=== PATIENT | female | born 1950 | race Caucasian/White ===

== ENCOUNTER 2021-12-29 14:07 | Emergency (ER) | payer MEDICARE, OTHER, SELFPAY ==
[2021-12-29 14:08] VITALS: BP 134/86; PULSE 83; RESP 18; TEMP 2.6; TEMP 36.7; O2SAT 92; BMI 27.8
[2021-12-29 15:19] VITALS: O2SAT 96
--- NOTE | 2021-12-29 15:31 | EDS_ITS ---
HPI History of Present Illness Chief Complaint: Shortness of Breath Informant: patient Onset/Context/Timing Onset: Days (5) Context: Gradual Onset Timing: Continuous Quality: malaise, cough, myalgias Current Severity: Moderate Maximum Severity: Moderate Worsened by: exertion Relieved by: rest Associated Symptoms Associated Symptoms ED: cough Narrative Narrative: Patient started having COVID symptoms, she is currently on day #5. She tested positive at home with a rapid test last night. She was vaccinated. She has history of heart disease, the last time she had was years ago, she is still on aspirin and clopidogrel. She denies any recent injury or any other illness. No travel out of the area. [facility] Medical History (Updated 12/29/21 @ 15:[address] Hilario Butler MD) Anxiety CAD (coronary artery disease) Depression GERD (gastroesophageal reflux disease) Hyperlipidemia Home Medications aspirin 325 mg PO DAILY@0800 06/20/13 [History Last Taken Unknown] atorvastatin 40 mg PO QHS 06/20/13 [History Last Taken Unknown] clopidogrel 75 mg PO DAILY 06/20/13 [History Last Taken Unknown] duloxetine 60 mg PO DAILY 06/20/13 [History Last Taken Unknown] esomeprazole magnesium [Nexium] 20 mg PO DAILY 06/20/13 [History Last Taken Unknown] metoprolol tartrate 25 mg PO DAILY 06/20/13 [History Last Taken Unknown] buspirone 15 mg PO BID PRN #0 tab 12/29/21 [Rx Last Taken Unknown] nirmatrelvir-ritonavir [Paxlovid (EUA)] See Rx Instructions .ROUTE .COMPLEX #30 tab 12/29/21 [Rx Last Taken Unknown] Allergy/AdvReac Type Severity Reaction Status Date / Time amoxicillin trihydrate Allergy Unknown Verified 12/29/21 14:14 [From Augmentin] potassium clavulanate Allergy Unknown Verified 12/29/21 14:14 [From Augmentin] bupropion HCl AdvReac Other Verified 12/29/21 14:14 [From Wellbutrin] Surgical History (Updated 12/29/21 @ 15:[address] Hilario Butler MD) H/O heart artery stent Social History Smoking Status: Current every day smoker tobacco type: cigarettes ROS ROS ED Constitutional Constitutional ED: Reports body ache(s), fatigue, fever(s) and malaise; Denies chills or headache(s) Eyes Eyes: Denies change in vision or diplopia ENT ENT ED: Reports nasal congestion and rhinorrhea; Denies sore throat Cardiovascular Cardiovascular: Denies chest pain or palpitations Respiratory/Chest Respiratory/Chest: Reports cough and dyspnea on exertion Gastrointestinal Gastrointestinal: Reports diarrhea; Denies abdominal pain, nausea or vomiting Genitourinary Genitourinary ED: Denies dysuria or hematuria Musculoskeletal Musculoskeletal: Denies back pain or neck pain Integumentary Denies abscess or rash Neurologic Neurologic: Denies headache(s), paresthesias or weakness Psychiatric Psychiatric: Denies anxiety or suicidal thoughts EXAM Physical Exam Const Vital Signs: 12/29/21 14:08 12/29/21 15:19 12/29/21 15:20 Temperature 36.7 F L Temperature Source Oral Pulse Rate 83 Respiratory Rate 18 Respiratory Effort Normal Non-Labored Respiratory Pattern Normal Blood Pressure 134/86 H Blood Pressure Mean 102 Pulse Ox 92 96 Oxygen Delivery Method Room Air Room Air Positive well nourished and well developed Constitutional Narrative: Well-appearing, no distress General Appearance ED: well developed and NAD HEENT Reports moist mucous membranes normocephalic and atraumatic Eyes PERRL and EOMs intact bilaterally Neck full ROM and supple Resp normal respiratory effort and clear to auscultation bilaterally Cardio regular rate, regular rhythm and no murmurs Rate: Negative for tachycardic GI non-tender and non-distended Auscultation: normoactive bowel sounds Palpation: soft Back/Spine no CVA tenderness General Back: other FROM Extremity normal to inspection and no calf tenderness General Extremety ED: Negative for edema, pulses abnormal or tenderness General Extremity: Negative for edema or pulses abnormal Neuro oriented x3, CN's II-XII intact bilaterally and no sensory deficits noted Sensorium / Orientation: awake and alert Motor Exam: strength 5/5 throughout Skin no rashes or lesions noted and no wounds MDM MDM MDM Narrative Medical decision making narrative: Confirmed positive COVID with a rapid test here so that we could get her medication under EUA. She qualifies for Paxil of it, and I made the appropriate medication adjustments. Her last stent was years ago so it would be safe for her to stop clopidogrel for 5 days. Her pulse ox here has mostly been 96-99% on room air. She has very mild dyspnea with exertion, she is not tachycardic, has no signs of a DVT. Do not think she needs to be tested for PE right now, chest x-ray whether it showed some mild patchy infiltrate or not would not change the course of treatment at this time which is supportive care at home with Paxlovid, with pt watching her pulse ox. She is comfortable w/ this plan. Discharge Plan Triage Chief Complaint: Shortness of Breath Other Complaint: Weakness ED Provider: Hilario Butler Dx/Rx/DC Orders Clinical Impression: COVID-19 Instructions: Coronavirus Disease 2019 (COVID-19): Caring for Yourself or Others Prescriptions: New Paxlovid (EUA) 150 mg x 2- 100 mg tablet See Rx Instructions .ROUTE .COMPLEX Qty: 30 RF: 0 Continued aspirin 325 MG tablet 325 mg PO DAILY@0800 RF: 0 esomeprazole magnesium [Nexium] 20 MG capsule 20 mg PO DAILY RF: 0 metoprolol tartrate 25 MG tablet 25 mg PO DAILY RF: 0 duloxetine 60 MG capsule 60 mg PO DAILY RF: 0 Changed buspirone 30 MG tablet 15 mg PO BID PRN (Reason: Anxiety) Qty: 0 RF: 0 Held atorvastatin 40 MG tablet 40 mg PO QHS RF: 0 Hold Instructions: Resume on 01/03/22. stop while on Paxlovid clopidogrel 75 MG tablet 75 mg PO DAILY RF: 0 Hold Instructions: Resume on 01/03/22. stop while on Paxlovid Discontinued hydrocodone-acetaminophen 1 TABLET tablet 1 tab PO Q6H PRN PRN (Reason: Pain) Qty: 20 RF: 0 nystatin 500,000 UNIT/5 ML suspension 500,000 unit PO 4X/DAY Qty: 300 RF: 0 fluconazole [Diflucan] 150 MG tablet 150 mg PO DAILY Qty: 2 RF: 0 Primary Care Provider: Marcella Fournier Referrals: Marcella Fournier MD [Primary Care Provider] - As Needed Activity Restrictions/Additional Instructions: Try to get a home portable pulse oximeter and closely watch your oxygen levels periodically. If you stay below 90% for more than a minute or so, and/or you are feeling like your breathing is getting worse, return to the emergency department for further evaluation. Disposition Disposition: Home, Self Care
[2021-12-29 17:04] VITALS: PULSE 86; O2SAT 97
== END 2021-12-29 17:38 | disposition home or self-care (01) ==
PROVIDERS: Emergency Provider Emergency Medicine; PCP Internal Medicine; Visit Provider Emergency Medicine
DX: U07.1 COVID-19 (principal); F17.210 Nicotine dependence, cigarettes, uncomplicated; I25.10 Atherosclerotic heart disease of native coronary artery without angina pectoris; Z95.5 Presence of coronary angioplasty implant and graft
CPT/HCPCS: 87811; 99282

== ENCOUNTER 2022-01-04 01:18 | Emergency (ER) | payer MEDICARE, OTHER, SELFPAY ==
[2022-01-04 01:19] VITALS: BP 164/74; PULSE 60; RESP 12; TEMP 36.5; O2SAT 97; BMI 27.4
--- NOTE | 2022-01-04 03:08 | RAD_ITS ---
EXAM: XR CHEST, 1 VIEW CLINICAL INDICATION: Confusion TECHNIQUE: Frontal view of the chest. This report was created using [employer] report generation technology. COMPARISON: 04/27/2017. FINDINGS: LUNGS AND PLEURAL SPACES: Subsegmental atelectasis left base. No pneumothorax. No effusion. HEART: Unremarkable. Cardiac silhouette not enlarged. MEDIASTINUM: Central airways and mediastinal contour are unremarkable. BONES/JOINTS: Moderate dextroscoliosis of the thoracic spine unchanged since previous exam. SOFT TISSUES: Unremarkable. RAD/Chest 1 View (Portable) IMPRESSION: 1. Subsegmental atelectasis left base. 2. No acute cardiopulmonary abnormality. Electronically Signed: Kolton Orozco MD at 3:46 EDT ,
--- NOTE | 2022-01-04 03:08 | CT_ITS ---
EXAM: CT HEAD WITHOUT INTRAVENOUS CONTRAST CLINICAL INDICATION: Confusion TECHNIQUE: Multiple axial images were obtained of the head without intravenous contrast. This CT exam was performed using one or more of the following dose reduction techniques: automated exposure control, adjustment of the mA and/or kV according to patient size, and/or use of iterative reconstruction technique. This report was created using [employer] report generation technology. RADIATION DOSE: CTDIvol = 44.99 mGy, DLP = 812.98 mGy-cm. COMPARISON: None. FINDINGS: BRAIN AND EXTRA-AXIAL SPACES: Mild generalized atrophy. Mild low density bilaterally in the deep white matter. No intra- or extra-axial hemorrhage. No evidence of acute infarct. No intracranial mass or mass effect. There is preservation of the magana/white matter interface. Posterior fossa structures are unremarkable. No hydrocephalus. Basal cisterns are patent. BONES/JOINTS: Unremarkable. No discrete lytic or blastic abnormalities. SINUSES: Unremarkable as visualized. Clear. MASTOID AIR CELLS: Unremarkable. Clear. ORBITS: Visualized globes, extraocular muscles, optic nerves and retrobulbar fat appear unremarkable. CT/Brain/Head without Contrast IMPRESSION: Mild generalized atrophy. Mild low density bilaterally in the deep white matter. This likely represents small vessel ischemic changes in the deep white matter. Electronically Signed: Kolton Orozco MD at 4:38 EDT ,
[2022-01-04 03:27] LABS: Absolute Lymphocyte Count 1.36 X10^3/uL (0.83-4.51); Absolute Neutrophil Count 2.9 X10^3/uL (2.0-7.7); Basophil# 0.03 X10^3/uL; Basophil% 0.6 % (0-1); Eosinophil# 0.24 X10^3/uL; Eosinophils% 4.8 % (0-5); Hematocrit 38.9 % (37-47); Hemoglobin 13.3 g/dL (12.0-15.0); Lymphocyte # 1.36 X10^3/ul (0.83-4.51); Lymphocyte % 26.9 % (19-41); Mean Corp Hgb Conc 34.2 g/dL (32-36); Mean Corpuscular Hgb 28.4 pg (27.0-32.0); Mean Corpuscular Volume 83.1 fL (81-99); Mean Platelet Vol. 10.3 fl (6.2-12.0); Monocyte# 0.48 X10^3/uL; Monocyte% 9.5 % (0-10); NRBC Flagged by Analyzer 0 % (0-5); Neutrophil # 2.91 X10^3/uL (2.7-7.7); Neutrophil % 57.6 % (47-70); Platelet Count 221 K/mm3 (150-450); RBC Distribution Width CV 14.5 % (11.6-14.6); RBC Distribution Width SD 43.8 fl (35.1-43.9); Red Blood Count 4.68 M/mm3 (4.2-5.4); White Blood Count 5.1 K/mm3 (4.4-11.0)
[2022-01-04 03:36] LABS: Prothrombin Time (Protime)PT. 12.4 SECONDS (11.7-14.9)
[2022-01-04 03:37] LABS: Partial Thromboplast Time 27.6 Seconds (24.1-36.2)
--- NOTE | 2022-01-04 03:41 | EDS_ITS ---
HPI History of Present Illness Chief Complaint: Alt LOC Informant: patient Onset/Context/Timing Onset: Today Context: Gradual Onset Timing: Continuous Quality: Confused Location: Generalized Worsened by: Nothing Relieved by: Nothing Narrative Narrative: Patient presents with episode of confusion that began tonight. Patient was driving and stopped her vehicle when she became confused. EMS states that the patient was having a blank stare upon their arrival. Patient t ested positive for COVID-19 approximately 6 days ago. Patient admits to some chills and sweats. Patient states she has been having some nausea, vomiting, and diarrhea. Patient denies any cough or shortness of breath. Patient denies any chest pain. Patient denies any dysuria or hematuria. [facility] Medical History Anxiety CAD (coronary artery disease) Depression GERD (gastroesophageal reflux disease) Hyperlipidemia Home Medications aspirin 325 mg PO DAILY@0800 06/20/13 [History Last Taken Unknown] atorvastatin 40 mg PO QHS 06/20/13 [History Last Taken Unknown] clopidogrel 75 mg PO DAILY 06/20/13 [History Last Taken Unknown] duloxetine 60 mg PO DAILY 06/20/13 [History Last Taken Unknown] esomeprazole magnesium [Nexium] 20 mg PO DAILY 06/20/13 [History Last Taken Unknown] metoprolol tartrate 25 mg PO DAILY 06/20/13 [History Last Taken Unknown] buspirone 15 mg PO BID PRN #0 tab 12/29/21 [Rx Last Taken Unknown] nirmatrelvir-ritonavir [Paxlovid (EUA)] See Rx Instructions .ROUTE .COMPLEX #30 tab 12/29/21 [Rx Last Taken Unknown] cephalexin 500 mg PO Q6 #20 capsule 01/04/22 [Rx Last Taken Unknown] Allergy/AdvReac Type Severity Reaction Status Date / Time amoxicillin trihydrate Allergy Unknown Verified 12/29/21 14:14 [From Augmentin] potassium clavulanate Allergy Unknown Verified 12/29/21 14:14 [From Augmentin] bupropion HCl AdvReac Other Verified 12/29/21 14:14 [From Wellbutrin] Surgical History H/O heart artery stent Social History Smoking Status: Current every day smoker tobacco type: cigarettes ROS ROS ED Constitutional Constitutional ED: Reports chills and sweats; Denies fever(s) Eyes Eyes: Denies blurry vision or change in vision ENT ENT ED: Denies rhinorrhea or sore throat Cardiovascular Cardiovascular: Denies chest pain or palpitations Respiratory/Chest Respiratory/Chest: Denies cough or dyspnea Gastrointestinal Gastrointestinal: Reports diarrhea, nausea and vomiting Genitourinary Genitourinary ED: Denies dysuria or hematuria Musculoskeletal Musculoskeletal: Reports back pain; Denies neck pain Integumentary Denies abscess or rash Neurologic Neurologic: Reports headache(s); Denies weakness Allergic/Immunologic Allergic/Immunologic ED: Denies mouth swelling or urticaria EXAM Physical Exam Const Vital Signs: 01/04/22 01:19 01/04/22 03:44 Temperature 97.7 F L Temperature Source Temporal Pulse Rate 60 62 Respiratory Rate 12 26 H Blood Pressure 164/74 H 165/74 H Blood Pressure Mean 104 104 Pulse Ox 97 93 Oxygen Delivery Method Room Air Room Air Positive well nourished and well developed General Appearance ED: well developed and NAD Neck supple and no JVD Resp normal respiratory effort Auscultation: diminished lung sounds diffuse Cardio regular rate and regular rhythm GI non-tender Palpation: soft Neuro CN's II-XII intact bilaterally and no sensory deficits noted Neuro Narrative: Patient is somewhat slow to answer questions. Sensorium / Orientation: alert, oriented to person, oriented to place and con fused Motor Exam: strength 5/5 throughout MDM MDM MDM Narrative Medical decision making narrative: Patient was given IV fluids. CT scan of the brain was obtained. There is no acute intracranial abnormality. This was interpreted by the radiologist and reviewed by myself. Portable 1 view chest x- ray was obtained. On my interpretation, lung nugent are clear. There is normal cardiac silhouette. Bony thorax is normal. There is no acute process noted. Radiologist also interpreted the x-ray and agrees. CBC was within normal limits. PT was INR and PTT were within normal limits. Comprehensive metabolic profile showed a BUN of 27 and creatinine of 1.21. Otherwise it was essentially within normal limits. Lactate was normal. Urinalysis shows positive urine nitrites with 5-10 white blood cells and 3+ bacteria. Urine culture was ordered. Patient was started on Keflex. Patient was instructed to follow-up with her primary care physician in 5 to 7 days. Patient understood and was agreeable with the plan. All questions were answered. Lab Data Attestation: I reviewed the patient's lab results. Labs: Laboratory Results - last 24 hr 01/04/22 01/04/22 01/04/22 03:00 03:00 03:00 WBC 5.1 RBC 4.68 Hgb 13.3 Hct 38.9 MCV 83.1 MCH 28.4 MCHC 34.2 RDW Std Deviation 43.8 RDW Coeff of [place] 14.5 Plt Count 221 MPV 10.3 Immature Gran % (Auto) 0.600 Neut % (Auto) 57.6 Lymph % (Auto) 26.9 Emanuel % (Auto) 9.5 Eos % (Auto) 4.8 Baso % (Auto) 0.6 Absolute Neuts (auto) 2.9 Absolute Lymphs (auto) 1.36 Nucleated RBC % 0 PT 12.4 INR 1.0 APTT 27.6 Sodium 135 L Potassium 3.3 L Chloride 101 Carbon Dioxide 27.0 Anion Gap 7 BUN 27 H Creatinine 1.21 H Estim Creat Clear Calc 33.24 Est GFR (MDRD) Af Amer 56 L Est GFR (MDRD) Non-Af 46 L BUN/Creatinine Ratio 22.3 H Glucose 104 Lactic Acid Calcium 8.7 Total Bilirubin 0.40 AST 19 ALT 18 Alkaline Phosphatase 74 Total Protein 6.5 Albumin 3.3 Globulin 3.2 Albumin/Globulin Ratio 1.0 Urine Color Urine Clarity Urine pH Ur Specific [place] Urine Protein Urine Glucose (UA) Urine Ketones Urine Occult Blood Urine Nitrite Urine Bilirubin Urine Urobilinogen Ur Leukocyte Esterase Urine RBC Urine WBC Ur Squamous Epith Cells Urine Bacteria Urine Mucus 01/04/22 01/04/22 03:27 04:20 WBC RBC Hgb Hct MCV MCH MCHC RDW Std Deviation RDW Coeff of [place] Plt Count MPV Immature Gran % (Auto) Neut % (Auto) Lymph % (Auto) Emanuel % (Auto) Eos % (Auto) Baso % (Auto) Absolute Neuts (auto) Absolute Lymphs (auto) Nucleated RBC % PT INR APTT Sodium Potassium Chloride Carbon Dioxide Anion Gap BUN Creatinine Estim Creat Clear Calc Est GFR (MDRD) Af Amer Est GFR (MDRD) Non-Af BUN/Creatinine Ratio Glucose Lactic Acid 0.3 L Calcium Total Bilirubin AST ALT Alkaline Phosphatase Total Protein Albumin Globulin Albumin/Globulin Ratio Urine Color Yellow Urine Clarity Sl. Cloudy Urine pH 6.0 Ur Specific [place] 1.015 Urine Protein Negative Urine Glucose (UA) Normal Urine Ketones Negative Urine Occult Blood Negative Urine Nitrite Positive H Urine Bilirubin Negative Urine Urobilinogen Normal Ur Leukocyte Esterase 25 H Urine RBC 0 SEEN Urine WBC 5-10 SEEN Ur Squamous Epith Cells 0-5 SEEN Urine Bacteria 3+ Urine Mucus 0 SEEN Radiography Diagnostic Testing: Clinical Impression(s) from Imaging Studies Brain CT 01/04/22 03:08 IMPRESSION: Mild generalized atrophy. Mild low density bilaterally in the deep white matter. This likely represents small vessel ischemic changes in the deep white matter. Electronically Signed: Kolton Orozco MD at 4:38 EDT , Chest X-Ray 01/04/22 03:08 IMPRESSION: 1. Subsegmental atelectasis left base. 2. No acute cardiopulmonary abnormality. Electronically Signed: Kolton Orozco MD at 3:46 EDT , Discharge Plan Triage Chief Complaint: Alt LOC ED Provider: Antoni Ramos Dx/Rx/DC Orders Clinical Impression: Urinary tract infection, COVID-19, Episode of confusion Instructions: Coronavirus Disease 2019 (COVID-19): Caring for Yourself or Others, ED Confusion, ED CYSTITIS Female Adult Prescriptions: New cephalexin [cephalexin] 500 MG capsule 500 mg PO Q6 Qty: 20 RF: 0 No Action atorvastatin 40 MG tablet 40 mg PO QHS RF: 0 Hold Instructions: Resume on 01/03/22. stop while on Paxlovid clopidogrel 75 MG tablet 75 mg PO DAILY RF: 0 Hold Instructions: Resume on 01/03/22. stop while on Paxlovid aspirin 325 MG tablet 325 mg PO DAILY@0800 RF: 0 esomeprazole magnesium [Nexium] 20 MG capsule 20 mg PO DAILY RF: 0 metoprolol tartrate 25 MG tablet 25 mg PO DAILY RF: 0 duloxetine 60 MG capsule 60 mg PO DAILY RF: 0 Paxlovid (EUA) 150 mg x 2- 100 mg tablet See Rx Instructions .ROUTE .COMPLEX Qty: 30 RF: 0 buspirone 30 MG tablet 15 mg PO BID PRN (Reason: Anxiety) Qty: 0 RF: 0 Primary Care Provider: Marcella Fournier Referrals: Marcella Fournier MD [Primary Care Provider] - Disposition Disposition: Home, Self Care
[2022-01-04 03:44] VITALS: BP 165/74; PULSE 62; RESP 26; O2SAT 93
[2022-01-04 04:24] LABS: Lactic Acid 0.3 mmol/L (0.4-1.9)
[2022-01-04 04:33] LABS: Mucous, Urine 0 SEEN /hpf (<or=2+); Red Blood Cells-Urine 0 SEEN /hpf (0-5)
[2022-01-04 04:40] LABS: Color, Urine Yellow (Yellow); Glucose, Dipstick Normal (Normal); Ketone-Dipstick Negative (Negative); Leukocyte Esterase-Dipstick 25 /ul (Negative); Nitrite-Dipstick Positive (Negative); Occult Blood-Urine Negative /ul (Negative); Protein-Dipstick Negative (Negative); Specific Gravity, Urine 1.015 (1.002-1.030); Urine Bilirubin Dipstick Negative (Negative); Urine Clarity Sl. Cloudy (Clear); Urine Urobilinogen Normal (Normal)
[2022-01-04 04:50] LABS: Bacteria 3+ /hpf (None Seen); Squamous Epithelial Cells - UA 0-5 SEEN /hpf (5-10); White Blood Cells 5-10 SEEN /hpf (0-5)
[2022-01-04 04:54] LABS: AST(SGOT) 19 U/L (15-37); Alanine Aminotransfer ALT/SGPT 18 U/L (13-56); Albumin, Serum 3.3 g/dL (3.2-5.0); Alkaline Phosphatase 74 U/L (45-117); Anion Gap 7 (5-15); BUN 27 mg/dL (7-18); BUN/Creat Ratio 22.3 RATIO (10-20); Calcium,Total 8.7 mg/dL (8.5-10.1); Chloride 101 mmol/L (98-107); Creatinine, Serum 1.21 mg/dL (0.55-1.02); EST Glomerular Filtration Rate 46 mL/min (>60); Est Glom Filt Rate - Afr Amer 56 mL/min (>60); Estimated Creatinine Clearance 33.24 ml/min; Globulin 3.2 g/dL (2.2-4.2); Glucose 104 mg/dL (74-106); Potassium 3.3 mmol/L (3.5-5.1); Protein, Total 6.5 g/dL (6.4-8.2); Sodium Level 135 mmol/L (136-145)
[2022-01-04] MEDS: Cephalexin 500 MG Capsule PO (05:45)
[2022-01-04 05:46] VITALS: RESP 18
== END 2022-01-04 06:17 | disposition home or self-care (01) ==
PROVIDERS: Emergency Provider Emergency Medicine; PCP Internal Medicine; Visit Provider Emergency Medicine
DX: N39.0 Urinary tract infection, site not specified (principal); U07.1 COVID-19; R41.0 Disorientation, unspecified; R11.2 Nausea with vomiting, unspecified; R19.7 Diarrhea, unspecified; E78.5 Hyperlipidemia, unspecified; I25.10 Atherosclerotic heart disease of native coronary artery without angina pectoris; K21.9 Gastro-esophageal reflux disease without esophagitis; F32.A Depression, unspecified; F41.9 Anxiety disorder, unspecified; Z79.82 Long term (current) use of aspirin; Z79.02 Long term (current) use of antithrombotics/antiplatelets; Z79.899 Other long term (current) drug therapy; F17.210 Nicotine dependence, cigarettes, uncomplicated
CPT/HCPCS: 70450; 71045; 80053; 81001; 83605; 85025; 85610; 85730; 87428; 96360; 96361; 99285; A4216

== ENCOUNTER 2024-01-07 15:38 | Emergency (ER) | payer MEDICARE, OTHER, SELFPAY ==
[2024-01-07 15:38] VITALS: BP 157/88; PULSE 98; RESP 14; TEMP 36.8; O2SAT 97; BMI 29.0
--- NOTE | 2024-01-07 16:29 | CT_ITS ---
INDICATION: left abd pain EXAMINATION: CT ABDOMEN AND PELVIS with CONTRAST - CT Abdomen And Pelvis W/ Contrast Injection TECHNIQUE: Multiple axial images were obtained of the abdomen and pelvis following administration of IV contrast. Planar reconstructions obtained. A radiation dose optimization technique was used for this scan. RADIATION DOSAGE (If Supplied By Facility): CTDIvol = ( 16.77 ) mGy, DLP = ( 891.30 ) mGycm IV Contrast dosage and agent: None. Oral contrast: None. COMPARISON: No pertinent previous studies for comparison.. FINDINGS: LOWER THORAX: Lungs are clear. Cardiac contour is normal, no pericardial effusion. No coronary vascular calcifications noted. HEPATOBILIARY: Liver: The liver is homogeneous and shows no evidence of focal lesion. Gallbladder: The gallbladder is unremarkable. Pancreas: Pancreas is normal size configuration and density. No mass is noted. Spleen: The spleen is homogeneous and normal in size. . BOWEL: Stomach: The stomach is normal in size configuration, no evidence of focal masses, abnormal calcifications. No hiatal hernia noted. Bowel: Small and large have normal configuration, no masses or bowel obstruction noted. Appendix: The visualized appendix has normal appearance.: GENITOURINARY: Adrenals: Both adrenal glands are normal in size. Kidneys: Kidneys appear symmetric in size. No calcifications are seen in the collecting system. There is no hydronephrosis or surrounding fluid. There is a prominent exophytic benign cyst arising from the anterior aspect of the LEFT kidney, measuring approximately 6.5 x 0.7 cm. No calcifications or evidence of obstructive uropathy. Bladder: Normal Pelvic organs: The visualized pelvic organs are normal in size and configuration. No masses or adenopathy noted. RETROPERITONEUM: Diffuse soft and calcified plaque with mild asymmetry throughout the abdominal aorta which is tortuous and mildly ectatic, maximal axial dimensions estimated at approximately 3.4 x 3.2 cm. LYMPH NODES: No evidence of retroperitoneal or para-aortic masses fluid collections or adenopathy. PERITONEAL CAVITY: No ascites noted ANTERIOR ABDOMINAL WALL: Normal, no hernia identified. BONES AND SOFT TISSUES: Diffuse lumbar levoscoliotic curvature. No acute bony changes. Postoperative changes involving the RIGHT hip status post RIGHT hip arthroplasty. No acute bony changes noted. OTHER: None CT/Abdomen/Pelvis W IV Cont ONLY IMPRESSION: 1. No masses bowel obstruction abscess free fluid or free air. No evidence of diverticulitis. 2. Benign-appearing Bosniak type I LEFT renal cyst, no follow-up necessary. 3. No renal calcification or obstructive uropathy. 4. No evidence cholelithiasis. 5. Diffusely ectatic abdominal aorta which is also has diffuse soft and calcified plaque. No focal aneurysm or dissection noted. Maximal dimension estimated 3.4 x 3.2 cm. 6. Extensive levoscoliotic curvature of the lumbar spine without acute bony changes. 7. RIGHT hip arthroplasty with normal alignment. Bosniak class I and II cysts are considered benign, and require no additional imaging follow-up based on consensus guidelines (JACR 2010; [id number]). Electronically Signed: Sergei Marin MD at 17:50 EDT ,
[2024-01-07] MEDS: 0.9% Normal Saline (500mL Bag) 500 ML 999 ML IV (16:41)
[2024-01-07 16:45] LABS: Absolute Lymphocyte Count 1.14 X10^3/uL (0.83-4.51); Absolute Neutrophil Count 7.7 X10^3/uL (2.0-7.7); Basophil# 0.05 X10^3/uL; Basophil% 0.5 % (0-1); Eosinophil# 0.27 X10^3/uL; Eosinophils% 2.7 % (0-5); Hematocrit 40.8 % (37-47); Hemoglobin 13.5 g/dL (12.0-15.0); Lymphocyte # 1.14 X10^3/ul (0.83-4.51); Lymphocyte % 11.5 % (19-41); Mean Corp Hgb Conc 33.1 g/dL (32-36); Mean Corpuscular Hgb 27.7 pg (27.0-32.0); Mean Corpuscular Volume 83.8 fL (81-99); Mean Platelet Vol. 10.2 fl (6.2-12.0); Monocyte# 0.74 X10^3/uL; Monocyte% 7.5 % (0-10); NRBC Flagged by Analyzer 0 % (0-5); Neutrophil # 7.69 X10^3/uL (2.7-7.7); Neutrophil % 77.4 % (47-70); Platelet Count 256 K/mm3 (150-450); RBC Distribution Width CV 14.7 % (11.6-14.6); RBC Distribution Width SD 45.1 fl (35.1-43.9); Red Blood Count 4.87 M/mm3 (4.2-5.4); White Blood Count 9.9 K/mm3 (4.4-11.0)
[2024-01-07 16:55] LABS: Mucous, Urine 0 SEEN /hpf (<or=2+); Red Blood Cells-Urine 0 SEEN /hpf (0-5)
[2024-01-07 16:58] LABS: Color, Urine Yellow (Yellow); Glucose, Dipstick Normal (Normal); Ketone-Dipstick Negative (Negative); Leukocyte Esterase-Dipstick 100 /ul (Negative); Nitrite-Dipstick Positive (Negative); Occult Blood-Urine 10 /ul (Negative); Protein-Dipstick 15 mg/dl (Negative); Urine Bilirubin Dipstick Negative (Negative); Urine Clarity Clear (Clear); Urine Urobilinogen Normal (Normal)
[2024-01-07 16:59] LABS: Anion Gap 7 (5-15); BUN 16 mg/dL (7-18); BUN/Creat Ratio 15.1 RATIO (10-20); Calcium,Total 9.4 mg/dL (8.5-10.1); Chloride 102 mmol/L (98-107); Creatinine, Serum 1.06 mg/dL (0.55-1.02); EST Glomerular Filtration Rate 54 mL/min (>60); Est Glom Filt Rate - Afr Amer 65 mL/min (>60); Estimated Creatinine Clearance 41.55 ml/min; Glucose 112 mg/dL (74-106); Potassium 3.9 mmol/L (3.5-5.1); Sodium Level 135 mmol/L (136-145)
[2024-01-07 17:12] LABS: Bacteria 2+ /hpf (None Seen); Squamous Epithelial Cells - UA 5-10 SEEN /hpf (5-10); White Blood Cells 5-10 SEEN /hpf (0-5)
--- NOTE | 2024-01-07 17:31 | ED.VIS.GI ---
HPI HPI - GI History of Present Illness Chief Complaint: Abd Pain Informant: patient Narrative Narrative: Sent in from PCP for progressive pain left side abdomen since yesterday. She has had multiple nonbloody bowel movements today. No fevers. No nausea or vomiting. Reports urine frequency. 3 years ago had a AAA open repair at [facility]. There is a surgical scar on that side. Saw her PCP had concerns for possible hernia. She was sent here for evaluation. She has had EGD and colonoscopies in the past. States her last colonoscopy was unable to be fully performed due to reported tortuous colon. She ended up with a barium swallow for which she did not like. Prior similar symptoms: No PFSH PFS Medical History Hyperlipidemia GERD (gastroesophageal reflux disease) Depression Anxiety CAD (coronary artery disease) Home Medications ?Medication ?Instructions ?Recorded ?Last Taken ?Type aspirin 325 mg tablet,delayed 325 mg PO DAILY@0800 06/20/13 Unknown History release atorvastatin 40 mg tablet 40 mg PO QHS 06/20/13 Unknown History clopidogrel 75 mg tablet 75 mg PO DAILY 06/20/13 Unknown History duloxetine 60 mg capsule,delayed 60 mg PO DAILY 06/20/13 Unknown History release esomeprazole magnesium 20 mg 20 mg PO DAILY 06/20/13 Unknown History capsule,delayed release (Nexium) metoprolol tartrate 25 mg tablet 25 mg PO DAILY 06/20/13 Unknown History buspirone 30 mg tablet 15 mg (1/2 x 30 mg) PO BID PRN 12/29/21 Unknown Rx Anxiety #0 tabs nirmatrelvir 300 mg (150 mg See Rx Instructions PO .COMPLEX 12/29/21 Unknown Rx x2)-ritonavir 100 mg tablet,dose #30 tabs pack (Paxlovid) cephalexin 500 mg capsule 500 mg PO Q6 #20 CAPSULES 01/04/22 Unknown Rx cefdinir 300 mg capsule 300 mg PO Q12H #14 caps 01/07/24 Unknown Rx ondansetron 4 mg disintegrating 4 mg PO Q8H PRN PRN Nausea #10 tabs 01/07/24 Unknown Rx tablet Allergy/AdvReac Type Severity Reaction Status Date / Time amoxicillin trihydrate (From Allergy Unknown Verified 01/07/24 15:39 Augmentin) potassium clavulanate (From Allergy Unknown Verified 01/07/24 15:39 Augmentin) bupropion HCl (From AdvReac Other Verified 01/07/24 15:39 Wellbutrin) Surgical History H/O heart artery stent Social History Smoking Status: Current every day smoker tobacco type: cigarettes ROS ROS ED Constitutional Constitutional ED: Denies chills, fever(s) or sweats Eyes Eyes: Denies change in vision ENT ENT ED: Denies dysphagia or sore throat Cardiovascular Cardiovascular: Denies chest pain, leg edema, palpitations or racing heartbeat Respiratory/Chest Respiratory/Chest: Denies cough, dyspnea or dyspnea on exertion Gastrointestinal Gastrointestinal: Reports abdominal pain; Denies diarrhea, nausea or vomiting Genitourinary Genitourinary ED: Denies dysuria, hematuria or urinary frequency Musculoskeletal Musculoskeletal: Denies back pain, extremity pain or neck pain Integumentary Denies rash or wounds Neurologic Neurologic: Denies headache(s), paresthesias or weakness EXAM Physical Exam Const Vital Signs: 01/07/24 15:38 01/07/24 17:38 01/07/24 19:00 Temperature 98.2 F Temperature Source Temporal Pulse Rate 98 74 Respiratory Rate 14 16 18 Blood Pressure 157/88 H 148/91 H Blood Pressure Mean 111 110 Pulse Ox 97 98 Oxygen Delivery Method Room Air Room Air 01/07/24 19:11 Temperature 98.2 F Temperature Source Pulse Rate 74 Respiratory Rate 19 H Blood Pressure 157/89 H Blood Pressure Mean 111 Pulse Ox 97 Oxygen Delivery Method Positive well nourished and well developed General Appearance ED: well developed and NAD HEENT Reports moist mucous membranes normocephalic and atraumatic Eyes EOMs intact bilaterally and conjunctivae normal General Eye ED: Yes normal appearance of both eyes Neck no lymphadenopathy and supple General: Negative for tenderness Chest Wall Chest: Negative for tenderness Resp normal respiratory effort and normal air movement Effort and Inspection: symmetric chest movement; Negative for respiratory distress Cardio regular rate, regular rhythm and no murmurs Peripheral Pulses: pulses 2+ throughout GI normal to inspection, nondistended, normoactive bowel sounds GI Narrative: Tenderness left side mid abdomen near the area of her incision I cannot palpate any masses. Negative Gifford's or McBurney's. No guarding or rebound. Palpation: Negative for guarding or rebound tenderness present Back/Spine no CVA tenderness and no thoracic nor lumbar tenderness Extremity normal to inspection General Extremety ED: Negative for edema or tenderness General Extremity: Negative for edema Neuro oriented x3 and no sensory deficits noted Sensorium / Orientation: awake and alert Skin no rashes or lesions noted and no wounds MDM MDM MDM Narrative Medical decision making narrative: Interventions / MDM: Differential diagnosis: Abdominal pain, UTI Diagnosis considered but do not suspect: Hernia however CT negative. Colitis however CT negative. Kidney stone however CT negative My EKG interpretation: N/A Imaging independently reviewed and interpreted by myself: CT abdomen pelvis: No obstructive uropathy a large left renal cyst.. No hernia noted. Abdominal ecstasia no rupture. External documents reviewed: N/A Test considered but not ordered:N/A ED course: Patient under left lateral mid abdomen. Basic labs were ordered, she given fluids. CT scan ordered for further evaluation. Basic labs are normal. Urine notes infection with nitrites leukocytes and bacteria. Urine culture sent she is covered Rocephin. CT scan negative for any acute process however did note a large left renal cyst this is in the region of her pain. They report this is benign per radiology. Not requiring any pain medicines. Prescription for antiemetics antibiotics for complicated UTI coverage. Outpatient follow-up given with urology. Return precautions. All questions were answered. Re-evaluation: stable Disposition discussed with patient/family/significant other: Patient Case discussed with consulting clinician: N/A This note was generated with [employer] SL dictation software. It may contain incorrect words, spelling, and punctuation that were not noted in checking the note before signing. Lab Data Attestation: I reviewed the patient's lab results. Labs: Laboratory Results - last 24 hr 01/07/24 01/07/24 15:51 16:45 WBC 9.9 RBC 4.87 Hgb 13.5 Hct 40.8 MCV 83.8 MCH 27.7 MCHC 33.1 RDW Std Deviation 45.1 H RDW Coeff of [place] 14.7 H Plt Count 256 MPV 10.2 Immature Gran % (Auto) 0.400 Neut % (Auto) 77.4 H Lymph % (Auto) 11.5 L Luce % (Auto) 7.5 Eos % (Auto) 2.7 Baso % (Auto) 0.5 Absolute Neuts (auto) 7.7 Absolute Lymphs (auto) 1.14 Nucleated RBC % 0 Sodium 135 L Potassium 3.9 Chloride 102 Carbon Dioxide 26.0 Anion Gap 7 BUN 16 Creatinine 1.06 H Estim Creat Clear Calc 41.55 Est GFR (MDRD) Af Amer 65 Est GFR (MDRD) Non-Af 54 L BUN/Creatinine Ratio 15.1 Glucose 112 H Calcium 9.4 Urine Color Yellow Urine Clarity Clear Urine pH 6.0 Ur Specific [place] 1.010 Urine Protein 15 H Urine Glucose (UA) Normal Urine Ketones Negative Urine Occult Blood 10 H Urine Nitrite Positive H Urine Bilirubin Negative Urine Urobilinogen Normal Ur Leukocyte Esterase 100 H Urine RBC 0 SEEN Urine WBC 5-10 SEEN Ur Squamous Epith Cells 5-10 SEEN Urine Bacteria 2+ Urine Mucus 0 SEEN Radiography Diagnostic Testing: Clinical Impression(s) from Imaging Studies Abdomen/Pelvis CT 01/07/24 16:29 IMPRESSION: 1. No masses bowel obstruction abscess free fluid or free air. No evidence of diverticulitis. 2. Benign-appearing Bosniak type I LEFT renal cyst, no follow-up necessary. 3. No renal calcification or obstructive uropathy. 4. No evidence cholelithiasis. 5. Diffusely ectatic abdominal aorta which is also has diffuse soft and calcified plaque. No focal aneurysm or dissection noted. Maximal dimension estimated 3.4 x 3.2 cm. 6. Extensive levoscoliotic curvature of the lumbar spine without acute bony changes. 7. RIGHT hip arthroplasty with normal alignment. Bosniak class I and II cysts are considered benign, and require no additional imaging follow-up based on consensus guidelines (JACR 2010; 7:753-773). Electronically Signed: Sergei Marin MD at 17:50 EDT , Discharge Plan Triage Chief Complaint: Abd Pain ED Provider: Mauri Carlson Dx/Rx/DC Orders Clinical Impression: Complicated UTI (urinary tract infection), Abdominal pain, Cyst of left kidney Instructions: Abdominal Pain, Urinary Tract Infections in Women Prescriptions: New cefdinir 300 mg capsule 300 mg PO Q12H Qty: 14 0RF ondansetron 4 mg tablet,disintegrating 4 mg PO Q8H PRN PRN (Reason: Nausea) Qty: 10 0RF No Action atorvastatin 40 MG tablet 40 mg PO QHS clopidogrel 75 MG tablet 75 mg PO DAILY aspirin 325 MG tablet 325 mg PO DAILY@0800 esomeprazole magnesium [Nexium] 20 MG capsule 20 mg PO DAILY metoprolol tartrate 25 MG tablet 25 mg PO DAILY duloxetine 60 MG capsule 60 mg PO DAILY Paxlovid 150 mg x 2- 100 mg tablet See Rx Instructions .ROUTE .COMPLEX Qty: 30 0RF Rx Instructions: take TWO 150 mg tablets of nirmatrelvir with ONE 100 mg tablet of ritonavir twice daily for 5 days buspirone 30 MG tablet 15 mg PO BID PRN (Reason: Anxiety) Qty: 0 0RF Rx Instructions: Take half dose while on Paxlovid cephalexin [cephalexin] 500 MG capsule 500 mg PO Q6 Qty: 20 0RF Primary Care Provider: Marcella Fournier Referrals: Akbar Guillermo MD [Med Staff - Active Staff] - 1-2 Weeks Marcella Fournier MD [Primary Care Provider] - 1-2 Weeks Activity Restrictions/Additional Instructions: 6.5 cm left renal cyst benign per radiology. No hernia. Urine with infection. Normal white count normal kidney function. Take and finish antibiotic as prescribed. Follow-up with urology. Print Language: Italian Disposition Disposition: Home, Self Care Discharge Date/Time: 01/07/24 19:12
[2024-01-07 17:38] VITALS: BP 148/91; PULSE 74; RESP 16; O2SAT 98
[2024-01-07] MEDS: Ceftriaxone 1 GM/50 ML BAG IV (18:45)
[2024-01-07 19:00] VITALS: RESP 18
[2024-01-07 19:11] VITALS: BP 157/89; PULSE 74; RESP 19; TEMP 36.8; O2SAT 97
== END 2024-01-07 19:12 | disposition home or self-care (01) ==
PROVIDERS: Emergency Provider Emergency Medicine; PCP Internal Medicine; Visit Provider Emergency Medicine
DX: N39.0 Urinary tract infection, site not specified (principal); N28.1 Cyst of kidney, acquired; F17.210 Nicotine dependence, cigarettes, uncomplicated; R10.9 Unspecified abdominal pain; E78.5 Hyperlipidemia, unspecified; K21.9 Gastro-esophageal reflux disease without esophagitis; I25.10 Atherosclerotic heart disease of native coronary artery without angina pectoris; Z79.82 Long term (current) use of aspirin; Z79.899 Other long term (current) drug therapy; F32.A Depression, unspecified; F41.9 Anxiety disorder, unspecified
CPT/HCPCS: 74177; 80048; 81001; 85025; 87077; 87086; 87088; 87186; 96361; 96365; 99283; J7030; Q9967

== ENCOUNTER 2025-02-17 16:12 | Emergency (ER) | payer MEDICARE, SELFPAY ==
[2025-02-17 16:12] VITALS: BP 134/88; PULSE 80; RESP 16; TEMP 36.3; O2SAT 98; BMI 28.3
--- NOTE | 2025-02-17 17:18 | CT_ITS ---
PROCEDURE: BRAIN/HEAD WITHOUT CONTRAST 02/17/2025 REASON FOR EXAM: FALL, HEADACHE TECHNIQUE: BRAIN/HEAD WITHOUT CONTRAST Coronal and Sagittal reconstruction series were provided. One or more dose reduction techniques were used (e.g., Automated exposure control, adjustment of the mA and/or kV according to patient size, use of iterative reconstruction technique. RADIATION DOSE SUMMARY: CTDlvol: 45 mGy DLP: 779 mGycm COMPARISON: CT head 01/04/2022 FINDINGS: Brain: No acute intracranial hemorrhage, mass effect, or midline shift. Tiny hypodensities in the right basal ganglia are unchanged. Extensive low density in the deep cerebral white matter most likely represents advanced chronic small vessel ischemic disease. CSF Spaces: Atrophy is most pronounced over the frontal lobes. Sinuses/Mastoids: Aerosolized secretions with air-fluid level in the left maxillary sinus. No mastoid effusion. Bones: No displaced calvarial fracture. No significant scalp hematoma. Atherosclerotic calcification of the intracranial arteries. Status post bilateral cataract extraction. CT/Brain/Head without Contrast IMPRESSION: No evidence of an acute intracranial abnormality. Senescent changes. Reading Location: [id number]
--- NOTE | 2025-02-17 17:20 | EX.ED.DYSGE1 ---
HPI History of Present Illness Chief Complaint: Lower Extremity Injury Narrative Narrative: Patient is a 74-year-old female with past medical history [place], CAD, depression, GERD, hyperlipidemia who presents to the emergency department chief complaint of left hip pain. Patient states that she fell about a week and a half ago while pulling weeds. States that she landed on her left hip and states that she thought the pain was getting better. She notes that today when she woke up she tried to get out of bed and noted that she had severe pain therefore she came here for further evaluation management. Patient states that she does have a headache and states that she has had headaches off and on since the fall about a week ago she states that she did hit her head at that time but states that she has been eating and drinking no vomiting since this event. States that she will take Tylenol for pain that will periodically make her headache better. [facility] Medical History Hyperlipidemia GERD (gastroesophageal reflux disease) Depression Anxiety CAD (coronary artery disease) Home Medications ?Medication ?Instructions ?Recorded ?Last Taken ?Type aspirin 325 mg tablet,delayed 325 mg PO DAILY@0800 06/20/13 Unknown History release clopidogrel 75 mg tablet 75 mg PO DAILY 06/20/13 Unknown History duloxetine 60 mg capsule,delayed 60 mg PO DAILY 06/20/13 Unknown History release esomeprazole magnesium 20 mg 20 mg PO DAILY 06/20/13 Unknown History capsule,delayed release (Nexium) buspirone 30 mg tablet 15 mg (1/2 x 30 mg) PO BID PRN 12/29/21 Unknown Rx Anxiety #0 tabs albuterol sulfate 90 mcg/actuation 2 puff inhalation Q4H PRN PRN 02/17/25 Unknown History aerosol inhaler wheezing atorvastatin 80 mg tablet 80 mg PO DAILY 02/17/25 Unknown History cyclobenzaprine 5 mg tablet 5 mg PO TID PRN muscle spasm #14 02/17/25 Unknown Rx tabs ezetimibe 10 mg tablet 10 mg PO DAILY 02/17/25 Unknown History fluticasone propionate 50 1 spray intranasal DAILY 02/17/25 Unknown History mcg/actuation nasal spray,suspension lidocaine 5 % topical patch 1 patch topical DAILY #15 ea 02/17/25 Unknown Rx (Lidoderm) lorazepam 0.5 mg tablet 0.5 mg PO BID PRN PRN anxiety 02/17/25 Unknown History methylprednisolone 4 mg tablets in See Rx Instructions PO .COMPLEX 02/17/25 Unknown Rx a dose pack #21 tabs metoprolol succinate 50 mg 50 mg PO DAILY 02/17/25 Unknown History tablet,extended release 24 hr ondansetron 4 mg disintegrating 4 mg PO Q6H PRN nausea and 02/17/25 Unknown Rx tablet vomiting #14 tabs oxycodone-acetaminophen 5 mg-325 1 tab PO Q6H PRN pain 3 days #12 02/17/25 Unknown Rx mg tablet (Endocet) tabs Allergy/AdvReac Type Severity Reaction Status Date / Time amoxicillin trihydrate (From Allergy Unknown Verified 02/17/25 16:14 Augmentin) potassium clavulanate (From Allergy Unknown Verified 02/17/25 16:14 Augmentin) bupropion HCl (From AdvReac Other Verified 02/17/25 16:14 Wellbutrin) Surgical History H/O heart artery stent Social History housing: house Smoking Status: Current every day smoker tobacco type: cigarettes ROS ROS ED ROS Narrative Constitutional: Complains of headache as noted above denies lightheadedness, dizziness, fevers, chills Eyes: Denies any changes with double vision blurry vision Cardiovascular: Denies chest pain Respiratory: Denies shortness of breath Abdomen: Denies nausea vomiting diarrhea : Denies urinary symptoms Neurological: Denies any numbness, aches, tingling Musculoskeletal: Complains of left hip pain as noted above Skin: Denies any rashes but states that she has several scattered bruises from the Plavix that she is on EXAM Physical Exam Narrative Exam Narrative: General: Patient is lying in bed resting comfortably did not appear to be in acute distress Head: Atraumatic, normocephalic Eyes: PERRL bilaterally, EOMI blood, no conjunctival injection noted Neck: Soft, supple, trachea midline Cardiovascular: Regular in rhythm no murmurs gallops rubs are noted Respiratory: Clear to auscultation bilaterally Abdomen: Soft, nondistended, nontender to palpation Musculoskeletal: Patient has some pain with attempted logroll in the left hip, patient has tenderness palpation over the left quadratus lumborum region no tenderness palpation midline of thoracolumbar spine although bony prominence palpated joints taken through full range of motion no pain elicited Extremities: +4/5 strength noted in the bilateral upper and lower extremities, radial pulses +2/4 in the bilateral extremities Neurological: Patient follow commands knew that she was at [facility] the year is 2024 Skin: Warm, dry, intact no rashes or lesions noted, patient has several scattered ecchymosis noted these all appear old Const Vital Signs: 02/17/25 16:12 02/17/25 20:12 Temperature 97.4 F L Temperature Source Oral Pulse Rate 80 77 Respiratory Rate 16 16 Blood Pressure 134/88 H 155/78 H Blood Pressure Mean 103 103 Pulse Ox 98 97 Oxygen Delivery Method Room Air Room Air MDM MDM MDM Narrative Medical decision making narrative: Patient is a 74-year-old female who presented to the emergency department the chief complaint of left hip pain and fall. On the differential diagnose includes but not limited to left hip fracture, lumbar compression fracture, intracranial hemorrhage. Once workup is obtained reviewed she will be reevaluated. Once again this all happened approximately a week and a half ago. 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 Patient lumbar spine reviewed which showed S-shaped curve of the thoracic and lumbar spine no definitive evidence of lumbar vertebral body height loss or displaced fracture multilevel degenerative changes with facet arthrosis most pronounced at L4-L5 and L5-S1 subjective osteopenia. Surgical clips projected throughout the abdomen and pelvis right hip arthroplasty noted. Patient ambulated in the emergency department she states that she is still having severe pain therefore a CT of the left hip was added on. This was reviewed that showed no evidence of pelvic fracture she has abdominal aortic aneurysm measuring up to 3.7 cm which is unchanged from 01/07/2024. On reevaluation the patient and she would like to go home. Patient given her pain is radiating down into her foot we will treat her for a herniated disc with multimodal pain therapy. She will be advised to rotate Tylenol and ibuprofen [id number] for mild to moderate pain. She will given a prescription for Endocet and Zofran for severe pain as well as muscle relaxers. Patient will be given steroid Dosepak.. She is advised to return with worsening symptoms or concerns. She is agreeable this plan all question concerns answered she was discharged home in stable condition. Radiography Diagnostic Testing: Clinical Impression(s) from Imaging Studies Brain CT 02/17/25 17:18 IMPRESSION: No evidence of an acute intracranial abnormality. Senescent changes. Reading Location: [id number] Hip/Pelvis X-Ray 02/17/25 17:40 IMPRESSION: 1. No displaced pelvic fracture. Consider CT if there is persistent clinical concern for nondisplaced fracture. 2. [id number] osteoarthritis of the left hip. Reading Location: [id number] Lumbar Spine X-Ray 02/17/25 17:40 IMPRESSION: There is S shaped curvature of the thoracic and lumbar spine which limits this evaluation. No definite evidence of lumbar vertebral body height loss or displaced fracture. Consider CT if there is heightened clinical concern. Multilevel degenerative changes, with facet arthrosis most pronounced at L4-5 and L5-S1. Subjective osteopenia. Surgical clips project throughout the abdomen and pelvis. Right hip arthroplasty incompletely imaged. Reading Location: [id number] Lower Extremity CT 02/17/25 20:[address]: 1[address] evidence of pelvic fracture. 2. Abdominal aortic aneurysm measuring up to 3.7 cm is partially imaged, unchanged from 01/07/2024. Reading Location: [id number] Discharge Plan Triage Chief Complaint: Lower Extremity Injury ED Provider: Hermilo Madrid Dx/Rx/DC Orders Prescriptions: New lidocaine [Lidoderm] 5 % adhesive patch,medicated 1 patch topical DAILY Qty: 15 0RF Rx Instructions: leave on most painful area for up to 12 hrs oxycodone-acetaminophen [Endocet] 5-325 mg tablet 1 tab PO Q6H PRN (Reason: pain) 3 Days Qty: 12 0RF ondansetron 4 mg tablet,disintegrating 4 mg PO Q6H PRN (Reason: nausea and vomiting) Qty: 14 0RF methylprednisolone 4 mg tablets,dose pack See Rx Instructions .ROUTE .COMPLEX Qty: 21 0RF Rx Instructions: for 6 days cyclobenzaprine 5 mg tablet 5 mg PO TID PRN (Reason: muscle spasm) Qty: 14 0RF No Action clopidogrel 75 MG tablet 75 mg PO DAILY aspirin 325 MG tablet 325 mg PO DAILY@0800 esomeprazole magnesium [Nexium] 20 MG capsule 20 mg PO DAILY duloxetine 60 MG capsule 60 mg PO DAILY buspirone 30 MG tablet 15 mg PO BID PRN (Reason: Anxiety) Qty: 0 0RF Rx Instructions: Take half dose while on Paxlovid atorvastatin 80 mg tablet 80 mg PO DAILY metoprolol succinate 50 mg tablet extended release 24 hr 50 mg PO DAILY lorazepam 0.5 mg tablet 0.5 mg PO BID PRN PRN (Reason: anxiety) albuterol sulfate 90 mcg/actuation HFA aerosol inhaler 2 puff inhalation Q4H PRN PRN (Reason: wheezing) fluticasone propionate 50 mcg/actuation spray,suspension 1 spray INTRANASAL DAILY ezetimibe 10 mg tablet 10 mg PO DAILY Primary Care Provider: Marcella Fournier Referrals: Marcella Fournier MD [Primary Care Provider] - Activity Restrictions/Additional Instructions: Your CT did not show evidence of a broken hip. We will use multimodal pain therapy and attempts to control your pain starting with rotating Tylenol and ibuprofen [id number] for mild to moderate pain. When you do this he can take something every 3 hours max dose of Tylenol in 24 hours 4000 mg max dose of ibuprofen in 24 hours 3200 mg. Use of muscle relaxer and Lidoderm patch as prescribed. Use the Endocet and Zofran for severe pain. Take steroids as prescribed. Return with worsening symptoms or any concerns. Do not operate anything of the influence of the narcotic or the muscle relaxer as these can make you sleepy and drowsy. Follow-up your doctor as well as in the outpatient setting. Print Language: Bolivian Disposition Disposition: Home, Self Care
--- OUTSIDE RECORDS SUMMARY | 2025-02-17 17:28 | XMS RPT_ITS | CCD ---
Author Organization [facility] CliniSyfl Care Team Providers Care Care Tech Name Role Phone MAYRA ELAINE Unavailable Unavailable MAYRA ELAINE Unavailable Unavailable Tanner Hook MD Primary Care Provider Esteban Mireles MDester Unavailable Chi BUCHANAN, Levester Unavailable Most RN, Shanna Unavailable Tanner Hook MD Primary Care Provider Chi BUCHANAN, Levester Unavailable Chi BUCHANAN, Levester Unavailable Most RN, Shanna Unavailable Chi BUCHANAN, Levester Unavailable Most RN, Shanna Unavailable Tanner Hook MD Primary Care Provider Chi BUCHANAN, Estebanester Unavailable [phone] Chi BUCHANAN, Levester Unavailable [phone] Most RN, Shanna Unavailable Most RN, Shanna Unavailable JONATHAN CHAN Attending Unavailable JONATHAN CHAN Admitting Unavailable TANNER HOOK Primary Care Unavailable Tanner Hook MD Primary Care Provider Mauri Carlson Attending Unavailable Tanner Hook Primary Care Unavailable Rubio RAIL CAR OPERATOR.SENIOR MANAGER QUALITY ASSURANCE, Baltazar Unavailable Bridget RAIL CAR OPERATOR.HEAVY EQUIPMENT SUPERVISOR, Ted Unavailable Bridget RAIL CAR OPERATOR.HEAVY EQUIPMENT SUPERVISOR, Ted Unavailable Rubio RAIL CAR OPERATOR.SENIOR MANAGER QUALITY ASSURANCE, Baltazar Unavailable RUBIO, BALTAZAR Referring Unavailable TALAMPAS, TANNER D Primary Care Unavailable RUBIO, BALTAZAR Referring Unavailable TALAMPAS, TANNER D Primary Care Unavailable RUBIO, BALTAZAR Referring Unavailable TALAMPAS, TANNER D Primary Care Unavailable TALAMPAS, TANNER D Referring Unavailable TALAMPAS, TANNER D Primary Care Unavailable TALAMPAS, TANNER D Attending Unavailable TALAMPAS, TANNER D Primary Care Unavailable BRIDGET, TED Attending Unavailable TALAMPAS, TANNER D Primary Care Unavailable TALAMPAS, TANNER D Primary Care Unavailable ROSMERY RODAS Referring Unavailable TALAMPAS, TANNER D Primary Care Unavailable DAMARIS OWENS Attending Unavailable TALAMPAS, TANNER D Primary Care Unavailable TALAMPAS, TANNER D Primary Care Unavailable DIANE GONZALEZ Referring Unavailable TALAMPAS, TANNER D Primary Care Unavailable RUBIO, BALTAZAR Attending Unavailable TALAMPAS, TANNER D Primary Care Unavailable Allergies Allergy Classification Reported Allergen(s) Allergy Type Date of Onset Reaction(s) Facility (20 sources) buPROPion; Translations: [BUPROPION HCL] Drug Allergy 10-31-19 08 Other [facility] Repository (20 sources) Doxycycline; Translations: [DOXYCYCLINE] Drug Allergy 07-28-20 13 Vomiting [facility] Repository (20 sources) levoFLOXacin; Translations: [LEVOFLOXACIN] Drug Allergy 07-11-20 13 Other: See Comments [facility] Repository (20 sources) Simvastatin; Translations: [SIMVASTATIN] Drug Allergy 10-17-19 10 Intolerance [facility] Repository (20 sources) AMOXICILLIN-POT CLAVULANATE; Translations: [AMOXICILLIN-POT CLAVULANATE] Propensity to adverse reactions to drug (disorder) 10-03-19 06 Hives [facility] Repository (3 sources) Amoxicillin; Translations: [amoxicillin trihydrate] Drug Allergy 12-30-19 Unknown [facility] Repository (3 sources) potassium clavulanate; Translations: [potassium clavulanate] Allergy to substance 12-30-19 Unknown [facility] Repository (20 sources) Sulfamethoxazole / Trimethoprim; Translations: [SULFAMETHOXAZOLE-T RIMETHOPRIM] Drug Allergy 01-13-20 22 GI Upset [facility] Work Phone: Medications Current Medications Medication Drug Class(es) Dates Sig (Normalized) Sig (Original) acetaminophen 500 mg / diphenhydrAMINE hydrochloride 25 mg oral tablet (20 sources) Histamine-1 Receptor Antagonist Start: 03-22-2020 take 2 tablets by mouth every twenty-four hours as needed diphenhydrAMINE- Acetaminophen 25-500 mg tab Take 2 tablets by mouth at bedtime as needed (sleep). 03/22/2020 Active Comment on above: Take 2 tablets by mo ut at bedtime as needed (sleep). [id number] actuat albuterol 0.09 mg/actuat metered dose inhaler (16 sources) beta2-Adrenergic Agonist Start: 07-03-2024 take 2 puff(s) by inhalation every four hours as needed for wheezing albuterol HFA (VENTOLIN HFA) 90 mcg/actuation inhaler Inhale 2 Puffs as instructed every 4 hours as needed for wheezing/shortne ss of breath. 1 Each 07/03/2024 Active aspirin 325 mg delayed release oral tablet (20 sources) Platelet Aggregation Inhibitor, Nonsteroidal Anti-inflammatory Drug Start: 06-20-2013 take 325 mg by mouth once daily Aspirin Active 325 MG PO DAILY@0800 June 20, 2013 1:03pm Start: 06-03-2010 take 1 tablet by nerissa once daily aspirin 325 mg ORAL tablet 1 Tab ORAL DAILY 30 Tab 0 06/03/2010 Active Comment on above: 1 Tab ORAL DAILY atorvastatin 80 mg oral tablet (20 sources) HMG-CoA Reductase Inhibitor Start: 07-20-2022 End: 11-06-2024 atorvastatin (LIPITOR) 80 mg tablet Indications: Mixed hyperlipidemia TAKE 1/2 TABLET ONE TIME DAILY 45 tablet 3 11/06/2024 Active Start: 07-29-2020 End: 07-07-2021 take 0.5 tablet by mouth once daily atorvastatin (LIPITOR) 80 mg tablet Indications: Mixed hyperlipidemia Take 0.5 tablets by mouth once daily. (Whole pill caused pain in legs) ID#[id number] 45 tablet 3 07/07/2021 Active Start: 07-29-2019 End: 07-17-2020 take 0.5 tablet by mouth once daily atorvastatin (LIPITOR) 80 mg tablet Indications: Mixed hyperlipidemia Take 0.5 tablets by mouth once daily. (Whole pill caused pain in legs) ID#[id number] 45 tablet 3 07/29/2019 07/17/2020 Discontinued Start: 06-20-2013 take 40 mg by mouth at bedtime Atorvastatin Active 40 MG PO AT BEDTIME June 20, 2013 1:03pm Comment on above: Take 0.5 tablets by mouth once daily. (Whole pill caused pain in legs) ID#[id number] TAKE 1/2 TABLET ONE TIME DAILY azithromycin 250 mg oral tablet (8 sources) Macrolide Antimicrobial Start: 08-14-2024 End: 08-22-2024 azithromycin (ZITHROMAX Z-YANNICK) 250 mg tablet Indications: COPD with exacerbation (HCC) Take 2 tablets day one, then, 1 tablet daily until gone. 6 tablet 08/17/2024 08/22/2024 Active Start: 06-21-2023 End: 06-26-2023 take 2 tablets by mouth once daily, then take 1 tablet by mouth once daily azithromycin (ZITHROMAX) 250 mg tablet Take 2 tablets by mouth once daily for 1 day, THEN 1 tablet once daily for 4 days. 6 tablet 0 06/21/2023 06/26/2023 Active Start: 09-04-2022 End: 09-09-2022 take 2 tablets by mouth once daily, then take 1 tablet by mouth once daily azithromycin (ZITHROMAX) 250 mg tablet Take 2 tablets by mouth once daily for 1 day, THEN 1 tablet once daily for 4 days. 6 tablet 0 09/04/2022 09/09/2022 Comment on above: Take 2 tablets by [facility] once daily for 1 day, THEN 1 tablet once daily for 4 days. busPIRone hydrochloride 30 mg oral tablet (20 sources) Start: 12-29-2021 take 0.5 dose by mouth twice daily Buspirone Active 15 MG PO TWICE A DAY 0 December 29, 2021 3:39pm Take half dose while on Paxlovid Start: 09-29-2019 End: 11-11-2020 busPIRone HCl 30 mg tablet [ The details of the medication are not available because there are pending changes by a home health clinician.] 180 tablet 3 09/29/2019 11/11/2020 Discontinued Start: 09-24-2015 End: 06-23-2024 take 1 tablet by mouth twice daily busPIRone HCl 30 mg tablet Take 1 tablet by mouth two times a day. As directed. ID#[id number] 180 tablet 3 06/23/2024 Active Comment on above: Take 1 tablet by nerissa th twice daily. As directed. ID#[id number] Take 1 tablet by nerissa th two times a day. As directed. ID#[id number] cefadroxil 500 mg oral capsule (5 sources) Cephalosporin Antibacterial Start: End: take 1 capsule by mouth twice daily cefADROxil (DURICEF) 500 mg capsule Indications: COPD with exacerbation (HCC) Take 1 capsule by mouth two times a day for 7 days. 14 capsule 08/17/2024 08/24/2024 Active Start: 07-11-2024 End: 07-21-2024 take 1 capsule by mouth twice daily cefADROxil (DURICEF) 500 mg capsule Take 1 capsule by mouth two times a day for 10 days. 20 capsule 07/11/2024 07/21/2024 Active cephalexin 500 mg oral capsule (1 source) Cephalosporin Antibacterial Start: 01-04-2022 take 500 mg by mouth every six hours Cephalexin Active 500 MG PO EVERY 6 HOURS January 04, 2022 5:22am clopidogrel 75 mg oral tablet (20 sources) [id number] Platelet Inhibitor Start: 07-20-2022 End: 11-06-2024 take 1 tablet by mouth once clopidogrel (PLAVIX) 75 mg tablet Take 1 tablet by mouth every afternoon. 90 tablet 3 11/06/2024 Active Start: 06-20-2013 End: 07-07-2021 take 1 tablet by mouth once daily clopidogrel (PLAVIX) 75 mg tablet Take 1 tablet by mouth once daily. 90 tablet 3 07/29/2019 07/17/2020 Discontinued Comment on above: Take 1 tablet by nerissa th once daily. take 1 tablet every day Take 1 tablet by nerissa th every afternoon. docusate sodium 100 mg oral capsule (18 sources) Start: 06-23-20 take 1-2 capsules by mouth once daily as needed for constipation docusate sodium (COLACE) 100 mg capsule Take 1-2 capsules by mouth once daily as needed for constipation. 60 capsule 5 06/23/2024 Active DULoxetine 60 mg delayed release oral capsule (20 sources) Serotonin and Norepinephrine Reuptake Inhibitor Start: 07-20-20 End: 11-07-19 take 1 capsule by mouth once daily DULoxetine (CYMBALTA) 60 mg capsule Indications: Recurrent major depression in partial remission Take 1 capsule by mouth once daily. 90 capsule 3 11/06/2024 Active Start: 06-20-2013 End: 07-07-2021 take 1 capsule by mouth once daily DULoxetine (CYMBALTA) 60 mg capsule Indications: Recurrent major depression in partial remission (HCC) Take 1 capsule by mouth once daily. 90 capsule 3 07/29/2019 07/17/2020 Discontinued Comment on above: Take 1 capsule by mo uth once daily. TAKE 1 CAPSULE EVERY DAY ELDERBERRY FRUIT (20 sources) ELDERBERRY FRUIT ORAL Take by mouth once daily. Active ELDERBERRY FRUIT ORAL Take by mouth once daily. 0 Active Comment on above: Take by mouth once d aily. esomeprazole 20 mg delayed release oral capsule (20 sources) Proton Pump Inhibitor Start: 06-20-20 take 1 capsule by mouth once daily esomeprazole (NEXIUM) 20 mg capsule Indications: Gastroesophageal reflux disease, esophagitis presence not specified Take 1 capsule by mouth once daily. 04/20/2017 Active Comment on above: Take 1 capsule by mo [facility] once daily. ezetimibe 10 mg oral tablet (20 sources) Dietary Cholesterol Absorption Inhibitor Start: 07-20-20 End: 11-07-19 take 1 tablet by mouth once ezetimibe (ZETIA) 10 mg tablet Indications: Mixed hyperlipidemia Take 1 tablet by mouth every afternoon. 90 tablet 3 11/06/2024 Active Start: 07-29-2020 End: 07-07-2021 take 1 tablet by mouth once daily ezetimibe (ZETIA) 10 mg tablet Indications: Mixed hyperlipidemia Take 1 tablet by mouth once daily. 90 tablet 3 07/07/2021 Active Start: 07-29-2019 End: 07-17-2020 take 1 tablet by mouth once daily ezetimibe (ZETIA) 10 mg tablet Indications: Mixed hyperlipidemia Take 1 tablet by mouth once daily. 90 tablet 3 07/29/2019 07/17/2020 Discontinued Comment on above: Take 1 tablet by nerissa th once daily. take 1 tablet every day Take 1 tablet by nerissa th every afternoon. fluticasone propionate 0.05 mg/actuat metered dose nasal spray (20 sources) Corticosteroid Start: 3 End: take 1 spray(s) nasal route once daily fluticasone (FLONASE ALLERGY RELIEF) 50 mcg/actuation nasal spray Indications: Non-seasonal allergic rhinitis, unspecified trigger Use 1 spray in each nostril once daily. 1 each 5 01/15/2025 Active Start: 10-18-2021 End: 01-12-2022 take 2 spray(s) by mouth once daily fluticasone (FLONASE) 50 mcg/actuation nasal spray Use 2 Sprays in each nostril once daily. Rinse mouth after use. 9.9 mL 0 10/18/2021 01/12/2022 Discontinued (Other) Comment on above: Use 2 Sprays in each nostril once daily. Rinse mouth after use. Use 1 [place] in each nostril once daily. gabapentin 100 mg oral capsule (18 sources) Anti-epileptic Agent Start: 06-23-2024 End: 09-21-2024 take 1 capsule by mouth once daily at bedtime gabapentin (NEURONTIN) 100 mg capsule Take 1 capsule by mouth daily at bedtime for 90 days. 30 capsule 2 06/23/2024 Active 12 hr guaiFENesin 600 mg extended release oral tablet (5 sources) Start: 07-11-2024 End: 07-18-2024 take 1 tablet by mouth twice daily as needed guaiFENesin (MUCINEX) 600 mg 12 hr tablet Take 1 tablet by mouth two times a day as needed for cold/allergy symptoms (cough) for up to 7 days. 14 tablet 07/11/2024 07/18/2024 Active Start: 10-18-2021 End: 01-12-2022 take 2 tablets by mouth twice daily guaiFENesin (MUCINEX) 600 mg 12 hr tablet Take 2 tablets by mouth twice daily. 24 tablet 0 10/18/2021 01/12/2022 Discontinued (Other) Comment on above: Take 2 tablets by mo [facility] twice daily. LORazepam 0.5 mg oral tablet (20 sources) Benzodiazepine Start: 3 End: take 1 tablet by mouth twice daily as needed for anxiety LORazepam (ATIVAN) 0.5 mg Indications: Encounter for long-term current use of medication , Other specified anxiety disorders Take 1 tablet by mouth two times a day as needed (anxiety) for up to 90 days. 60 tablet 2 01/15/2025 04/15/2025 Active Start: 08-01-2021 End: 01-04-2023 take 1 tablet by mouth twice daily as needed for anxiety LORazepam (ATIVAN) 0.5 mg Indications: Other specified anxiety disorders Take 1 tablet by mouth twice daily as needed (anxiety) for up to 90 days. 60 tablet 2 09/04/2022 01/04/2023 Discontinued Start: 04-01-2021 End: 04-21-2021 take 1 tablet by mouth twice daily as needed for anxiety LORazepam (ATIVAN) 0.5 mg Indications: Other specified anxiety disorders Take 1 tablet by mouth twice daily as needed (anxiety) for up to 30 days. 60 tablet 04/01/2021 04/21/2021 Discontinued Start: 06-16-2020 End: 07-17-2020 take 1 tablet by mouth twice daily as needed for anxiety LORazepam (ATIVAN) 0.5 mg Indications: Other specified anxiety disorders Take 1 tablet by mouth twice daily as needed (anxiety) for up to 60 days. 60 tablet 1 06/16/2020 07/17/2020 Discontinued Comment on above: Take 1 tablet by nerissa th twice daily as needed (anxiety) for up to 90 days. Do not start before August 01, 2021. Take 1 tablet by nerissa th twice daily as needed (anxiety) for up to 90 days. Take 1 tablet by nerissa th twice daily as needed (anxiety) for up to 90 days. Do not start before February 07, 2023. 24 hr metoprolol succinate 50 mg extended release oral tablet (20 sources) beta-Adrenergic [place] Start: End: take 1 tablet by mouth once daily metoprolol succinate ER (TOPROL XL) 50 mg 24 hr tablet Indications: Mixed hyperlipidemia , ASCVD (arteriosclerotic cardiovascular disease) Take 1 tablet by mouth once daily. 90 tablet 3 11/06/2024 Active Start: 07-20-2022 End: 06-23-2024 take 1 tablet by mouth once daily metoprolol succinate ER (TOPROL XL) 25 mg 24 hr tablet Indications: Mixed hyperlipidemia , ASCVD (arteriosclerotic cardiovascular disease) Take 1 tablet by mouth once daily. 90 tablet 3 06/29/2023 06/23/2024 Discontinued Start: 07-29-2020 End: 07-07-2021 take 1 tablet by mouth once daily metoprolol succinate ER (TOPROL XL) 25 mg 24 hr tablet Indications: Mixed hyperlipidemia , ASCVD (arteriosclerotic cardiovascular disease) Take 1 tablet by mouth once daily. ID#[id number] 90 tablet 3 07/07/2021 Active Start: 07-29-2019 End: 07-17-2020 take 1 tablet by mouth once daily metoprolol succinate ER (TOPROL XL) 25 mg 24 hr tablet Indications: Mixed hyperlipidemia , ASCVD (arteriosclerotic cardiovascular disease) Take 1 tablet by mouth once daily. ID#[id number] 90 tablet 3 07/29/2019 07/17/2020 Discontinued Start: 06-20-2013 take 25 mg by mouth once daily Metoprolol Tartrate Active 25 MG PO DAILY June 20, 2013 1:03pm Comment on above: Take 1 tablet by nerissa th once daily. ID#[id number] TAKE 1 TABLET ONE TI ME DAILY Take 1 tablet by nerissa th once daily. molnupiravir 200 mg capsule (5 sources) Start: 06-19-20 End: 06-24-20 take 4 capsules by mouth twice daily molnupiravir 200 mg capsule Indications: URI, acute Take 4 capsules by mouth two times a day for 5 days. 40 capsule 0 06/19/2023 06/24/2023 Active Start: 06-19-2023 End: 06-19-2023 take 4 capsules by mouth twice daily molnupiravir 200 mg capsule Indications: URI, acute Take 4 capsules by mouth two times a day for 5 days. 40 capsule 0 06/19/2023 06/19/2023 Discontinued Comment on above: Take 4 capsules by m outh two times a day for 5 days. Nirmatrelvir-Ritonavir (2 sources) Start: 12-29-2021 Nirmatrelvir-Ritonavir (Paxlovid (Eua)) 150 mg x 2- 100 mg tablet Active 0 PO .COMPLEX December 29, 2021 3:36pm take TWO 150 mg tablets of nirmatrelvir with ONE 100 mg tablet of ritonavir twice daily for 5 days nitroglycerin 0.4 mg sublingual tablet (20 sources) Nitrate Vasodilator Start: 07-06-2018 End: 06-23-2024 nitroglycerin sublingual (NITROQUICK) 0.4 mg SL tablet Indications: ASCVD (arteriosclerotic cardiovascular disease) DISSOLVE ON TONGUE FOR CHEST PAIN. May repeat every 5 minutes up to total 3 doses. IF NO PAIN RELIEF, CALL 911 25 tablet 1 06/23/2024 Active Comment on above: DISSOLVE ON TONGUE F OR CHEST PAIN. May repeat every 5 minutes up to total 3 doses. IF NO PAIN RELIEF, CALL 911 triamcinolone acetonide 1 mg/ml topical cream (8 sources) Corticosteroid Start: 11-23-2022 End: 11-30-2022 triamcinolone acetonide (KENALOG) 0.1 % cream Apply 1 application to affected area three times daily for 7 days. Apply sparingly to area for rash/itching. 80 g 0 11/23/2022 11/30/2022 Active Start: 03-26-2022 End: 01-04-2023 triamcinolone (KENALOG) 0.02 5 % cream Indications: Rash Apply 1 application to affected area twice daily. 30 g 0 03/26/2022 01/04/2023 Discontinued Comment on above: Apply 1 application to affected area twice daily. Apply 1 application to affected area three times daily for 7 days. Apply sparingly to area for rash/itching. Completed/Discontinued Medications Medication Drug Class(es) Dates Sig (Normalized) Sig (Original) acetaminophen 325 mg / HYDROcodone bitartrate 5 mg oral tablet (2 sources) Opioid Agonist Start: 09-24-2015 End: 12-29-2021 take 1 tablet by mouth every six hours as needed Hydrocodone-Acetam inophen Discontinued 1 TABLET PO EVERY 6 HOURS NEEDED September 24, 2015 12:37pm December 29, 2021 3:37pm causes drowsiness benzonatate 100 mg oral capsule (16 sources) Non-narcotic Antitussive Start: 07-03-2024 End: 01-15-2025 take 2 capsules by mouth three times daily as needed for cough benzonatate (TESSALON PERLE) 100 mg capsule Indications: COPD with exacerbation (HCC) Take 2 capsules by mouth three times a day as needed for cough. 60 capsule 08/17/2024 01/15/2025 Discontinued (Course of therapy completed) betamethasone 3 mg/ml / betamethasone acetate 3 mg/ml injectable suspension (2 sources) Corticosteroid Start: 11-17-2021 End: 11-17-2021 betamethasone acetate-betamethas one sodium phosphate 6 mg injection (CELESTONE) Start: 11-17-2021 End: 11-17-2021 betamethasone acetate-betame thasone sodium phosphate 6 mg injection (CELESTONE) ciprofloxacin 500 mg oral tablet (1 source) Quinolone Antimicrobial Start: 01-12-2022 End: 01-19-2022 take 1 tablet by mouth twice daily, then take 1 tablet by mouth twice daily ciprofloxacin HCl (CIPRO) 500 mg tablet Indications: Urinary frequency Take 1 tablet by mouth twice daily for 7 days. 1 BY MOUTH BID FOR 10 DAYS 14 tablet 0 01/12/2022 01/19/2022 Comment on above: Take 1 tablet by nerissa twice daily for 7 days. 1 BY MOUTH BID FOR 10 DAYS clobetasol propionate 0.5 mg/ml topical cream (12 sources) Corticosteroid Start: 12-25-2022 End: 07-12-2023 clobetasol (TEMOVATE) 0.05 % cream Apply 1 application to affected area twice daily. To arms 0 12/25/2022 07/12/2023 Discontinued (Course of therapy completed) Comment on above: Apply 1 application to affected area twice daily. To arms diclofenac sodium 0.01 mg/mg topical gel (4 sources) Nonsteroidal Anti-inflammatory Drug Start: 04-21-2021 End: 01-12-2022 diclofenac (VOLTAREN ARTHRITIS PAIN) 1 % topical gel Apply 4 gm to bilateral knees and 2 gm to right shoulder up to 4 times a day as needed 100 g 1 04/21/2021 01/12/2022 Discontinued Comment on above: Apply 4 gm to bilate ral knees and 2 gm to right shoulder up to 4 times a day as needed enteric contrast (will be provided with radiology test) (2 sources) Start: 08-17-2024 End: 08-18-2024 enteric contrast (will be provided with radiology test) Indications: Status post abdominal aortic aneurysm (AAA) repair , Left upper quadrant abdominal pain For CT ABD/PEL W IVCON Routine order Administer, As Directed One Time Only, via Oral, Rectal, both Oral and Rectal, Enteric Tube, Stoma or Indwelling Catheter, Enteric Contrast as designated per enteric contrast guidelines 1 Each 08/17/2024 08/18/2024 Start: 08-17-2024 End: 08-18-2024 enteric contrast (will be pr ovided with radiology test) Indications: Status post abdominal aortic aneurysm (AAA) repair , Left upper quadrant abdominal pain For CT ABD/PEL W IVCON Routine order Administer, As Directed One Time Only, via Oral, Rectal, both Oral and Rectal, Enteric Tube, Stoma or Indwelling Catheter, Enteric Contrast as designated per enteric contrast guidelines 1 Each 08/17/2024 08/18/2024 Active ergocalciferol 1.25 mg oral capsule (20 sources) Provitamin D2 Compound Start: 10-06-2022 End: 01-07-2024 take 1 capsule by mouth every other week ergocalciferol 50,000 unit capsule (VITAMIN D2, DRISDOL) Indications: Mixed hyperlipidemia Take 1 capsule by mouth every other week. 0 10/06/2022 01/07/2024 Discontinued Start: 02-16-2020 End: 10-06-2022 take 1 capsule by mouth every week ergocalciferol 50,000 unit capsule (VITAMIN D2, DRISDOL) Indications: Mixed hyperlipidemia Take 1 capsule by mouth one time a week. 12 capsule 4 03/07/2021 05/18/2022 Discontinued Comment on above: Take 1 capsule by mo uth one time a week. Take 1 capsule by mo uth every other week. fluconazole 150 mg oral tablet (2 sources) Azole Antifungal Start: 04-27-20 End: 12-30-19 22 Fluconazole (Diflucan) 150 MG tablet Discontinued 150 MG PO DAILY 2 April 27, 2017 7:42pm December 29, 2021 3:37pm take 1 on day 1 then repeat at 72 hours hydrOXYzine hydrochloride 25 mg oral tablet (20 sources) Antihistamine Start: 01-05-20 End: 08-14-19 take 1 tablet by mouth every eight hours as needed hydrOXYzine HCl (ATARAX) 25 mg tablet Take 1 tablet by mouth three times daily as needed. 60 tablet 1 01/04/2023 08/14/2024 Discontinued Start: 11-23-2022 End: 11-28-2022 take 1 tablet by mouth every eight hours as needed hydrOXYzine HCl (ATARAX) 25 mg tablet Take 1 tablet by mouth three times daily as needed for up to 5 days. 15 tablet 0 11/23/2022 11/28/2022 Active Comment on above: Take 1 tablet by nerissa th three times daily as needed for up to 5 days. Take 1 tablet by nerissa th three times daily as needed. 24 hr isosorbide mononitrate 30 mg extended release oral tablet (2 sources) Nitrate Vasodilator Start: 4 End: 4 take 1 tablet by mouth once daily isosorbide mononitrate ER (IMDUR) 30 mg 24 hr tablet Take 1 tablet by mouth once daily. 30 tablet 3 08/27/2023 10/04/2023 Discontinued (Course of therapy completed) Comment on above: Take 1 tablet by nerissa th once daily. iv contrast (will be provided with radiology test) (2 sources) Start: 5 End: iv contrast (will be provided with radiology test) Indications: Status post abdominal aortic aneurysm (AAA) repair , Left upper quadrant abdominal pain CT ABD/PEL -Inject, intravenously, once for 1 dose.No IV access, insert saline lock prior to the beginning of sedation, infusion, injection of imaging exam. Discontinue saline lock post exam. If Pt. has a central line or IVAD, may access for administration according to line specific nursing protocol. Once exam is complete flush line and de-access according to line specific nursing protocol in the CT contrast administration guidelines link. 1 Each 08/17/2024 08/18/2024 Start: 08-17-2024 End: 08-18-2024 iv contrast (will be provide d with radiology test) Indications: Status post abdominal aortic aneurysm (AAA) repair , Left upper quadrant abdominal pain CT ABD/PEL -Inject, intravenously, once for 1 dose.No IV access, insert saline lock prior to the beginning of sedation, infusion, injection of imaging exam. Discontinue saline lock post exam. If Pt. has a central line or IVAD, may access for administration according to line specific nursing protocol. Once exam is complete flush line and de-access according to line specific nursing protocol in the CT contrast administration guidelines link. 1 Each 08/17/2024 08/18/2024 Active 10 ml lidocaine hydrochloride 10 mg/ml injection (2 sources) Antiarrhythmic, Amide Local Anesthetic Start: 11-17-2021 End: 11-17-2021 lidocaine (PF) 10 mg/mL (1 %) 4 mL injection (XYLOCAINE) Start: 11-17-2021 End: 11-17-2021 lidocaine (PF) 10 mg/mL (1 % ) 4 mL injection (XYLOCAINE) nystatin 194883 unt/ml oral suspension (2 sources) Polyene Antifungal Start: 04-27-2017 End: 12-29-2021 take [id number] [IU] by mouth four times daily Nystatin Discontinued [id number] UNIT PO 4 TIMES DAILY 300 April 27, 2017 7:42pm December 29, 2021 3:36pm swish and spit predniSONE 10 mg oral tablet (13 sources) Start: 08-14-2024 End: 01-15-2025 predniSONE (DELTASONE) 10 mg tablet Take 4 tabs daily for 3 days, then 2 tabs daily for 3 days, then 1 tab daily for 3 days with food. 21 tablet 08/14/2024 01/15/2025 Discontinued (Course of therapy completed) Start: 07-03-2024 End: 07-08-2024 take 2 tablets by mouth once daily predniSONE (DELTASONE) 20 mg tablet Take 2 tablets by mouth once daily for 5 days. 10 tablet 07/03/2024 07/08/2024 Active Start: 11-23-2022 End: 12-02-2022 predniSONE (DELTASONE) 10 mg tablet Take 4 tabs daily for 3 days, then 2 tabs daily for 3 days, then 1 tab daily for 3 days with food. 21 tablet 0 11/23/2022 12/02/2022 Active Start: 03-26-2022 End: 04-04-2022 predniSONE (DELTASONE) 10 mg tablet Indications: Rash Take 4 tabs daily for 3 days, then 2 tabs daily for 3 days, then 1 tab daily for 3 days with food. 21 tablet 0 03/26/2022 04/04/2022 Active Comment on above: Take 4 tabs daily fo r 3 days, then 2 tabs daily for 3 days, then 1 tab daily for 3 days with food. zolpidem tartrate 10 mg oral tablet (5 sources) gamma-Aminobutyri c Acid-ergic Agonist Start: 04-01-2021 End: 01-12-2022 take 1 tablet by mouth every 30 days at bedtime as needed zolpidem (AMBIEN) 10 mg Indications: Sleep pattern disturbance , Persistent disorder of initiating or maintaining sleep Take 1 tablet by mouth at bedtime as needed for up to 30 days. FOR INSOMNIA ID#[id number] 30 tablet 04/01/2021 01/12/2022 Discontinued (Other) Start: 06-16-2020 End: 07-17-2020 take 1 tablet by mouth at bedtime as needed zolpidem (AMBIEN) 10 mg Indications: Sleep pattern disturbance , Persistent disorder of initiating or maintaining sleep Take 1 tablet by mouth at bedtime as needed for up to 60 days. FOR INSOMNIA ID#[id number] 60 tablet 1 06/16/2020 07/17/2020 Discontinued Comment on above: Take 1 tablet by nerissa th at bedtime as needed for up to 30 days. FOR INSOMNIA ID#[id number] Problems Active Problems Problem Classification Problem Date Documented Da te Episodic/Chronic Anxiety disorders (20 sources) Anxiety disorder; Translations: [Anxiety disorder, unspecified] Onset: 6 Resolved: 5 05-05-2015 Chronic Aortic; peripheral; and visceral artery aneurysms (20 sources) Abdominal aortic aneurysm without rupture; Translations: [Abdominal aortic aneurysm (AAA) without rupture] Onset: 3 Resolved: 0 02-02-2023 Chronic Chronic kidney disease (19 sources) Chronic kidney disease stage 3A ; Translations: [Stage 3a chronic kidney disease (HCC)] Onset: 4 06-23-2024 Chronic Chronic kidney disease (1 source) Chronic kidney disease; Translations: [Stage 3a chronic kidney disease (HCC)] Onset: 4 Chronic obstructive pulmonary disease and bronchiectasis (20 sources) Chronic bronchitis; Translations: [Unspecified chronic bronchitis] Onset: 0 04-01-2020 Chronic Chronic obstructive pulmonary disease and bronchiectasis (1 source) Bronchitis; Translations: [Bronchitis, not specified as acute or chronic] 07-03-2024 Episodic Coronary atherosclerosis and other heart disease (20 sources) History of non-ST segment elevation myocardial infarction; Translations: [Old myocardial infarction] Onset: 0 Resolved: 4 07-15-2020 Chronic Diabetes mellitus without complication (20 sources) Disorder of glucose metabolism; Translations: [Other abnormal glucose] Onset: 0 10-20-2019 Episodic Disorders of lipid metabolism (20 sources) Mixed hyperlipidemia; Translations: [Mixed hyperlipidemia] Onset: 0 03-10-2020 Chronic Esophageal disorders (20 sources) Gastroesophageal reflux disease; Translations: [Gastro-esophageal reflux disease without esophagitis] Onset: 6 02-29-2020 Chronic Essential hypertension (20 sources) Essential hypertension; Translations: [Essential (primary) hypertension] Onset: 4 10-04-2023 Chronic Genitourinary symptoms and ill-defined conditions (2 sources) Urinary symptoms ; Translations: [Unspecified symptoms and signs involving the genitourinary system] Episodic Malaise and fatigue (2 sources) Fatigue; Translations: [Other fatigue] Episodic Miscellaneous mental health disorders (1 source) Primary insomnia; Translations: [Primary insomnia] Chronic Mood disorders (20 sources) Recurrent major depression in partial remission; Translations: [Major depressive disorder, recurrent, in partial remission] Onset: 6 Resolved: 0 08-24-2019 Chronic Nutritional deficiencies (20 sources) Vitamin D deficiency; Translations: [Vitamin D deficiency, unspecified] Onset: 9 Resolved: 0 05-05-2015 Chronic Osteoarthritis (4 sources) Primary gonarthrosis, bilateral; Translations: [Bilateral primary osteoarthritis of knee] Onset: 5 Chronic Osteoporosis (20 sources) Osteoporosis; Translations: [Age-related osteoporosis without current pathological fracture] 03-24-2018 Chronic Other aftercare (9 sources) Patient encounter status; Translations: [Other charging operator (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] Episodic Other aftercare (2 sources) Long-term current use of drug therapy; Translations: [Other [place] 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] 06-23-2024 Episodic Other aftercare (1 source) Other [place] 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; Translations: [Encounter for long-term current use of medication] Onset: 5 Episodic Other connective tissue disease (2 sources) Synovial cyst of popliteal space [Jimenez], left knee; Translations: [Synovial cyst of popliteal space] Onset: 5 01-15-2025 Episodic Other gastrointestinal disorders (1 source) Constipation; Translations: [Constipation, unspecified] 06-23-2024 Episodic Other infections; including parasitic (1 source) Personal history of other infectious and parasitic diseases; Translations: [Personal history of COVID-19] Episodic Other lower respiratory disease (3 sources) Chronic cough; Translations: [Chronic cough] Episodic Other lower respiratory disease (1 source) Other forms of dyspnea; Translations: [WARE (dyspnea on exertion)] Onset: 3 Episodic Other lower respiratory disease (1 source) Cough; Translations: [Acute cough] 07-30-2023 Episodic Other lower respiratory disease (1 source) Wheezing; Translations: [Wheezing] 07-03-2024 Episodic Other lower respiratory disease (2 sources) Cough; Translations: [Acute cough] 08-14-2024 Episodic Other non-traumatic joint disorders (2 sources) Pain in right knee; Translations: [Pain in joint, lower leg] Episodic Other non-traumatic joint disorders (1 source) Pain in right shoulder; Translations: [Pain in joint, shoulder region] 04-21-2021 Episodic Other screening for suspected conditions (not mental disorders or infectious disease) (20 sources) Mammography abnormal; Translations: [Other abnormal and inconclusive findings on diagnostic imaging of breast] Onset: 4 Resolved: 5 05-05-2015 Episodic Other skin disorders (2 sources) Eruption; Translations: [Rash and other nonspecific skin eruption] Episodic Other upper respiratory disease (20 sources) Allergic rhinitis; Translations: [Allergic rhinitis, unspecified] Onset: 7 10-06-2020 Chronic Other upper respiratory disease (1 source) Other allergic rhinitis; Translations: [Non-seasonal allergic rhinitis, unspecified trigger] Onset: 1 Chronic Other upper respiratory infections (1 source) Bacterial sinusitis; Translations: [Chronic sinusitis, unspecified] 07-11-2024 Chronic Other upper respiratory infections (2 sources) Acute upper respiratory infection; Translations: [Acute upper respiratory infection, unspecified] 06-19-2023 Episodic Pneumonia (except that caused by tuberculosis or sexually transmitted disease) (1 source) Pneumonia; Translations: [Pneumonia, unspecified organism] 07-08-2020 Episodic Residual codes; unclassified (20 sources) Obstructive sleep apnea syndrome; Translations: [Obstructive sleep apnea (adult) (pediatric)] Onset: 0 03-10-2020 Chronic Residual codes; unclassified (1 source) Clouded consciousness; Translations: [Disorientation, unspecified] Episodic Residual codes; unclassified (1 source) Tobacco user; Translations: [Tobacco use] Episodic Residual codes; unclassified (1 source) Menopause present; Translations: [Asymptomatic menopausal state] 01-07-2024 Episodic Residual codes; unclassified (1 source) Disturbance in sleep behavior; Translations: [Sleep disorder, unspecified] 06-23-2024 Episodic Residual codes; unclassified (2 sources) Postmenopausal state; Translations: [Asymptomatic menopausal state] 01-15-2025 Episodic Residual codes; unclassified (1 source) Asymptomatic menopausal state; Translations: [Asymptomatic postmenopausal state] Onset: 5 Episodic Substance-related disorders (20 sources) Cigarette smoker ; Translations: [Nicotine dependence, cigarettes, uncomplicated] Onset: 7 03-10-2020 Chronic Unclassified (1 source) Patient encounter status 01-15-2025 Unclassified (1 source) Long-term current use of drug therapy 01-15-2025 Unclassified (1 source) Acute cough; Translations: [Acute cough] Onset: 5 Urinary tract infections (3 sources) Urinary tract infectious disease; Translations: [Urinary tract infection, site not specified] Onset: 4 Episodic Viral infection (2 sources) Disease caused by 2019-nCoV; Translations: [COVID-19] Episodic Past or Other Problems Problem Classification Problem Date Documented Da te Episodic/Chronic Abdominal hernia (20 sources) Diaphragmatic hernia; Translations: [Diaphragmatic hernia without obstruction or gangrene] Onset: 03-22-2012 03-22-2012 Episodic Abdominal pain (5 sources) Left flank pain; Translations: [Unspecified abdominal pain] Onset: 08-18-2024 Episodic Acute and unspecified renal failure (20 sources) Acute renal failure syndrome; Translations: [Acute kidney failure, unspecified] Onset: 03-01-2020 Resolved: 07-15-2020 07-15-2020 Episodic Complications of surgical procedures or medical care (20 sources) Pulmonary insufficiency following surgery; Translations: [Other postprocedural complications and disorders of respiratory system, not elsewhere classified] Onset: 02-29-2020 Resolved: 07-15-2020 07-15-2020 Episodic Fluid and electrolyte disorders (20 sources) Hypo-osmolality and or hyponatremia; Translations: [Hypo-osmolality and hyponatremia] Onset: 03-04-2020 Resolved: 07-15-2020 07-15-2020 Episodic Nonspecific chest pain (20 sources) Chest pain; Translations: [Chest pain, unspecified] Onset: 10-05-2012 10-05-2012 Episodic Other circulatory disease (2 sources) Personal history of other diseases of the circulatory system; Translations: [Status post abdominal aortic aneurysm (AAA) repair] Onset: 06-23-2024 Episodic Other gastrointestinal disorders (1 source) Constipation, unspecified; Translations: [Constipation, unspecified constipation type] Onset: 06-23-2024 Episodic Other lower respiratory disease (20 sources) Dyspnea on exertion; Translations: [Other forms of dyspnea] Onset: 07-12-2023 Episodic Other lower respiratory disease (20 sources) Disorder of lung; Translations: [Other disorders of lung] Onset: 07-13-2008 Resolved: 07-15-2020 07-15-2020 Episodic Other lower respiratory disease (20 sources) Dyspnea; Translations: [Shortness of breath] Onset: 10-05-2012 Resolved: 07-15-2020 07-15-2020 Episodic Other lower respiratory disease (1 source) Wheezing; Translations: [Wheezing] Onset: 07-03-2024 Episodic Residual codes; unclassified (20 sources) History of repair of aneurysm of abdominal aorta; Translations: [Other specified postprocedural states] Onset: 02-29-2020 07-30-2020 Episodic Residual codes; unclassified (20 sources) Edema; Translations: [Edema, unspecified] Onset: 10-05-2012 Resolved: 07-15-2020 07-15-2020 Episodic Residual codes; unclassified (2 sources) Other specified postprocedural states; Translations: [Status post abdominal aortic aneurysm (AAA) repair] Onset: 06-23-2024 Episodic Residual codes; unclassified (1 source) Sleep disorder, unspecified; Translations: [Sleep disturbance] Onset: 06-23-2024 Episodic Unclassified (20 sources) SUMMARY Onset: 06-01-2010 Resolved: 07-15-2020 07-28-2021 Results Test Name Value Interpretation Reference Range [facility] Office Visit (INTM[facility] ) -------- LOKIFLOR ([id number]) 1950 F Date Time Provider Department 01/15/25 1:40 PM TANNER HOOK INTMWS During your visit today, we recorded the following information about you: Pulse Respiration Blood pressure Weight 71/minute 16/minute 118/67 67.4 kg Tanner Hook MD 01/15/2025 2:50 PM Addendum - Labs ordered under my name: non-fasting blood draw today (or at your convenience) for CBC, metabolic panel, A1c, cholesterol panel, vitamin D, magnesium, TSH with reflex to free T4. - Bone density scan ordered at the specialty center ([facility]); schedule at your convenience. - Mammogram ordered at the specialty center; you can combine this with your bone density appointment. - Orthopedic referral placed for left knee evaluation with Dr. James?s team (VICENTE Alatorre); contact the specialty center to schedule. - Continue current cardiac medications: Lipitor, Clopidogrel (Plavix), Cymbalta, and Metoprolol (25-50 mg as tolerated). - Stop Tessalon Perles and prednisone courses (completed). - Keep albuterol and NitroQuick on hand for as-needed use. - Lorazepam refill sent to your pharmacy; use only as needed. - Plan to restart buspirone from your existing supply as discussed. - Allergy management: start Flonase nasal spray (1 bottle with refills); if needed, add daytime antihistamine (Claritin or Andra) and consider a single dose of Benadryl at bedtime for severe symptoms. - Practice sleep-focused breathing: inhale slowly (e.g., count to 4), exhale twice as long (count to 8) to calm your mind and nervous system; follow your sleep-hygiene handout for additional tips. - Schedule your next routine follow-up in six months (mid-December); our team will assist with booking before you leave today. BONE MINERAL DENSITY PATIENT INSTRUCTIONS Bone mineral density testing measures the amount of calcium in certain parts of your bones. This information determines how strong your bones are. The test is used to detect osteoporosis, a disease in which the bone's mineral content and density are low, increasing a person's risk of fractures. The lumbar spine (lower back) and the hip are the skeletal sites usually examined. For the test, remember that: 1. You cannot take this test if you are . 2. Eat a normal diet on the day of the test. 3. Take your medications as you normally would. 4. DO NOT take calcium supplements (such as Tums) for 24 hours before the test. 5. On the day of the test, leave valuables (jewelry or credit cards) at home. 6. The test should be performed prior to oral, rectal or IV contrast studies, or at least 7 days after any of these studies. For the test, you may be asked to wear a hospital gown. You will lie on your back, on a padded table, in a comfortable position. Generally, you can resume your usual activities immediately. Tanner Hook MD 01/15/2025 2:49 PM Signed This note was created using [employer]. Subjective Flor Mayberry is a 74 year old female. SUBJECTIVE: Flor Mayberry is a 74-year-old female with a history of ASCVD, presenting for a follow-up visit. Flor was last seen in December of last year. She reports that her blood pressure has been well-controlled since her metoprolol dosage was increased from 25 mg to 50 mg in August. She is also taking Lipitor, Clopidogrel, Cymbalta, and Zetia. She completed courses of Tessalon Perles and prednisone for an illness in August and has Albuterol and NitroQuick on hand for emergency use. She requests a refill of lorazepam, which she last filled in June and uses as needed. She also inquires about non-pharmacological sleep aids, as she sometimes has difficulty sleeping due to a racing mind. She has been taking Ambien and occasionally Tylenol PM, but expresses concern about the potential risk of dementia associated with these medications. She has a bottle of buspirone and plans to resume taking it. Flor also reports worsening allergies, which she attributes to spending time outdoors with her dog. She has been using Flonase, but ran out and requests a refill. She inquires about the possibility of getting her vitamin D levels checked, as she stopped taking vitamin D supplements due to previously elevated levels. She also requests a thyroid function test. Flor reports bilateral knee pain, with the left knee being more symptomatic than the right. She has a history of osteoarthritis and Jimenez's cysts, and received a cortisone injection in 2021. She inquires about a referral to an orthopedic surgeon for further evaluation and management. She also requests a mammogram, as she is overdue for this screening. PAST MEDICAL HISTORY Diagnosis Date Allergic rhinitis, cause unspecified 11/22/2006 Anxiety state, unspecified 02/05/2006 Depre (more content not included)... Normal [facility] 01-15-2025 [facility] Telephone (INTMWS) -------- LATAFLOR Hooks ([id number]) 1950 F Date Time Provider Department 01/15/25 TANNER HOOK INTMWS During your visit today, we recorded the following information about you: Xochitl Escalona LPN 01/15/2025 2:38 PM Signed Electronic PA rec'd and completed for lorazepam. Xochitl Escalona LPN 01/15/2025 2:38 PM Signed Prior authorization approved Payer: [employer] [phone] Note from payer: CaseId:[id number];Status:A pproved;Review Type:Prior Auth;Coverage Start Date:12/16/2024;Coverage End Date:01/15/2026; Approval Details Authorized from December 16, 2024 to January 15, 2026 Electronic appeal: Not supported View History Medication Being Authorized LORazepam (ATIVAN) 0.5 mg Take 1 tablet by mouth two times a day as needed (anxiety) for up to 90 days. Dispense: 60 tablet Refills: 2 Start: 01/15/2025 End: 04/15/2025 Class: Normal Diagnoses: Encounter for long-term current use of medication, Other specified anxiety disorders This order has been released to its destination. To be filled at: [facility] [id number] - [place] [address] - [phone] - [phone] Allergies As of Date: 01/15/2025 Noted Allergy Reaction AUGMENTIN (AMOXICILLIN-POT CLAVUL*10/02/2005 4 - Hives BACTRIM (SULFAMETHOXAZOLE-TRIMET H*01/12/2022 8 - GI Upset Comments: Sick to her stomach; prefers to avoid med DOXYCYCLINE 07/28/2013 11 - Vomiting LEVOFLOXACIN 07/11/2013 14 - Other: See Comments Comments: Knee pain WELLBUTRIN (BUPROPION HCL) 10/31/2007 Comments: vivid dreams ZOCOR (SIMVASTATIN) 10/16/2009 5 - Intolerance Comments: Muscle aches Date Reviewed: 01/15/2025 Reviewed by: Keyanna Lorenz LPN - Fully Assessed Reason for Visit: Insurance Authorization [[id number]] Prescriptions as of 01/15/2025 - LORazepam (ATIVAN) 0.5 mg Take 1 tablet by mouth two times a day as needed (anxiety) for up to 90 days. - fluticasone (FLONASE ALLERGY RELIEF) 50 mcg/actuation nasal spray Use 1 spray in each nostril once daily. - atorvastatin (LIPITOR) 80 mg tablet TAKE 1/2 TABLET ONE TIME DAILY - clopidogrel (PLAVIX) 75 mg tablet Take 1 tablet by mouth every afternoon. - DULoxetine (CYMBALTA) 60 mg capsule Take 1 capsule by mouth once daily. - ezetimibe (ZETIA) 10 mg tablet Take 1 tablet by mouth every afternoon. - metoprolol succinate ER (TOPROL XL) 50 mg 24 hr tablet Take 1 tablet by mouth once daily. - albuterol HFA (VENTOLIN HFA) 90 mcg/actuation inhaler Inhale 2 Puffs as instructed every 4 hours as needed for wheezing/shortness of breath. - busPIRone HCl 30 mg tablet Take 1 tablet by mouth two times a day. As directed. ID#[id number] - nitroglycerin sublingual (NITROQUICK) 0.4 mg SL tablet DISSOLVE ON TONGUE FOR CHEST PAIN. May repeat every 5 minutes up to total 3 doses. IF NO PAIN RELIEF, CALL 911 - docusate sodium (COLACE) 100 mg capsule Take 1-2 capsules by mouth once daily as needed for constipation. - gabapentin (NEURONTIN) 100 mg capsule Take 1 capsule by mouth daily at bedtime for 90 days. - diphenhydrAMINE-Acetamin ophen 25-500 mg tab Take 2 tablets by mouth at bedtime as needed (sleep). - ELDERBERRY FRUIT ORAL Take by mouth once daily. - esomeprazole (NEXIUM) 20 mg capsule Take 1 capsule by mouth once daily. - aspirin 325 mg ORAL tablet 1 Tab ORAL DAILY Meds Comments as of 10/05/2012: Problem List As Of Date 01/15/2025 Noted Resolved DEPRESSIVE DISORDER NEC [F32.89] 02/05/2006 05/05/2015 ANXIETY STATE NOS [F41.1] 02/05/2006 05/05/2015 Esophageal reflux [K21.9] 02/05/2006 Mixed hyperlipidemia [E78.2] Allergic rhinitis [J30.9] 11/22/2006 Other diseases of lung, not elsewhere classifie*07/13/2008 07/15/2020 Osteoporosis [M81.0] VITAMIN D DEFICIENCY NOS [E55.9] 11/30/2008 05/05/2015 Aortic aneurysm (HCC) [I71.9] 07/15/2020 SUMMARY [V999.95] 06/01/2010 07/15/2020 History of non-ST elevation myocardial infarcti*06/01/2010 Coronary artery disease involving [facility]*06/17/2010 Diaphragmatic hernia without mention of obstruc*03/22/2012 Chest pain [R07.9] 10/05/2012 Edema [R60.9] 10/05/2012 07/15/2020 Shortness of breath [R06.02] 10/05/2012 07/15/2020 Abnormal mammogram, unspecified [R92.8] 05/24/2014 05/05/2015 Depressive disorder [F32.A] 05/05/2015 07/15/2020 Anxiety disorder [F41.9] 05/05/2015 Vitamin D deficiency [E55.9] 05/05/2015 Cigarette smoker [F17.210] 05/16/2017 Recurrent major depression in partial remission*08/24/2019 Impaired glucose metabolism [R73.09] 10/20/2019 Obstructive sleep apnea [G47.33] 10/20/2019 Status post AAA (abdominal aortic aneurysm) rep*02/29/2020 Acute postoperative respiratory insufficiency [*02/29/2020 07/15/2020 KAREN (acute kidney injury) (HCC) [N17.9] 03/01/2020 07/15/2020 Hypo-osmolality and hyponatremia [E87.1] 03/04/2020 07/15/2020 Mild protein-calorie malnutrition (HCC (more content not included)... Normal [facility] LIPID PANEL, NONFASTINGon Cholesterol [Mass/Vol] 145 mg/dL Normal <200 [facility] Comment on above: Order Comment: Speci men Type: BLOOD SPECIMENOrdering Facility: [facility] Address: [address] [place] [address] Result Comment: <200 mg/dL, Desirable 200-239 mg/dL, Borderline high >239 mg/dL, High Performed By: #### T SHRF, LIPNF ####[facility] LABCLIA [id number] [place] [address] [place] HDL CHOLESTEROL, NF 33 mg/dL Low >39 [facility] Comment on above: Order Comment: Speci men Type: BLOOD SPECIMENOrdering Facility: [facility] Address: [address] [place] [address] Result Comment: 40-5 9 mg/dL, Acceptable >59 mg/dL, High: Negative risk factor for coronary heart disease <40 mg/dL, Low: Positive risk factor for coronary heart disease Performed By: #### T SHRF, LIPNF ####[facility] LABCLIA [id number] [place] [address] [place] LDL CHOLESTEROL CALCULATED, NF 50 mg/dL Normal <100 [facility] Comment on above: Order Comment: Speci men Type: BLOOD SPECIMENOrdering Facility: [facility] Address: [address] [place] [address] Result Comment: <100 mg/dL, Optimal 100-129 mg/dL, Near optimal/above optimal 130-159 mg/dL, Borderline high 160-189 mg/dL, High >189 mg/dL, Very high Secondary prevention optimal LDL Cholesterol levels are recommended to be <70 mg/dL LDL cholesterol is calculated using the Fay-NIH equation. Performed By: #### T MAUROF, LIPNF ####[facility] LABCLIA [id number] [place] [address] [place] [place] LDL/HDL RATIO, NF 1.52 mg/dL Normal <2.54 [facility] Comment on above: Order Comment: Speci men Type: BLOOD SPECIMENOrdering Facility: [facility] Address: [address] [place] [address] Result Comment: Alonzo larios: 1. National Cholesterol Education Program ATP III Guideline At-A-Glance Quick Desk Reference: National Heart, Lung, and Blood Jelm. National Institutes of Health. 2001: NIH Publication No. 01-3305. 2. An International Atherosclerosis Society position paper: global recommendations for the management of dyslipidemia: executive summary, Atherosclerosis. 2014: 232(2):410-413. Performed By: #### T SHRF, LIPNF ####[facility] LABCLIA [id number] [place] [address] [place] NON HDL CHOL, NF 112 mg/dL Normal <130 [facility] Comment on above: Order Comment: Speci men Type: BLOOD SPECIMENOrdering Facility: [facility] Address: [address] [place] [address] Result Comment: <130 mg/dL, Optimal 130-159 mg/dL, Near optimal/above optimal 160-189 mg/dL, Borderline high 190-219 mg/dL, High >219 mg/dL, Very high Secondary prevention optimal non HDL Cholesterol levels are recommended to be <100 mg/dL Performed By: #### T CHANDANA, LIPNF ####[facility] LABCLIA [id number] [address] [place] T CHOL/HDL RATIO NF 4.39 mg/dL Normal <5.10 [facility] Comment on above: Order Comment: Speci men Type: BLOOD SPECIMENOrdering Facility: [facility] Address: [address] [place] [address] Performed By: #### T CHANDANA, LIPNF ####[facility] LABIA [id number] [place] [address] [place] TRIGLYCERIDES, NF 411 mg/dL High <150 [facility] Comment on above: Order Comment: Speci men Type: BLOOD SPECIMENOrdering Facility: [facility] Address: [address] [place] [address] Result Comment: <150 mg/dL, Normal 150-199 mg/dL, Borderline high 200-499 mg/dL, High >499 mg/dL, Very high Performed By: #### T CHANDANA, LIPNF ####[facility] LABIA [id number] [address] OF [place] VLDL CHOLESTEROL, NF 58 mg/dL High <30 [facility] Comment on above: Order Comment: Speci men Type: BLOOD SPECIMENOrdering Facility: [facility] Address: [address] [place] [address] Performed By: #### T CHANDANA, LIPNF ####[facility] LABIA [id number] [place] [address] [place] TSH W/REFLEX FT4on 5 TSH Qn 1.760 m[IU]/L Normal 0.270-4.200 [facility] Comment on above: Order Comment: Speci men Type: BLOOD SPECIMENOrdering Facility: [facility] Address: [address] [place] [address] Performed By: #### T NIEVES ELLINGTON ####[facility] DEENA [id number] [facility]ENTER[facility]LECHI GRANT [address] OF [place] Edwin 11-15-2024 CNPN Telephone (INTMWS) -------- FLOR MAYBERRY ([id number]) 1950 F Date Time Provider Department 11/15/24 TANNER HOOK INTMWS During your visit today, we recorded the following information about you: Bouchra Lange LPN 11/15/2024 12:08 PM Signed Pharmacist from [facility] called to clarify if ok to dispense the atorvastatin 80 mg as they noted she had an allergy to Simvastatin. (Patient is new to this pharmacy.) Explain that patient has been taking the atorvastatin 80 mg since 2019 and has not have any reaction and able to tolerate the 1/2 tablet. Allergies As of Date: 11/15/2024 Noted Allergy Reaction AUGMENTIN (AMOXICILLIN-POT CLAVUL*10/02/2005 4 - Hives BACTRIM (SULFAMETHOXAZOLE-TRIMET H*01/12/2022 8 - GI Upset Comments: Sick to her stomach; prefers to avoid med DOXYCYCLINE 07/28/2013 11 - Vomiting LEVOFLOXACIN 07/11/2013 14 - Other: See Comments Comments: Knee pain WELLBUTRIN (BUPROPION HCL) 10/31/2007 Comments: vivid dreams ZOCOR (SIMVASTATIN) 10/16/2009 5 - Intolerance Comments: Muscle aches Date Reviewed: 08/18/2024 Reviewed by: Edwige Mcdaniel, RT(R) - Fully Assessed Reason for Visit: medication clarification [Other] Prescriptions as of 11/15/2024 - atorvastatin (LIPITOR) 80 mg tablet TAKE 1/2 TABLET ONE TIME DAILY - clopidogrel (PLAVIX) 75 mg tablet Take 1 tablet by mouth every afternoon. - DULoxetine (CYMBALTA) 60 mg capsule Take 1 capsule by mouth once daily. - ezetimibe (ZETIA) 10 mg tablet Take 1 tablet by mouth every afternoon. - metoprolol succinate ER (TOPROL XL) 50 mg 24 hr tablet Take 1 tablet by mouth once daily. - benzonatate (TESSALON PERLE) 100 mg capsule Take 2 capsules by mouth three times a day as needed for cough. - predniSONE (DELTASONE) 10 mg tablet Take 4 tabs daily for 3 days, then 2 tabs daily for 3 days, then 1 tab daily for 3 days with food. - albuterol HFA (VENTOLIN HFA) 90 mcg/actuation inhaler Inhale 2 Puffs as instructed every 4 hours as needed for wheezing/shortness of breath. - busPIRone HCl 30 mg tablet Take 1 tablet by mouth two times a day. As directed. ID#[id number] - LORazepam (ATIVAN) 0.5 mg Take 1 tablet by mouth two times a day as needed (anxiety) for up to 90 days. - nitroglycerin sublingual (NITROQUICK) 0.4 mg SL tablet DISSOLVE ON TONGUE FOR CHEST PAIN. May repeat every 5 minutes up to total 3 doses. IF NO PAIN RELIEF, CALL 911 - docusate sodium (COLACE) 100 mg capsule Take 1-2 capsules by mouth once daily as needed for constipation. - gabapentin (NEURONTIN) 100 mg capsule Take 1 capsule by mouth daily at bedtime for 90 days. - fluticasone (FLONASE ALLERGY RELIEF) 50 mcg/actuation nasal spray Use 1 [place] in each nostril once daily. - diphenhydrAMINE-Acetamin ophen 25-500 mg tab Take 2 tablets by mouth at bedtime as needed (sleep). - ELDERBERRY FRUIT ORAL Take by mouth once daily. - esomeprazole (NEXIUM) 20 mg capsule Take 1 capsule by mouth once daily. - aspirin 325 mg ORAL tablet 1 Tab ORAL DAILY Meds Comments as of 10/05/2012: Problem List As Of Date 11/15/2024 Noted Resolved DEPRESSIVE DISORDER NEC [F32.89] 02/05/2006 05/05/2015 ANXIETY STATE NOS [F41.1] 02/05/2006 05/05/2015 Esophageal reflux [K21.9] 02/05/2006 Mixed hyperlipidemia [E78.2] Allergic rhinitis [J30.9] 11/22/2006 Other diseases of lung, not elsewhere classifie*07/13/2008 07/15/2020 Osteoporosis [M81.0] VITAMIN D DEFICIENCY NOS [E55.9] 11/30/2008 05/05/2015 Aortic aneurysm (HCC) [I71.9] 07/15/2020 SUMMARY [V999.95] 06/01/2010 07/15/2020 History of non-ST elevation myocardial infarcti*06/01/2010 Coronary artery disease involving [place]*06/17/2010 Diaphragmatic hernia without mention of obstruc*03/22/2012 Chest pain [R07.9] 10/05/2012 Edema [R60.9] 10/05/2012 07/15/2020 Shortness of breath [R06.02] 10/05/2012 07/15/2020 Abnormal mammogram, unspecified [R92.8] 05/24/2014 05/05/2015 Depressive disorder [F32.A] 05/05/2015 07/15/2020 Anxiety disorder [F41.9] 05/05/2015 Vitamin D deficiency [E55.9] 05/05/2015 Cigarette smoker [F17.210] 05/16/2017 Recurrent major depression in partial remission*08/24/2019 Impaired glucose metabolism [R73.09] 10/20/2019 Obstructive sleep apnea [G47.33] 10/20/2019 Status post AAA (abdominal aortic aneurysm) rep*02/29/2020 Acute postoperative respiratory insufficiency [*02/29/2020 07/15/2020 KAREN (acute kidney injury) (HCC) [N17.9] 03/01/2020 07/15/2020 Hypo-osmolality and hyponatremia [E87.1] 03/04/2020 07/15/2020 Mild protein-calorie malnutrition (HCC) [E44.1] 03/06/2020 07/15/2020 Chronic bronchitis (HCC) [J42] 04/01/2020 Abdominal aortic aneurysm (AAA) without rupture*02/02/2023 WARE (dyspnea on exertion) [R06.09] 07/12/2023 Anginal equivalent (HCC) [I20.89] 08/27/2023 06/23/2024 Primary hypertension [I10] 10/04/2023 Stage 3a chronic kidney disease (HCC) [N18.31] 06/23/2024 En (more content not included)... Normal [facility] CNPNon 09-07-2024 CNPN Telephone (INTMWS) -------- LOKIFLOR ([id number]) 1950 F Date Time Provider Department 09/07/24 TANNER HOOK INTMWS During your visit today, we recorded the following information about you: Cameron Anne, RN 09/07/2024 2:14 PM Signed Patient reports she just received her metoprolol from [facility] and noticed the pills looked different. [place] it was a 50 mg pill and she does not recall Ted telling her she increased the dose. Reports her AVS lists metoprolol 25 mg. Pt doesn't understand why Ted increased the dose, because her BP was fine and the appt was for a Medicare Wellness and patient wasn't having any problems that day. Pt asking if pcp will look at this medication and confirm with patient if she should be taking 50 mg or 25 mg. States she is going to take the 25 mg until she hears back from you. Tanner Hook MD 09/08/2024 1:57 AM Signed I cannot tell why dose was increased, plus med list has her on 50mg metoprolol If she has been taking 25 mg dose till getting this RX and BP fine, may cut the pills in half then when runs out of this dose, can get 25 mg dose instead (will send new RX when needs it). If prefers not to cut pills in half, can send new RX but not sure whether insurance would give another RX now. If has BP cuff and taking 50mg dose controls BP well without adverse effects, may stay on 50 mg dose. Bouchra Lange LPN 09/08/2024 12:03 PM Signed LEFT MESSAGE FOR PATIENT TO CALL OFFICE. Jennifer Naik, MELVIN 09/08/2024 3:20 PM Signed Patient calls and notified of below. Patient voiced understanding. Jennifer Naik RN Allergies As of Date: 09/07/2024 Noted Allergy Reaction AUGMENTIN (AMOXICILLIN-POT CLAVUL*10/02/2005 4 - Hives BACTRIM (SULFAMETHOXAZOLE-TRIMET H*01/12/2022 8 - GI Upset Comments: Sick to her stomach; prefers to avoid med DOXYCYCLINE 07/28/2013 11 - Vomiting LEVOFLOXACIN 07/11/2013 14 - Other: See Comments Comments: Knee pain WELLBUTRIN (BUPROPION HCL) 10/31/2007 Comments: vivid dreams ZOCOR (SIMVASTATIN) 10/16/2009 5 - Intolerance Comments: Muscle aches Date Reviewed: 08/18/2024 Reviewed by: Edwige Mcdaniel, RT(R) - Fully Assessed Reason for Visit: Patient Question [8520] Prescriptions as of 09/08/2024 - benzonatate (TESSALON PERLE) 100 mg capsule Take 2 capsules by mouth three times a day as needed for cough. - predniSONE (DELTASONE) 10 mg tablet Take 4 tabs daily for 3 days, then 2 tabs daily for 3 days, then 1 tab daily for 3 days with food. - DULoxetine (CYMBALTA) 60 mg capsule Take 1 capsule by mouth once daily. - albuterol HFA (VENTOLIN HFA) 90 mcg/actuation inhaler Inhale 2 Puffs as instructed every 4 hours as needed for wheezing/shortness of breath. - atorvastatin (LIPITOR) 80 mg tablet TAKE 1/2 TABLET ONE TIME DAILY - busPIRone HCl 30 mg tablet Take 1 tablet by mouth two times a day. As directed. ID#[id number] - clopidogrel (PLAVIX) 75 mg tablet Take 1 tablet by mouth every afternoon. - ezetimibe (ZETIA) 10 mg tablet Take 1 tablet by mouth every afternoon. - LORazepam (ATIVAN) 0.5 mg Take 1 tablet by mouth two times a day as needed (anxiety) for up to 90 days. - metoprolol succinate ER (TOPROL XL) 50 mg 24 hr tablet Take 1 tablet by mouth once daily. - nitroglycerin sublingual (NITROQUICK) 0.4 mg SL tablet DISSOLVE ON TONGUE FOR CHEST PAIN. May repeat every 5 minutes up to total 3 doses. IF NO PAIN RELIEF, CALL 911 - docusate sodium (COLACE) 100 mg capsule Take 1-2 capsules by mouth once daily as needed for constipation. - gabapentin (NEURONTIN) 100 mg capsule Take 1 capsule by mouth daily at bedtime for 90 days. - fluticasone (FLONASE ALLERGY RELIEF) 50 mcg/actuation nasal spray Use 1 [place] in each nostril once daily. - diphenhydrAMINE-Acetamin ophen 25-500 mg tab Take 2 tablets by mouth at bedtime as needed (sleep). - ELDERBERRY FRUIT ORAL Take by mouth once daily. - esomeprazole (NEXIUM) 20 mg capsule Take 1 capsule by mouth once daily. - aspirin 325 mg ORAL tablet 1 Tab ORAL DAILY Meds Comments as of 10/05/2012: Problem List As Of Date 09/07/2024 Noted Resolved DEPRESSIVE DISORDER NEC [F32.89] 02/05/2006 05/05/2015 ANXIETY STATE NOS [F41.1] 02/05/2006 05/05/2015 Esophageal reflux [K21.9] 02/05/2006 Mixed hyperlipidemia [E78.2] Allergic rhinitis [J30.9] 11/22/2006 Other diseases of lung, not elsewhere classifie*07/13/2008 07/15/2020 Osteoporosis [M81.0] VITAMIN D DEFICIENCY NOS [E55.9] 11/30/2008 05/05/2015 Aortic aneurysm (HCC) [I71.9] 07/15/2020 SUMMARY [V999.95] 06/01/2010 07/15/2020 History of non-ST elevation myocardial infarcti*06/01/2010 Coronary artery disease involving [place]*06/17/2010 Diaphragmatic hernia without mention of obstruc*03/22/2012 Chest pain [R07.9] 10/05/2012 Edema [R60.9] 10/05/2012 07/15/2020 Shortness of breath [R06.02] 10/05/2012 07/15/2020 Abnor (more content not included)... Normal [facility] CREATININE BLDon 08-18-2024 Creatinine [Mass/Vol] 0.94 mg/dL Normal 0.58-0.96 [facility] Comment on above: Order Comment: Speci men Type: BLOOD SPECIMENOrdering Facility: [facility] Address: [address] [place] [address] Performed By: #### C RET1 ####[facility] [id number] [place] [address] [facility] Creatinine and Glomerular filtration rate.predicted panel (S/P/Bld) 63 mL/min/1.73m??? Normal >=60 [facility] Comment on above: Order Comment: Speci men Type: BLOOD SPECIMENOrdering Facility: [facility] Address: [address] [place] [address] Result Comment: Olivia mated Glomerular Filtration Rate (eGFR) is calculated using the 2020 CKD-EPI creatinine equation. This equation utilizes serum creatinine, sex, and age as parameters. The creatinine assay has traceable calibration to isotope dilution-mass spectrometry. Refer to KDIGO guidelines for clinical interpretation. In patients with unstable renal function, e.g. those with acute kidney injury, the eGFR may not accurately reflect actual GFR. Performed By: #### C RET1 ####[facility] [id number] [place] [address] [place] CT ABD/PEL W IVCONon 025 CT ABD/PEL W IVCON * * *Final Report* * * DATE OF EXAM: Aug 18 2024 2:43PM [facility] 0530 - CT ABD/PEL W IVCON / PROCEDURE REASON: multiple diagnoses * * * * Physician Interpretation * * * * EXAMINATION: CT ABDOMEN AND PELVIS WITH IV CONTRAST CLINICAL HISTORY: Status post abdominal aortic aneurysm (AAA) repair Status post abdominal aortic aneurysm (AAA) repair Left upper quadrant abdominal pain TECHNIQUE: CT of the abdomen and pelvis was performed using standard technique, scanning from just above the dome of the diaphragm to the symphysis pubis. MQ: CTAP_3 Contrast: IV: 100 ml of Omnipaque 350 Oral: 10 ml of Omni 240 10-25ml diluted with water CT Radiation dose: Integrated Dose-length product (DLP) for this visit = 502 mGy*cm. CT Dose Reduction Employed: Automated exposure control(AEC) and iterative recon COMPARISON: CT angiogram abdomen pelvis from 07/16/2021 RESULT: Single phase late arterial images are not optimized to interrogate solid organs. Liver: No mass. Normal hepatic morphology. Biliary: No bile duct dilation. Gallbladder is unremarkable. Spleen: No mass. No splenomegaly. Pancreas: No mass or duct dilation. Adrenals: No mass. Kidneys: Unchanged 6.2 cm LEFT lower pole cyst. No renal mass, obstructing calculus or hydronephrosis. GI tract: No dilation or wall thickening. Colonic diverticulosis without acute diverticulitis. Lymph nodes: No abdominal or pelvic lymphadenopathy. Mesentery/Peritoneum: No ascites or mass. Retroperitoneum: No mass. Vasculature: Similar postsurgical changes from prior infrarenal aortic aneurysm repair with aortobiiliac graft. Pelvis: No mass, ascites or fluid collection. Bones/Soft Tissues: Status post the prior LEFT hip arthroplasty. Moderate degenerative disease in thoracolumbar spine. No aggressive or concerning osseous lesions. Lower thorax: No acute cardiopulmonary abnormalities at the lung bases. Localizer images: No additional findings. IMPRESSION: No CT findings to explain patient's LEFT upper quadrant pain and no LEFT upper quadrant mass. Redye Hand: SILVA Transcribe Date/Time: Aug 21 2024 8:06P Dictated by : TANNER ARMAS MD This examination was interpreted and the report reviewed and electronically signed by: TANNER ARMAS MD on Aug 21 2024 8:22PM EST [id number] Normal [facility] CNOVon 08-17-2024 CNOV Office Visit (INTMWS ) -------- LATAFLOR Hooks ([id number]) 1950 F Date Time Provider Department 08/17/24 1:20 PM BALTAZAR RUBIO INTMWS During your visit today, we recorded the following information about you: Pulse Respiration Blood pressure Weight 78/minute 16/minute 161/91 67 kg Baltazar Rubio APRN.SENIOR MANAGER QUALITY ASSURANCE 08/17/2024 2:06 PM Signed SUBJECTIVE Florheena Mayberry is a 74 year old female who presents with 7 days of symptoms that are improving. Seen in [facility] 07/03/2024 for bronchitis. CXR clear. Treated with albuterol inhaler, benzonatate and prednisone. Seen in family medicine 07/11/2024 for sinusitis. She was treated with cefadroxil. She was seen in [facility] on August 14, 2024 with cough chest congestion and shortness of breath on exertion. Chest x-ray was not available at the time of her visit. She was treated as COPD exacerbation with azithrmycin due to multiple allergies. Today reports feeling somewhat improved. Symptoms include: Fever (>=100.4F): perceived 2 days ago, no currentor Chills: No Cough: Yes but less, occasionally productive Shortness of breath: Yes shortness of breath on exertion or Difficulty breathing: No Fatigue: Yes Muscle aches: No Headache: Yes but better now New loss of smell or taste: No Sore throat: No Nasal congestion: Yes or Rhinorrhea: Yes Nausea: No or Vomiting: No Diarrhea: Yes now resolved OTC meds/remedies that patient has tried: acetaminophen. She separately notes she has been coughing a lot since July and now with palpable mass above her AAA repair site that is painful, worse with coughing and lying in certain positions. DATE OF SURGERY/PROCEDURE: 02/29/2020 PREOPERATIVE DIAGNOSIS: Abdominal aortic aneurysm with a large infrarenal aortic neck, aortic neck thrombus, left renal artery stenosis, maximal transverse diameter of the aortic aneurysm greater than 5.5 cm. SURGEON: Valery Mireles M.D. She reports that she has been smoking cigarettes. She has a 20 pack-year smoking history. She has never used smokeless tobacco. OBJECTIVE PHYSICAL EXAM: BP 161/91 Pulse 78 Resp 16 Wt 67 kg (147 lb 11.3 oz) SpO2 95% BMI 27.91 kg/m? General appearance: tired/ill appearing, alert, cooperative, pleasant, in no acute distress Head: Normocephalic Eyes: conjunctiva/corneas normal Ears: R TM - clear with good landmarks, nl light reflex, L TM - clear with good landmarks, nl light reflex Nose: purulent rhinorrhea, mucosa erythematous and swollen Oropharynx: moist without lesions, mild erythema to GPA Neck: supple and small, benign anterior cervical nodes bilaterally Heart: regular rate and rhythm, without murmur Lungs: good air exchange, scattered end expiratory wheezes, no grunting/flaring/retract ing ASSESSMENT/PLAN (Z98.890, Z86.79) Status post abdominal aortic aneurysm (AAA) repair (primary encounter diagnosis) (R10.12) Left upper quadrant abdominal pain (J44.1) COPD with exacerbation (HCC) ASSESSMENT/PLAN: 1. Status post abdominal aortic aneurysm (AAA) repair - ICD9: V45.89, ICD10: Z98.890, Z86.79 (primary diagnosis) 2. Left upper quadrant abdominal pain - ICD9: 789.02, ICD10: R10.12 She has a history of AAA repair now with abdominal pain and possible mass proximal to the incision. Recommend CT abdomen pelvis to exclude hernia. - CT ABD/PEL W IVCON - IV CONTRAST (RADIOLOGY PROCEDURE) - NOT ON MAR - ENTERIC CONTRAST (RADIOLOGY PROCEDURE) - NOT ON MAR - CREATININE BLD 3. COPD with exacerbation (HCC) - ICD9: 491.21, ICD10: J44.1 She notes some improvement but not significant so we will refill azithromycin and cefadroxil. Recheck in 1 week. - CEFADROXIL 500 MG CAPSULE - AZITHROMYCIN 250 MG TABLET - BENZONATATE 100 MG CAPSULE Baltazar Rubio APRN.SENIOR MANAGER QUALITY ASSURANCE Medical Decision Making: Problems: Low: Acute, uncomplicated illness or injury Moderate: 1+ chronic illnesses with change Risk: Moderate: Drug management Medical Decision Making Level: 4 - Moderate Allergies As of Date: 08/17/2024 Noted Allergy Reaction AUGMENTIN (AMOXICILLIN-POT CLAVUL*10/02/2005 4 - Hives BACTRIM (SULFAMETHOXAZOLE-TRIMET H*01/12/2022 8 - GI Upset Comments: Sick to her stomach; prefers to avoid med DOXYCYCLINE 07/28/2013 11 - Vomiting LEVOFLOXACIN 07/11/2013 14 - Other: See Comments Comments: Knee pain WELLBUTRIN (BUPROPION HCL) 10/31/2007 Comments: vivid dreams ZOCOR (SIMVASTATIN) 10/16/2009 5 - Intolerance Comments: Muscle aches Date Reviewed: 08/17/2024 Reviewed by: Baltazar Rubio APRN.SENIOR MANAGER QUALITY ASSURANCE - Fully Assessed Reason for Visit: Cough [28] Primary Visit Diagnosis:Status post abdominal aortic aneurysm (AAA) repair [Z98.890, Z86.79] Other Visit Diagnoses:Left upper quadrant abdominal pain [R10.12] COPD with exacerbation (HCC) [J44.1] Order(s):cefADROxil (DURICEF) 500 mg capsuleTake 1 capsule by mouth two times a day for 7 days.Disp: (more content not included)... [facility] Tele[facility] (UCWSTR) -------- FLOR MAYBERRY ([id number]) 1950 F Date Time Provider Department 08/15/24 SOLEDAD TREVINO [facility] During your visit today, we recorded the following information about you: Soledad Trevino APRN.CNP 08/15/2024 7:13 AM Signed Please notify chest xray negative, continue with plan of care that was discussed at visit. Melissa Mendes MA 08/15/2024 7:59 AM Signed Patient given results and verbalized understanding of instructions given. Melissa Mendes MA Allergies As of Date: 08/15/2024 Noted Allergy Reaction AUGMENTIN (AMOXICILLIN-POT CLAVUL*10/02/2005 4 - Hives BACTRIM (SULFAMETHOXAZOLE-TRIMET H*01/12/2022 8 - GI Upset Comments: Sick to her stomach; prefers to avoid med DOXYCYCLINE 07/28/2013 11 - Vomiting LEVOFLOXACIN 07/11/2013 14 - Other: See Comments Comments: Knee pain WELLBUTRIN (BUPROPION HCL) 10/31/2007 Comments: vivid dreams ZOCOR (SIMVASTATIN) 10/16/2009 5 - Intolerance Comments: Muscle aches Date Reviewed: 08/14/2024 Reviewed by: Melissa Mendes MA - Fully Assessed Reason for Visit: Results [95] Prescriptions as of 08/15/2024 - azithromycin (ZITHROMAX Z-YANNICK) 250 mg tablet Take 2 tablets day one, then, 1 tablet daily until gone. - predniSONE (DELTASONE) 10 mg tablet Take 4 tabs daily for 3 days, then 2 tabs daily for 3 days, then 1 tab daily for 3 days with food. - DULoxetine (CYMBALTA) 60 mg capsule Take 1 capsule by mouth once daily. - benzonatate (TESSALON PERLE) 100 mg capsule Take 2 capsules by mouth three times a day as needed. - albuterol HFA (VENTOLIN HFA) 90 mcg/actuation inhaler Inhale 2 Puffs as instructed every 4 hours as needed for wheezing/shortness of breath. - atorvastatin (LIPITOR) 80 mg tablet TAKE 1/2 TABLET ONE TIME DAILY - busPIRone HCl 30 mg tablet Take 1 tablet by mouth two times a day. As directed. ID#[id number] - clopidogrel (PLAVIX) 75 mg tablet Take 1 tablet by mouth every afternoon. - ezetimibe (ZETIA) 10 mg tablet Take 1 tablet by mouth every afternoon. - LORazepam (ATIVAN) 0.5 mg Take 1 tablet by mouth two times a day as needed (anxiety) for up to 90 days. - metoprolol succinate ER (TOPROL XL) 50 mg 24 hr tablet Take 1 tablet by mouth once daily. - nitroglycerin sublingual (NITROQUICK) 0.4 mg SL tablet DISSOLVE ON TONGUE FOR CHEST PAIN. May repeat every 5 minutes up to total 3 doses. IF NO PAIN RELIEF, CALL 911 - docusate sodium (COLACE) 100 mg capsule Take 1-2 capsules by mouth once daily as needed for constipation. - gabapentin (NEURONTIN) 100 mg capsule Take 1 capsule by mouth daily at bedtime for 90 days. - fluticasone (FLONASE ALLERGY RELIEF) 50 mcg/actuation nasal spray Use 1 [place] in each nostril once daily. - diphenhydrAMINE-Acetamin ophen 25-500 mg tab Take 2 tablets by mouth at bedtime as needed (sleep). - ELDERBERRY FRUIT ORAL Take by mouth once daily. - esomeprazole (NEXIUM) 20 mg capsule Take 1 capsule by mouth once daily. - aspirin 325 mg ORAL tablet 1 Tab ORAL DAILY Meds Comments as of 10/05/2012: Problem List As Of Date 08/15/2024 Noted Resolved DEPRESSIVE DISORDER NEC [F32.89] 02/05/2006 05/05/2015 ANXIETY STATE NOS [F41.1] 02/05/2006 05/05/2015 Esophageal reflux [K21.9] 02/05/2006 Mixed hyperlipidemia [E78.2] Allergic rhinitis [J30.9] 11/22/2006 Other diseases of lung, not elsewhere classifie*07/13/2008 07/15/2020 Osteoporosis [M81.0] VITAMIN D DEFICIENCY NOS [E55.9] 11/30/2008 05/05/2015 Aortic aneurysm (HCC) [I71.9] 07/15/2020 SUMMARY [V999.95] 06/01/2010 07/15/2020 History of non-ST elevation myocardial infarcti*06/01/2010 Coronary artery disease involving [place]*06/17/2010 Diaphragmatic hernia without mention of obstruc*03/22/2012 Chest pain [R07.9] 10/05/2012 Edema [R60.9] 10/05/2012 07/15/2020 Shortness of breath [R06.02] 10/05/2012 07/15/2020 Abnormal mammogram, unspecified [R92.8] 05/24/2014 05/05/2015 Depressive disorder [F32.A] 05/05/2015 07/15/2020 Anxiety disorder [F41.9] 05/05/2015 Vitamin D deficiency [E55.9] 05/05/2015 Cigarette smoker [F17.210] 05/16/2017 Recurrent major depression in partial remission*08/24/2019 Impaired glucose metabolism [R73.09] 10/20/2019 Obstructive sleep apnea [G47.33] 10/20/2019 Status post AAA (abdominal aortic aneurysm) rep*02/29/2020 Acute postoperative respiratory insufficiency [*02/29/2020 07/15/2020 KAREN (acute kidney injury) (HCC) [N17.9] 03/01/2020 07/15/2020 Hypo-osmolality and hyponatremia [E87.1] 03/04/2020 07/15/2020 Mild protein-calorie malnutrition (HCC) [E44.1] 03/06/2020 07/15/2020 Chronic bronchitis (HCC) [J42] 04/01/2020 Abdominal aortic aneurysm (AAA) without rupture*02/02/2023 WARE (dyspnea on exertion) [R06.09] 07/12/2023 Anginal equivalent (HCC) [I20.89] 08/27/2023 06/23/2024 Primary hypertension [I10] 10/04/2023 Stage 3a chronic kidney disease (HCC) [N18.31] 06/23/2024 Encounter Number (more content not included)... Normal [facility] CNOVon 08-14-2024 CNOV Office Visit ([facility] ) -------- FLOR MAYBERRY ([id number]) 1950 F Date Time Provider Department 08/14/24 7:15 PM DIANE GONZALEZ [facility] During your visit today, we recorded the following information about you: Temperature Pulse Respiration Blood pressure 96.9 degrees 86/minute 20/minute 122/70 Weight 66.7 kg Diane Gonzalez APRN.[employer] SUPER[employer]OR 08/14/2024 7:59 PM Signed This note was created using Waluzi. Subjective Flor Mayberry is a 74 year old female. 74 year old female COPD, HPL, [place] 2009, GERD, depression/anxiety, diaphragmatic hernia, allergic rhinitis, TARA on home BiPAP, osteoporosis for illness. Acute onset 4 days ago +cough +chest congestion +productive +yellow sputum +SOB +winded with activity Denies CP Denies SOB Denies dyspnea Denies abdominal pain Has used [employer] Mucinex The history is provided by the patient. No speech and language specialist was used. Cough This is a new problem. The current episode started more than 2 days ago. The problem occurs constantly. Cough characteristics: productive. There has been no fever. Associated symptoms include rhinorrhea, sore throat, shortness of breath and wheezing. Pertinent negatives include no chest pain, no chills, no sweats, no weight loss, no ear congestion, no ear pain, no headaches, no myalgias and no eye redness. She has tried nothing for the symptoms. The treatment provided no relief. She is a smoker. Her past medical history is significant for COPD and emphysema. Her past medical history does not include bronchitis, pneumonia, bronchiectasis or asthma. PAST MEDICAL HISTORY Diagnosis Date Allergic rhinitis, cause unspecified 11/22/2006 Anxiety state, unspecified 02/05/2006 Depressive disorder, not elsewhere classified 02/05/2006 Diaphragmatic hernia without mention of obstruction or gangrene Esophageal reflux 02/05/2006 [place] (myocardial infarction) (HCC) 06/02/2010 Mixed hyperlipidemia Osteoporosis, unspecified Status post AAA (abdominal aortic aneurysm) repair 3.2 cm (last CT 07/09)--Plan Ultrasound AAA Jul 2010;02/29/2020: Open retroperitoneal infrarenal AAA repair with left renal artery bypass PAST SURGICAL HISTORY Procedure Laterality Date ABD AORTA ANEURYSM REPAIR 02/29/2020 open aneurysm repair for an aneurysm with a maximal transverse diameter of 6 cm; 02/29/2020: Open retroperitoneal infrarenal AAA repair with left renal artery bypass ARTHRP ACETBLR/PROX FEM PROSTC AGRFT/ALGRFT 04/29/2012 [facility] BX BREAST W/DEVICE 1ST LESION STEREOTACTIC GUID 06/18/2014 benign COLONOSCOPY FLX DX W/COLLJ SPEC WHEN PFRMD 11/08/[address]. [address] [facility] COLONOSCOPY FLX DX W/COLLJ SPEC WHEN PFRMD 03/22/2012 Colonoscopy ESOPHAGOGASTRODUODENOSCO PY TRANSORAL DIAGNOSTIC 03/22/2012 EGD MAMMO STEREOTACTIC CORE BIOPSY LT 08/02/1998 left benign - Dr. Gordon PAST SURGICAL HISTORY OF Bilateral 08/02/1998 foot surgery PAST SURGICAL HISTORY OF 06/02/2010 angioplasty with stent ALLERGIES Augmentin [Amoxicillin-Pot Clavulanate], Bactrim [Sulfamethoxazole-Trimet hoprim], Doxycycline, Levofloxacin, Wellbutrin [Bupropion Hcl], and Zocor [Simvastatin] MEDICATIONS DULoxetine (CYMBALTA) 60 mg capsule Take 1 capsule by mouth once daily. benzonatate (TESSALON PERLE) 100 mg capsule Take 2 capsules by mouth three times a day as needed. albuterol HFA (VENTOLIN HFA) 90 mcg/actuation inhaler Inhale 2 Puffs as instructed every 4 hours as needed for wheezing/shortness of breath. atorvastatin (LIPITOR) 80 mg tablet TAKE 1/2 TABLET ONE TIME DAILY clopidogrel (PLAVIX) 75 mg tablet Take 1 tablet by mouth every afternoon. ezetimibe (ZETIA) 10 mg tablet Take 1 tablet by mouth every afternoon. LORazepam (ATIVAN) 0.5 mg Take 1 tablet by mouth two times a day as needed (anxiety) for up to 90 days. metoprolol succinate ER (TOPROL XL) 50 mg 24 hr tablet Take 1 tablet by mouth once daily. nitroglycerin sublingual (NITROQUICK) 0.4 mg SL tablet DISSOLVE ON TONGUE FOR CHEST PAIN. May repeat every 5 minutes up to total 3 doses. IF NO PAIN RELIEF, CALL 911 docusate sodium (COLACE) 100 mg capsule Take 1-2 capsules by mouth once daily as needed for constipation. gabapentin (NEURONTIN) 100 mg capsule Take 1 capsule by mouth daily at bedtime for 90 days. diphenhydrAMINE-Acetamin ophen 25-500 mg tab Take 2 tablets by mouth at bedtime as needed (sleep). ELDERBERRY FRUIT ORAL Take by mouth once daily. esomeprazole (NEXIUM) 20 mg capsule Take 1 capsule by mouth once daily. aspirin 325 mg ORAL tablet 1 Tab ORAL DAILY azithromycin (ZITHROMAX Z-YANNICK) 250 mg tablet Take 2 tablets day one, then, 1 tablet daily until gone. predniSONE (DELTASONE) 10 mg tablet Take 4 tabs daily for 3 days, then 2 tabs daily for 3 days, then 1 tab daily for 3 days with food. busPIRone HCl 30 mg tablet Take 1 tablet by mouth two times a day. As dir (more content not included)... Normal [facility] XR CHEST 2V FRONTAL/LATon XR CHEST 2V FRONTAL/LAT * * *Final Report* * * DATE OF EXAM: Aug 14 2024 7:17PM WOX [id number] - XR CHEST 2V FRONTAL/LAT / PROCEDURE REASON: Acute cough * * * * Physician Interpretation * * * * EXAMINATION: CHEST RADIOGRAPH (2 VIEW FRONTAL and LATERAL) CLINICAL HISTORY: Acute cough MQ: XC2_6 EXAM DATE/TIME: 08/14/2024 7:17 PM COMPARISON: Chest x-ray on 07/03/2024 RESULT: Lines, tubes, and devices: None. Lungs and pleura: No consolidation. No lung mass. No pleural effusion. No pneumothorax. Cardiomediastinal silhouette: Stable cardiac silhouette, with tortuosity and atherosclerotic calcifications of the thoracic aorta. Bones and soft tissues: There is right-sided curvature/dextroscoliosi s of the spine. IMPRESSION: Stable exam without acute findings. Redye Hand: PSCB Transcribe Date/Time: Aug 14 2024 8:29P Dictated by : LUCAS MALHOTRA MD This examination was interpreted and the report reviewed and electronically signed by: LUCAS MALHOTRA MD on Aug 14 2024 8:30PM EST [id number] Normal [facility] XR Chest PA and Lateralon IMPRESSION: Stable exam without acute findings. Redye Hand: PSCB Transcribe Date/Time: Aug 14 2024 8:29P Dictated by : LUCAS MALHOTRA MD This examination was interpreted and the report reviewed and electronically signed by: LUCAS MALHOTRA MD on Aug 14 2024 8:30PM EST DIVISION OF RADIOLOGY * * *Final Report* * * DATE OF EXAM: Aug 14 2024 7:17PM [id number] - XR CHEST 2V FRONTAL/LAT / PROCEDURE REASON: Acute cough * * * * Physician Interpretation * * * * EXAMINATION: CHEST RADIOGRAPH (2 VIEW FRONTAL & LATERAL) CLINICAL HISTORY: Acute cough MQ: XC2_6 EXAM DATE/TIME: 08/14/2024 7:17 PM COMPARISON: Chest x-ray on 07/03/2024 RESULT: Lines, tubes, and devices: None. Lungs and pleura: No consolidation. No lung mass. No pleural effusion. No pneumothorax. Cardiomediastinal silhouette: Stable cardiac silhouette, with tortuosity and atherosclerotic calcifications of the thoracic aorta. Bones and soft tissues: There is right-sided curvature/dextroscoliosi s of the spine. DIVISION OF RADIOLOGY Provider, [facility] - 08/14/2024 * * *Final Report* * * DATE OF EXAM: Aug 14 2024 7:17PM WOX [id number] - XR CHEST 2V FRONTAL/LAT / PROCEDURE REASON: Acute cough * * * * Physician Interpretation * * * * EXAMINATION: CHEST RADIOGRAPH (2 VIEW FRONTAL & LATERAL) CLINICAL HISTORY: Acute cough MQ: XC2_6 EXAM DATE/TIME: 08/14/2024 7:17 PM COMPARISON: Chest x-ray on 07/03/2024 RESULT: Lines, tubes, and devices: None. Lungs and pleura: No consolidation. No lung mass. No pleural effusion. No pneumothorax. Cardiomediastinal silhouette: Stable cardiac silhouette, with tortuosity and atherosclerotic calcifications of the thoracic aorta. Bones and soft tissues: There is right-sided curvature/dextroscoliosi s of the spine. IMPRESSION IMPRESSION: Stable exam without acute findings. Redye Hand: SILVA Transcribe Date/Time: Aug 14 2024 8:29P Dictated by : LUCAS MALHOTRA MD This examination was interpreted and the report reviewed and electronically signed by: LUCAS MALHOTRA MD on Aug 14 2024 8:30PM EST [facility] Radiology Study observation (narrative) [facility] XR Chest PA and LateralOrder ed By: [facility] Provider on 08-14-2024 [facility] CNOV[facility] 07-11-2024 [facility] FLOR MAYBERRY ([id number]) 1950 F Date Time Provider Department 07/11/24 3:20 PM [facility] During your visit today, we recorded the following information about you: Temperature Pulse Respiration Blood pressure 98.1 degrees 92/minute 20/minute 118/86 Weight 68.9 kg Damaris Owens PA-C 07/11/2024 3:40 PM Signed Chief Complaint Patient presents with: Cough HPI Flor Mayberry is a 74 year old female who presents here today for Above Complaints.. Patient was seen in [facility] care Started on Thanksgiving. Has not improved. Worsening sinus symptoms. Past medical history, appointments, medications, allergies reviewed. Previous Medical History PAST MEDICAL HISTORY Diagnosis Date Allergic rhinitis, cause unspecified 11/22/2006 Anxiety state, unspecified 02/05/2006 Depressive disorder, not elsewhere classified 02/05/2006 Diaphragmatic hernia without mention of obstruction or gangrene Esophageal reflux 02/05/2006 [place] (myocardial infarction) (HCC) 06/02/2010 Mixed hyperlipidemia Osteoporosis, unspecified Status post AAA (abdominal aortic aneurysm) repair 3.2 cm (last CT 07/09)--Plan Ultrasound AAA Jul 2010;02/29/2020: Open retroperitoneal infrarenal AAA repair with left renal artery bypass Previous Surgical History PAST SURGICAL HISTORY Procedure Laterality Date ABD AORTA ANEURYSM REPAIR 02/29/2020 open aneurysm repair for an aneurysm with a maximal transverse diameter of 6 cm; 02/29/2020: Open retroperitoneal infrarenal AAA repair with left renal artery bypass ARTHRP ACETBLR/PROX FEM PROSTC AGRFT/ALGRFT 04/29/2012 [facility] BX BREAST W/DEVICE 1ST LESION STEREOTACTIC GUID 06/18/2014 benign COLONOSCOPY FLX DX W/COLLJ SPEC WHEN PFRMD 11/08/[address]. [address] [facility] COLONOSCOPY FLX DX W/COLLJ SPEC WHEN PFRMD 03/22/2012 Colonoscopy ESOPHAGOGASTRODUODENOSCO PY TRANSORAL DIAGNOSTIC 03/22/2012 EGD MAMMO STEREOTACTIC CORE BIOPSY LT 08/02/1998 left benign - Dr. Gordon PAST SURGICAL HISTORY OF Bilateral 08/02/1998 foot surgery PAST SURGICAL HISTORY OF 06/02/2010 angioplasty with stent Family History FAMILY HISTORY Problem Relation Age of Onset Cancer Mother colon Stroke Mother other (past history) Father abdominal aortic aneurysm Patient Allergies ALLERGIES Allergen Reactions Augmentin [Amoxicil* Hives Bactrim [Sulfametho* GI Upset Sick to her stomach; prefers to avoid med Doxycycline Vomiting Levofloxacin Other: See Comments Knee pain Wellbutrin [Bupropi* vivid dreams Zocor [Simvastatin] Intolerance Muscle aches Current Medications Current Outpatient Medications on File Prior to Visit Medication Sig benzonatate (TESSALON PERLE) 100 mg capsule Take 2 capsules by mouth three times a day as needed. albuterol HFA (VENTOLIN HFA) 90 mcg/actuation inhaler Inhale 2 Puffs as instructed every 4 hours as needed for wheezing/shortness of breath. atorvastatin (LIPITOR) 80 mg tablet TAKE 1/2 TABLET ONE TIME DAILY clopidogrel (PLAVIX) 75 mg tablet Take 1 tablet by mouth every afternoon. ezetimibe (ZETIA) 10 mg tablet Take 1 tablet by mouth every afternoon. LORazepam (ATIVAN) 0.5 mg Take 1 tablet by mouth two times a day as needed (anxiety) for up to 90 days. metoprolol succinate ER (TOPROL XL) 50 mg 24 hr tablet Take 1 tablet by mouth once daily. nitroglycerin sublingual (NITROQUICK) 0.4 mg SL tablet DISSOLVE ON TONGUE FOR CHEST PAIN. May repeat every 5 minutes up to total 3 doses. IF NO PAIN RELIEF, CALL 911 docusate sodium (COLACE) 100 mg capsule Take 1-2 capsules by mouth once daily as needed for constipation. gabapentin (NEURONTIN) 100 mg capsule Take 1 capsule by mouth daily at bedtime for 90 days. DULoxetine (CYMBALTA) 60 mg capsule Take 1 capsule by mouth once daily. hydrOXYzine HCl (ATARAX) 25 mg tablet Take 1 tablet by mouth three times daily as needed. diphenhydrAMINE-Acetamin ophen 25-500 mg tab Take 2 tablets by mouth at bedtime as needed (sleep). ELDERBERRY FRUIT ORAL Take by mouth once daily. esomeprazole (NEXIUM) 20 mg capsule Take 1 capsule by mouth once daily. aspirin 325 mg ORAL tablet 1 Tab ORAL DAILY busPIRone HCl 30 mg tablet Take 1 tablet by mouth two times a day. As directed. ID#[id number] (Patient not taking: Reported on 07/03/2024) fluticasone (FLONASE ALLERGY RELIEF) 50 mcg/actuation nasal spray Use 1 [place] in each nostril once daily. (Patient not taking: Reported on 06/23/2024) No current facility-administered medications on file prior to visit. Social History Social History Tobacco Use Smoking status: Every Day Current packs/day: 0.50 Average packs/day: 0.5 packs/day for 40.0 years (20.0 ttl pk-yrs) Types: Cigarettes Smokeless tobacco: Never Tobacco comments: less than a pack per day--almost ready to quit Vaping Use Vaping status: Never (more content not included)... Normal [facility] 07-11-2024 MIMI Telephone ([facility]) -------- SHAMP,FLOR K ([id number]) 1950 F Date Time Provider Department 07/11/24 TANNER HOOK During your visit today, we recorded the following information about you: Ursula Abdi LPN 07/11/2024 1:06 PM Signed Patient calling still coughing, had gotten sick on . Was seen in [facility] care 07/03. She completed here prednisone rx, wheezing at times, using her inhaler. Her voice is hoarse, she thinks she had fever, night sweats. She is not feeling any better, was COVID negative. Had chest xray done was negative for pneumonia. No appts with PCP, scheduled patient with Vicki ZHANG at 320 pm today. Allergies As of Date: 07/11/2024 Noted Allergy Reaction AUGMENTIN (AMOXICILLIN-POT CLAVUL*10/02/2005 4 - Hives BACTRIM (SULFAMETHOXAZOLE-TRIMET H*01/12/2022 8 - GI Upset Comments: Sick to her stomach; prefers to avoid med DOXYCYCLINE 07/28/2013 11 - Vomiting LEVOFLOXACIN 07/11/2013 14 - Other: See Comments Comments: Knee pain WELLBUTRIN (BUPROPION HCL) 10/31/2007 Comments: vivid dreams ZOCOR (SIMVASTATIN) 10/16/2009 5 - Intolerance Comments: Muscle aches Date Reviewed: 07/03/2024 Reviewed by: Melissa Mendes MA - Fully Assessed Reason for Visit: Patient Update [1234] Prescriptions as of 07/11/2024 - benzonatate (TESSALON PERLE) 100 mg capsule Take 2 capsules by mouth three times a day as needed. - albuterol HFA (VENTOLIN HFA) 90 mcg/actuation inhaler Inhale 2 Puffs as instructed every 4 hours as needed for wheezing/shortness of breath. - atorvastatin (LIPITOR) 80 mg tablet TAKE 1/2 TABLET ONE TIME DAILY - busPIRone HCl 30 mg tablet Take 1 tablet by mouth two times a day. As directed. ID#[id number] - clopidogrel (PLAVIX) 75 mg tablet Take 1 tablet by mouth every afternoon. - ezetimibe (ZETIA) 10 mg tablet Take 1 tablet by mouth every afternoon. - LORazepam (ATIVAN) 0.5 mg Take 1 tablet by mouth two times a day as needed (anxiety) for up to 90 days. - metoprolol succinate ER (TOPROL XL) 50 mg 24 hr tablet Take 1 tablet by mouth once daily. - nitroglycerin sublingual (NITROQUICK) 0.4 mg SL tablet DISSOLVE ON TONGUE FOR CHEST PAIN. May repeat every 5 minutes up to total 3 doses. IF NO PAIN RELIEF, CALL 911 - docusate sodium (COLACE) 100 mg capsule Take 1-2 capsules by mouth once daily as needed for constipation. - gabapentin (NEURONTIN) 100 mg capsule Take 1 capsule by mouth daily at bedtime for 90 days. - fluticasone (FLONASE ALLERGY RELIEF) 50 mcg/actuation nasal spray Use 1 [place] in each nostril once daily. - DULoxetine (CYMBALTA) 60 mg capsule Take 1 capsule by mouth once daily. - hydrOXYzine HCl (ATARAX) 25 mg tablet Take 1 tablet by mouth three times daily as needed. - diphenhydrAMINE-Acetamin ophen 25-500 mg tab Take 2 tablets by mouth at bedtime as needed (sleep). - ELDERBERRY FRUIT ORAL Take by mouth once daily. - esomeprazole (NEXIUM) 20 mg capsule Take 1 capsule by mouth once daily. - aspirin 325 mg ORAL tablet 1 Tab ORAL DAILY Meds Comments as of 10/05/2012: Problem List As Of Date 07/11/2024 Noted Resolved DEPRESSIVE DISORDER NEC [F32.89] 02/05/2006 05/05/2015 ANXIETY STATE NOS [F41.1] 02/05/2006 05/05/2015 Esophageal reflux [K21.9] 02/05/2006 Mixed hyperlipidemia [E78.2] Allergic rhinitis [J30.9] 11/22/2006 Other diseases of lung, not elsewhere classifie*07/13/2008 07/15/2020 Osteoporosis [M81.0] VITAMIN D DEFICIENCY NOS [E55.9] 11/30/2008 05/05/2015 Aortic aneurysm (HCC) [I71.9] 07/15/2020 SUMMARY [V999.95] 06/01/2010 07/15/2020 History of non-ST elevation myocardial infarcti*06/01/2010 Coronary artery disease involving [place]*06/17/2010 Diaphragmatic hernia without mention of obstruc*03/22/2012 Chest pain [R07.9] 10/05/2012 Edema [R60.9] 10/05/2012 07/15/2020 Shortness of breath [R06.02] 10/05/2012 07/15/2020 Abnormal mammogram, unspecified [R92.8] 05/24/2014 05/05/2015 Depressive disorder [F32.A] 05/05/2015 07/15/2020 Anxiety disorder [F41.9] 05/05/2015 Vitamin D deficiency [E55.9] 05/05/2015 Cigarette smoker [F17.210] 05/16/2017 Recurrent major depression in partial remission*08/24/2019 Impaired glucose metabolism [R73.09] 10/20/2019 Obstructive sleep apnea [G47.33] 10/20/2019 Status post AAA (abdominal aortic aneurysm) rep*02/29/2020 Acute postoperative respiratory insufficiency [*02/29/2020 07/15/2020 KAREN (acute kidney injury) (HCC) [N17.9] 03/01/2020 07/15/2020 Hypo-osmolality and hyponatremia [E87.1] 03/04/2020 07/15/2020 Mild protein-calorie malnutrition (HCC) [E44.1] 03/06/2020 07/15/2020 Chronic bronchitis (HCC) [J42] 04/01/2020 Abdominal aortic aneurysm (AAA) without rupture*02/02/2023 WARE (dyspnea on exertion) [R06.09] 07/12/2023 Anginal equivalent (HCC) [I20.89] 08/27/2023 06/23/2024 Primary hypertension [I10] 10/04/2023 Stage 3a chronic kidney disease (HCC) [N18.31] (more content not included)... Normal [facility] 07-04-2024 CNPN Telephone ([facility]) -------- FLOR MAYBERRY ([id number]) 1950 F Date Time Provider Department 07/04/24 DIANE GONZALEZ [facility] During your visit today, we recorded the following information about you: Diane Gonzalez APRN.CNP 07/04/2024 8:38 AM Signed You tested negative for COVID, Influenza, and RSV. Please contact us if your symptoms are worsening or not improving. Please advise Melissa Mendes MA 07/04/2024 9:01 AM Signed Patient given results and verbalized understanding of instructions given. Melissa Mendes MA Allergies As of Date: 07/04/2024 Noted Allergy Reaction AUGMENTIN (AMOXICILLIN-POT CLAVUL*10/02/2005 4 - Hives BACTRIM (SULFAMETHOXAZOLE-TRIMET H*01/12/2022 8 - GI Upset Comments: Sick to her stomach; prefers to avoid med DOXYCYCLINE 07/28/2013 11 - Vomiting LEVOFLOXACIN 07/11/2013 14 - Other: See Comments Comments: Knee pain WELLBUTRIN (BUPROPION HCL) 10/31/2007 Comments: vivid dreams ZOCOR (SIMVASTATIN) 10/16/2009 5 - Intolerance Comments: Muscle aches Date Reviewed: 07/03/2024 Reviewed by: Melissa Mendes MA - Fully Assessed Reason for Visit: Results [95] Prescriptions as of 07/04/2024 - predniSONE (DELTASONE) 20 mg tablet Take 2 tablets by mouth once daily for 5 days. - benzonatate (TESSALON PERLE) 100 mg capsule Take 2 capsules by mouth three times a day as needed. - albuterol HFA (VENTOLIN HFA) 90 mcg/actuation inhaler Inhale 2 Puffs as instructed every 4 hours as needed for wheezing/shortness of breath. - atorvastatin (LIPITOR) 80 mg tablet TAKE 1/2 TABLET ONE TIME DAILY - busPIRone HCl 30 mg tablet Take 1 tablet by mouth two times a day. As directed. ID#[id number] - clopidogrel (PLAVIX) 75 mg tablet Take 1 tablet by mouth every afternoon. - ezetimibe (ZETIA) 10 mg tablet Take 1 tablet by mouth every afternoon. - LORazepam (ATIVAN) 0.5 mg Take 1 tablet by mouth two times a day as needed (anxiety) for up to 90 days. - metoprolol succinate ER (TOPROL XL) 50 mg 24 hr tablet Take 1 tablet by mouth once daily. - nitroglycerin sublingual (NITROQUICK) 0.4 mg SL tablet DISSOLVE ON TONGUE FOR CHEST PAIN. May repeat every 5 minutes up to total 3 doses. IF NO PAIN RELIEF, CALL 911 - docusate sodium (COLACE) 100 mg capsule Take 1-2 capsules by mouth once daily as needed for constipation. - gabapentin (NEURONTIN) 100 mg capsule Take 1 capsule by mouth daily at bedtime for 90 days. - fluticasone (FLONASE ALLERGY RELIEF) 50 mcg/actuation nasal spray Use 1 [place] in each nostril once daily. - DULoxetine (CYMBALTA) 60 mg capsule Take 1 capsule by mouth once daily. - hydrOXYzine HCl (ATARAX) 25 mg tablet Take 1 tablet by mouth three times daily as needed. - diphenhydrAMINE-Acetamin ophen 25-500 mg tab Take 2 tablets by mouth at bedtime as needed (sleep). - ELDERBERRY FRUIT ORAL Take by mouth once daily. - esomeprazole (NEXIUM) 20 mg capsule Take 1 capsule by mouth once daily. - aspirin 325 mg ORAL tablet 1 Tab ORAL DAILY Meds Comments as of 10/05/2012: Problem List As Of Date 07/04/2024 Noted Resolved DEPRESSIVE DISORDER NEC [F32.89] 02/05/2006 05/05/2015 ANXIETY STATE NOS [F41.1] 02/05/2006 05/05/2015 Esophageal reflux [K21.9] 02/05/2006 Mixed hyperlipidemia [E78.2] Allergic rhinitis [J30.9] 11/22/2006 Other diseases of lung, not elsewhere classifie*07/13/2008 07/15/2020 Osteoporosis [M81.0] VITAMIN D DEFICIENCY NOS [E55.9] 11/30/2008 05/05/2015 Aortic aneurysm (HCC) [I71.9] 07/15/2020 SUMMARY [V999.95] 06/01/2010 07/15/2020 History of non-ST elevation myocardial infarcti*06/01/2010 Coronary artery disease involving [place]*06/17/2010 Diaphragmatic hernia without mention of obstruc*03/22/2012 Chest pain [R07.9] 10/05/2012 Edema [R60.9] 10/05/2012 07/15/2020 Shortness of breath [R06.02] 10/05/2012 07/15/2020 Abnormal mammogram, unspecified [R92.8] 05/24/2014 05/05/2015 Depressive disorder [F32.A] 05/05/2015 07/15/2020 Anxiety disorder [F41.9] 05/05/2015 Vitamin D deficiency [E55.9] 05/05/2015 Cigarette smoker [F17.210] 05/16/2017 Recurrent major depression in partial remission*08/24/2019 Impaired glucose metabolism [R73.09] 10/20/2019 Obstructive sleep apnea [G47.33] 10/20/2019 Status post AAA (abdominal aortic aneurysm) rep*02/29/2020 Acute postoperative respiratory insufficiency [*02/29/2020 07/15/2020 KAREN (acute kidney injury) (HCC) [N17.9] 03/01/2020 07/15/2020 Hypo-osmolality and hyponatremia [E87.1] 03/04/2020 07/15/2020 Mild protein-calorie malnutrition (HCC) [E44.1] 03/06/2020 07/15/2020 Chronic bronchitis (HCC) [J42] 04/01/2020 Abdominal aortic aneurysm (AAA) without rupture*02/02/2023 WARE (dyspnea on exertion) [R06.09] 07/12/2023 Anginal equivalent (HCC) [I20.89] 08/27/2023 06/23/2024 Primary hypertension [I10] 10/04/2023 Stage 3a chronic kidney disease (HCC) [N18.31] 06/23/2024 Encounter (more content not included)... Normal [facility] CNOVon 07-03-2024 CNOV Office Visit (UCWSTR ) -------- FLOR MAYBERRY ([id number]) 1950 F Date Time Provider Department 07/03/24 4:00 PM ROSMERY RODAS UCWSTR During your visit today, we recorded the following information about you: Temperature Pulse Respiration Blood pressure 97.1 degrees 80/minute 16/minute 122/72 Weight 68 kg Rosmery Rodas PA-C 07/03/2024 4:38 PM Signed This note was created using Before the Callriter. Subjective Flor Mayberry is a 74 year old female. HPI Presents with cough, wheezing, shortness of breath over the past 4 days. No vomiting or diarrhea. She does have a history of chronic bronchitis. She is a smoker. States she does not have a diagnosis of COPD or asthma. She does have some pain in her chest when she coughs. No fever. She was around some sick family members recently. Review of Systems Constitutional: Positive for fatigue. Negative for fever. HENT: Positive for congestion and rhinorrhea. Negative for sore throat. Respiratory: Positive for cough, shortness of breath and wheezing. Negative for chest tightness. Cardiovascular: Positive for chest pain. Gastrointestinal: Negative. Genitourinary: Negative. Musculoskeletal: Negative. Neurological: Positive for headaches. All other systems reviewed and are negative. PAST MEDICAL HISTORY Diagnosis Date Allergic rhinitis, cause unspecified 11/22/2006 Anxiety state, unspecified 02/05/2006 Depressive disorder, not elsewhere classified 02/05/2006 Diaphragmatic hernia without mention of obstruction or gangrene Esophageal reflux 02/05/2006 [facility] (myocardial infarction) (HCC) 06/02/2010 Mixed hyperlipidemia Osteoporosis, unspecified Status post AAA (abdominal aortic aneurysm) repair 3.2 cm (last CT 07/09)--Plan Ultrasound AAA Jul 2010;02/29/2020: Open retroperitoneal infrarenal AAA repair with left renal artery bypass Current Outpatient Medications Medication Sig Dispense Refill atorvastatin (LIPITOR) 80 mg tablet TAKE 1/2 TABLET ONE TIME DAILY 45 tablet 3 clopidogrel (PLAVIX) 75 mg tablet Take 1 tablet by mouth every afternoon. 90 tablet 3 ezetimibe (ZETIA) 10 mg tablet Take 1 tablet by mouth every afternoon. 90 tablet 3 LORazepam (ATIVAN) 0.5 mg Take 1 tablet by mouth two times a day as needed (anxiety) for up to 90 days. 60 tablet 2 metoprolol succinate ER (TOPROL XL) 50 mg 24 hr tablet Take 1 tablet by mouth once daily. 90 tablet 3 nitroglycerin sublingual (NITROQUICK) 0.4 mg SL tablet DISSOLVE ON TONGUE FOR CHEST PAIN. May repeat every 5 minutes up to total 3 doses. IF NO PAIN RELIEF, CALL 911 25 tablet 1 docusate sodium (COLACE) 100 mg capsule Take 1-2 capsules by mouth once daily as needed for constipation. 60 capsule 5 gabapentin (NEURONTIN) 100 mg capsule Take 1 capsule by mouth daily at bedtime for 90 days. 30 capsule 2 DULoxetine (CYMBALTA) 60 mg capsule Take 1 capsule by mouth once daily. 90 capsule 3 hydrOXYzine HCl (ATARAX) 25 mg tablet Take 1 tablet by mouth three times daily as needed. 60 tablet 1 diphenhydrAMINE-Acetamin ophen 25-500 mg tab Take 2 tablets by mouth at bedtime as needed (sleep). ELDERBERRY FRUIT ORAL Take by mouth once daily. esomeprazole (NEXIUM) 20 mg capsule Take 1 capsule by mouth once daily. aspirin 325 mg ORAL tablet 1 Tab ORAL DAILY 30 Tab 0 predniSONE (DELTASONE) 20 mg tablet Take 2 tablets by mouth once daily for 5 days. 10 tablet 0 benzonatate (TESSALON PERLE) 100 mg capsule Take 2 capsules by mouth three times a day as needed. 30 capsule 0 albuterol HFA (VENTOLIN HFA) 90 mcg/actuation inhaler Inhale 2 Puffs as instructed every 4 hours as needed for wheezing/shortness of breath. 1 Each 0 busPIRone HCl 30 mg tablet Take 1 tablet by mouth two times a day. As directed. ID#[id number] (Patient not taking: Reported on 07/03/2024) 180 tablet 3 fluticasone (FLONASE ALLERGY RELIEF) 50 mcg/actuation nasal spray Use 1 [place] in each nostril once daily. (Patient not taking: Reported on 06/23/2024) 11.1 mL 0 No current facility-administered medications for this visit. PAST SURGICAL HISTORY Procedure Laterality Date ABD AORTA ANEURYSM REPAIR 02/29/2020 open aneurysm repair for an aneurysm with a maximal transverse diameter of 6 cm; 02/29/2020: Open retroperitoneal infrarenal AAA repair with left renal artery bypass ARTHRP ACETBLR/PROX FEM PROSTC AGRFT/ALGRFT 04/29/2012 [facility]-right BX BREAST W/DEVICE 1ST LESION STEREOTACTIC GUID 06/18/2014 benign COLONOSCOPY FLX DX W/COLLJ SPEC WHEN PFRMD 11/08/[address] [facility] COLONOSCOPY FLX DX W/COLLJ SPEC WHEN PFRMD 03/22/2012 Colonoscopy ESOPHAGOGASTRODUODENOSCO PY TRANSORAL DIAGNOSTIC 03/22/2012 EGD MAMMO STEREOTACTIC CORE BIOPSY LT 08/02/1998 left benign - Dr. Gordon PAST SURGICAL HISTORY OF Bilateral 08/02/1998 foot surgery PAST SURGICAL HISTORY OF 06/02/2010 angioplasty with stent FAMILY HISTORY Problem Relati (more content not included)... Normal [facility] COVID AND INFLUENZA A/B AND RSV PCR, ROUTINEon 07-03-2024 SARS-CoV-2 (COVID-19) RNA REBEKA+probe Ql (Unsp spec) SARS-COV-2 (AGENT OF COVID-19) RNA: Not detected INFLUENZA A RNA: Not detected INFLUENZA B RNA: Not detected RESPIRATORY SYNCYTIAL VIRUS (RSV) RNA: Not detected Normal [facility] Comment on above: Performed By: #### C VFLRS ####[facility] LABCLIA [id number] [place] XR CHEST 2V FRONTAL/LATon XR CHEST 2V FRONTAL/LAT * * *Final Report* * * DATE OF EXAM: Jul 03 2024 4:06PM WOX 5291 - XR CHEST 2V FRONTAL/LAT / PROCEDURE REASON: Wheezing * * * * Physician Interpretation * * * * EXAMINATION: CHEST RADIOGRAPH (2 VIEW FRONTAL and LATERAL) CLINICAL HISTORY: Wheezing MQ: XC2_6 EXAM DATE/TIME: 07/03/2024 4:06 PM COMPARISON: Chest x-ray dated 07/30/2020 RESULT: Lines, tubes, and devices: None. Lungs and pleura: No consolidation. No lung mass. No pleural effusion. No pneumothorax. Cardiomediastinal silhouette: Stable cardiomediastinal silhouette with heavy atherosclerotic calcification of the aorta. Bones and soft tissues: Stable dextroscoliosis of the thoracic spine with degenerative changes IMPRESSION: No acute radiographic abnormality. Redye Hand: SILVA Transcribe Date/Time: Jul 03 2024 4:11P Dictated by : SIMON BALDWIN MD This examination was interpreted and the report reviewed and electronically signed by: SIMON BALDWIN MD on Jul 03 2024 4:12PM EST [id number] Normal [facility] XR Chest PA and Lateralon IMPRESSION: No acute radiographic abnormality. Redye Hand: SILVA Transcribe Date/Time: Jul 03 2024 4:11P Dictated by : SIMON BALDWIN MD This examination was interpreted and the report reviewed and electronically signed by: SIMON BALDWIN MD on Jul 03 2024 4:12PM EST DIVISION OF RADIOLOGY * * *Final Report* * * DATE OF EXAM: Jul 03 2024 4:06PM WOX 5291 - XR CHEST 2V FRONTAL/LAT / PROCEDURE REASON: Wheezing * * * * Physician Interpretation * * * * EXAMINATION: CHEST RADIOGRAPH (2 VIEW FRONTAL & LATERAL) CLINICAL HISTORY: Wheezing MQ: XC2_6 EXAM DATE/TIME: 07/03/2024 4:06 PM COMPARISON: Chest x-ray dated 07/30/2020 RESULT: Lines, tubes, and devices: None. Lungs and pleura: No consolidation. No lung mass. No pleural effusion. No pneumothorax. Cardiomediastinal silhouette: Stable cardiomediastinal silhouette with heavy atherosclerotic calcification of the aorta. Bones and soft tissues: Stable dextroscoliosis of the thoracic spine with degenerative changes DIVISION OF RADIOLOGY [facility] * * *Final Report* * * DATE OF EXAM: Jul 03 2024 4:06PM WOX 5291 - XR CHEST 2V FRONTAL/LAT / PROCEDURE REASON: Wheezing * * * * Physician Interpretation * * * * EXAMINATION: CHEST RADIOGRAPH (2 VIEW FRONTAL & LATERAL) CLINICAL HISTORY: Wheezing MQ: XC2_6 EXAM DATE/TIME: 07/03/2024 4:06 PM COMPARISON: Chest x-ray dated 07/30/2020 RESULT: Lines, tubes, and devices: None. Lungs and pleura: No consolidation. No lung mass. No pleural effusion. No pneumothorax. Cardiomediastinal silhouette: Stable cardiomediastinal silhouette with heavy atherosclerotic calcification of the aorta. Bones and soft tissues: Stable dextroscoliosis of the thoracic spine with degenerative changes IMPRESSION IMPRESSION: No acute radiographic abnormality. Redye Hand: SILVA Transcribe Date/Time: Jul 03 2024 4:11P Dictated by : SIMON BALDWIN MD This examination was interpreted and the report reviewed and electronically signed by: SIMON BALDWIN MD on Jul 03 2024 4:12PM EST [facility] Radiology Study observation (narrative) [facility] XR Chest PA and LateralOrder ed By: [facility] Provider on 07-03-2024 [facility] CNOVon 06-23-2024 CNOV Office Visit (INTMWS ) -------- FLOR MAYBERRY ([id number]) 1950 F Date Time Provider Department 06/23/24 1:20 PM TED GILL INTMWS During your visit today, we recorded the following information about you: Pulse Blood pressure Weight 85/minute 133/80 67.9 kg Ted Gill APRN.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 Medicare Health Risk Assessment General Health good Exercise: Minutes/Day Walking dog daily Exercise: Days/Week 7 days a week Alcohol: Daily Use no Alcohol: Drinks/Day no Alcohol: 6 or more drinks no Feel off balance no Concerns: Teeth/Dentures no Concerns: Sexual function no Troubled by feelings no Frequency: Eating healthy diet Tries to eat healthy daily ADLs requiring help no Safety precautions in home/vehicle yes Smoke, vape, chews tobacco yes Difficulty hearing no Difficulty seeing no Current Providers Specialists: I have reviewed specialist-related care of the patient in the medical record. Current care team: Patient Care Team: Tanner Hook MD as PCP - General Valery Mireles MD as Referring (Vascular Surgery) Valery Mireles MD as Home Care Provider (Vascular Surgery) Shanna Almaguer RN as Wiring Mechanic (Post Acute Care) Cardiology Medical/Family history review Reviewed and updated problem list, medical/surgical/family/ social history, medications, and allergies. Opioid use review Opioid Medications (last 90 days) No data to display Depression Screening No concerns, already diagnosed with depression. Cognitive screening Mini Cog Score: 5 Cognitive screening reviewed and No further action needed (score 3-5). Functional Observation Was the patient's Timed Up AND Go test unsteady or >= 12 seconds? No Advance Care Planning Surrogate decision maker and/or advance care plan documented Measurements BP 165/98 Pulse 85 Wt 67.9 kg (149 lb 11.1 oz) SpO2 96% BMI 28.28 kg/m? Vision Screening: Follows with optometry/ophthalmology SUBJECTIVE Flor Mayberry is a 74 year old female here today for a check up on her medical problems. Chief Complaint Patient presents with: Medicare Wellness Exam HPI Flor Mayberry is a 74 year old female. She is an established patient of Tanner Hook MD. Here today for follow up and medicare wellness. Needs to follow up with vascular. S/p AAA repair. Notes more issues with constipation lately. Planning for cataract surgery next week. Mood doing okay, depression and anxiety stable. Needs refills sent. Her medications were reviewed today and her list is now up to date. Medications Current Outpatient Medications Medication Sig DULoxetine (CYMBALTA) 60 mg capsule Take 1 capsule by mouth once daily. hydrOXYzine HCl (ATARAX) 25 mg tablet Take 1 tablet by mouth three times daily as needed. diphenhydrAMINE-Acetamin ophen 25-500 mg tab Take 2 tablets by mouth at bedtime as needed (sleep). ELDERBERRY FRUIT ORAL Take by mouth once daily. esomeprazole (NEXIUM) 20 mg capsule Take 1 capsule by mouth once daily. aspirin 325 mg ORAL tablet 1 Tab ORAL DAILY atorvastatin (LIPITOR) 80 mg tablet TAKE 1/2 TABLET ONE TIME DAILY busPIRone HCl 30 mg tablet Take 1 tablet by mouth two times a day. As directed. ID#[id number] clopidogrel (PLAVIX) 75 mg tablet Take 1 tablet by mouth every afternoon. ezetimibe (ZETIA) 10 mg tablet Take 1 tablet by mouth every afternoon. LORazepam (ATIVAN) 0.5 mg Take 1 tablet by mouth two times a day as needed (anxiety) for up to 90 days. metoprolol succinate ER (TOPROL XL) 50 mg 24 hr tablet Take 1 tablet by mouth once daily. nitroglycerin sublingual (NITROQUICK) 0.4 mg SL tablet DISSOLVE ON TONGUE FOR CHEST PAIN. May repeat every 5 minutes up to total 3 doses. IF NO PAIN RELIEF, CALL 911 docusate sodium (COLACE) 100 mg capsule Take 1-2 capsules by mouth once daily as needed for constipation. gabapentin (NEURONTIN) 100 mg capsule Take 1 capsule by mouth daily at bedtime for 90 days. fluticasone (FLONASE ALLERGY RELIEF) 50 mcg/actuation nasal spray Use 1 [place] in each nostril once daily. (Patient not taking: Reported on 06/23/2024) No current facility-administered medications for this visit. ALLERGIES Allergen Reactions Augmentin [Amoxicil* Hives Bactrim [Sulfametho* GI Upset Sick to her stomach; prefers to avoid med Doxycycline Vomiting Levofloxacin Other: See Comments Knee pain Wellbutrin [Bupropi* vivid dreams Zocor [Simvastatin] Intolerance Muscle aches ACTIVE PROBLEM LIST Mixed Hyperlipidemia (B priority) Comment: History: home meds lipitor 40mg daily, 80mg caused muscle pains Assessment: tolerating diet Plan: Continue lipitor QHS Primary Hypertension - 10/04/2023 Anginal Equivalent (Hcc) - 08/27/2023 Ware (Dyspnea On Exertion) - 07/12/2023 Abdominal Aortic Aneurysm (Aaa) (more content not included)... Normal [facility] Urine Cultureon 01-09-2024 [facility] Escherichia coli [place] Count >100,000 Escherichia coli: REACTION Ampicillin Islt JUANY <=2 S Ampicillin+Sulbac Islt JUANY <=2 S ceFAZolin Islt JUANY <=4 S Cefepime Islt JUANY <=0.12 S cefTRIAXone Islt JUANY <=0.25 S Ciprofloxacin Islt JUANY <=0.25 S Ertapenem Islt JUANY <=0.12 S B-Lactamase Extended Susc Islt NEG Gentamicin Islt JUANY <=1 S Imipenem Islt JUANY <=0.25 S levoFLOXacin Islt JUANY <=0.12 S Nitrofurantoin Islt JUANY <=16 S Pip+Tazo Islt JUANY <=4 S Tobramycin Islt JUANY <=1 S TMP SMX Islt JUANY <=20 S Normal [facility] Comment on above: Performed By: #### M 100.2200 #### [facility] [address] [place], [address] Abdomen/Pelvis W IV Cont ONL Yon 01-07-2024 Abdomen/Pelvis W IV Cont ONLY [facility] Imaging Services [address] [place] [address] Abdomen/Pelvis W IV Cont ONLY MR#: [id number] Acct: [id number] Name: FLOR MAYBERRY Rep #: [id number] : 1950 F 73 From: [place]i [place] PCP: Dr. Tanner Hook MD Status: REG ER Study: Abdomen/Pelvis W IV Cont ONLY Date of Exam: Exam# [id number] Ordering Dr: Mauri Carlson DO [id number] INDICATION: left abd pain EXAMINATION: CT ABDOMEN AND PELVIS with CONTRAST - CT Abdomen And Pelvis W/ Contrast Injection TECHNIQUE: Multiple axial images were obtained of the abdomen and pelvis following administration of IV contrast. Planar reconstructions obtained. A radiation dose optimization technique was used for this scan. RADIATION DOSAGE (If Supplied By Facility): CTDIvol = ( 16.77 ) mGy, DLP = ( 891.30 ) mGycm IV Contrast dosage and agent: None. Oral contrast: None. COMPARISON: No pertinent previous studies for comparison.. FINDINGS: LOWER THORAX: Lungs are clear. Cardiac contour is normal, no pericardial effusion. No coronary vascular calcifications noted. HEPATOBILIARY: Liver: The liver is homogeneous and shows no evidence of focal lesion. Gallbladder: The gallbladder is unremarkable. Pancreas: Pancreas is normal size configuration and density. No mass is noted. Spleen: The spleen is homogeneous and normal in size. . BOWEL: Stomach: The stomach is normal in size configuration, no evidence of focal masses, abnormal calcifications. No hiatal hernia noted. Bowel: Small and large have normal configuration, no masses or bowel obstruction noted. Appendix: The visualized appendix has normal appearance.: GENITOURINARY: Adrenals: Both adrenal glands are normal in size. Kidneys: Kidneys appear symmetric in size. No calcifications are seen in the collecting system. There is no hydronephrosis or surrounding fluid. There is a prominent exophytic benign cyst arising from the anterior aspect of the LEFT kidney, measuring approximately 6.5 x 0.7 cm. No calcifications or evidence of obstructive uropathy. Bladder: Normal Pelvic organs: The visualized pelvic organs are normal in size and configuration. No masses or adenopathy noted. RETROPERITONEUM: Diffuse soft and calcified plaque with mild asymmetry throughout the abdominal aorta which is tortuous and mildly ectatic, maximal axial dimensions estimated at approximately 3.4 x 3.2 cm. LYMPH NODES: No evidence of retroperitoneal or para-aortic masses fluid collections or adenopathy. PERITONEAL CAVITY: No ascites noted ANTERIOR ABDOMINAL WALL: Normal, no hernia identified. BONES AND SOFT TISSUES: Diffuse lumbar levoscoliotic curvature. No acute bony changes. Postoperative changes involving the RIGHT hip status post RIGHT hip arthroplasty. No acute bony changes noted. OTHER: None CT/Abdomen/Pelvis W IV Cont ONLY IMPRESSION: 1. No masses bowel obstruction abscess free fluid or free air. No evidence of diverticulitis. 2. Benign-appearing Bosniak type I LEFT renal cyst, no follow-up necessary. 3. No renal calcification or obstructive uropathy. 4. No evidence cholelithiasis. 5. Diffusely ectatic abdominal aorta which is also has diffuse soft and calcified plaque. No focal aneurysm or dissection noted. Maximal dimension estimated 3.4 x 3.2 cm. 6. Extensive levoscoliotic curvature of the lumbar spine without acute bony changes. 7. RIGHT hip arthroplasty with normal alignment. Bosniak class I and II cysts are considered benign, and require no additional imaging follow-up based on consensus guidelines (JACR 2010; [id number]). Electronically Signed: Sergei Marin MD at 17:50 EDT , CC: Dr. Tanner Hook MD; Dr. Mauri Carlson DO Redye Hand: Signed Normal [facility] Basic Metabolic Profile (BMP )on 01-07-2024 BUN/CRE 15.1 RATIO Normal 10-20 [facility] Comment on above: Performed By: #### L 100.0100, L500.2500 #### [facility] [address] [place], [address] CA,Total 9.4 mg/dL Normal 8.5-10.1 [facility] Comment on above: Performed By: #### L 100.0100, L500.2500 #### [facility] [address] [place], [address] Chloride [Moles/Vol] 102 mmol/L Normal 98-107 [facility] Comment on above: Performed By: #### L 100.0100, L500.2500 #### [facility] [address] [place], [address] CO2 [Moles/Vol] 26.0 mmol/L Normal 21.0-32.0 [facility] Comment on above: Performed By: #### L 100.0100, L500.2500 #### [facility] [address] [place], [address] Creatinine [Mass/Vol] 1.06 mg/dL High 0.55-1.02 [facility] Comment on above: Result Comment: The validity of the calculated GFR GFRAA in patients over 70 years has not been determined. Clinical correlation is essential. Performed By: #### L 100.0100, L500.2500 #### [facility] [address] [place], [address] ECRCL 41.55 ml/min Normal [facility] Comment on above: Performed By: #### L 100.0100, L500.2500 #### [facility] [address] [place], [address] EST GFR - AA 65 mL/min Normal >60 [facility] Comment on above: Result Comment: Afri can [place] GFR Calc Performed By: #### L 100.0100, L500.2500 #### [facility] [address] [place], [address] GAP 7 Normal 5-15 [facility] Comment on above: Performed By: #### L 100.0100, L500.2500 #### [facility] [address] [place], [address] GFR/1.73 sq M.predicted among non-blacks MDRD (S/P/Bld) [Vol rate/Area] 54 mL/min/{1.73_m2} Low >60 [facility] Comment on above: Result Comment: Non- GFR Calc Performed By: #### L 100.0100, L500.2500 #### [facility] [address] [place], [address] Glucose [Mass/Vol] 112 mg/dL High 74-106 [facility] Comment on above: Result Comment: Fast ing Glucose result from 100 to 125 mg/dL suggests IMPAIRED HOMEOSTASIS per A.D.A. criteria. Performed By: #### L 100.0100, L500.2500 #### [facility] [address] [place], [address] Potassium [Moles/Vol] 3.9 mmol/L Normal 3.5-5.1 [facility] Comment on above: Performed By: #### L 100.0100, L500.2500 #### [facility] [address] [place], [address] Sodium [Moles/Vol] 135 mmol/L Low 136-145 [facility] Comment on above: Performed By: #### L 100.0100, L500.2500 #### [facility] [address] [place], [address] Urea nitrogen [Mass/Vol] 16 mg/dL Normal 7-18 [facility] Comment on above: Performed By: #### L 100.0100, L500.2500 #### [facility] [address] [place], [address] CBC W/Diff, Automatedon 06-0 7-2023 Absolute Lymph 1.14 X10 3/uL Normal 0.83-4.51 [facility] Comment on above: Performed By: #### L 100.0100, L500.2500 #### [facility] [address] [place], [address] Absolute Neut 7.7 X10 3/uL Normal 2.0-7.7 [facility] Comment on above: Performed By: #### L 100.0100, L500.2500 #### [facility] [address] [place], [address] Basophils/100 WBC (Bld) 0.5 % Normal 0-1 [facility] Comment on above: Performed By: #### L 100.0100, L500.2500 #### [facility] [address] [place], [address] Eosinophils/100 WBC (Bld) 2.7 % Normal 0-5 [facility] Comment on above: Performed By: #### L 100.0100, L500.2500 #### [facility] [address] [place], [address] Erythrocyte distribution width (RBC) [Ratio] 14.7 % High 11.6-14.6 [facility] Comment on above: Performed By: #### L 100.0100, L500.2500 #### [facility] [address] [place], [address] Hematocrit (Bld) [Volume fraction] 40.8 % Normal 37-47 [facility] Comment on above: Performed By: #### L 100.0100, L500.2500 #### [facility] [address] [place], [address] Hemoglobin (Bld) [Mass/Vol] 13.5 g/dL Normal 12.0-15.0 [facility] Comment on above: Performed By: #### L 100.0100, L500.2500 #### [facility] [address] [place], [address] IG% 0.400 Normal 0.0-0.9 [facility] Comment on above: Result Comment: IG% - Immature Granulocytes (promyelocytes, myelocytes and metamyelocytes) > 1% indicates that a LEFT SHIFT is Present. Performed By: #### L 100.0100, L500.2500 #### [facility] [facility] [address] [place], [address] Lymphocytes/100 WBC (Bld) 11.5 % Low 19-41 [facility] Comment on above: Performed By: #### L 100.0100, L500.2500 #### [facility] [address] [place], [address] MCH (RBC) [Entitic mass] 27.7 pg Normal 27.0-32.0 [facility] Comment on above: Performed By: #### L 100.0100, L500.2500 #### [facility] [address] [place], [address] MCHC (RBC) [Mass/Vol] 33.1 g/dL Normal 32-36 [facility] Comment on above: Performed By: #### L 100.0100, L500.2500 #### [facility] [address] [place], [address] MCV (RBC) [Entitic vol] 83.8 fL Normal 81-99 [facility] Comment on above: Performed By: #### L 100.0100, L500.2500 #### [facility] [address] [place], [address] Monocytes/100 WBC (Bld) 7.5 % Normal 0-10 [facility] Comment on above: Performed By: #### L 100.0100, L500.2500 #### [facility] [address] [place], [address] Neutrophils/100 WBC (Bld) 77.4 % High 47-70 [facility] Comment on above: Performed By: #### L 100.0100, L500.2500 #### [facility] [address] [place], [address] Nucleated RBC (Bld) [#/Vol] 0 10*3/uL Normal 0-5 [facility] Comment on above: Performed By: #### L 100.0100, L500.2500 #### [facility] [address] [place], [address] Platelet mean volume (Bld) [Entitic vol] 10.2 fL Normal 6.2-12.0 [facility] Comment on above: Performed By: #### L 100.0100, L500.2500 #### [facility] [address] [place], [address] Platelets (Bld) [#/Vol] 256 10*3/uL Normal 150-450 [facility] Comment on above: Performed By: #### L 100.0100, L500.2500 #### [facility] [address] [place], [address] RBC (Bld) [#/Vol] 4.87 10*6/uL Normal 4.2-5.4 [facility] Comment on above: Performed By: #### L 100.0100, L500.2500 #### [facility] [address] [place], [address] RDW SD 45.1 fl High 35.1-43.9 [facility] Comment on above: Performed By: #### L 100.0100, L500.2500 #### [facility] [address] [place], [address] WBC (Bld) [#/Vol] 9.9 10*3/uL Normal 4.4-11.0 [facility] Comment on above: Performed By: #### L 100.0100, L500.2500 #### [facility] [address] [place], [address] Emergency Department Summary on 01-07-2024 Emergency Department Summary [facility] Medical Records Department [address] [place] [address] Emergency Department Summary 01/07/24 MR#: [id number] Acct: [id number] Name: FLOR MAYBERRY Rep #: [id number] : 1950 73 From: Mauri Suarez PCP: Dr. Tanner Hook MD Status:DEP ER Location: ED HPI HPI - GI History of Present Illness Chief Complaint: Abd Pain Informant: patient Narrative Narrative: Sent in from PCP for progressive pain left side abdomen since yesterday. She has had multiple nonbloody bowel movements today. No fevers. No nausea or vomiting. Reports urine frequency. 3 years ago had a AAA open repair at [facility]. There is a surgical scar on that side. Saw her PCP had concerns for possible hernia. She was sent here for evaluation. She has had EGD and colonoscopies in the past. States her last colonoscopy was unable to be fully performed due to reported tortuous colon. She ended up with a barium swallow for which she did not like. Prior similar symptoms: No PFSH PFSH Medical History Hyperlipidemia GERD (gastroesophageal reflux disease) Depression Anxiety CAD (coronary artery disease) Home Medications ???Medication ???Instructions ???Recorded ???Last Taken ???Type aspirin 325 mg tablet,delayed 325 mg PO DAILY@0800 06/20/13 Unknown History release atorvastatin 40 mg tablet 40 mg PO QHS 06/20/13 Unknown History clopidogrel 75 mg tablet 75 mg PO DAILY 06/20/13 Unknown History duloxetine 60 mg capsule,delayed 60 mg PO DAILY 06/20/13 Unknown History release esomeprazole magnesium 20 mg 20 mg PO DAILY 06/20/13 Unknown History capsule,delayed release (Nexium) metoprolol tartrate 25 mg tablet 25 mg PO DAILY 06/20/13 Unknown History buspirone 30 mg tablet 15 mg (1/2 x 30 mg) PO BID PRN 12/29/21 Unknown Rx Anxiety #0 tabs nirmatrelvir 300 mg (150 mg See Rx Instructions PO .COMPLEX 12/29/21 Unknown Rx x2)-ritonavir 100 mg tablet,dose #30 tabs pack (Paxlovid) cephalexin 500 mg capsule 500 mg PO Q6 #20 CAPSULES 01/04/22 Unknown Rx cefdinir 300 mg capsule 300 mg PO Q12H #14 caps 01/07/24 Unknown Rx ondansetron 4 mg disintegrating 4 mg PO Q8H PRN PRN Nausea #10 tabs 01/07/24 Unknown Rx tablet Allergy/AdvReac Type Severity Reaction Status Date / Time amoxicillin trihydrate (From Allergy Unknown Verified 01/07/24 15:39 Augmentin) potassium clavulanate (From Allergy Unknown Verified 01/07/24 15:39 Augmentin) bupropion HCl (From AdvReac Other Verified 01/07/24 15:39 Wellbutrin) Surgical History H/O heart artery stent Social History Smoking Status: Current every day smoker tobacco type: cigarettes ROS ROS ED Constitutional Constitutional ED: Denies chills, fever(s) or sweats Eyes Eyes: Denies change in vision ENT ENT ED: Denies dysphagia or sore throat Cardiovascular Cardiovascular: Denies chest pain, leg edema, palpitations or racing heartbeat Respiratory/Chest Respiratory/Chest: Denies cough, dyspnea or dyspnea on exertion Gastrointestinal Gastrointestinal: Reports abdominal pain; Denies diarrhea, nausea or vomiting Genitourinary Genitourinary ED: Denies dysuria, hematuria or urinary frequency Musculoskeletal Musculoskeletal: Denies back pain, extremity pain or neck pain Integumentary Denies rash or wounds Neurologic Neurologic: Denies headache(s), paresthesias or weakness EXAM Physical Exam Const Vital Signs: 01/07/24 15:38 01/07/24 17:38 01/07/24 19:00 Temperature 98.2 F Temperature Source Temporal Pulse Rate 98 74 Respiratory Rate 14 16 18 Blood Pressure 157/88 H 148/91 H Blood Pressure Mean 111 110 Pulse Ox 97 98 Oxygen Delivery Method Room Air Room Air 01/07/24 19:11 Temperature 98.2 F Temperature Source Pulse Rate 74 Respiratory Rate 19 H Blood Pressure 157/89 H Blood Pressure Mean 111 Pulse Ox 97 Oxygen Delivery Method Positive well nourished and well developed General Appearance ED: well developed and NAD HEENT Reports moist mucous membranes normocephalic and atraumatic Eyes EOMs intact bilaterally and conjunctivae normal General Eye ED: Yes normal appearance of both eyes Neck no lymphadenopathy and supple General: Negative for tenderness Chest Wall Chest: Negative for tenderness Resp normal respiratory effort and normal air movement Effort and Inspection: symmetric chest movement; Negative for respiratory distress Cardio regular rate, regular rhythm and no murmurs Peripheral Pulses: pulses 2+ throughout GI normal to inspection, nondistended, normoactive bowel sounds GI Narrative: Tenderness left side mid abdomen near the (more content not included)... Normal [facility] Urinalysis, Completeon 01-06 BACTERIA 2+ /hpf Normal None Seen [facility] Comment on above: Order Comment: CASTILLO CTOR TO SPECIFY Performed By: #### L 400.0001 #### [facility] [address] [place], [place], [id number] EPI,SQUAMOUS 5-10 SEEN Normal 5-10 [facility] Comment on above: Order Comment: CASTILLO CTOR TO SPECIFY Performed By: #### L 400.0001 #### [facility] [address] [facility] [place], [place], [id number] WBC 5-10 SEEN Normal 0-5 [facility] Comment on above: Order Comment: CASTILLO CTOR TO SPECIFY Performed By: #### L 400.0001 #### [facility] [address] [facility] [place], [place], [id number] Mucus Ql (Urine sed) 0 SEEN Normal [facility] Comment on above: Order Comment: CASTILLO CTOR TO SPECIFY Performed By: #### L 400.0001 #### [facility] [address] [place], [address] RBC 0 SEEN Normal 0-5 [facility] Comment on above: Order Comment: CASTILLO CASTILLOOR TO SPECIFY Performed By: #### L 400.0001 #### [facility] [address] [place], [address] CARD CATH DIAGNOSTICon 08-27 CARD CATH DIAGNOSTIC Site Id: [facility] Lab #: DEFAULT Study Date: 08/27/2023 Start Time: End Time: Name Duty Jonathan Chan MD PROC 1 Rudi Gallo RN PROC SCRUB 1 Elena Wilkins RN PROC CIRC 1 Madelin Herr RN PROC RECORD 1 Ross Baker RT PROC BUYER GRAIN 1 + + PATIENT INFORMATION + + Name: MRS. FLOR MAYBERRY : 1950 Age: 73 years Gender: Height: 61 in / 155 cm Weight: 153.00 lb / 69.40 kg BMI: 28.89 kg/m BSA: 1.69 m + -----+ CLINICAL HISTORY/INDICATIONS + -----+ Dyspnea. Procedural Status: Elective CAD Presentation: Symptoms Unlikely to be Ischemic Angina Classification (within 2 weeks): CCS I No Heart Failure Clinical History: 73 years female with LAD / D1 Stent for coronary angiography and right heart cath. + + DIAGNOSTIC FINDINGS + + Coronary Anatomy: Right Dominant Injection Site(s): Coronary Artery LMT: _ The LMT is normal. LAD: _ The LAD has mild diffuse disease. Additional Comment: Patent LAD and D1 stent. LCX: _ The Circumflex has mild diffuse disease. RAMUS: _ Ramus Status: Not Applicable. RCA: _ The RCA has moderate diffuse disease. _ The proximal RCA is narrowed 80 % - severe diffuse disease. Left Ventriculogram:normal LV size and function LVEF= 60% + + IMPRESSION/PLAN + + Impression:1. Severe proximal RCA with Diffuse distal RCA disease. 2. Patent LAD/D stent. 3. Normal LV size and function Recommended Treatment: Medical Therapy. Plan: Medical therapy + + HEMODYNAMICS - XPER + + + +------ +-----+-------+------+-- ----+------+ Measurement Name Sys Tamera End Tamera Mean A Wave V Wave + +------ +-----+-------+------+-- ----+------+ AO 175.00 76.00 113.00 + +------ +-----+-------+------+-- ----+------+ AO 152.00 70.00 106.00 + +------ +-----+-------+------+-- ----+------+ AO 145.00 70.00 100.00 + +------ +-----+-------+------+-- ----+------+ LV 158.00 0.00 8.00 + +------ +-----+-------+------+-- ----+------+ LVp 149.00 -9.00 5.00 + +------ +-----+-------+------+-- ----+------+ AOp 147.00 63.00 97.00 + +------ +-----+-------+------+-- ----+------+ RA 14.00 18.00 15.00 + +------ +-----+-------+------+-- ----+------+ RV 39.00 12.00 16.00 + +------ +-----+-------+------+-- ----+------+ PA 40.00 19.00 28.00 + +------ +-----+-------+------+-- ----+------+ PW 22.00 25.00 24.00 + +------ +-----+-------+------+-- ----+------+ Oximetry: + +-- --+ +-----+- --+-----+ Time Site O2 Saturation O2 PO2 HB + +-- --+ +-----+- --+-----+ 08/27/2023 8:23:37 AM AO 89.00 17.19 14.20 + +-- --+ +-----+- --+-----+ 08/27/2023 8:23:37 AM RA 61.00 11.78 14.20 + +-- --+ +-----+- --+-----+ 08/27/2023 8:23:37 AM AO 89.00 17.19 14.20 + +-- --+ +-----+- --+-----+ 08/27/2023 8:23:37 AM PA 59.00 11.39 14.20 + +-- --+ +-----+- --+-----+ Cardiac Outputs: +--------+-----+ DAVID SV 61.90 +--------+-----+ DAVID CO 4.15 +--------+-----+ DAVID CI 2.46 +--------+-----+ DAVID HR +--------+-----+ MAN CO +--------+-----+ MAN CI +--------+-----+ TD SV 85.50 +--------+-----+ TD CO 5.73 +--------+-----+ TD CI 3.40 +--------+-----+ ANGIO SV +--------+-----+ ANGIO CO +--------+-----+ ANGIO CI +--------+-----+ + + ADVERSE OUTCOME(s)/COMPLICATION( s) + + None + -------+ PROCEDURAL & TECHNICAL DETAILS + -------+ Date Time Description 08/27/2023 12:00:00 AM Left Heart Cath 08/27/2023 12:00:00 AM Right Heart Cath *MEDICAL HISTORY* CAD Presentation: Symptoms Unlikely to be Ischemic Angina Classification (within 2 weeks): CCS I No Heart Failure Family History of CAD: Yes Congenital Heart Disease: No Coronary Artery Disease: Yes Dyslipidemia: Yes Hypertension: Yes Myocarditis: No Pericarditis: No Syncope: No Arrhythmia: None Diabetes Mellitus: No Creatinine > 2: No Dialysis: Currently not on dialysis Left Ventricle EF: 60 on 08/27/2023 by Cath. LVEF at Discharge: 60.00 % *HISTORY OF ARTERIAL DISEASE* Peripheral Arterial Disease: No Cerebrovascular Disease: No TIA: No Stroke: No Carotid ASO: No Vertebral ASO: No Procedure Det (more content not included)... Normal [facility] HISTORY PHYSICALon HISTORY PHYSICAL HNO ID: [id number] Author: JONATHAN CHAN MD Service: Cardiovascular Surgery Author Type: Physician Type: H&P Filed: 08/27/2023 08:19 Note Text: UPDATED HANDP PRE-CARDIAC CATHETERIZATION SERVICE DATE: 08/27/2023 SERVICE TIME: 8:17 am PHYSICAL EXAM MUST BE COMPLETED ON ADMISSION The History and Physical (completed in the past 30 days) has been reviewed and the patient has been examined. The contents accurately reflect the patient's condition with the following additions or revisions since the HANDP was completed. Examination indicates no changes. Planned Procedure: Right and Left Heart Cath + Possible PCI Primary Indication for Procedure: Angina Equivalent High Risk Features: History of Prior CABG: No History of Prior PCI: Yes Cardiomyopathy: No Anti-ischemic Meds in Past 2 Weeks: Beta blockers Ejection Fraction: 60% from Previous Echo Risk Appropriateness: Angina Class in Past 2 Weeks: Class IV - Unable to carry on any physical activity without discomfort Cardiogenic Shock: NoHeart Failure: None Stress Test Performed: No EKG Assessment: Normal Family History of Premature CAD: Father, age 60 Evaluation for Preop Clearance: Non-Cardiac Surgery, Functional Capacity; >= 4 METS with symptoms, Surgical Risk; Low HISTORY OF BLEEDING: No This HANDP can be found in the attached. SIGNATURE: Jonathan Chan MD PATIENT NAME: Flor Mayberry DATE: August 27, 2023 TIME: 8:17 AM [facility] NURSING PROGon 08-27-2023 NURSING PROG HNO ID: [id number] Author: JANNY CANAS, RN Service: Nursing Author Type: Registered Nurse Type: Nursing Progress Note Filed: 08/27/2023 11:44 Note Text: Other: Both R Bands removed with no bleeding, wrist and arm is bruised and tender to touch.Ulna pulse is present.No hematoma present. Normal [facility] CNPNon 08-06-2023 CNPN Telephone (AGCARDPOB ) -------- FLOR MAYBERRY ([id number]) 1950 F Date Time Provider Department 08/06/23 JONATHAN CHAN During your visit today, we recorded the following information about you: Annabelle Gonzalez LPN 08/06/2023 2:56 PM Signed ----- Message from Jonathan Chan MD sent at 08/06/2023 2:51 PM EST ----- Please call the patient blood work is normal Annabelle Hanley LPN 08/06/2023 2:58 PM Signed Voicemail msg left for patient to return call to [facility] to review test results. Office phone number provided. KISHOR Johnston Jessica, LPN 08/09/2023 9:02 AM Signed Left message for with 's response to lab results on her personalized voice mail. [facility] phone number provided for any questions regarding results. KISHOR Gill Taylor, LPN 08/13/2023 10:43 AM Signed Spoke to Ms. Mayberry about test results. Patient voiced understanding at this time. Gissell Self LPN Allergies As of Date: 08/06/2023 Noted Allergy Reaction AUGMENTIN (AMOXICILLIN-POT CLAVUL*10/02/2005 4 - Hives BACTRIM (SULFAMETHOXAZOLE-TRIMET H*01/12/2022 8 - GI Upset Comments: Sick to her stomach; prefers to avoid med DOXYCYCLINE 07/28/2013 11 - Vomiting LEVOFLOXACIN 07/11/2013 14 - Other: See Comments Comments: Knee pain WELLBUTRIN (BUPROPION HCL) 10/31/2007 Comments: vivid dreams ZOCOR (SIMVASTATIN) 10/16/2009 5 - Intolerance Comments: Muscle aches Date Reviewed: 07/30/2023 Reviewed by: Palomo James APRN.HEAVY EQUIPMENT SUPERVISOR - Fully Assessed Reason for Visit: Results [95] Prescriptions as of 08/13/2023 - fluticasone (FLONASE ALLERGY RELIEF) 50 mcg/actuation nasal spray Use 1 [place] in each nostril once daily. - DULoxetine (CYMBALTA) 60 mg capsule Take 1 capsule by mouth once daily. - atorvastatin (LIPITOR) 80 mg tablet TAKE 1/2 TABLET ONE TIME DAILY - clopidogrel (PLAVIX) 75 mg tablet Take 1 tablet by mouth every afternoon. - metoprolol succinate ER (TOPROL XL) 25 mg 24 hr tablet Take 1 tablet by mouth once daily. - ezetimibe (ZETIA) 10 mg tablet Take 1 tablet by mouth every afternoon. - busPIRone HCl 30 mg tablet Take 1 tablet by mouth two times a day. As directed. ID#[id number] - nitroglycerin sublingual (NITROQUICK) 0.4 mg SL tablet DISSOLVE ON TONGUE FOR CHEST PAIN. May repeat every 5 minutes up to total 3 doses. IF NO PAIN RELIEF, CALL 911 - LORazepam (ATIVAN) 0.5 mg Take 1 tablet by mouth twice daily as needed (anxiety) for up to 90 days. Do not start before February 07, 2023. - hydrOXYzine HCl (ATARAX) 25 mg tablet Take 1 tablet by mouth three times daily as needed. - ergocalciferol 50,000 unit capsule (VITAMIN D2, DRISDOL) Take 1 capsule by mouth every other week. - diphenhydrAMINE-Acetamin ophen 25-500 mg tab Take 2 tablets by mouth at bedtime as needed (sleep). - ELDERBERRY FRUIT ORAL Take by mouth once daily. - esomeprazole (NEXIUM) 20 mg capsule Take 1 capsule by mouth once daily. - aspirin 325 mg ORAL tablet 1 Tab ORAL DAILY Meds Comments as of 10/05/2012: Problem List As Of Date 08/06/2023 Noted Resolved DEPRESSIVE DISORDER NEC [F32.89] 02/05/2006 05/05/2015 ANXIETY STATE NOS [F41.1] 02/05/2006 05/05/2015 Esophageal reflux [K21.9] 02/05/2006 Mixed hyperlipidemia [E78.2] Allergic rhinitis [J30.9] 11/22/2006 Other diseases of lung, not elsewhere classifie*07/13/2008 07/15/2020 Osteoporosis [M81.0] VITAMIN D DEFICIENCY NOS [E55.9] 11/30/2008 05/05/2015 Aortic aneurysm (HCC) [I71.9] 07/15/2020 SUMMARY [V999.95] 06/01/2010 07/15/2020 History of non-ST elevation myocardial infarcti*06/01/2010 ASCVD (arteriosclerotic cardiovascular disease)*06/17/2010 Diaphragmatic hernia without mention of obstruc*03/22/2012 Chest pain [R07.9] 10/05/2012 Edema [R60.9] 10/05/2012 07/15/2020 Shortness of breath [R06.02] 10/05/2012 07/15/2020 Abnormal mammogram, unspecified [R92.8] 05/24/2014 05/05/2015 Depressive disorder [F32.A] 05/05/2015 07/15/2020 Anxiety disorder [F41.9] 05/05/2015 Vitamin D deficiency [E55.9] 05/05/2015 Cigarette smoker [F17.210] 05/16/2017 Recurrent major depression in partial remission*08/24/2019 Impaired glucose metabolism [R73.09] 10/20/2019 Obstructive sleep apnea [G47.33] 10/20/2019 Status post AAA (abdominal aortic aneurysm) rep*02/29/2020 Acute postoperative respiratory insufficiency [*02/29/2020 07/15/2020 KAREN (acute kidney injury) (HCC) [N17.9] 03/01/2020 07/15/2020 Hypo-osmolality and hyponatremia [E87.1] 03/04/2020 07/15/2020 Mild protein-calorie malnutrition (HCC) [E44.1] 03/06/2020 07/15/2020 Chronic bronchitis (HCC) [J42] 04/01/2020 Abdominal aortic aneurysm (AAA) without rupture*02/02/2023 WARE (dyspnea on exertion) [R06.09] 07/12/2023 Encounter Status:Closed by DIANE FORTUNE on 08/09/23 Normal [facility] XR Chest PA and Lateralon IMPRESSION: No acute radiographic abnormality. Redye Hand: SLIVA Transcribe Date/Time: Jul 30 2023 4:03P Dictated by : ABHI AMAYA MD This examination was interpreted and the report reviewed and electronically signed by: ABHI AMAYA MD on Jul 30 2023 4:04PM EST DIVISION OF RADIOLOGY * * *Final Report* * * DATE OF EXAM: Jul 30 2023 3:57PM WOX [id number] - XR CHEST 2V FRONTAL/LAT / PROCEDURE REASON: Acute cough * * * * Physician Interpretation * * * * EXAMINATION: CHEST RADIOGRAPH (2 VIEW FRONTAL & LATERAL) CLINICAL HISTORY: Acute cough MQ: XC2_6 EXAM DATE/TIME: 07/30/2023 3:57 PM COMPARISON: 01/08/2023 RESULT: Lines, tubes, and devices: None. Lungs and pleura: No consolidation. No lung mass. No pleural effusion. No pneumothorax. Cardiomediastinal silhouette: Stable cardiomediastinal silhouette. Bones and soft tissues: Thoracolumbar scoliosis DIVISION OF RADIOLOGY Provider, Holly Vallejo - 07/30/2023 * * *Final Report* * * DATE OF EXAM: Jul 30 2023 3:57PM WOX [id number] - XR CHEST 2V FRONTAL/LAT / PROCEDURE REASON: Acute cough * * * * Physician Interpretation * * * * EXAMINATION: CHEST RADIOGRAPH (2 VIEW FRONTAL & LATERAL) CLINICAL HISTORY: Acute cough MQ: XC2_6 EXAM DATE/TIME: 07/30/2023 3:57 PM COMPARISON: 01/08/2023 RESULT: Lines, tubes, and devices: None. Lungs and pleura: No consolidation. No lung mass. No pleural effusion. No pneumothorax. Cardiomediastinal silhouette: Stable cardiomediastinal silhouette. Bones and soft tissues: Thoracolumbar scoliosis IMPRESSION IMPRESSION: No acute radiographic abnormality. Redye Hand: PSCB Transcribe Date/Time: Jul 30 2023 4:03P Dictated by : ABHI AMAYA MD This examination was interpreted and the report reviewed and electronically signed by: ABHI AMAYA MD on Jul 30 2023 4:04PM [facility] Radiology Study observation (narrative) [facility] XR Chest PA and LateralOrder ed By: [facility] Provider on 07-30-2023 [facility] Edwin 07-12-2023 CNPN Telephone (AKCAT) -------- LATAFLOR Hooks ([id number]) 1950 F Date Time Provider Department 07/12/23 JONATHAN CHAN During your visit today, we recorded the following information about you: Donell Cramer 07/12/2023 3:02 PM Signed [facility] on 08/06/2022 with Diane Butcher LPN 07/12/2023 3:14 PM Signed Patient scheduled for left heart cath with Dr Chan on 08/06/2023. Instructions reviewed. Questions answered. Patient verbalized understanding. Instructions were as follows: -Arrive to [facility] HAND Entrance 08/06/2023 at time assigned by [facility] saw[facility] [employer] slabs staff in phone call 08/05/2023 between 2-5 PM. -Pt to increase po water intake day prior to heart cath. Pt may eat a light meal and drink clear liquids until 3 hours prior to procedure. -With a sip of water on 08/06/2023 morning take: Aspirin 81 mg along with usual BP meds- Plavix 75 mg and Metoprolol Succ 25 mg -Labs to be completed 48 hours prior to procedure - You must have someone drive you home from your procedure. -[facility] [employer] policy is pt not be alone first evening Office phone number provided for questions or concerns. Samira Waller, MELVIN 08/04/2023 7:52 AM Signed Pt called in today to state that she tested positive for Covid and needs to reschedule the heart cath procedure that was set up for this 08/06/23. She is a pt of Dr. Chan. Diane Byrd LPN 08/09/2023 2:25 PM Signed called in and states her symptoms from covid have subsided and she would like to reschedule Cardiac cath. KISHOR Gill Teresa 08/09/2023 3:11 PM [facility] Diane Butcher LPN 08/09/2023 4:54 PM Addendum Patient scheduled for left heart cath with Dr Chan on 08/27/2023. Instructions were as follows: -Arrive to [facility] HAND Entrance 08/27/2023 at time assigned by [facility] staff in phone call 08/26/2023 between 2-5 PM. -Pt to increase po water intake day prior to heart cath. Pt may eat a light meal and drink clear liquids until 3 hours prior to procedure. -With a sip of water on 08/27/2023 morning take: Aspirin 81 mg along with usual BP meds- Plavix 75 mg and Metoprolol Succ 25 mg -Labs to be completed 48 hours prior to procedure - You must have someone drive you home from your procedure. -[facility] [employer] policy is pt not be alone first evening Left message for to call [facility] for new cath date and instructions. [facility] phone number provided on message. KISHOR Gill Taylor, LPN 08/13/2023 10:41 AM Signed Spoke with Ms. Mayberry about upcoming Heart cath and confirmed date and instructions with Patient. Patient voiced understanding at this time. Gissell Self LPN Allergies As of Date: 07/12/2023 Noted Allergy Reaction AUGMENTIN (AMOXICILLIN-POT CLAVUL*10/02/2005 4 - Hives BACTRIM (SULFAMETHOXAZOLE-TRIMET H*01/12/2022 8 - GI Upset Comments: Sick to her stomach; prefers to avoid med DOXYCYCLINE 07/28/2013 11 - Vomiting LEVOFLOXACIN 07/11/2013 14 - Other: See Comments Comments: Knee pain WELLBUTRIN (BUPROPION HCL) 10/31/2007 Comments: vivid dreams ZOCOR (SIMVASTATIN) 10/16/2009 5 - Intolerance Comments: Muscle aches Date Reviewed: 07/12/2023 Reviewed by: Latricia Michaud, MELVIN - Fully Assessed Reason for Visit: Preparations For Procedures [899] Primary Visit Diagnosis:History of non-ST elevation myocardial infarction (NSTEMI) [I25.2] Other Visit Diagnosis:Mixed hyperlipidemia [E78.2] Order(s):BASIC METABOLIC PNL [SQBMP] Order #: [id number] FUTURE CBC [SQCBC] Order #: [id number] FUTURE Prescriptions as of 08/13/2023 - fluticasone (FLONASE ALLERGY RELIEF) 50 mcg/actuation nasal spray Use 1 [place] in each nostril once daily. - DULoxetine (CYMBALTA) 60 mg capsule Take 1 capsule by mouth once daily. - atorvastatin (LIPITOR) 80 mg tablet TAKE 1/2 TABLET ONE TIME DAILY - clopidogrel (PLAVIX) 75 mg tablet Take 1 tablet by mouth every afternoon. - metoprolol succinate ER (TOPROL XL) 25 mg 24 hr tablet Take 1 tablet by mouth once daily. - ezetimibe (ZETIA) 10 mg tablet Take 1 tablet by mouth every afternoon. - busPIRone HCl 30 mg tablet Take 1 tablet by mouth two times a day. As directed. ID#[id number] - nitroglycerin sublingual (NITROQUICK) 0.4 mg SL tablet DISSOLVE ON TONGUE FOR CHEST PAIN. May repeat every 5 minutes up to total 3 doses. IF NO PAIN RELIEF, CALL 911 - LORazepam (ATIVAN) 0.5 mg Take 1 tablet by mouth twice daily as needed (anxiety) for up to 90 days. Do not start before February 07, 2023. - hydrOXYzine HCl (ATARAX) 25 mg tablet Take 1 tablet by mouth three times daily as needed. - ergocalciferol 50,000 unit capsule (VITAMIN D2, DRISDOL) Take 1 capsule by mouth every other week. - diphenhydrAMINE-Acetamin ophen 25-500 mg tab Take 2 tablets by mouth at bedtime as needed (more content not included)... Normal [facility] FECAL OCCULT BLOOD TESTon Lower GI hemoglobin IA Ql (Stl) Negative Negative [facility] LUNG VOLUMESon 01-08-2023 DLCO (ml/min/mmHg) 13.63 ml/min/mmHg [facility] DLCO/VA (ml/min/mmHg/L) 3.60 ml/min/mmHg/L [facility] ERV BOX (L) 0.33 L [facility] [id number]% POST (L/S) 0.75 L/S [facility] [id number]% PRE (L/S) 0.69 L/S [facility] FEV1 PRE (L) 1.37 L [facility] FEV1/FVC POST (%) 64 % [facility] FEV1/FVC PRE (%) 64 % [facility] FEV1_POST (L) 1.42 L [facility] FRC Box (L) 2.86 L [facility] FVC POST (L) 2.24 L [facility] FVC PRE (L) 2.15 L [facility] IC BOX (L) 1.76 L [facility] PEF POST (L/S) 4.21 L/S [facility] PEF PRE (L/S) 4.40 L/S [facility] RV Box (L) 2.62 L [facility] RV/TLC Box (%) 56 % [facility] TLC Box (L) 4.69 L [facility] VA (L) 3.78 L [facility] VC (L) BOX 2.14 L [facility] No Panel Informationon 01-08 [facility] Comprehensive metabolic 2000 panelon 01-05-2023 Albumin [Mass/Vol] 4.4 g/dL 3.9 - 4.9 g/dL [facility] ALP [Catalytic activity/Vol] 108 U/L 34 - 123 U/L [facility] ALT [Catalytic activity/Vol] 12 U/L 7 - 38 U/L [facility] Anion gap [Moles/Vol] 12 mmol/L 9 - 18 mmol/L [facility] AST [Catalytic activity/Vol] 13 U/L 13 - 35 U/L [facility] Bilirubin [Mass/Vol] 0.5 mg/dL 0.2 - 1 .3 mg/dL [facility] Calcium [Mass/Vol] 9.6 mg/dL 8.5 - 10. 2 mg/dL [facility] Chloride [Moles/Vol] 100 mmol/L 97 - 10 5 mmol/L [facility] CO2 [Moles/Vol] 24 mmol/L 22 - 30 mmol/L [facility] Creatinine [Mass/Vol] 1.16 mg/dL High 0.58 - 0.96 mg/dL [facility] Estimated Glomerular Filtration Rate 50 mL/min/1.73m Low >=60 mL/min/1.73m [facility] Glucose [Mass/Vol] 89 mg/dL 74 - 99 mg/dL [facility] Potassium [Moles/Vol] 4.8 mmol/L 3.7 - 5.1 mmol/L [facility] Protein [Mass/Vol] 6.7 g/dL 6.3 - 8.0 g/dL [facility] Sodium [Moles/Vol] 136 mmol/L 136 - 144 mmol/L [facility] Urea nitrogen [Mass/Vol] 19 mg/dL 7 - 21 mg/dL [facility] VITAMIN D 25 HYDROXYon 01-05 25-hydroxyvitamin D3 [Mass/Vol] 107.0 ng/mL High 31.0 - 80.0 ng/mL [facility] HbA1c (Bld)on 09-05-2022 Average glucose Estimated from glycated hemoglobin (Bld) [Mass/Vol] 126 mg/dL [facility] HbA1c (Bld) [Mass fraction] 6.0 % High 4.3 - 5.6 % [facility] LIPID PANEL, NONFASTINGon Cholesterol [Mass/Vol] 149 mg/dL <200 mg/dL [facility] HDL Cholesterol, Nonfasting 36 mg/dL Low >39 mg/dL [facility] LDL Cholesterol, Nonfasting 74 mg/dL <100 mg/dL [facility] LDL/HDL Ratio, Nonfasting 2.06 mg/dL <2.54 mg/dL [facility] Non HDL Cholesterol, Nonfasting 113 mg/dL <130 mg/dL [facility] Total Chol/HDL Ratio, Nonfasting 4.14 mg/dL <5.10 mg/dL [facility] Triglycerides, Nonfasting 195 mg/dL High <150 mg/dL [facility] VLDL Cholesterol, Nonfasting 39 mg/dL High <30 mg/dL [facility] T3 FREE 09-05-2022 Free T3 [Mass/Vol] 3.0 pg/mL 2.3 - 4.1 pg/mL [facility] T4 FREE/FREE THYROXon 2022 Free T4 [Mass/Vol] 1.3 ng/dL 0.9 - 1.7 ng/dL [facility] TSH Don 09-05-2022 TSH Qn 2.030 m[IU]/L 0.270 - 4.200 mIU/L [facility] VITAMIN D 25 HYDROXYon 09-05 25-hydroxyvitamin D3 [Mass/Vol] 97.7 ng/mL High 31.0 - 80.0 ng/mL [facility] CBC panel Auto (Bld)on 09-04 Erythrocyte distribution width (RBC) [Ratio] 14.1 % 11.5 - 15.0 % [facility] Hematocrit (Bld) [Volume fraction] 43.1 % 36.0 - 46.0 % [facility] Hemoglobin (Bld) [Mass/Vol] 14.2 g/dL 11.5 - 15.5 g/dL [facility] MCH (RBC) [Entitic mass] 27.8 pg 26.0 - 34.0 pg [facility] MCHC (RBC) [Mass/Vol] 32.9 g/dL 30.5 - 36.0 g/dL [facility] MCV (RBC) [Entitic vol] 84.3 fL 80.0 - 100.0 fL [facility] Nucleated RBC (Bld) [#/Vol] <0.01 k/uL [facility] Platelet mean volume (Bld) [Entitic vol] 9.5 fL 9.0 - 12.7 fL [facility] Platelets (Bld) [#/Vol] 277 10*3/uL 150 - 400 k/uL [facility] RBC (Bld) [#/Vol] 5.11 10*6/uL 3.90 - 5.2 0 m/uL [facility] WBC (Bld) [#/Vol] 7.60 10*3/uL 3.70 - 11. 00 k/uL [facility] Comprehensive metabolic 2000 panelon 09-04-2022 Albumin [Mass/Vol] 4.5 g/dL 3.9 - 4.9 g/dL [facility] ALP [Catalytic activity/Vol] 90 U/L 34 - 123 U/L [facility] ALT [Catalytic activity/Vol] 10 U/L 7 - 38 U/L [facility] Anion gap [Moles/Vol] 8 mmol/L Low 9 - 18 mmol/L [facility] AST [Catalytic activity/Vol] 13 U/L 13 - 35 U/L [facility] Bilirubin [Mass/Vol] 0.7 mg/dL 0.2 - 1 .3 mg/dL [facility] Calcium [Mass/Vol] 9.2 mg/dL 8.5 - 10. 2 mg/dL [facility] Chloride [Moles/Vol] 100 mmol/L 97 - 10 5 mmol/L [facility] CO2 [Moles/Vol] 28 mmol/L 22 - 30 mmol/L [facility] Creatinine [Mass/Vol] 0.98 mg/dL High 0.58 - 0.96 mg/dL [facility] Estimated Glomerular Filtration Rate 61 mL/min/1.73m >=60 mL/min/1.73m [facility] Glucose [Mass/Vol] 93 mg/dL 74 - 99 mg/dL [facility] Potassium [Moles/Vol] 3.9 mmol/L 3.7 - 5.1 mmol/L [facility] Protein [Mass/Vol] 6.6 g/dL 6.3 - 8.0 g/dL [facility] Sodium [Moles/Vol] 136 mmol/L 136 - 144 mmol/L [facility] Urea nitrogen [Mass/Vol] 16 mg/dL 7 - 21 mg/dL [facility] MAGNESIUM BLDon 09-04-2022 Magnesium [Mass/Vol] 2.0 mg/dL 1.7 - 2 .3 mg/dL [facility] URINE CULTUREon 01-14-2022 Bacteria identified Cx Nom (U) 10,000 -<50,000 CFU/ml Mixed microbiota Abnormal [facility] UA DIP, URINE (POC)on 2021 BILIRUBIN UA (POCT) Negative Negative [facility] CLARITY UA (POCT) Slightly Cloudy Cl [facility] COLOR UA (POCT) Dark yellow [facility] GLUCOSE UA (POCT) Negative Negative mg/dL [facility] HEMOGLOBIN/BLOOD UA (POCT) Negative Negative [facility] KETONE UA (POCT) Negative Negative mg/dL [facility] LEUKOCYTES UA (POCT) Trace Abnormal Negative [facility] NITRITE UA (POCT) Negative Negative [facility] PH UA (POCT) 6.5 4.5 - 8.0 [facility] Protein Ql (U) Negative Negative mg/dL [facility] SPECIFIC GRAVITY UA (POCT) 1.015 1.005 - 1.030 [facility] UROBILINOGEN UA (POCT) 0.2 E.U./dL Joy l E.U./dL [facility] Absolute lymphocyte counton 01-04-2022 Lymphocytes Auto (Unsp spec) [#/Vol] 1.36 10*3/uL 0.83-4.51 [facility] Work Phone: Basophil percentageon 2021 Basophil percentage 5-10 SEEN /hpf [facility] Work Phone: Lactate [Moles/Vol] 0.3 mmol/L 0.4-2.0 [facility] Work Phone: Basophils/100 WBC (Bld) 0.6 % 0-1 [facility] Work Phone: Bilirubin [Mass/Vol] 0.40 mg/dL 0.20-1.00 [facility] Work Phone: Comment on above: Slight Lipemia, Resu lt may be falsely increased. For patients on eltrombopag therapy, use of Dimension [place] TBIL is not recommended. Chloride [Moles/Vol] 101 mmol/L 98-107 [facility] Work Phone: Eosinophils/100 WBC (Bld) 4.8 % 0-5 [facility] Work Phone: Glucose [Mass/Vol] 104 mg/dL 74-106 [facility] Work Phone: Comment on above: Slight Lipemia, Resu lt may be falsely increased.Fasting Glucose result from 100 to 125 mg/dL suggests IMPAIRED HOMEOSTASIS per A.D.A. criteria. Neutrophils (Bld) [#/Vol] 2.9 10*3/uL 2.0-7.7 [facility] Work Phone: Neutrophils/100 WBC (Bld) 57.6 % 47-70 [facility] Work Phone: Potassium [Moles/Vol] 3.3 mmol/L 3.5-5.1 [facility] Work Phone: Comment on above: Moderate Hemolysis, Result may be falsely increased.-Slight Lipemia, Result may be falsely increased. Protein [Mass/Vol] 6.5 g/dL 6.4-8.2 [facility] Work Phone: Comment on above: Slight Lipemia, Resu lt may be falsely increased. Sodium [Moles/Vol] 135 mmol/L 136-145 [facility] Work Phone: WBC (Bld) [#/Vol] 5.1 10*3/uL 4.4-11.0 [facility] Work Phone: Bilirubin Test strip Ql (U)o n 01-04-2022 Bilirubin Ql (U) Negative Negative [facility] Work Phone: Blood erythrocytes count (nu mber/volume)on 01-04-2022 RBC (Bld) [#/Vol] 4.68 10*6/uL 4.2-5.4 [facility] Work Phone: Blood hemoglobin measurement (mass/volume)on 01-04-2022 Hemoglobin (Bld) [Mass/Vol] 13.3 g/dL 12.0-15.0 [facility] Work Phone: Blood lymphocytes/100 leukoc yteson 01-04-2022 Lymphocytes/100 WBC (Bld) 26.9 % 19-41 [facility] Work Phone: Blood monocytes/100 leukocyt eson 01-04-2022 Monocytes/100 WBC (Bld) 9.5 % 0-10 [facility] Work Phone: Blood platelet mean volumeon 01-04-2022 Platelet mean volume (Bld) [Entitic vol] 10.3 fL 6.2-12.0 [facility] Work Phone: Determination of erythrocyte mean corpuscular volume (MCV)on 01-04-2022 MCV (RBC) [Entitic vol] 83.1 fL 81-99 [facility] Work Phone: Hematocrit Auto (Bld) [Volum e fraction]on 01-04-2022 Hematocrit (Bld) [Volume fraction] 38.9 % 37-47 [facility] Work Phone: INR in Blood by Coagulation assayon 01-04-2022 INR Coag (Bld) [Relative time] 1.0 {INR} [facility] Work Phone: Ketones Test strip Ql (U)on 01-04-2022 Ketones Ql (U) Negative Negative [facility] Work Phone: [phone] Laboratory - Chemistry and C hemistry - challengeon 01-04-2022 ALP [Catalytic activity/Vol] 74 U/L 45-117 [facility] Work Phone: [phone] ALT [Catalytic activity/Vol] 18 U/L 13-56 [facility] Work Phone: [phone] Comment on above: Slight Lipemia, Resu lt may be falsely increased. CO2 [Moles/Vol] 27.0 mmol/L 21.0-32.0 [facility] Work Phone: [phone] Comment on above: Slight Lipemia, Resu lt may be falsely increased. Globulin (S) [Mass/Vol] 3.2 g/dL 2.2-4.2 [facility] Work Phone: [phone] Urea nitrogen/Creatinine [Mass ratio] 22.3 mg/mg 10-20 [facility] Work Phone: [phone] Laboratory - Coagulationon 0 01-04-2022 aPTT Coag (Bld) [Time] 27.6 s 24.1-36.2 [facility] Work Phone: [phone] PT Coag (PPP) [Time] 12.4 s 11.7-14.9 [facility] Work Phone: [phone] Laboratory - Hematology and Cell countson 01-04-2022 Erythrocyte distribution width (RBC) [Entitic vol] 43.8 fL 35.1-43.9 [facility] Work Phone: [phone] Erythrocyte distribution width (RBC) [Ratio] 14.5 % 11.6-14.6 [facility] Work Phone: [phone] Immature granulocytes/100 WBC (Bld) 0.600 % 0.0-0.9 [facility] Work Phone: [phone] Comment on above: IG% - Immature Granu locytes (promyelocytes, myelocytes and metamyelocytes) > 1% indicates that a LEFT SHIFT is Present. MCH (RBC) [Entitic mass] 28.4 pg 27.0-32.0 [facility] Work Phone: Nucleated RBC/100 WBC (Bld) [Ratio] 0 % 0-5 [facility] Work Phone: MCHC Auto (RBC) [Mass/Vol]on 01-04-2022 MCHC (RBC) [Mass/Vol] 34.2 g/dL 32-36 [facility] Work Phone: Mucus LM Ql (Urine sed)on Mucus Ql (Urine sed) 0 SEEN /hpf [facility] Work Phone: Nitrite Test strip Ql (U)on 01-04-2022 Nitrite Ql (U) Positive Negative [facility] Work Phone: No Panel Informationon 01-04 SARS-CoV-2 & FLU Antigen (Rapid) [facility] Work Phone: Estimated Creatinine Clearance Calc 33.24 ml/min [facility] Work Phone: Estimated GFR (MDRD) Amer 56 mL/min >60 [facility] Work Phone: Comment on above: GFR Calc Estimated GFR (MDRD) Non-Af Amer 46 mL/min >60 [facility] Work Phone: Comment on above: Non- GFR Calc Platelets bldon 01-04-2022 Platelets (Bld) [#/Vol] 221 10*3/uL 150-450 [facility] Work Phone: Protein Test strip Ql (U)on 01-04-2022 Protein Ql (U) Negative Negative [facility] Work Phone: [phone] Serum or plasma albumin [place] urement (mass/volume)on 01-04-2022 Albumin [Mass/Vol] 3.3 g/dL 3.2-5.0 [facility] Work Phone: [phone] Serum or plasma albumin/glob ulin mass ratioon 01-04-2022 Albumin/Globulin [Mass ratio] 1.0 {ratio} 0.9-2.4 [facility] Work Phone: [phone] Serum or plasma calcium [place] urement (mass/volume)on 01-04-2022 Calcium [Mass/Vol] 8.7 mg/dL 8.5-10.1 [facility] Work Phone: Comment on above: Slight Lipemia, Resu lt may be falsely increased. Serum or plasma creatinine m easurement (mass/volume)on 01-04-2022 Creatinine [Mass/Vol] 1.21 mg/dL 0.55-1.02 [facility] Work Phone: Comment on above: Slight Lipemia, Resu lt may be falsely increased.The validity of the calculated GFR & GFRAA in patients over 70 years has not been determined. Clinical correlation is essential. Serum or plasma urea nitroge n measurement (mass/volume)on 01-04-2022 Urea nitrogen [Mass/Vol] 27 mg/dL 7-18 [facility] Work Phone: Comment on above: Slight Lipemia, Resu lt may be falsely increased. Squamous epithelial cells de tection in urine sediment by light microscopyon 01-04-2022 Epithelial cells.squamous LM Ql (Urine sed) 0-5 SEEN /hpf [facility] Work Phone: [phone] Thin prep Papanicolaou smear with manual screeningon 01-04-2022 Thin prep Papanicolaou smear with manual screening 19 U/L 15-37 [facility] Work Phone: Comment on above: Moderate Hemolysis, Result may be falsely increased.-Slight Lipemia, Result may be falsely increased. Thin prep Papanicolaou smear with manual screening 7 5-15 [facility] Work Phone: Urine blood detectionon 06-0 RBC Ql (U) Negative Negative [facility] Work Phone: [phone] RBC Ql (U) 0 SEEN /hpf [facility] Work Phone: [phone] Urine clarityon 01-04-2022 Clarity (U) Sl. Cloudy Clear [facility] Work Phone: Urine color determinationon 01-04-2022 Color (U) Yellow Yellow [facility] Work Phone: Urine glucose detectionon Glucose Ql (U) Normal mg/dl Normal [facility] Work Phone: Urine leukocyte esterase det ection by dipstickon 01-04-2022 Leukocyte esterase Test strip Ql (U) 25 /ul Negative [facility] Work Phone: Urine pHon 01-04-2022 pH (U) 6.0 [pH] [facility] Work Phone: Urine sediment bacteria coun t by microscopy (number/high power field)on 01-04-2022 Bacteria LM.HPF (Urine sed) [#/Area] 3 /[HPF] None Seen [facility] Work Phone: Urine specific gravity measu rementon 01-04-2022 Specific gravity (U) [Rel density] 1.015 [facility] Work Phone: Urobilinogen Auto test strip Ql (U)on 01-04-2022 Urobilinogen Ql (U) Normal mg/dl Normal [facility] Work Phone: SARS-CoV-2 (COVID-19) Ag IA. rapid Ql (Resp)on 12-29-2021 SARS-CoV-2 Antigen (Rapid) SARS-CoV-2 (COVID 19) [facility] Work Phone: No Panel InformationOrdered By: [facility] Provider on 04-21-2021 [facility] No Panel Informationon 04-21 Radiology Study observation (narrative) [facility] XR Knee - bilateral 4 Viewso n 04-21-2021 IMPRESSION: Osteoarthrosis of the knees.. Redye Hand: [facility] Transcribe Date/Time: Apr 21 2021 12:37P Dictated by : BETTINA SHEA MD This examination was interpreted and the report reviewed and electronically signed by: BETTINA SHEA MD on Apr 21 2021 12:39PM [facility] DIVISION OF RADIOLOGY * * *Final Report* * * DATE OF EXAM: Apr 21 2021 12:20PM WOX [id number] - XR KNEE 4V AP/PA/LAT/[facility] / PROCEDURE REASON: multiple diagnoses * * * * Physician Interpretation * * * * Knee radiographs HISTORY: 70 years old Clinical information: Chronic pain of both knees Chronic pain of both knees Chronic pain of both knees pt states pain in right shoulder for 3 weeks ac joint area and upper right arm no inj, pain in mostly left knee for years getting worse, hx of arthritis, fluid and bakers cyst on left knee entire knee hurts, right not as bad with pain ant. and post. side TECHNIQUE: Images: XR KNEE 4V AP/PA/LAT/[facility] Comparison: 04/14/2019. RESULT: Findings: LEFT KNEE: Narrowing of medial compartment joint space and [id number] in the medial femoral condyle and tibial plateau. Marginal osteophyte extending of tibial plateaus, femoral condyles, and posterior aspect of the patella. No joint effusion. No fracture or dislocation. RIGHT KNEE: Narrowing of the medial compartment joint space. Marginal osteophytes extending off tibial plateaus, femoral condyles, and posterior aspect of the patella. No fracture or dislocation. Intra-articular bodies in the posterior joint space. No definite joint effusion. DIVISION OF RADIOLOGY Provider, [facility] - 04/21/2021 * * *Final Report* * * DATE OF EXAM: Apr 21 2021 12:20PM WOX [id number] - XR KNEE 4V AP/PA/LAT/[facility] / PROCEDURE REASON: multiple diagnoses * * * * Physician Interpretation * * * * Knee radiographs HISTORY: 70 years old Clinical information: Chronic pain of both knees Chronic pain of both knees Chronic pain of both knees pt states pain in right shoulder for 3 weeks ac joint area and upper right arm no inj, pain in mostly left knee for years getting worse, hx of arthritis, fluid and bakers cyst on left knee entire knee hurts, right not as bad with pain ant. and post. side TECHNIQUE: Images: XR KNEE 4V AP/PA/LAT/[facility] Comparison: 04/14/2019. RESULT: Findings: LEFT KNEE: Narrowing of medial compartment joint space and [id number] in the medial femoral condyle and tibial plateau. Marginal osteophyte extending of tibial plateaus, femoral condyles, and posterior aspect of the patella. No joint effusion. No fracture or dislocation. RIGHT KNEE: Narrowing of the medial compartment joint space. Marginal osteophytes extending off tibial plateaus, femoral condyles, and posterior aspect of the patella. No fracture or dislocation. Intra-articular bodies in the posterior joint space. No definite joint effusion. IMPRESSION IMPRESSION: Osteoarthrosis of the knees.. Redye Hand: [facility] Transcribe Date/Time: Apr 21 2021 12:37P Dictated by : BETTINA SHEA MD This examination was interpreted and the report reviewed and electronically signed by: BETTINA SHEA MD on Apr 21 2021 12:39PM EST [facility] XR Shoulder - right 3 Viewso n 04-21-2021 IMPRESSION: No acute osseous abnormality. Findings of cuff tear arthropathy. Mild acromioclavicular degenerative change. Redye Hand: [facility] Transcribe Date/Time: Apr 21 2021 12:35P Dictated by : ALEJANDRA FERNANDEZ MD This examination was interpreted and the report reviewed and electronically signed by: ALEJANDRA FERNANDEZ MD on Apr 21 2021 12:39PM EST DIVISION OF RADIOLOGY * * *Final Report* * * DATE OF EXAM: Apr 21 2021 12:20PM WOX [id number] - XR SHLDR >/=3V AP/MARYANN AP/OTHR RT / PROCEDURE REASON: Acute pain of right shoulder * * * * Physician Interpretation * * * * EXAMINATION / TECHNIQUE: XR SHLDR >/=3V AP/MARYANN AP/OTHR RT PATIENT/TECHNOLOGIST PROVIDED HISTORY: pt states pain in right shoulder for 3 weeks CLINICAL INFORMATION ( PROVIDED BY ORDERING CLINICIAN) : Acute pain of right shoulder COMPARISON: None RESULT: No acute fracture or dislocation. Superior subluxation of the humeral head with narrowing of the acromiohumeral interval. Subchondral degenerative changes in the superior humeral head with osseous remodeling of the acromion, compatible with cuff tear arthropathy. Mild degenerative changes in the acromioclavicular joint. Glenohumeral joint space is preserved. Partially visualized thoracic scoliosis with multilevel degenerative change. DIVISION OF RADIOLOGY Provider, [facility] - 04/21/2021 * * *Final Report* * * DATE OF EXAM: Apr 21 2021 12:20PM WOX [id number] - XR SHLDR >/=3V AP/MARYANN AP/OTHR RT / PROCEDURE REASON: Acute pain of right shoulder * * * * Physician Interpretation * * * * EXAMINATION / TECHNIQUE: XR SHLDR >/=3V AP/MARYANN AP/OTHR RT PATIENT/TECHNOLOGIST PROVIDED HISTORY: pt states pain in right shoulder for 3 weeks CLINICAL INFORMATION ( PROVIDED BY ORDERING CLINICIAN) : Acute pain of right shoulder COMPARISON: None RESULT: No acute fracture or dislocation. Superior subluxation of the humeral head with narrowing of the acromiohumeral interval. Subchondral degenerative changes in the superior humeral head with osseous remodeling of the acromion, compatible with cuff tear arthropathy. Mild degenerative changes in the acromioclavicular joint. Glenohumeral joint space is preserved. Partially visualized thoracic scoliosis with multilevel degenerative change. IMPRESSION IMPRESSION: No acute osseous abnormality. Findings of cuff tear arthropathy. Mild acromioclavicular degenerative change. Redye Hand: [facility] Transcribe Date/Time: Apr 21 2021 12:35P Dictated by : ALEJANDRA FERNANDEZ MD This examination was interpreted and the report reviewed and electronically signed by: ALEJANDRA FERNANDEZ MD on Apr 21 2021 12:39PM [facility] XR Chest PA and Lateralon IMPRESSION: No acute radiographic abnormality. Redye Hand: [facility] Transcribe Date/Time: Jul 08 2020 11:11A Dictated by : LUCAS MALHOTRA MD This examination was interpreted and the report reviewed and electronically signed by: LUCAS MALHOTRA MD on Jul 08 2020 11:12AM [facility] DIVISION OF RADIOLOGY * * *Final Report* * * DATE OF EXAM: Jul 08 2020 11:05AM WOX [id number] - XR CHEST 2V FRONTAL/LAT / PROCEDURE REASON: Pneumonia due to infectious organism, unspecified laterality, unspecified part o * * * * Physician Interpretation * * * * EXAMINATION: CHEST RADIOGRAPH (2 VIEW FRONTAL & LATERAL) CLINICAL HISTORY: Pneumonia due to infectious organism, unspecified laterality, unspecified part of lung MQ: XC2_6 EXAM DATE/TIME: 07/08/2020 11:05 AM COMPARISON: Chest x-ray on 03/12/2020 RESULT: Lines, tubes, and devices: None. Lungs and pleura: No consolidation. No lung mass. No pleural effusion. No pneumothorax. Cardiomediastinal silhouette: Stable cardiac silhouette, with tortuosity and atherosclerotic calcifications of the thoracic aorta. Bones and soft tissues: There is persistent right-sided curvature/dextroscoliosi s of the spine. DIVISION OF RADIOLOGY Provider, Holly Vallejo - 07/08/2020 * * *Final Report* * * DATE OF EXAM: Jul 08 2020 11:05AM WOX [id number] - XR CHEST 2V FRONTAL/LAT / PROCEDURE REASON: Pneumonia due to infectious organism, unspecified laterality, unspecified part o * * * * Physician Interpretation * * * * EXAMINATION: CHEST RADIOGRAPH (2 VIEW FRONTAL & LATERAL) CLINICAL HISTORY: Pneumonia due to infectious organism, unspecified laterality, unspecified part of lung MQ: XC2_6 EXAM DATE/TIME: 07/08/2020 11:05 AM COMPARISON: Chest x-ray on 03/12/2020 RESULT: Lines, tubes, and devices: None. Lungs and pleura: No consolidation. No lung mass. No pleural effusion. No pneumothorax. Cardiomediastinal silhouette: Stable cardiac silhouette, with tortuosity and atherosclerotic calcifications of the thoracic aorta. Bones and soft tissues: There is persistent right-sided curvature/dextroscoliosi s of the spine. IMPRESSION IMPRESSION: No acute radiographic abnormality. Redye Hand: [facility] Transcribe Date/Time: Jul 08 2020 11:11A Dictated by : LUCAS MALHOTRA MD This examination was interpreted and the report reviewed and electronically signed by: LUCAS MALHOTRA MD on Jul 08 2020 11:12AM EST [facility] Radiology Study observation (narrative) [facility] XR Chest PA and LateralOrder ed By: [facility] Provider on 07-08-2020 [facility] NM CARDIAC PERF STRESS/PHARM on 01-12-2020 NM CARDIAC PERF STRESS/PHARM * * *Final Report* * * DATE OF EXAM: Jan 12 2020 1:30PM AKN 0006 - NM CARDIAC PERF STRESS/PHARM / PROCEDURE REASON: Encounter for preprocedural cardiovascular examination * * * * Physician Interpretation * * * * PATIENT: Name: MRS. FLOR MAYBERRY Age: 69 years Gender: F CONCLUSIONS: 1. SPECT Perfusion Study: Normal. 2. There is no scintigraphic evidence for inducible ischemia. 3. No evidence of scarred myocardium. 4. Functional capacity N/A (pharmacological). 5. Left ventricle is normal in size. The left ventricle systolic function is normal. 6. This is a low risk scan. Gated Stress FBP LVEF % 65 Prior Study Comparison Prior nuclear cardiology exam was performed on 07/29/18. There are no signfiicant changes. Nuclear Med Report:1-Day Tc-Tetrofosmin Gated SPECT Myocardial Perfusion with Regadenoson Stress: Myocardial perfusion imaging was performed at rest 30 minutes following the IV injection of Tc-99m tetrofosmin. The patient received 0.4 mg of regadenoson, via rapid IV push, immediately followed by Tc-99m tetrofosmin IV. Gated post stress tomographic imaging was performed 30 to 60 minutes later. See administered doses below. [facility] Date of service: 01/12/2020 1:30:00 PM Ordering Physician: Jeremiah Mireles Requesting Physician: Indication: Assessment for known CAD and Pre Op Evaluation. Interpreting physician: Dr. Bertha Tiwari MD Patient History: History of dyslipidemia, myocardial infarction, coronary heart disease, smoker and Sleep Apnea, Abd Aortic Aneurism,GERD. Medications currently taking are B-dixie, ASA, statins, plavix and anti-depressants. Previous Cardiovascular Interventions: PCI (2009) : Stent x 2 Heart Cath (2012) : CAD. Stents Patent. Lexiscan (2018) Height: 157.48 cm BSA: 1.75 m? Weight: 69.85 kg BMI: 28.2 kg/m? Imaging Protocol Limitation Reason Patient motion, G.I. uptake and Breast attenuation. Primary Rhythm: Sinus. Exam Type: Rest Stress Radiopharm: Tc-99m Tetrofosmin Tc-99m Tetrofosmin Dosage(mCi): 13.7 33.7 Stress Agent: Regadenoson 0.4mg Supply provided from [facility] Resting Heart Rate: 71 bpm Resting Blood Press: 130/78 mmHg Image Quality The overall study imaging quality was deemed to be good. The following technical issues were noted: Patient motion, G.I. uptake and Breast attenuation. FINDINGS: Left Ventricle Wall Motion: Stress IR:3D - All segments are normal. Rest IR:3D - Gated Stress FBP - Reversibility - Stress IR:3D Stress IR:3D Gated Stress FBP LVEF: 65 % ED Volume: 31 ml ES Volume: 11 ml TID: 0.96 Perfusion Findings Stress IR:3D - Summed Score=0 All segments demonstrate normal perfusion. Rest IR:3D - Summed Score=0 All segments demonstrate normal perfusion. Stress IR:3D Rest IR:3D Summed Score=0 Summed Score=0 LEFT VENTRICLE The left ventricle is normal in size. Left ventricular systolic function is normal. Right Ventricle The right ventricle is unseen or not interrogated. Stress Test Findings: There is no scintigraphic evidence for inducible ischemia. There is no evidence of scarring. The stress test was terminated due to the following: End of Protocol. Peak HR 98 bpm. (66 % MPHR) Peak BP 129 mmHg/72 mmHg Patient experienced shortness of breath during stress. Stress ECG normal ST segment response. Stress complications: none. The left ventricular cavity size is unchanged with stress. Stress comments: Lungs Clear. Lexiscan 0.4mg IVP given over 10 seconds followed by nuclear isotope. ST's within normal limits baseline with no significant EKG changes during Lexiscan. Denied Chest Sx during test. Final -- Stress ECG Report: [facility] Date of service: 01/12/2020 1:30:00 PM Ordering physician: VALERY MIRELES Specialist: Rufina Patel Textile Screen Printer: Oliva Johnson Stress ECG interpreting physician: Matthew Gibson MD PATIENT: Name: MRS. FLOR MAYBERRY Age: 69 years Gender: F Height: 157.48 cm BSA: 1.75 m? Weight: 69.85 kg BMI: 28.2 kg/m? STRESS ECG CONCLUSION: ECG Response: Non-Ischemic STRESS ECG SUMMARY: The patient's resting heart rate was 71 bpm and blood pressure was 130/78 mmHg. The maximum heart rate was 98 bpm, which is 66% predicted for age. The double product achieved was [address]. Peak heart rate was 98 bpm and peak blood pressure was 129/72 mmHg. STRESS ECG FINDINGS: Indications: Assessment for known CAD Diagnosis: Abdominal Aneurysm, Coronary Artery Disease, Hyperlipidemia and Sleep Apnea Medications: Hardin,Ativan,Atorvastati n,Plavix,Cymbalta,Metopr olol,Buspirone,Zetia,Vit D2,Nexium,Aspirin Resting ECG: Normal Sinus Rhythm Pharamcologic Protocol: Regadenoson Stress Test: +----+--+---+---+ Step HR SYS TAMERA +----+--+---+---+ 1 87 132 78 +----+--+---+---+ 2 98 136 79 +----+--+---+---+ 3 96 148 78 +----+--+---+---+ 4 88 +----+--+---+---+ 5 83 121 78 +----+--+---+---+ 6 88 +----+--+---+---+ 7 84 +----+--+---+---+ 8 85 129 72 +----+--+---+---+ +-----+--+---+---+ HR SYS TAMERA +-----+--+---+---+ Final 98 129 72 +-----+--+---+---+ +----+--------+--------- + Step Symptoms Comments +----+--------+--------- + 1 SOB Chest Sx #0/0-10. SOB. No ST changes. Cough +----+--------+--------- + 2 SOB Chest Sx #0/0-10. SOB easing. No ST changes. +----+--------+--------- + 3 SOB Chest Sx #0/0-10. SOB easing. No ST changes. +----+--------+--------- + 4 SOB Chest Sx #0/0-10. SOB easing. No ST changes. +----+--------+--------- + 5 SOB Chest Sx #0/0-10. SOB easing. No ST changes. +----+--------+--------- + 6 Chest Sx #0/0-10. SOB subsided. No ST changes. +----+--------+--------- + 7 Chest Sx #0/0-10. No ST changes. +----+--------+--------- + 8 Chest Sx #0/0-10. No ST changes. +----+--------+--------- + Resting HR: 71 bpm Peak HR: 98 bpm (66% MPHR) Resting BP: 130 / 78 mmHg Peak BP: 129 / 72 mmHg Chronotropic response index (CRI): 0.48 Rate Pressure Product (RPP): 98140 Reason for test termination: End of Protocol. Symptoms during test: Shortness of breath. Heart rate response: Adequate heart rate response Blood pressure response: Normal BP response ST segment and T wave changes: No ST changes Comments: Lungs Clear. Lexiscan 0.4mg IVP given over 10 seconds followed by nuclear isotope. ST's within normal limits baseline with no significant EKG changes during Lexiscan. Denied Chest Sx during test. Final -- Stress Ripening Room Attendant Report: [facility] Date of service: 01/12/2020 1:30:00 PM Supervising physician: Matthew Gibson MD PATIENT: Name: MRS. FLOR MAYBERRY Age: 69 years Gender: F The supervising physician was present during the stress procedure. Final Redye Hand: [facility] Transcribe Date/Time: Jan 12 2020 1:30P Dictated by : BERTHA TIWARI MD This examination was interpreted and the report reviewed and electronically signed by: BERTHA TIWARI MD on Jan 12 2020 2:48PM EST Normal [facility] NM CARDIAC PERF STRESS/PHARM on 07-29-2018 NM CARDIAC PERF STRESS/PHARM * * *Final Report* * *DATE OF EXAM: Jul 29 2018 11:09AM TAZ 0006 - NM CARDIAC PERF STRESS/PHARM / REASON: multiple diagnoses * * * * Physician Interpretation * * * * PATIENT:Name: FLOR GUIDOPMRN: [id number]: 68 yearsGender: FCONCLUSIONS: 1. SPECT Perfusion Study: No evidence of ischemia or infarction. 2. There is no definite scintigraphic evidence for inducible ischemia. 3. No evidence of scarred myocardium. 4. Functional capacity N/A (pharmacological). 5. Left ventricle is normal in size. The left ventricle systolic function is normal. 6. Right ventricle is normal in size. 7. This is a low risk scan. Gated Stress FBP LVEF % 74Prior Study Comparison Prior nuclear cardiology exam performed on 10/12/12 is not available for comparison.Nuclear Med Report:1-Day Tc-Tetrofosmin Gated SPECT Myocardial Perfusion with Regadenoson Stress: Myocardial perfusion imaging was performed at rest 30 minutes following the IV injection of Tc-99m tetrofosmin. The patient received 0.4 mg of regadenoson, via rapid IV push, immediately followed by Tc-99m tetrofosmin IV. Gated post stress tomographic imaging was performed 30 to 60 minutes later. See administered doses below.[facility]: [facility] 9:12:39 AMAccession #: [id number] Physician: ARGENTINA NUNEZRequesting Physician:Indication: Preop eval for noncard surg with high risk, poor exercise tolerance and Assessment for known CAD.Interpreting physician: Los Tolbert MDPatient History:History of myocardial infarction, coronary heart disease, dyslipidemia, hypertension and smoker. Medications currently taking are statins, ASA, B-dixie, plavix and anti-depressants.Previou s Cardiovascular Interventions:PCI (2009 x2)Height: 157.48 cm BSA: 1.76 m?Weight: 70.76 kg BMI: 28.5 kg/m?Imaging ProtocolLimitation Reason Breast attenuation. Exam Type: Rest Stress Radiopharm: Tc-99m Tetrofosmin Tc-99m Tetrofosmin Dosage(mCi): 12.8 33.6Atten Correction: not performed Stress Agent: Regadenoson 0.[facility]mg [facility] Heart Rate: 80 bpmResting Blood Press: 148/80 mmHgImage QualityThe overall study imaging quality was deemed to be fair. The following technical issues were noted: Breast attenuation.FINDINGS:Lef t VentricleWall Motion:Stress IR:3D - All scored segments are normal.Rest IR:3D -Gated Stress FBP -Reversibility -Stress IR:3D Stress IR:3D Gated Stress FBP LVEF: 74 %ED Volume: 38 mlES Volume: 10 ml TID: 1.12Perfusion FindingsStress IR:3D - Summed Score=0All scored segments reflect normal perfusion.Rest IR:3D - Summed Score=0All scored segments reflect normal perfusion. Stress IR:3D Rest IR:3DSummed Score=0 Summed Score=0LEFT VENTRICLEThe left ventricle is normal in size. Left ventricular systolic function is normal.Right VentricleThe right ventricle is normal in size.Stress Test Findings:There is no scintigraphic evidence for inducible ischemia. There is no evidence of scarring.The stress test was terminated due to the following: End of Protocol.Peak HR 109 bpm. (72 % MPHR)Peak BP 146 mmHg/86 mmHgPatient experienced shortness of breath during stress.Stress complications: none. Final Redye Hand: SYNDYNTranscribe Date/Time: Jul 29 2018 9:12ADictated by : LOS TOLBERT MDThis examination was interpreted and the report reviewed and electronically signed by: LOS TOLBERT MD on Jul 29 2018 2:23PM [id number] N Normal [facility] NUCLEAR STRESS LEXISCAN (CAR D)on 07-29-2018 Protein mass conc NAME : BARBER MAYBERRY ID : [id number] : 1950 Gender : FemaleRace : ORD : [id number] Procedure Date : Jul 29 2018 10:07:05Edit Date : Aug 01 2018 15:11:28 Protocol Name : LEXISCAN Time In Exercise Phase : 00:06:00 Max. Systolic BP : 148 mmHgMax Diastolic BP : 80 mmHgMax Heart Rate : 109 BPMMax Predicted Heart Rate : 151 BPMRecovery ECG Response (OLD) : Reason For Termination : End of Protocol Test Reason : CAD Location :NS Overread By : MD CR,QARABEdited By : RASHI QUINTERONReferred By : MAYRA ELAINEAcquired by : Beth Gallegos [facility] PROCEDUREon 07-29-2018 Protein mass conc HNO ID: [id number]: Sandhya Bigsgervice: Cardiovascular MedicineAuthor Type: PhysicianType: ProceduresFiled: 08/01/2018 11:17 AMNote Text:[facility]- Stress TestSFLOR MCDUFFIE KDOB: 1950 AGE: 68 SEX: FMRN: [id number] ACCTNUM: [id number] SVC: LOCATION:ATTENDING PHYSICIAN:DATE OF STUDY: 07/29/2018This is a Lexiscan report on the patient's nuclear EKG part of the report.INDICATION: Preoperative evaluation. The patient has [facility] of [facility]artery disease [facility] and 2 [facility]. She also has ahistory of hyperlipidemia and smoking.REPORT: Resting EKG shows sinus rhythm at 80 beats per minute with normalresting EKG. Blood pressure was 148/80 mmHg. After receiving Lexiscaninjection, blood pressure decreased to 113/70 mmHg, and the patient hadshortness of breath for 5 minutes.The EKG did not show any ST-segment depression or any arrhythmia afterreceiving Lexiscan.IMPRESSION:1. The patient did not have any chest pain or ST depression on the EKGafter Lexiscan.2. Correlate with nuclear SPECT imaging.Sandhya Almeida M.D.CardiologyQS:[id number] 1D: 07/29/2018 17:11:57T: 07/30/2018 04:37:24Job #: [id number] [facility] SHAM, MOE Chaney ([id number]) 1950 FDate Time Provider Mvdvvdskob99/27/18 SOFIA HERNANDEZ (RN) CDLBME During your visit today, we recorded the following information about you:Sofia Hernandez RN, RN 07/28/2018 10:33 AM SignedSpoke with patient regarding reminder for stress test tomorrow and giveninstructionsAllergi es As of Date: 07/28/2018 Noted Allergy ReactionAUGMENTIN (AMOXICILLIN-POT CLAVUL*10/02/2005 4 - HivesDOXYCYCLINE 07/28/2013 11 - VomitingLEVOFLOXACIN 07/11/2013 14 - Other: See Comments Comments: Knee painWELLBUTRIN (BUPROPION HCL) 10/31/2007 Comments: vivid dreamsZOCOR (SIMVASTATIN) 10/16/2009 5 - Intolerance Comments: Muscle achesDate Reviewed: 07/11/2018Reviewed by: Melissa Abrams MA - Fully AssessedReason for Visit: Reminder Call [[id number]]Prescriptions as of 07/28/2018 Sig: ALBUTEROL SULFATE HFA 90 MCG/* Inhale 2 Puffs as instructed * ASPIRIN 325 MG TABLET 1 Tab ORAL DAILY ATORVASTATIN 80 MG TABLET Take 0.5 tablets by mouth onc* BIPAP Initiate BiPAP @ 10/6 cm of w* BUSPIRONE 30 MG TABLET Take 1 tablet by mouth twice * CLOPIDOGREL 75 MG TABLET Take 1 tablet by mouth once d* DULOXETINE 60 MG CAPSULE,ANASTACIO* Take 1 capsule by mouth once * ERGOCALCIFEROL (VITAMIN D2) 5* Take 1 capsule by mouth once * ESOMEPRAZOLE MAGNESIUM 20 MG * Take 1 capsule by mouth once * EZETIMIBE 10 MG TABLET Take 1 tablet by mouth once d* HYDROCODONE 5 MG-ACETAMINOPHE* Take 0.5-1 tablets by mouth t* LORAZEPAM 0.5 MG TABLET Take 1 tablet by mouth twice * METOPROLOL SUCCINATE ER 25 MG* Take 1 tablet by mouth once d* NITROGLYCERIN 0.4 MG SUBLINGU* DISSOLVE ON TONGUE FOR CHEST * NYSTATIN 100,000 UNIT/ML ORAL* PHENAZOPYRIDINE 200 MG TABLET Take 1 tablet by mouth three * Patient not taking: Reported on 07/11/2018 ZOLPIDEM 10 MG TABLET Take 0.5-1 tablets by mouth a*Problem List As Of Date 07/28/2018 Noted Resolved DEPRESSIVE DISORDER NEC [F32.9] INVALID FOR*05/05/2015 ANXIETY STATE NOS [F41.1] INVALID FOR*05/05/2015 ESOPHAGEAL REFLUX [K21.9] INVALID FOR* Mixed hyperlipidemia [E78.2] More... ALLERGIC RHINITIS NOS [J30.9] INVALID FOR* OTHER LUNG DISEASE NEC [J98.4] INVALID FOR* Osteoporosis [M81.0] VITAMIN D DEFICIENCY NOS [E55.9] INVALID FOR*05/05/2015 Aortic aneurysm (HCC) [I71.9] More... SUMMARY [V999.95] INVALID FOR* More... NSTEMI (non-ST elevated myocardial infarction) *INVALID FOR* More... ASCVD (arteriosclerotic cardiovascular disease)*INVALID FOR* Diaphragmatic hernia without mention of obstruc*INVALID FOR* Chest pain [R07.9] INVALID FOR* Edema [R60.9] INVALID FOR* Shortness of breath [R06.02] INVALID FOR* Abnormal mammogram, unspecified [R92.8] INVALID FOR*05/05/2015 Depressive disorder [F32.9] INVALID FOR* Anxiety disorder [F41.9] INVALID FOR* Vitamin D deficiency [E55.9] INVALID FOR* Cigarette smoker [F17.210] INVALID FOR* More... Status:Closed by SOFIA HERNANDEZ on 07/28/18 [facility] Large Joint Arthro/Inj: bila teral knee joints [facility] Vital Signs Date Time Vital Sign Value Performing Clinician Facility 01-15-2025 13:47-0400 Body mass index (BMI) [Ratio] 28.08 kg/m2 Tanner Hook MD Work Phone: [facility] 01-15-2025 13:47-0400 Body weight 67.4 kg Tanner Hook MD Work Phone: [facility] 01-15-2025 13:47-0400 Diastolic blood pressure 67 mm[Hg] Tanner Hook MD Work Phone: [facility] 01-15-2025 13:47-0400 Heart rate 71 /min Tanner Hook MD Work Phone: [facility] 01-15-2025 13:47-0400 Respiratory rate 16 /min Tanner Hook MD Work Phone: [facility] 01-15-2025 13:47-0400 SaO2% (BldA) [Mass fraction] 96 % Tanner Hook MD Work Phone: [facility] 01-15-2025 13:47-0400 Systolic blood pressure 118 mm[Hg] Tanner Hook MD Work Phone: [facility] 08-17-2024 13:28-0500 Diastolic blood pressure 91 mm[Hg] Baltazar Rubio RAIL CAR OPERATOR.SENIOR MANAGER QUALITY ASSURANCE Work Phone: [facility] 08-17-2024 13:28-0500 Heart rate 78 /min Baltazar Rubio RAIL CAR OPERATOR.SENIOR MANAGER QUALITY ASSURANCE Work Phone: [facility] 08-17-2024 13:28-0500 Systolic blood pressure 161 mm[Hg] Baltazar Rubio RAIL CAR OPERATOR.SENIOR MANAGER QUALITY ASSURANCE Work Phone: [facility] 08-17-2024 13:27-0500 Body mass index (BMI) [Ratio] 27.91 kg/m2 Baltazar Rubio RAIL CAR OPERATOR.SENIOR MANAGER QUALITY ASSURANCE Work Phone: [facility] 08-17-2024 13:27-0500 Body weight 67 kg Baltazar Rubio RAIL CAR OPERATOR.SENIOR MANAGER QUALITY ASSURANCE Work Phone: [facility] 08-17-2024 13:27-0500 Respiratory rate 16 /min Baltazar Rubio RAIL CAR OPERATOR.SENIOR MANAGER QUALITY ASSURANCE Work Phone: [facility] 08-17-2024 13:27-0500 SaO2% (BldA) [Mass fraction] 95 % Baltazar Rubio RAIL CAR OPERATOR.SENIOR MANAGER QUALITY ASSURANCE Work Phone: [facility] 08-14-2024 19:03-0500 Body mass index (BMI) [Ratio] 27.78 kg/m2 Diane Gonzalez RAIL CAR OPERATOR.HEAVY EQUIPMENT SUPERVISOR Work Phone: [facility] 01-13-2025 19:03-0500 Body temperature 96.91 [degF] Diane Gonzalez RAIL CAR OPERATOR.HEAVY EQUIPMENT SUPERVISOR Work Phone: [facility] 08-14-2024 19:03-0500 Body weight 66.7 kg Diane Gonzalez RAIL CAR OPERATOR.HEAVY EQUIPMENT SUPERVISOR Work Phone: [facility] 08-14-2024 19:03-0500 Diastolic blood pressure 70 mm[Hg] Diane Gonzalez RAIL CAR OPERATOR.HEAVY EQUIPMENT SUPERVISOR Work Phone: [facility] 08-14-2024 19:03-0500 Heart rate 86 /min Diane Gonzalez RAIL CAR OPERATOR.HEAVY EQUIPMENT SUPERVISOR Work Phone: [facility] 08-14-2024 19:03-0500 Respiratory rate 20 /min Diane Gonzalez RAIL CAR OPERATOR.HEAVY EQUIPMENT SUPERVISOR Work Phone: [facility] 08-14-2024 19:03-0500 SaO2% (BldA) [Mass fraction] 95 % Diane Gonzalez RAIL CAR OPERATOR.HEAVY EQUIPMENT SUPERVISOR Work Phone: [facility] 08-14-2024 19:03-0500 Systolic blood pressure 122 mm[Hg] Diane Gonzalez RAIL CAR OPERATOR.HEAVY EQUIPMENT SUPERVISOR Work Phone: [facility] 07-11-2024 15:21-0500 Body mass index (BMI) [Ratio] 28.72 kg/m2 Damaris ZHANG-C Work Phone: [facility] 07-11-2024 15:21-0500 Body temperature 98.1 [degF] Damaris ZHANG-C Work Phone: [facility] 07-11-2024 15:21-0500 Body weight 68.95 kg Damaris Owens PA-C Work Phone: [facility] 07-11-2024 15:21-0500 Diastolic blood pressure 86 mm[Hg] Damaris Owens PA-C Work Phone: [facility] 07-11-2024 15:21-0500 Heart rate 92 /min Damaris Owens PA-C Work Phone: [facility] 07-11-2024 15:21-0500 Respiratory rate 20 /min Damaris Owens PA-C Work Phone: [facility] 07-11-2024 15:21-0500 SaO2% (BldA) [Mass fraction] 94 % Damaris Owens PA-C Work Phone: [facility] 07-11-2024 15:21-0500 Systolic blood pressure 118 mm[Hg] Damaris Owens PA-C Work Phone: [facility] 07-03-2024 15:34-0500 Body mass index (BMI) [Ratio] 28.33 kg/m2 Rosmery Athy PA-C Work Phone: [facility] 07-03-2024 15:34-0500 Body temperature 97.11 [degF] Rosmery Athy PA-C Work Phone: [facility] 07-03-2024 15:34-0500 Body weight 68 kg Rosmery Athy PA-C Work Phone: [facility] 07-03-2024 15:34-0500 Diastolic blood pressure 72 mm[Hg] Rosmery Athy PA-C Work Phone: [facility] 07-03-2024 15:34-0500 Heart rate 80 /min Rosmery Athy PA-C Work Phone: [facility] 07-03-2024 15:34-0500 Respiratory rate 16 /min Rosmery Athy PA-C Work Phone: [facility] 07-03-2024 15:34-0500 SaO2% (BldA) [Mass fraction] 98 % Rosmery Athy PA-C Work Phone: [facility] 07-03-2024 15:34-0500 Systolic blood pressure 122 mm[Hg] Rosmery Athy PA-C Work Phone: [facility] 06-23-2024 13:17-0500 Body mass index (BMI) [Ratio] 28.28 kg/m2 Ted Gill APRN.CNP Work Phone: [facility] 06-23-2024 13:17-0500 Body weight 67.9 kg Ted Bridget RAIL CAR OPERATOR.HEAVY EQUIPMENT SUPERVISOR Work Phone: [facility] 06-23-2024 13:17-0500 Diastolic blood pressure 80 mm[Hg] Ted Bridget RAIL CAR OPERATOR.HEAVY EQUIPMENT SUPERVISOR Work Phone: [facility] 06-23-2024 13:17-0500 Heart rate 85 /min Ted Bridget RAIL CAR OPERATOR.HEAVY EQUIPMENT SUPERVISOR Work Phone: [facility] 06-23-2024 13:17-0500 SaO2% (BldA) [Mass fraction] 96 % Ted Bridget RAIL CAR OPERATOR.HEAVY EQUIPMENT SUPERVISOR Work Phone: [facility] 06-23-2024 13:17-0500 Systolic blood pressure 133 mm[Hg] Ted Bridget RAIL CAR OPERATOR.HEAVY EQUIPMENT SUPERVISOR Work Phone: [facility] 01-07-2024 14:11-0400 Body mass index (BMI) [Ratio] 28.87 kg/m2 Tanner Hook MD Work Phone: [facility] 01-07-2024 14:11-0400 Body temperature 97.59 [degF] Tanner Hook MD Work Phone: [facility] 01-07-2024 14:11-0400 Body weight 69.31 kg Tanner Hook MD Work Phone: [facility] 01-07-2024 14:11-0400 Diastolic blood pressure 72 mm[Hg] Tanner Hook MD Work Phone: [facility] 01-07-2024 14:11-0400 Heart rate 96 /min Tanner Hook MD Work Phone: [facility] 01-07-2024 14:11-0400 Respiratory rate 18 /min Tanner Hook MD Work Phone: [facility] 01-07-2024 14:11-0400 SaO2% (BldA) [Mass fraction] 97 % Tanner Hook MD Work Phone: [facility] 01-07-2024 14:11-0400 Systolic blood pressure 114 mm[Hg] Tanner Hook MD Work Phone: [facility] 10-04-2023 10:22-0500 Body weight 69.85 kg Jonathan Chan MD Work Phone: [facility] 10-04-2023 10:22-0500 Diastolic blood pressure 90 mm[Hg] Jonathan Chan MD Work Phone: [facility] 10-04-2023 10:22-0500 Heart rate 83 /min Jonathan Chan MD Work Phone: [facility] 10-04-2023 10:22-0500 Respiratory rate 16 /min Jonathan Chan MD Work Phone: [facility] 10-04-2023 10:22-0500 SaO2% (BldA) [Mass fraction] 98 % Jonathan Chan MD Work Phone: [facility] 10-04-2023 10:22-0500 Systolic blood pressure 131 mm[Hg] Jonathan Chan MD Work Phone: [facility] 07-12-2023 10:27-0500 Body weight 70.31 kg Jonathan Chan MD Work Phone: [facility] 07-12-2023 10:27-0500 Diastolic blood pressure 87 mm[Hg] Jonathan Chan MD Work Phone: [facility] 07-12-2023 10:27-0500 Heart rate 88 /min Jonathan Chan MD Work Phone: [facility] 07-12-2023 10:27-0500 Respiratory rate 18 /min Jonathan Chan MD Work Phone: [facility] 07-12-2023 10:27-0500 SaO2% (BldA) [Mass fraction] 98 % Jonathan Chan MD Work Phone: [facility] 07-12-2023 10:27-0500 Systolic blood pressure 136 mm[Hg] Jonathan Chan MD Work Phone: [facility] 06-28-2023 15:31-0500 Diastolic blood pressure 88 mm[Hg] Ted Bridget RAIL CAR OPERATOR.HEAVY EQUIPMENT SUPERVISOR Work Phone: [facility] 06-28-2023 15:31-0500 Systolic blood pressure 140 mm[Hg] Ted Bridget RAIL CAR OPERATOR.HEAVY EQUIPMENT SUPERVISOR Work Phone: [facility] 06-28-2023 15:28-0500 Body height 154.9 cm Ted Bridget RAIL CAR OPERATOR.HEAVY EQUIPMENT SUPERVISOR Work Phone: [facility] 06-28-2023 15:28-0500 Body weight 69.4 kg Ted Bridget RAIL CAR OPERATOR.HEAVY EQUIPMENT SUPERVISOR Work Phone: [facility] 06-28-2023 15:28-0500 Heart rate 85 /min Ted Bridget RAIL CAR OPERATOR.HEAVY EQUIPMENT SUPERVISOR Work Phone: [facility] 06-28-2023 15:28-0500 SaO2% (BldA) [Mass fraction] 97 % Ted Bridget RAIL CAR OPERATOR.HEAVY EQUIPMENT SUPERVISOR Work Phone: [facility] 06-19-2023 13:01-0500 Body temperature 97.59 [degF] Kya Guardado RAIL CAR OPERATOR.HEAVY EQUIPMENT SUPERVISOR Work Phone: [facility] 06-19-2023 13:01-0500 Body weight 70.31 kg Kya Guardado RAIL CAR OPERATOR.HEAVY EQUIPMENT SUPERVISOR Work Phone: [facility] 06-19-2023 13:01-0500 Diastolic blood pressure 90 mm[Hg] Kya Guardado APRN.HEAVY EQUIPMENT SUPERVISOR Work Phone: [facility] 06-19-2023 13:01-0500 Heart rate 90 /min Kya Guardado APRN.HEAVY EQUIPMENT SUPERVISOR Work Phone: [facility] 06-19-2023 13:01-0500 Respiratory rate 18 /min Kya Guardado APRN.HEAVY EQUIPMENT SUPERVISOR Work Phone: [facility] 06-19-2023 13:01-0500 SaO2% (BldA) [Mass fraction] 98 % Kya Guardado APRN.HEAVY EQUIPMENT SUPERVISOR Work Phone: [facility] 06-19-2023 13:01-0500 Systolic blood pressure 140 mm[Hg] Kya Guardado APRN.CNP Work Phone: [facility] 01-04-2023 10:40-0400 Body temperature 98.2 [degF] Tanner Hook MD Work Phone: [facility] 01-04-2023 10:40-0400 Body weight 71.67 kg Tanner Hook MD Work Phone: [facility] 01-04-2023 10:40-0400 Diastolic blood pressure 84 mm[Hg] Tanner Hook MD Work Phone: [facility] 01-04-2023 10:40-0400 Heart rate 83 /min Tanner Hook MD Work Phone: [facility] 01-04-2023 10:40-0400 Respiratory rate 18 /min Tanner Hook MD Work Phone: [facility] 01-04-2023 10:40-0400 SaO2% (BldA) [Mass fraction] 96 % Tanner Hook MD Work Phone: [facility] 01-04-2023 10:40-0400 Systolic blood pressure 144 mm[Hg] Tanner Hook MD Work Phone: [facility] 11-23-2022 14:21-0400 Body temperature 98.2 [degF] Rosmery Athy PA-C Work Phone: [facility] 11-23-2022 14:21-0400 Body weight 72.58 kg Rosmery Athy PA-C Work Phone: [facility] 11-23-2022 14:21-0400 Diastolic blood pressure 72 mm[Hg] Rosmery Athy PA-C Work Phone: [facility] 11-23-2022 14:21-0400 Heart rate 96 /min Rosmery Athy PA-C Work Phone: [facility] 11-23-2022 14:21-0400 Respiratory rate 16 /min Rosmery Athy PA-C Work Phone: [facility] 11-23-2022 14:21-0400 SaO2% (BldA) [Mass fraction] 98 % Rosmeryyashira Rayay PA-C Work Phone: [facility] 11-23-2022 14:21-0400 Systolic blood pressure 118 mm[Hg] Rosmery Rayay PA-C Work Phone: [facility] 03-26-2022 18:35-0400 Body temperature 97.81 [degF] Sara Praisler-Wood RAIL CAR OPERATOR.HEAVY EQUIPMENT SUPERVISOR Work Phone: [facility] 03-26-2022 18:35-0400 Body weight 72.76 kg Sara Praisler-Wood RAIL CAR OPERATOR.HEAVY EQUIPMENT SUPERVISOR Work Phone: [facility] 03-26-2022 18:35-0400 Diastolic blood pressure 82 mm[Hg] Sara Praisler-Wood RAIL CAR OPERATOR.HEAVY EQUIPMENT SUPERVISOR Work Phone: [facility] 03-26-2022 18:35-0400 Heart rate 102 /min Sara Praisler-Wood RAIL CAR OPERATOR.HEAVY EQUIPMENT SUPERVISOR Work Phone: [facility] 03-26-2022 18:35-0400 Respiratory rate 16 /min Sara Praisler-Wood RAIL CAR OPERATOR.HEAVY EQUIPMENT SUPERVISOR Work Phone: [facility] 03-26-2022 18:35-0400 SaO2% (BldA) [Mass fraction] 97 % Sara Praisler-Wood RAIL CAR OPERATOR.HEAVY EQUIPMENT SUPERVISOR Work Phone: [facility] 03-26-2022 18:35-0400 Systolic blood pressure 134 mm[Hg] Sara Praisler-Wood RAIL CAR OPERATOR.HEAVY EQUIPMENT SUPERVISOR Work Phone: [facility] 01-12-2022 16:37-0400 Body weight 70.76 kg Tanner Hook MD Work Phone: [facility] 01-12-2022 16:37-0400 Diastolic blood pressure 88 mm[Hg] Tanner Hook MD Work Phone: [facility] 01-12-2022 16:37-0400 Heart rate 83 /min Tanner Hook MD Work Phone: [facility] 01-12-2022 16:37-0400 SaO2% (BldA) [Mass fraction] 94 % Tanner Hook MD Work Phone: [facility] 01-12-2022 16:37-0400 Systolic blood pressure 132 mm[Hg] Tanner Hook MD Work Phone: [facility] 01-04-2022 05:46-0400 Respiratory rate 18 /min [facility] Work Phone: 01-04-2022 03:44-0400 Diastolic blood pressure 74 mm[Hg] [facility] Work Phone: 01-04-2022 03:44-0400 Heart rate 62 /min [facility] Work Phone: 01-04-2022 03:44-0400 SaO2% (BldA) [Mass fraction] 93 % [facility] Work Phone: 01-04-2022 03:44-0400 Systolic blood pressure 165 mm[Hg] [facility] Work Phone: 01-04-2022 01:19-0400 Body height 157.48 cm [facility] Work Phone: 01-04-2022 01:19-0400 Body mass index (BMI) [Ratio] 27.4 kg/m2 [facility] Work Phone: 01-04-2022 01:19-0400 Body temperature 97.7 [degF] [facility] Work Phone: 01-04-2022 01:19-0400 Body weight 68.03 kg [facility] Work Phone: 12-29-2021 17:04-0400 Heart rate 86 /min [facility] Work Phone: 12-29-2021 17:04-0400 SaO2% (BldA) [Mass fraction] 97 % [facility] Work Phone: 12-29-2021 14:08-0400 Body height 157.48 cm [facility] Work Phone: 12-29-2021 14:08-0400 Body mass index (BMI) [Ratio] 27.8 kg/m2 [facility] Work Phone: 12-29-2021 14:08-0400 Body temperature 36.7 [degF] [facility] Work Phone: 12-29-2021 14:08-0400 Body weight 68.94 kg [facility] Work Phone: 12-29-2021 14:08-0400 Diastolic blood pressure 86 mm[Hg] [facility] Work Phone: 12-29-2021 14:08-0400 Respiratory rate 18 /min [facility] Work Phone: 12-29-2021 14:08-0400 Systolic blood pressure 134 mm[Hg] [facility] Work Phone: 11-17-2021 14:12-0400 Body height 157.5 cm Hilario James MD Work Phone: [facility] 11-17-2021 14:12-0400 Body weight 70.31 kg Hilario James MD Work Phone: [facility] Encounters Encounter Date Encounter Type Care Provider Facility Start: 01-15-2025 End: 01-15-2025 ambulatory TANNER HOOK Facility:[facility] Start: 01-15-2025 End: 01-15-2025 Telephone encounter Tanner Hook MD Work Phone: [facility] Comment on above: Insurance Authorizat ion Start: 01-15-2025 End: 01-15-2025 Office outpatient visit 25 minutes Tanner Hook MD Work Phone: [facility] Comment on above: Primary hypertension (Primary Dx); Other specified anxiety disorders; Non-seasonal allergic rhinitis, unspecified trigger; Mixed hyperlipidemia; Primary osteoarthritis of left knee; Atherosclerosis of [place] coronary artery of [place] heart without angina pectoris; Vitamin D deficiency; Elevated glucose; Synovial cyst of popliteal space (Jimenez), left knee; Encounter for long-term current use of medication; Asymptomatic postmenopausal state; Breast cancer screening by mammogram Start: 01-15-2025 End: 01-15-2025 ambulatory TANNER HOOK Facility:[facility] Start: 11-15-2024 End: 11-15-2024 Telephone encounter Tanner Hook MD Work Phone: [facility] Comment on above: medication clarifica tion Start: 11-06-2024 End: 11-06-2024 Refill Tanner Hook MD Work Phone: [facility] Comment on above: Refill Request Start: 09-07-2024 End: 09-08-2024 Telephone encounter Tanner Hook MD Work Phone: [facility] [place] Comment on above: Patient Question Start: 08-18-2024 End: 08-18-2024 ambulatory [facility] Facility:[facility] Start: 08-18-2024 End: 08-18-2024 [facility] Facility:[facility] Start: 08-18-2024 End: 08-18-2024 Subsequent hospital visit by physician Marycruz [facility] Work Phone: [facility] Comment on above: Status post abdomina l aortic aneurysm (AAA) repair [Z98.890, Z86.79] Start: 08-17-2024 End: 08-17-2024 [facility] Facility:[facility] Start: 08-17-2024 End: 08-17-2024 Office outpatient visit 25 minutes Baltazar Rubiojosé OLEARY Work Phone: [facility] [place] Comment on above: Status post abdomina l aortic aneurysm (AAA) repair (Primary Dx); Left upper quadrant abdominal pain; COPD with exacerbation (HCC) Start: 08-15-2024 End: 08-15-2024 Telephone encounter Soledad Trevino APRN.CNP Work Phone: [facility] Comment on above: Results Start: 08-14-2024 End: 08-14-2024 ambulatory TANNER HOOK Facility:[facility] Start: 08-14-2024 End: 08-14-2024 Patient encounter procedure Diane Gonzalez APRN.HEAVY EQUIPMENT SUPERVISOR Work Phone: [facility] Comment on above: Acute cough (Primary Dx); COPD with exacerbation (HCC) Start: 08-14-2024 End: 08-14-2024 Subsequent hospital visit by physician Xr [facility] [place] Work Phone: Radiology Comment on above: Acute cough [R05.1] Start: 07-12-2024 End: 07-13-2024 Refill Tanner Hook MD Work Phone: [facility] [place] Comment on above: Refill Request Start: 07-11-2024 End: 07-11-2024 ambulatory DAMARIS OWENS Facility:[facility] Start: 07-11-2024 End: 07-11-2024 Patient encounter procedure Damaris Owens PA-C Work Phone: [facility] [place] Comment on above: Bacterial sinusitis (Primary Dx) Start: 07-11-2024 End: 07-11-2024 Telephone encounter Tanner Hook MD Work Phone: [facility] [place] Comment on above: Patient Update Start: 07-04-2024 End: 07-04-2024 Telephone encounter Diane Gonzalez APRN.HEAVY EQUIPMENT SUPERVISOR Work Phone: [facility] Comment on above: Results Start: 07-03-2024 End: 07-03-2024 Patient encounter procedure Rosmery Rodas PA-C Work Phone: [facility] Comment on above: Bronchitis (Primary Dx) Start: 07-03-2024 End: 07-03-2024 ambulatory TANNER HOOK Facility:[facility] Start: 07-03-2024 End: 07-03-2024 Subsequent hospital visit by physician Xr [facility] [place] Work Phone: Radiology Comment on above: Wheezing [R06.2] Start: 06-23-2024 End: 06-23-2024 ambulatory TED BRIDGET Facility:[facility] Start: 06-23-2024 End: 06-23-2024 Patient encounter procedure Ted Gill SAM Work Phone: [facility] [place] Comment on above: Medicare annual well ness visit, subsequent (Primary Dx); Mixed hyperlipidemia; Other specified anxiety disorders; Encounter for long-term current use of medication; ASCVD (arteriosclerotic cardiovascular disease); Vitamin D deficiency; Elevated glucose; Stage 3a chronic kidney disease (HCC); Recurrent major depression in partial remission (HCC); S/P AAA repair; Constipation, unspecified constipation type; Sleep disturbance Start: 01-07-2024 End: 01-07-2024 Emergency department patient visit Mauri Carlson Facility:[facility] Start: 01-07-2024 End: 01-07-2024 Office outpatient visit 40 minutes Tanner Hook MD Work Phone: [facility] [place] Comment on above: Acute LUQ pain (Prim stephane Dx); S/P AAA repair; Coronary artery disease involving [place] coronary artery of [place] heart without angina pectoris; Other specified anxiety disorders; Mixed hyperlipidemia; Vitamin D deficiency; Elevated glucose; Primary hypertension; Encounter for immunization; Asymptomatic menopause; Encounter for long-term current use of medication; Chronic bronchitis, unspecified chronic bronchitis type (HCC) Start: 10-04-2023 End: 10-04-2023 Patient encounter procedure Jonathan Chan MD Work Phone: Cardiology Comment on above: Mixed hyperlipidemia (Primary Dx); Status post AAA (abdominal aortic aneurysm) repair; Chronic bronchitis, unspecified chronic bronchitis type (HCC); Coronary artery disease involving [place] coronary artery of [place] heart without angina pectoris; Primary hypertension Start: 09-22-2023 ambulatory Tanner kumar MD Work Phone: Internal Medicine [facility] Start: 08-27-2023 End: 08-27-2023 ambulatory JONATHAN CHAN [facility] Start: 07-30-2023 End: 07-30-2023 Subsequent hospital visit by physician Sariah [facility] Work Phone: Radiology Comment on above: Acute cough [R05.1] Start: 07-12-2023 Telephone encounter Jonathan Chan MD Work Phone: [facility] [employer] Comment on above: Preparations For Pro cedures Start: 07-12-2023 End: 07-12-2023 Patient encounter procedure Jonathan Chan MD Work Phone: Cardiology Comment on above: History of non-ST el evation myocardial infarction (NSTEMI) (Primary Dx); WARE (dyspnea on exertion); Status post AAA (abdominal aortic aneurysm) repair; Cigarette smoker Start: 06-28-2023 End: 06-28-2023 Patient encounter procedure Ted Gill RAIL CAR OPERATOR.HEAVY EQUIPMENT SUPERVISOR Work Phone: [facility] [place] Comment on above: [facility] (Primary Dx); Recurrent major depression in partial remission (HCC); Mixed hyperlipidemia; ASCVD (arteriosclerotic cardiovascular disease); Abdominal aortic aneurysm (AAA) without rupture, unspecified part (HCC); Upper respiratory tract infection, unspecified type Start: 06-28-2023 Refill Ted Gill RAIL CAR OPERATOR.HEAVY EQUIPMENT SUPERVISOR Work Phone: [facility] [place] Comment on above: Refill Request Start: 06-21-2023 Telephone encounter Tanner robertson MD Work Phone: [facility] [place] Comment on above: Patient concern Start: 06-19-2023 Refill Ted Gill RAIL CAR OPERATOR.HEAVY EQUIPMENT SUPERVISOR Work Phone: [facility] [place] Comment on above: Refill Request Start: 06-19-2023 Telephone encounter Kya Guardado APRN.HEAVY EQUIPMENT SUPERVISOR Work Phone: [facility] Comment on above: Medication Problem; Results Start: 06-19-2023 End: 06-19-2023 Patient encounter procedure Kya Guardado APRN.HEAVY EQUIPMENT SUPERVISOR Work Phone: [facility] Comment on above: URI, acute (Primary Dx) Start: 03-25-2023 ambulatory Elena Quiroga [facility] Comment on above: Population [facility] ([facility] ) Start: 01-12-2023 ambulatory Flor diggs RAIL CAR OPERATOR.HEAVY EQUIPMENT SUPERVISOR Work Phone: Pulmonary Medicine Start: 01-08-2023 End: 01-08-2023 Subsequent hospital visit by physician Sariah [facility] Work Phone: Radiology Comment on above: Chronic cough [R05.3 ] Start: 01-08-2023 End: 01-08-2023 ambulatory Pulm Lab [facility] Work Phone: PULM LAB [facility] Comment on above: Spirometry Start: 01-08-2023 End: 01-08-2023 Patient encounter procedure Pulm [facility] Work Phone: [facility] Start: 01-04-2023 End: 01-04-2023 Office outpatient visit 25 minutes Tanner Hook MD Work Phone: [facility] [place] Comment on above: ASCVD (arteriosclero tic cardiovascular disease) (Primary Dx); Other specified anxiety disorders; Vitamin D deficiency; Chronic cough; WARE (dyspnea on exertion); S/P AAA repair; Chronic bronchitis, unspecified chronic bronchitis type (HCC); Recurrent major depression in partial remission (HCC); Colon cancer screening; Encounter for long-term current use of medication Start: 11-23-2022 End: 11-23-2022 Patient encounter procedure Rosmery Rodas PA-C Work Phone: [facility] Comment on above: Rash (Primary Dx) Start: 10-07-2022 ambulatory Tanner kumar MD Work Phone: Internal Medicine [facility] Start: 10-06-2022 Telephone encounter Ted levi RAIL CAR OPERATOR.HEAVY EQUIPMENT SUPERVISOR Work Phone: [facility] [place] Comment on above: Results Start: 09-04-2022 End: 09-04-2022 Office outpatient visit 40 minutes Tanner Hook MD Work Phone: [facility] [place] Comment on above: Mixed hyperlipidemia (Primary Dx); WARE (dyspnea on exertion); Gastroesophageal reflux disease without esophagitis; Vitamin D deficiency; Impaired glucose metabolism; Other fatigue; Other specified anxiety disorders; Chronic left flank pain; Cigarette smoker; Encounter for long-term current use of medication Start: 05-18-2022 Refill Tanner kumar MD Work Phone: [facility] [place] Comment on above: Refill Request Start: 03-26-2022 End: 03-26-2022 Patient encounter procedure Sara Silverio APRN.LUIS FERNANDO Work Phone: [facility] Comment on above: Rash (Primary Dx) Start: 01-12-2022 End: 01-12-2022 Office outpatient visit 25 minutes Tanner Hook MD Work Phone: [facility] [place] Comment on above: Other specified anxi ety disorders (Primary Dx); UTI symptoms; Acute cystitis without hematuria; Urinary frequency; Personal history of COVID-19; Primary insomnia; Recurrent major depression in partial remission (HCC); Chronic bronchitis, unspecified chronic bronchitis type (HCC) Start: 01-04-2022 End: 01-04-2022 Emergency department patient visit [facility] Start: 12-29-2021 End: 12-29-2021 Emergency department patient visit [facility] Start: 11-17-2021 End: 11-17-2021 Patient encounter procedure Hilario James MD Work Phone: Orthopaedics Comment on above: Chronic pain of both knees (Primary Dx); Primary osteoarthritis of both knees Start: 11-17-2021 Telephone encounter Hilario new MD Work Phone: Orthopaedics Comment on above: Patient Question Start: 04-21-2021 End: 04-21-2021 Subsequent hospital visit by physician Xr [facility] Work Phone: Radiology Comment on above: Acute pain of right shoulder [M25.511] Start: 07-08-2020 End: 07-08-2020 Subsequent hospital visit by physician Xr [facility] Work Phone: Radiology Comment on above: Pneumonia due to inf ectious organism, unspecified laterality, unspecified part of lung [J18.9] Start: 07-29-2018 Encounter for other preprocedural examination [facility] Start: 07-29-2018 Encounter for preprocedural cardiovascular examination [facility] Start: 07-29-2018 Patient encounter procedure [facility] Procedures Date Procedure Procedure Detail Performing Clinician Start: 08-14-2024 Radiologic exam ches t 2 views Dianeharini Gonzalez RAIL CAR OPERATOR.HEAVY EQUIPMENT SUPERVISOR Work Phone: Start: 07-03-2024 Radiologic exam ches t 2 views Rosmery Rodas PA-C Work Phone: Start: 07-30-2023 Radiologic exam ches t 2 views Palomo James RAIL CAR OPERATOR.HEAVY EQUIPMENT SUPERVISOR Work Phone: Start: 07-12-2023 Ecg routine ecg w/le ast 12 lds i&r only [facility] Provider Start: 06-28-2023 Lipid 1996 panel - S vishal or Plasma Ted Gill RAIL CAR OPERATOR.HEAVY EQUIPMENT SUPERVISOR Work Phone: Start: 01-12-2023 Blood occult fecal h gb deter ia qual feces 1-3 Tanner Hook MD Work Phone: Start: 01-08-2023 Radiologic exam ches t 2 views Tanner Hook MD Work Phone: Start: 01-08-2023 Nitric oxide gas determination Tanner Hook MD Work Phone: Start: 09-04-2022 Lipid 1996 panel - S vishal or Plasma [facility] Work Phone: Start: 01-12-2022 Urnls dip stick/tabl et rgnt auto w/o microscopy Tanner Hook MD Work Phone: Start: 01-04-2022 SARS-CoV-2 & FLU Ant igen (Rapid) Start: 01-04-2022 CT of head without contrast Start: 01-04-2022 Plain chest X-ray Start: 12-29-2021 End: 12-29-2021 Viral antigen assay Start: 11-17-2021 Arthrocentesis aspir &/inj major jt/bursa w/o us Hilario James MD Work Phone: Start: 08-29-2021 Mammography Hilario new MD Work Phone: Start: 04-21-2021 Radex shoulder compl ete minimum 2 views Mabel Rocha APRN.LUIS FERNANDO Work Phone: Start: 07-08-2020 Radiologic exam ches t 2 views Mabel Rocha APRN.LUIS FERNANDO Work Phone: Start: 04-20-2017 Héctor new MD Work Phone: Plan of Treatment Date Care Activity Detail Author Start: 06-28-2028 Lipid 1996 panel - S vishal or Plasma Lipid Screening [facility] Start: 06-28-2028 Lipid panel Lipid Screening [facility] Start: 09-04-2027 Lipid 1996 panel - S vishal or Plasma Lipid Screening [facility] Start: 09-04-2027 LIPID SCREEN LIPID SCREEN [facility] Start: 08-29-2026 LIPID SCREEN LIPID SCREEN [facility] Start: 07-30-2026 Diabetes Screening Diabetes Screenin g [facility] Start: 06-28-2026 Diabetes Screening Diabetes Screenin g [facility] Start: 01-15-2026 Annual PCP Team Proof Passer dana Disease Visit Annual PCP Team Chronic Disease Visit [facility] Start: 01-15-2026 Shingrix Vaccine (1 of 2) Shingrix Vaccine (1 of 2) [facility] Comment on above: Postponed from 05/06 (Declined at this time) Start: 01-04-2026 DIABETES SCREEN DIABETES SCREEN [facility] Start: 01-04-2026 Diabetes Screening Diabetes Screenin g [facility] Start: 12-31-2025 End: 12-31-2025 Patient encounter procedure 12/31/2025 1:40 PM EDT Office Visit [facility] [address] [place] [address] Tanner Hook MD [address] [place] [id number] 6 mo follow up [facility] Comment on above: 6 mo follow up Start: 09-04-2025 DIABETES SCREEN DIABETES SCREEN [facility] Start: 08-18-2025 Creatinine measurement Serum Creatin ine [facility] Start: 08-14-2025 BP Controlled (<130/80) BP Controlle d (<130/80) [facility] Start: 08-03-2025 End: 08-03-2025 Patient encounter procedure 08/03/2025 4:40 PM EST Office Visit [facility] [address] [place] [address] Tanner Hook MD [address] [place] [address] 6 mo follow up [facility] Comment on above: 6 mo follow up Start: 07-15-2025 End: 03-22-2025 25-hydroxyvitamin D3 [Mass/volume] in Serum or Plasma VITAMIN D 25 HYDROXY Lab Routine Vitamin D deficiency Expected: 07/15/2025, Expires: 03/22/2025 [facility] Comment on above: Expected: 07/15/2025 , Expires: 03/22/2025 Start: 07-15-2025 End: 03-22-2025 CBC W Auto Differential panel - Blood COMPLETE BLOOD COUNT AND DIFFERENTIAL Lab Routine Encounter for long-term current use of medication Expected: 07/15/2025, Expires: 03/22/2025 [facility] Comment on above: Expected: 07/15/2025 , Expires: 03/22/2025 Start: 07-15-2025 End: 03-22-2025 Comprehensive metabolic 2000 panel - Serum or Plasma COMPREHENSIVE METABOLIC PANEL Lab Routine Encounter for long-term current use of medication Expected: 07/15/2025, Expires: 03/22/2025 [facility] Comment on above: Expected: 07/15/2025 , Expires: 03/22/2025 Start: 07-15-2025 End: 03-22-2025 Hemoglobin A1c in Blood HEMOGLOBIN A1C Lab Routine Elevated glucose Expected: 07/15/2025, Expires: 03/22/2025 [facility] Comment on above: Expected: 07/15/2025 , Expires: 03/22/2025 Start: 07-15-2025 End: 03-22-2025 Magnesium [Mass/volume] in Serum or Plasma MAGNESIUM Lab Routine Encounter for long-term current use of medication Expected: 07/15/2025, Expires: 03/22/2025 [facility] Comment on above: Expected: 07/15/2025 , Expires: 03/22/2025 Start: 07-11-2025 Annual PCP Team Proof Passer dana Disease Visit Annual PCP Team Chronic Disease Visit [facility] Start: 07-03-2025 BP Controlled (<130/80) BP Controlle d (<130/80) [facility] Start: 06-23-2025 Annual PCP Team Proof Passer dana Disease Visit Annual PCP Team Chronic Disease Visit [facility] Start: 04-20-2025 End: 04-20-2025 Patient encounter procedure Mammogram Comment on above: Breast cancer screen ing by mammogram [Z12.31] Asymptomatic postmen opausal state [Z78.0] Start: 04-02-2025 Influenza vaccination Influenz a Vaccine (Season Ended) [facility] Start: 02-26-2025 End: 02-26-2025 Patient encounter procedure 02/26/2025 3:00 PM EDT Office Visit Orthopaedics [address] [place], [place] [id number] Hilario James MD [address] [place] [address] Primary osteoarthritis of left knee [M17.12] Orthopaedics Comment on above: Primary osteoarthrit is of left knee [M17.12] Start: 01-29-2025 Influenza vaccination Influenza Vacc ine (#1) [facility] Comment on above: Postponed from 04/02 (Declined at this time) Start: 01-15-2025 End: 04-16-2025 LIPID PANEL, NONFASTING [facility] Comment on above: Expected: 01/15/2025 , Expires: 04/16/2025 Start: 01-15-2025 Screening for malign ant neoplasm of breast Mammogram Screening [facility] Start: 01-15-2025 End: 04-16-2025 TSH W/REFLEX FT4 [facility] Comment on above: Expected: 01/15/2025 , Expires: 04/16/2025 Start: 01-15-2025 End: 01-15-2025 Patient encounter procedure 01/15/2025 1:40 PM EDT Office Visit [facility] [place] [address] [place], [place] [id number] Tanner Hook MD [address] [facility] [place] [address] 6 month follow up [facility] Comment on above: 6 month follow up Start: 01-06-2025 Annual PCP Team Proof Passer dana Disease Visit Annual PCP Team Chronic Disease Visit [facility] Start: 01-06-2025 BP Controlled (<130/80) BP Controlle d (<130/80) [facility] Start: 12-21-2024 End: 03-22-2025 25-hydroxyvitamin D3 [Mass/volume] in Serum or Plasma VITAMIN D 25 HYDROXY Lab Routine Vitamin D deficiency Expected: 12/21/2024, Expires: 03/22/2025 [facility] Comment on above: Expected: 12/21/2024 , Expires: 03/22/2025 Start: 12-21-2024 End: 03-22-2025 CBC W Auto Differential panel - Blood COMPLETE BLOOD COUNT AND DIFFERENTIAL Lab Routine Encounter for long-term current use of medication Expected: 12/21/2024, Expires: 03/22/2025 [facility] Work Phone: Comment on above: Expected: 12/21/2024 , Expires: 03/22/2025 Start: 12-21-2024 End: 03-22-2025 Comprehensive metabolic 2000 panel - Serum or Plasma COMPREHENSIVE METABOLIC PANEL Lab Routine Encounter for long-term current use of medication Expected: 12/21/2024, Expires: 03/22/2025 [facility] Comment on above: Expected: 12/21/2024 , Expires: 03/22/2025 Start: 12-21-2024 End: 03-22-2025 Hemoglobin A1c in Blood HEMOGLOBIN A1C Lab Routine Elevated glucose Expected: 12/21/2024, Expires: 03/22/2025 [facility] Comment on above: Expected: 12/21/2024 , Expires: 03/22/2025 Start: 12-21-2024 End: 03-22-2025 Lipid 1996 panel - Serum or Plasma LIPID PANEL BASIC Lab Routine Mixed hyperlipidemia Expected: 12/21/2024, Expires: 03/22/2025 [facility] Comment on above: Expected: 12/21/2024 , Expires: 03/22/2025 Start: 12-21-2024 End: 03-22-2025 Magnesium [Mass/volume] in Serum or Plasma MAGNESIUM Lab Routine Encounter for long-term current use of medication Expected: 12/21/2024, Expires: 03/22/2025 [facility] Comment on above: Expected: 12/21/2024 , Expires: 03/22/2025 Start: 10-16-2024 End: 10-16-2024 Patient encounter procedure Cardiology Comment on above: 1 yr follow up chron ic bronchitis Start: 08-31-2024 End: 08-31-2024 Patient encounter procedure 08/31/2024 1:20 PM EST Office Visit Internal [facility] [address] [place], [place] [phone] Baltazar Rubio APRN.SENIOR MANAGER [employer] [address] [place] [address] blood pressure check [facility] [place] Comment on above: blood pressure check Start: 08-29-2024 DIABETES SCREEN DIABETES SCREEN [facility] Start: 08-18-2024 End: 08-18-2024 Patient encounter procedure Cat Scan Comment on above: Status post abdomina l aortic aneurysm (AAA) repair [Z98.890, Z86.79] Start: 08-17-2024 End: 11-16-2024 CREATININE BLD CREATININE BLD Lab Routine Status post abdominal aortic aneurysm (AAA) repair Left upper quadrant abdominal pain Expected: 08/17/2024, Expires: 11/16/2024 [facility] Comment on above: Expected: 08/17/2024 , Expires: 11/16/2024 Start: 08-02-2024 Advance Directive Discussion Advance Directive Discussion [facility] Start: 08-02-2024 Medicare Advantage Annual Wellness Visit Medicare Advantage Annual Wellness Visit [facility] Start: 07-30-2024 Complete blood count Hemoglobin/Nagi tocrit [facility] Start: 07-30-2024 Creatinine measurement Serum Creatin ine [facility] Start: 06-28-2024 Annual PCP Team Proof Passer dana Disease Visit Annual PCP Team Chronic Disease Visit [facility] Start: 06-28-2024 Hepatitis B surface antibody level LDL Cholesterol [facility] Start: 06-23-2024 End: 06-23-2024 Patient encounter procedure 06/23/2024 1:20 PM EST Office Visit [facility] [place] [address] [place] [id number] Ted Gill APRN.[employer]MENT SUPERVISOR [address] [place] [address] Well visit [facility] [place] Comment on above: Well visit Start: 2024 RSV Vaccine (1 - 1-d ose 75+ series) RSV Vaccine (1 - 1-dose 75+ series) [facility] Start: 04-02-2024 Influenza vaccination [facility] Start: 01-30-2024 Influenza vaccination Influenza Vacc ine (#1) [facility] Comment on above: Postponed from 04/02 (Declined at this time) Start: 01-13-2024 Colorectal Cancer Screening Colorectal Cancer Screening [facility] Start: 01-13-2024 FECAL OCCULT BLOOD FECAL OCCULT BLOO D [facility] Start: 01-13-2024 Screening for malign ant neoplasm of colon [facility] Start: 01-07-2024 End: 04-07-2024 25-hydroxyvitamin D3 [Mass/volume] in Serum or Plasma VITAMIN D 25 HYDROXY Lab Routine Vitamin D deficiency Encounter for long-term current use of medication Expected: 01/07/2024, Expires: 04/07/2024 [facility] Comment on above: Expected: 01/07/2024 , Expires: 04/07/2024 Start: 01-07-2024 End: 04-07-2024 CBC panel - Blood by Automated count COMPLETE BLOOD COUNT Lab Routine Encounter for long-term current use of medication Expected: 01/07/2024, Expires: 04/07/2024 [facility] Comment on above: Expected: 01/07/2024 , Expires: 04/07/2024 Start: 01-07-2024 End: 04-07-2024 Comprehensive metabolic 2000 panel - Serum or Plasma COMPREHENSIVE METABOLIC PANEL Lab Routine Encounter for long-term current use of medication Elevated glucose Expected: 01/07/2024, Expires: 04/07/2024 [facility] Work Phone: Comment on above: Expected: 01/07/2024 , Expires: 04/07/2024 Start: 01-07-2024 End: 04-07-2024 Hemoglobin A1c in Blood HEMOGLOBIN A1C Lab Routine Encounter for long-term current use of medication Elevated glucose Expected: 01/07/2024, Expires: 04/07/2024 [facility] Comment on above: Expected: 01/07/2024 , Expires: 04/07/2024 Start: 01-07-2024 End: 04-07-2024 Lipid 1996 panel - Serum or Plasma LIPID PANEL BASIC Lab Routine Mixed hyperlipidemia Encounter for long-term current use of medication Expected: 01/07/2024, Expires: 04/07/2024 [facility] Comment on above: Expected: 01/07/2024 , Expires: 04/07/2024 Start: 01-07-2024 End: 04-07-2024 Magnesium [Mass/volume] in Serum or Plasma MAGNESIUM Lab Routine Encounter for long-term current use of medication Expected: 01/07/2024, Expires: 04/07/2024 [facility] Comment on above: Expected: 01/07/2024 , Expires: 04/07/2024 Start: 01-07-2024 End: 04-07-2024 Thyrotropin [Units/volume] in Serum or Plasma THYROID STIMULATING HORMONE Lab Routine Mixed hyperlipidemia Primary hypertension Expected: 01/07/2024, Expires: 04/07/2024 [facility] Comment on above: Expected: 01/07/2024 , Expires: 04/07/2024 Start: 01-07-2024 End: 04-07-2024 Thyroxine (T4) free [Mass/volume] in Serum or Plasma T4 FREE/FREE THYROXINE Lab Routine Mixed hyperlipidemia Primary hypertension Expected: 01/07/2024, Expires: 04/07/2024 [facility] Comment on above: Expected: 01/07/2024 , Expires: 04/07/2024 Start: 01-05-2024 COVID-19 VACCINE (3 - Booster for Pfizer series) COVID-19 VACCINE (3 - Booster for Pfizer series) [facility] Comment on above: Postponed from 01/16 (Declined at this time) Start: 01-05-2024 COVID-19 VACCINE (3 - Pfizer series) COVID-19 VACCINE (3 - Pfizer series) [facility] Comment on above: Postponed from 01/16 (Declined at this time) Start: 01-05-2024 SHINGRIX VACCINE (1 of 2) SHINGRIX VACCINE (1 of 2) [facility] Comment on above: Postponed from 05/06 (Declined at this time) Start: 01-05-2024 Urine microalbumin profile [facility] Comment on above: Postponed from 06/04 (Declined at this time) Start: 08-02-2023 Advance Directive Discussion Advance Directive Discussion [facility] Start: 07-12-2023 End: 10-11-2023 Basic metabolic 2000 panel - Serum or Plasma BASIC METABOLIC PNL Lab Routine History of non-ST elevation myocardial infarction (NSTEMI) Mixed hyperlipidemia Expected: 07/12/2023, Expires: 10/11/2023 [facility] Work Phone: Comment on above: Expected: 07/12/2023 , Expires: 10/11/2023 Start: 07-12-2023 End: 10-11-2023 CBC panel - Blood by Automated count CBC Lab Routine History of non-ST elevation myocardial infarction (NSTEMI) Mixed hyperlipidemia Expected: 07/12/2023, Expires: 10/11/2023 [facility] Work Phone: Comment on above: Expected: 07/12/2023 , Expires: 10/11/2023 Start: 06-21-2023 End: 09-20-2023 25-hydroxyvitamin D3 [Mass/volume] in Serum or Plasma VITAMIN D 25 HYDROXY Lab Routine Vitamin D deficiency Other fatigue Localized osteoporosis without current pathological fracture Encounter for long-term current use of medication Expected: 06/21/2023, Expires: 09/20/2023 [facility] Work Phone: Comment on above: Expected: 06/21/2023 , Expires: 09/20/2023 Start: 06-21-2023 End: 09-20-2023 CBC panel - Blood by Automated count CBC Lab Routine Other fatigue Localized osteoporosis without current pathological fracture Encounter for long-term current use of medication Expected: 06/21/2023, Expires: 09/20/2023 [facility] Work Phone: Comment on above: Expected: 06/21/2023 , Expires: 09/20/2023 Start: 06-21-2023 End: 09-20-2023 Comprehensive metabolic 2000 panel - Serum or Plasma COMP METABOLIC PANEL Lab Routine Other fatigue Localized osteoporosis without current pathological fracture Encounter for long-term current use of medication Expected: 06/21/2023, Expires: 09/20/2023 [facility] Work Phone: Comment on above: Expected: 06/21/2023 , Expires: 09/20/2023 Start: 06-21-2023 End: 09-20-2023 Hemoglobin A1c in Blood HGB A1C Lab Routine Other fatigue Localized osteoporosis without current pathological fracture Encounter for long-term current use of medication Expected: 06/21/2023, Expires: 09/20/2023 [facility] Work Phone: Comment on above: Expected: 06/21/2023 , Expires: 09/20/2023 Start: 06-21-2023 End: 09-20-2023 Lipid 1996 panel - Serum or Plasma LIPID PANEL BASIC Lab Routine Mixed hyperlipidemia Encounter for long-term current use of medication Expected: 06/21/2023, Expires: 09/20/2023 [facility] Work Phone: Comment on above: Expected: 06/21/2023 , Expires: 09/20/2023 Start: 06-21-2023 End: 09-20-2023 LIPID PANEL, NONFASTING LIPID PANEL, NONFASTING Lab Routine Recurrent major depression in partial remission (HCC) Other fatigue Encounter for long-term current use of medication Expected: 06/21/2023, Expires: 09/20/2023 [facility] Work Phone: Comment on above: Expected: 06/21/2023 , Expires: 09/20/2023 Start: 06-21-2023 End: 09-20-2023 Magnesium [Mass/volume] in Serum or Plasma MAGNESIUM BLD Lab Routine Other fatigue Localized osteoporosis without current pathological fracture Encounter for long-term current use of medication Expected: 06/21/2023, Expires: 09/20/2023 [facility] Work Phone: Comment on above: Expected: 06/21/2023 , Expires: 09/20/2023 Start: 06-19-2023 End: 07-03-2023 COVID & INFLUENZA A/B & RSV NAAT, ROUTINE COVID & INFLUENZA A/B & RSV NAAT, ROUTINE Microbiology Routine URI, acute Expected: 06/19/2023, Expires: 07/03/2023 [facility] Work Phone: Comment on above: Expected: 06/19/2023 , Expires: 07/03/2023 Start: 04-02-2023 Covid-19 Vaccine () Covid-19 Vaccine () [facility] Start: 04-02-2023 Influenza vaccination [facility] Start: 01-29-2023 Influenza vaccination INFLUENZA (#1) [facility] Comment on above: Postponed from 04/02 (Declined at this time) Start: 01-13-2023 COLORECTAL CANCER SCREENING COLORECTAL CANCER SCREENING [facility] Start: 08-29-2022 Mammography [facility] Start: 08-29-2022 Screening for malign ant neoplasm of breast Mammogram Screening [facility] Start: 08-02-2022 ADVANCE DIRECTIVE DISCUSSION ADVANCE DIRECTIVE DISCUSSION [facility] Start: 07-07-2022 Urine microalbumin profile DTAP,TDAP,TD (2 - Td or Tdap) [facility] Comment on above: Postponed from 06/04 (Declined at this time) Start: 04-20-2022 Colonoscopy COLONOSCOPY [facility] Start: 04-20-2022 COLORECTAL CANCER SCREENING COLORECTAL CANCER SCREENING [facility] Start: 04-02-2022 Influenza vaccination [facility] Start: 08-02-2021 ADVANCE DIRECTIVE DISCUSSION ADVANCE DIRECTIVE DISCUSSION [facility] Start: 06-04-2021 Urine microalbumin profile [facility] Start: 04-23-2021 COVID-19 VACCINE (3 - Booster for Pfizer series) COVID-19 VACCINE (3 - Booster for Pfizer series) [facility] Start: 03-04-2021 Influenza vaccination LUNG CANCER SC REENING [facility] Start: 03-04-2021 Screening for malign ant neoplasm of lung Lung Cancer Screening [facility] Start: 06-17-2021 COVID-19 VACCINE (3 - Booster for Pfizer series) COVID-19 VACCINE (3 - Booster for Pfizer series) [facility] Start: 04-06-2020 Screening for osteoporosis Bone Density Screening [facility] Start: 04-20-2018 Colonoscopy Colonoscopy [facility] Start: 04-20-2018 Screening for malign ant neoplasm of colon Colonoscopy [facility] Start: 2009 RSV Vaccine (1 - 1-d ose 60+ series) RSV Vaccine (1 - 1-dose 60+ series) [facility] Start: 1999 SHINGRIX VACCINE (1 of 2) SHINGRIX VACCINE (1 of 2) [facility] Start: 1994 COLOGUARD (FIT-DNA) COLOGUARD (FIT-D NA) [facility] Start: [address] COLONOGRAPHY [facility] Start: 1994 FECAL OCCULT BLOOD FECAL OCCULT BLOO D [facility] Start: 1994 Screening for malign ant neoplasm of colon [facility] Start: 1994 SIGMOIDOSCOPY SIGMOIDOSCOPY [facility] Start: 1979 Zoledronic acid therapy Alpha- 1 Antitrypsin Deficiency Screening [facility] Start: 1967 BP Controlled (<130/80) BP Controlle d (<130/80) [facility] End: 02-05-2025 BD DXA TRABECULAR BONE SCORE (TBS) BD DXA TRABECULAR BONE SCORE (TBS) Radiology Routine Asymptomatic menopause 1 Occurrences starting 01/07/2024 until 02/05/2025 [facility] Comment on above: 1 Occurrences starti ng 01/07/2024 until 02/05/2025 End: 02-14-2026 BD DXA TRABECULAR BONE SCORE (TBS) BD DXA TRABECULAR BONE SCORE (TBS) Radiology Routine Asymptomatic postmenopausal state 1 Occurrences starting 01/15/2025 until 02/14/2026 [facility] Comment on above: 1 Occurrences starti ng 01/15/2025 until 02/14/2026 COVID & INFLUENZA A/ B & RSV PCR, ROUTINE COVID & INFLUENZA A/B & RSV PCR, ROUTINE Microbiology Routine Bronchitis 07/03/2024 3:51 PM EST [facility] Work Phone: End: 09-16-2025 CT Abdomen and Pelvis W contrast IV CT ABD/PEL W IVCON Radiology Routine Status post abdominal aortic aneurysm (AAA) repair Left upper quadrant abdominal pain 1 Occurrences starting 08/17/2024 until 09/16/2025 [facility] Work Phone: Comment on above: 1 Occurrences starti ng 08/17/2024 until 09/16/2025 CT Abdomen and Pelvi s W contrast IV CT ABD/PEL W IVCON Radiology Routine Status post abdominal aortic aneurysm (AAA) repair Left upper quadrant abdominal pain 08/18/2024 2:43 PM EST [facility] Work Phone: End: 02-14-2026 DBT Breast - bilateral screening AGNIESZKA SCREENING W ALLI Radiology Routine Breast cancer screening by mammogram 1 Occurrences starting 01/15/2025 until 02/14/2026 [facility] Comment on above: 1 Occurrences starti ng 01/15/2025 until 02/14/2026 End: 02-05-2025 DXA Skeletal system.axial Views for bone density DXA-AXIAL SKELETON Radiology Routine Asymptomatic menopause 1 Occurrences starting 01/07/2024 until 02/05/2025 [facility] Comment on above: 1 Occurrences starti ng 01/07/2024 until 02/05/2025 End: 02-14-2026 DXA Skeletal system.axial Views for bone density DXA-AXIAL SKELETON Radiology Routine Asymptomatic postmenopausal state 1 Occurrences starting 01/15/2025 until 02/14/2026 [facility] Work Phone: Comment on above: 1 Occurrences starti ng 01/15/2025 until 02/14/2026 ECG COMPLETE ECG COMPLETE ECG Routine History of non-ST elevation myocardial infarction (NSTEMI) Ordered: 07/06/2023 [facility] Work Phone: Comment on above: Ordered: 07/06/2023 ECG COMPLETE ECG COMPLETE ECG 07/12/2023 11:29 AM EST [facility] End: 11-06-2023 AGNIESZKA SCREENING AGNIESZKA SCREENING Radiology Routine Encounter for screening mammogram for breast cancer 1 Occurrences starting 10/07/2022 until 11/06/2023 [facility] Work Phone: Comment on above: 1 Occurrences starti ng 10/07/2022 until 11/06/2023 End: 10-21-2024 MG Breast Screening AGNIESZKA SCREENING Radiology Routine Encounter for screening mammogram for breast cancer 1 Occurrences starting 09/22/2023 until 10/21/2024 [facility] Work Phone: Comment on above: 1 Occurrences starti ng 09/22/2023 until 10/21/2024 Patient Education [facility] Work Phone: Patient referral [facility] Work Phone: [facility] Immunizations Immunization Date Immunization Notes Care Provider Rosario lewis 04-12-2019 influenza virus vacc ine, unspecified formulation [employer] Work Phone: [facility] 04-20-2017 influenza, high dose seasonal, preservative-free Hilario James MD Work Phone: [facility] 10-22-2016 pneumococcal polysaccharide vaccine, 23 valent Hilario James MD Work Phone: [facility] 10-16-2015 pneumococcal conjuga te vaccine, 13 valent Hilario James MD Work Phone: [facility] 06-04-2011 tetanus toxoid, redu delgado diphtheria toxoid, and acellular pertussis vaccine, adsorbed Hilario James MD Work Phone: [facility] Work Phone: 06-21-2007 influenza virus vacc ine, unspecified formulation Hilario James MD Work Phone: [facility] Payers Date Payer Category Payer Medicare (Managed Care) MMO [employer] HMO [id number] 2024 Unknown [id number] 2024 Self-pay [id number] 2014 Private Health Insurance HUMANA HUMANA MEDICARE SUPPLEMENT [id number] 2014-Present [phone] [address] [address] [place] [address] Indemnity [id number] 2014 Private Health Insurance [id number] 2014 Private Health Insurance [id number] 2014 Medicare MEDICARE MEDICAR E A AND B [id number] 2014-Present [phone] [address] [address] [place] [address] Medicare [id number] 2014 Medicare SELF PAY INSURANCE [id number] 2014 Medicare [id number] Unknown [id number] Social History Date Type Detail Facility Start: 09-20-2020 End: 06-23-2024 Tobacco smoking status NHIS Smokes tobacco daily [facility] Work Phone: History of tobacco use Cigarette Smoker [facility] Work Phone: Start: 11-17-2021 End: 08-17-2024 Alcohol intake Current drinker of alcohol (finding) [facility] Start: 11-17-2021 End: 01-04-2023 Alcohol intake [facility] Work Phone: Start: 02-27-2020 End: 03-01-2020 History SDOH Alcohol Frequency 1 [facility] Start: 02-08-2012 History SDOH Alcohol Comment seldom [facility] Start: 03-01-2020 History SDOH Financial 5 [facility] Start: 03-01-2020 History SDOH Transport Med 2 [facility] Start: 09-20-2020 End: 03-26-2022 Tobacco Comment less than a pack per day--almost ready to quit [facility] Start: 1950 Sex Assigned At Not on file [facility] Start: 06-08-2020 End: 03-26-2022 Exposure to SARS-CoV-2 (event) Not sure [facility] Work Phone: Start: 12-29-2021 End: 01-04-2022 Tobacco smoking status NHIS Unknown if ever smoked [facility] Work Phone: Start: 1950 Sex Assigned At Female [facility] Work Phone: Start: 09-20-2020 End: 06-23-2024 Tobacco use and exposure Smokeless tobacco non-user [facility] Work Phone: Start: 02-27-2020 End: 01-04-2023 Alcohol Use Disorder Identification Test - Consumption [AUDIT-C] [facility] Work Phone: How often to you hav e a drink containing alcohol? Never [facility] Work Phone: Average Number of Drinks Not on file [facility] Work Phone: (I/We) worried anju er (my/our) food would run out before (I/we) got money to buy more. Never true [facility] Work Phone: Start: 02-08-2012 Tobacco Comment less than a pa ck per day [facility] Medical Equipment Procedure Code Equipment Code Equipment Original Text Equipment Identifier Dates Graft 6mm Thin W all [place]-Bj 10cm Vascular Line Sterile Latex Free - [id number] Start: 02-29-2020 Graft Hemashield Gold 22mm 11mm 2 Branch Microvel 2 Velour Collagen - [id number] Start: 02-29-2020 Quentin Thk1.65mm P tfe 4x.5in Cardiovascular Sterile - [id number] Start: 02-29-2020 Functional Status Date Assessment Result Facility 01-23-2015 Are you deaf, or do you have serious difficulty hearing No 01/23/2015 8:25 AM EDT Melissa Mendes MA No [facility] 01-23-2015 Are you blind, or do you have serious difficulty seeing, even when wearing glasses No 01/23/2015 8:25 AM EDT Melissa Mendes MA No [facility] 01-23-2015 Do you have serious difficulty walking or climbing stairs No 01/23/2015 8:25 AM EDT Melissa Mendes MA [facility] 01-23-2015 Do you have difficul ty dressing or bathing No 01/23/2015 8:25 AM EDT Melissa Mendes MA [facility] 01-23-2015 Because of a physica l, mental, or emotional condition, do you have difficulty doing errands alone such as visiting a physician's office or shopping No 01/23/2015 8:25 AM EDT Melissa Mendes MA [facility] Mental Status Date Assessment Result Facility 01-04-2022 Cognitive function Voice/Name [facility] Work Phone: 12-29-2021 Cognitive function Level Of Cons ciousness Awake;Alert;Appropriate;Fol lows Commands [facility] Work Phone: 01-23-2015 Because of a physica l, mental, or emotional condition, do you have serious difficulty concentrating, remembering, or making decisions No 01/23/2015 8:25 AM EDMelissa Stewart MA [facility] Clinical Notes 03-06-2020 to 01-15-2025 Telephone Encounter - Xochitl Escalona LPN - 01/15/2025 2:38 PM EDTTelephone Encounter - Xochitl Escalona LPN - 01/15/2025 2:38 PM EDTTelephone Encounter - Xochitl Escalona LPN - 01/15/2025 2:37 PM EDT Note Date & Type Note Facility 01-15-2025 Telephone encounter Note Images from the original note were not included. Prior authorization approved Payer: [employer] [phone] Note from payer: CaseId:[id number];Status:Approved;R eviepeter Type:Prior Auth;Coverage Start Date:12/16/2024;Coverage End Date:01/15/2026; Approval Details Authorized from December 16, 2024 to January 15, 2026 Electronic appeal: Not supported View History Medication Being Authorized LORazepam (ATIVAN) 0.5 mg Take 1 tablet by mouth two times a day as needed (anxiety) for up to 90 days. Dispense: 60 tablet Refills: 2 Start: 01/15/2025 End: 04/15/2025 Class: Normal Diagnoses: Encounter for long-term current use of medication, Other specified anxiety disorders This order has been released to its destination. To be filled at: [facility] [address] [place] [id number] [address] [facility] - [phone] [facility] 01-15-2025 Miscellaneous Notes Images from the original note were not included. Prior authorization approved Payer: [employer] [phone] Note from payer: CaseId:[id number];Status:Approved;R kleber Type:Prior Auth;Coverage Start Date:12/16/2024;Coverage End Date:01/15/2026; Approval Details Authorized from December 16, 2024 to January 15, 2026 Electronic appeal: Not supported View History Medication Being Authorized LORazepam (ATIVAN) 0.5 mg Take 1 tablet by mouth two times a day as needed (anxiety) for up to 90 days. Dispense: 60 tablet Refills: 2 Start: 01/15/2025 End: 04/15/2025 Class: Normal Diagnoses: Encounter for long-term current use of medication, Other specified anxiety disorders This order has been released to its destination. To be filled at: [facility] [address] [place] [id number] [address] - [phone] Electronic PA rec'd and completed for lorazepam. documented in this encounter [facility] 01-15-2025 Telephone encounter Note Electronic PA rec'd and completed for lorazepam. [facility] 01-15-2025 Note HNO ID: [id number] Author: TANNER HOKO MD Service: ? Author Type: Physician Type: Progress Notes Filed: 01/15/2025 14:49 Note Text: This note was created using Talkpushter. Subjective Flor Mayberry is a 74 year old female. SUBJECTIVE: Flor Mayberry is a 74-year-old female with a history of ASCVD, presenting for a follow-up visit. Flor was last seen in December of last year. She reports that her blood pressure has been well-controlled since her metoprolol dosage was increased from 25 mg to 50 mg in August. She is also taking Lipitor, Clopidogrel, Cymbalta, and Zetia. She completed courses of Tessalon Perles and prednisone for an illness in August and has Albuterol and NitroQuick on hand for emergency use. She requests a refill of lorazepam, which she last filled in June and uses as needed. She also inquires about non-pharmacological sleep aids, as she sometimes has difficulty sleeping due to a racing mind. She has been taking Ambien and occasionally Tylenol PM, but expresses concern about the potential risk of dementia associated with these medications. She has a bottle of buspirone and plans to resume taking it. Flor also reports worsening allergies, which she attributes to spending time outdoors with her dog. She has been using Flonase, but ran out and requests a refill. She inquires about the possibility of getting her vitamin D levels checked, as she stopped taking vitamin D supplements due to previously elevated levels. She also requests a thyroid function test. Flor reports bilateral knee pain, with the left knee being more symptomatic than the right. She has a history of osteoarthritis and Jimenez's cysts, and received a cortisone injection in 2021. She inquires about a referral to an orthopedic surgeon for further evaluation and management. She also requests a mammogram, as she is overdue for this screening. PAST MEDICAL HISTORY Diagnosis Date Allergic rhinitis, cause unspecified 11/22/2006 Anxiety state, unspecified 02/05/2006 Depressive disorder, not elsewhere classified 02/05/2006 Diaphragmatic hernia without mention of obstruction or gangrene Esophageal reflux 02/05/2006 [facility] (my[facility] infarction[facility] ([facility]) 06/02/2010 Mixed hyperlipidemia Osteoporosis, unspecified Status post AAA (abdominal aortic aneurysm) repair 3.2 cm (last CT 07/09)--Plan Ultrasound AAA Jul 2010;02/29/2020: Open retroperitoneal infrarenal AAA repair with left renal artery bypass Current Outpatient Medications Medication Sig atorvastatin (LIPITOR) 80 mg tablet TAKE 1/2 TABLET ONE TIME DAILY clopidogrel (PLAVIX) 75 mg tablet Take 1 tablet by mouth every afternoon. DULoxetine (CYMBALTA) 60 mg capsule Take 1 capsule by mouth once daily. ezetimibe (ZETIA) 10 mg tablet Take 1 tablet by mouth every afternoon. metoprolol succinate ER (TOPROL XL) 50 mg 24 hr tablet Take 1 tablet by mouth once daily. albuterol HFA (VENTOLIN HFA) 90 mcg/actuation inhaler Inhale 2 Puffs as instructed every 4 hours as needed for wheezing/shortness of breath. docusate sodium (COLACE) 100 mg capsule Take 1-2 capsules by mouth once daily as needed for constipation. diphenhydrAMINE-Acetaminophen 25-500 mg tab Take 2 tablets by mouth at bedtime as needed (sleep). ELDERBERRY FRUIT ORAL Take by mouth once daily. esomeprazole (NEXIUM) 20 mg capsule Take 1 capsule by mouth once daily. aspirin 325 mg ORAL tablet 1 Tab ORAL DAILY LORazepam (ATIVAN) 0.5 mg Take 1 tablet by mouth two times a day as needed (anxiety) for up to 90 days. fluticasone (FLONASE ALLERGY RELIEF) 50 mcg/actuation nasal spray Use 1 spray in each nostril once daily. busPIRone HCl 30 mg tablet Take 1 tablet by mouth two times a day. As directed. ID#[id number] (Patient not taking: Reported on 07/03/2024) nitroglycerin sublingual (NITROQUICK) 0.4 mg SL tablet DISSOLVE ON TONGUE FOR CHEST PAIN. May repeat every 5 minutes up to total 3 doses. IF NO PAIN RELIEF, CALL 911 gabapentin (NEURONTIN) 100 mg capsule Take 1 capsule by mouth daily at bedtime for 90 days. No current facility-administered medications for this visit. Recording using NetScaler software for draft documentation of the visit was discussed with the patient/authorized billing representative; all questions welcomed and answered. Patient/authorized billing representative agreed to proceed Review of Systems Objective BP 118/67 (BP Site: Left Arm, BP Position: Sitting, BP Cuff Size: Regular Adult) Pulse 71 Resp 16 Wt 67.4 kg (148 lb 9.4 oz) SpO2 96% BMI 28.08 kg/m? Physical Exam Constitutional: Appearance: Normal appearance. HENT: Head: Normocephalic. Eyes: Conjunctiva/sclera: Conjunctivae normal. Cardiovascular: Rate and Rhythm: Normal rate and regular rhythm. Heart sounds: Normal heart sounds. Pulmonary: Effort: Pulmonary effort is normal. Breath sounds: Normal breath sounds. Musculoskeletal: Right knee: Effusion present. No erythema. Tenderness (more content not included)... [facility] 01-15-2025 History of Present illness Narrative This note was created using Waluzi. Subjective Flor Mayberry is a 74 year old female. SUBJECTIVE: Flor Mayberry is a 74-year-old female with a history of ASCVD, presenting for a follow-up visit. Flor was last seen in December of last year. She reports that her blood pressure has been well-controlled since her metoprolol dosage was increased from 25 mg to 50 mg in August. She is also taking Lipitor, Clopidogrel, Cymbalta, and Zetia. She completed courses of Tessalon Perles and prednisone for an illness in August and has Albuterol and NitroQuick on hand for emergency use. She requests a refill of lorazepam, which she last filled in June and uses as needed. She also inquires about non-pharmacological sleep aids, as she sometimes has difficulty sleeping due to a racing mind. She has been taking Ambien and occasionally Tylenol PM, but expresses concern about the potential risk of dementia associated with these medications. She has a bottle of buspirone and plans to resume taking it. Flor also reports worsening allergies, which she attributes to spending time outdoors with her dog. She has been using Flonase, but ran out and requests a refill. She inquires about the possibility of getting her vitamin D levels checked, as she stopped taking vitamin D supplements due to previously elevated levels. She also requests a thyroid function test. Flor reports bilateral knee pain, with the left knee being more symptomatic than the right. She has a history of osteoarthritis and Jimenez's cysts, and received a cortisone injection in 2021. She inquires about a referral to an orthopedic surgeon for further evaluation and management. She also requests a mammogram, as she is overdue for this screening. PAST MEDICAL HISTORY Diagnosis Date Allergic rhinitis, cause unspecified 11/22/2006 Anxiety state, unspecified 02/05/2006 Depressive disorder, not elsewhere classified 02/05/2006 Diaphragmatic hernia without mention of obstruction or gangrene Esophageal reflux 02/05/2006 [facility] (my[facility] infarction[facility]) 06/02/2010 Mixed hyperlipidemia Osteoporosis, unspecified Status post AAA (abdominal aortic aneurysm) repair 3.2 cm (last CT 07/09)--Plan Ultrasound AAA Jul 2010;02/29/2020: Open retroperitoneal infrarenal AAA repair with left renal artery bypass Current Outpatient Medications Medication Sig atorvastatin (LIPITOR) 80 mg tablet TAKE 1/2 TABLET ONE TIME DAILY clopidogrel (PLAVIX) 75 mg tablet Take 1 tablet by mouth every afternoon. DULoxetine (CYMBALTA) 60 mg capsule Take 1 capsule by mouth once daily. ezetimibe (ZETIA) 10 mg tablet Take 1 tablet by mouth every afternoon. metoprolol succinate ER (TOPROL XL) 50 mg 24 hr tablet Take 1 tablet by mouth once daily. albuterol HFA (VENTOLIN HFA) 90 mcg/actuation inhaler Inhale 2 Puffs as instructed every 4 hours as needed for wheezing/shortness of breath. docusate sodium (COLACE) 100 mg capsule Take 1-2 capsules by mouth once daily as needed for constipation. diphenhydrAMINE-Acetaminophen 25-500 mg tab Take 2 tablets by mouth at bedtime as needed (sleep). ELDERBERRY FRUIT ORAL Take by mouth once daily. esomeprazole (NEXIUM) 20 mg capsule Take 1 capsule by mouth once daily. aspirin 325 mg ORAL tablet 1 Tab ORAL DAILY LORazepam (ATIVAN) 0.5 mg Take 1 tablet by mouth two times a day as needed (anxiety) for up to 90 days. fluticasone (FLONASE ALLERGY RELIEF) 50 mcg/actuation nasal spray Use 1 spray in each nostril once daily. busPIRone HCl 30 mg tablet Take 1 tablet by mouth two times a day. As directed. ID#[id number] (Patient not taking: Reported on 07/03/2024) nitroglycerin sublingual (NITROQUICK) 0.4 mg SL tablet DISSOLVE ON TONGUE FOR CHEST PAIN. May repeat every 5 minutes up to total 3 doses. IF NO PAIN RELIEF, CALL 911 gabapentin (NEURONTIN) 100 mg capsule Take 1 capsule by mouth daily at bedtime for 90 days. No current facility-administered medications for this visit. Recording using NetScaler software for draft documentation of the visit was discussed with the patient/authorized billing representative; all questions welcomed and answered. Patient/authorized billing representative agreed to proceed Review of Systems Objective BP 118/67 (BP Site: Left Arm, BP Position: Sitting, BP Cuff Size: Regular Adult) Pulse 71 Resp 16 Wt 67.4 kg (148 lb 9.4 oz) SpO2 96% BMI 28.08 kg/m Physical Exam Constitutional: Appearance: Normal appearance. HENT: Head: Normocephalic. Eyes: Conjunctiva/sclera: Conjunctivae normal. Cardiovascular: Rate and Rhythm: Normal rate and regular rhythm. Heart sounds: Normal heart sounds. Pulmonary: Effort: Pulmonary effort is normal. Breath sounds: Normal breath sounds. Musculoskeletal: Right knee: Effusion present. No erythema. Tenderness present over the medial joint line. Left knee: Swelling and effusion present. No erythema. Tenderness present over the medial joint line. Comments: Popliteal fossa tenderness noted. Jimenez's cyst left (?right too) Skin: General: Skin is warm and dry. Neurological: General: No focal deficit present. Mental Status: She is alert and oriented to person, place, and time. Psychiatric: Mood and Affect: Mood normal. Behavior: Behavior normal. Thought Content: Thought content normal. Judgment: Judgment normal. Assessment and Plan # Primary hypertension (I10) - Well-controlled on metoprolol 50 mg daily. - Continue current medication regimen. 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 - Discussed potential risks of long-term use of sedatives, including increased risk of dementia. - Patient has a full bottle of buspirone and plans to resume taking it. - Educated on breathing exercises to help manage anxiety and improve sleep: inhale for 4 seconds, exhale for 8 seconds. # Non-seasonal allergic rhinitis, unspecified trigger (J30.89) - Symptoms worsening; refill ordered for Flonase nasal spray. - Advised use of [id number]-[id number]-[id number] antihistamines such as Claritin or Andra during the day and Benadryl at night if needed. - Discussed potential sedative effects of antihistamines and advised caution when driving. # Mixed hyperlipidemia (E78.2) - Currently taking Lipitor. - Ordered non-fasting lipid panel. # Primary osteoarthritis of left knee (M17.12) # Synovial cyst of popliteal space (Jimenez), left knee (M71.22) - Examination reveals significant swelling and fluid accumulation in the left knee, consistent with osteoarthritis and Jimenez's cyst. - Referred to Dr. James, orthopedic surgeon, for further evaluation and management. - Discussed potential treatments, including corticosteroid injections and viscosupplementation. - Advised on the risks of Jimenez's cyst rupture and the importance of timely orthopedic consultation. # Atherosclerosis of [place] coronary artery of [place] heart without angina pectoris (I25.10) - Managed with metoprolol 50 mg daily for cardioprotection. - Continue current medication regimen. # Vitamin D deficiency (E55.9) - Previous high levels of vitamin D; patient discontinued supplementation. - Ordered serum vitamin D level to assess current status. # Elevated glucose (R73.09) - Ordered HbA1c to monitor glycemic control. # Encounter for long-term current use of medication (Z79.899) - Reviewed and refilled medications: metoprolol, Lipitor, Clopidogrel, Cymbalta, lorazepam, and Flonase. - Discontinued Tessalon Perles and prednisone as courses of therapy are completed. - Patient has albuterol and NitroQuick on hand for as-needed use. # Asymptomatic postmenopausal state (Z78.0) # Breast cancer screening by mammogram (Z12.31) - Ordered mammogram; patient to schedule at the specialty center. Tanner Hook MD documented in this encounter [facility] 01-15-2025 Instructions Tanner Hook MD - 01/15/2025 1:55 PM EDT - Labs ordered under my name: non-fasting blood draw today (or at your convenience) for CBC, metabolic panel, A1c, cholesterol panel, vitamin D, magnesium, TSH with reflex to free T4. - Bone density scan ordered at the specialty center ([facility]); schedule at your convenience. - Mammogram ordered at the [facility]; you can combine this with your bone density appointment. - Orthopedic referral placed for left knee evaluation with Dr. James s team (VICENTE Alatorre); contact the specialty center to schedule. - Continue current cardiac medications: Lipitor, Clopidogrel (Plavix), Cymbalta, and Metoprolol (25-50 mg as tolerated). - Stop Tessalon Perles and prednisone courses (completed). - Keep albuterol and NitroQuick on hand for as-needed use. - Lorazepam refill sent to your pharmacy; use only as needed. - Plan to restart buspirone from your existing supply as discussed. - Allergy management: start Flonase nasal spray (1 bottle with refills); if needed, add daytime antihistamine (Claritin or Andra) and consider a single dose of Benadryl at bedtime for severe symptoms. - Practice sleep-focused breathing: inhale slowly (e.g., count to 4), exhale twice as long (count to 8) to calm your mind and nervous system; follow your sleep-hygiene handout for additional tips. - Schedule your next routine follow-up in six months (mid-December); our team will assist with booking before you leave today. BONE MINERAL DENSITY PATIENT INSTRUCTIONS ======== Bone mineral density testing measures the amount of calcium in certain parts of your bones. This information determines how strong your bones are. The test is used to detect osteoporosis, a disease in which the bone's mineral content and density are low, increasing a person's risk of fractures. The lumbar spine (lower back) and the hip are the skeletal sites usually examined. For the test, remember that: 1. You cannot take this test if you are . 2. Eat a normal diet on the day of the test. 3. Take your medications as you normally would. 4. DO NOT take calcium supplements (such as Tums) for 24 hours before the test. 5. On the day of the test, leave valuables (jewelry or credit cards) at home. 6. The test should be performed prior to oral, rectal or IV contrast studies, or at least 7 days after any of these studies. For the test, you may be asked to wear a hospital gown. You will lie on your back, on a padded table, in a comfortable position. Generally, you can resume your usual activities immediately. documented in this encounter [facility] 11-15-2024 Telephone encounter Note Pharmacist from [facility] called to clarify if ok to dispense the atorvastatin 80 mg as they noted she had an allergy to Simvastatin. (Patient is new to this pharmacy.) Explain that patient has been taking the atorvastatin 80 mg since 2019 and has not have any reaction and able to tolerate the 1/2 tablet. [facility] 11-15-2024 Miscellaneous Notes Pharmacist from [facility] called to clarify if ok to dispense the atorvastatin 80 mg as they noted she had an allergy to Simvastatin. (Patient is new to this pharmacy.) Explain that patient has been taking the atorvastatin 80 mg since 2019 and has not have any reaction and able to tolerate the 1/2 tablet. documented in this encounter [facility] 11-06-2024 Telephone encounter Note Pt reports she has a new mail-in pharmacy: [facility]. Pharmacy updated. Pt needs new rx. Prescription Refill Information The patient has been identified by name and date of : Yes Caregiver verified no other encounters exist for this prescription request: Yes Caregiver confirmed with patient/requestor that no other refills are due, in the near future, with this provider at this time: Yes The last office visit in the department: 08/17/24 Does the patient have a future office visit with this provider/department: Yes 01/15/25 Requested Prescriptions Pending Prescriptions Disp Refills atorvastatin (LIPITOR) 80 mg tablet 45 tablet 3 Sig: TAKE 1/2 TABLET ONE TIME DAILY clopidogrel (PLAVIX) 75 mg tablet 90 tablet 3 Sig: Take 1 tablet by mouth every afternoon. DULoxetine (CYMBALTA) 60 mg capsule 90 capsule 3 Sig: Take 1 capsule by mouth once daily. ezetimibe (ZETIA) 10 mg tablet 90 tablet 3 Sig: Take 1 tablet by mouth every afternoon. metoprolol succinate ER (TOPROL XL) 50 mg 24 hr tablet 90 tablet 3 Sig: Take 1 tablet by mouth once daily. Sarah Diego LPN November 06, 2024 2:34 PM [facility] 11-06-2024 Miscellaneous Notes Pt reports she has a new mail-in pharmacy: [facility]. Pharmacy updated. Pt needs new rx. Prescription Refill Information The patient has been identified by name and date of : Yes Caregiver verified no other encounters exist for this prescription request: Yes Caregiver confirmed with patient/requestor that no other refills are due, in the near future, with this provider at this time: Yes The last office visit in the department: 08/17/24 Does the patient have a future office visit with this provider/department: Yes 01/15/25 Requested Prescriptions Pending Prescriptions Disp Refills atorvastatin (LIPITOR) 80 mg tablet 45 tablet 3 Sig: TAKE 1/2 TABLET ONE TIME DAILY clopidogrel (PLAVIX) 75 mg tablet 90 tablet 3 Sig: Take 1 tablet by mouth every afternoon. DULoxetine (CYMBALTA) 60 mg capsule 90 capsule 3 Sig: Take 1 capsule by mouth once daily. ezetimibe (ZETIA) 10 mg tablet 90 tablet 3 Sig: Take 1 tablet by mouth every afternoon. metoprolol succinate ER (TOPROL XL) 50 mg 24 hr tablet 90 tablet 3 Sig: Take 1 tablet by mouth once daily. Sarah Diego LPN November 06, 2024 2:34 PM documented in this encounter [facility] 09-08-2024 Telephone encounter Note Patient calls and notified of below. Patient voiced understanding. Jennifer Naik RN [facility] 09-08-2024 Miscellaneous Notes Patient calls and notified of below. Patient voiced understanding. Jennifer Naik RN LEFT MESSAGE FOR PATIENT TO CALL OFFICE. I cannot tell why dose was increased, plus med list has her on 50mg metoprolol If she has been taking 25 mg dose till getting this RX and BP fine, may cut the pills in half then when runs out of this dose, can get 25 mg dose instead (will send new RX when needs it). If prefers not to cut pills in half, can send new RX but not sure whether insurance would give another RX now. If has BP cuff and taking 50mg dose controls BP well without adverse effects, may stay on 50 mg dose. Patient reports she just received her metoprolol from [facility] and noticed the pills looked different. [place] it was a 50 mg pill and she does not recall Ted telling her she increased the dose. Reports her AVS lists metoprolol 25 mg. Pt doesn't understand why Ted increased the dose, because her BP was fine and the appt was for a Medicare Wellness and patient wasn't having any problems that day. Pt asking if pcp will look at this medication and confirm with patient if she should be taking 50 mg or 25 mg. States she is going to take the 25 mg until she hears back from you. documented in this encounter [facility] 09-08-2024 Telephone encounter Note LEFT MESSAGE FOR PATIENT TO CALL OFFICE. [facility] 09-08-2024 Telephone encounter Note I cannot tell why dose was increased, plus med list has her on 50mg metoprolol If she has been taking 25 mg dose till getting this RX and BP fine, may cut the pills in half then when runs out of this dose, can get 25 mg dose instead (will send new RX when needs it). If prefers not to cut pills in half, can send new RX but not sure whether insurance would give another RX now. If has BP cuff and taking 50mg dose controls BP well without adverse effects, may stay on 50 mg dose. [facility] 09-07-2024 Telephone encounter Note Patient reports she just received her metoprolol from [id number] and noticed the pills looked different. [place] it was a 50 mg pill and she does not recall Ted telling her she increased the dose. Reports her AVS lists metoprolol 25 mg. Pt doesn't understand why Ted increased the dose, because her BP was fine and the appt was for a Medicare Wellness and patient wasn't having any problems that day. Pt asking if pcp will look at this medication and confirm with patient if she should be taking 50 mg or 25 mg. States she is going to take the 25 mg until she hears back from you. [facility] 08-18-2024 History of Present illness Narrative Radiology Service Progress Note DATE OF SERVICE: August 18, 2024 TIME: 2:44 PM PATIENT IDENTITY VERIFICATION COMPLETED USING TWO (2) STANDARD IDENTIFIERS: Name and Date of confirmed by patient verbally. FALL SCREENING: Has the patient had 2 falls in the last year or 1 fall with injury or currently using an Ambulatory Assistive Device (Walker, Cane, Wheelchair, Crutches, etc.)? No PATIENT GENDER DATA: Assigned female at . status: : No status: NO. PATIENT RELEVANT IMPLANT DATA REVIEWED: Yes PATIENT PRESENTS WITH AN IMPLANTABLE OR ATTACHED SMOKING PIPE DRILLER AND THREADER: No ALLERGIES: Reviewed and unchanged CONTRAST ALLERGY: NO. EXAM: CT -CONTRAST INDUCED NEPHROPATHY RISK FACTORS: Patient age > 60 years CREATININE: Creatinine Date Value Ref Range Status 08/18/2024 0.94 0.58 - 0.96 mg/dL Final 07/30/2023 1.02 (H) 0.58 - 0.96 mg/dL Final 06/28/2023 1.13 (H) 0.58 - 0.96 mg/dL Final Estimated Glomerular Filtration Rate Date Value Ref Range Status 08/18/2024 63 >=60 mL/min/1.73m Final Comment: Estimated Glomerular Filtration Rate (eGFR) is calculated using the 2020 CKD-EPI creatinine equation. This equation utilizes serum creatinine, sex, and age as parameters. The creatinine assay has traceable calibration to isotope dilution-mass spectrometry. Refer to KDIGO guidelines for clinical interpretation. In patients with unstable renal function, e.g. those with acute kidney injury, the eGFR may not accurately reflect actual GFR. eGFR- Date Value Ref Range Status 08/29/2021 56 Final P.O.C.T. RESULTS: POC done: Yes, See Lab Tab August 18, 2024 TREATMENT: N/A PERIPHERAL IV DATA: Ambulatory: A peripheral IV was started in the Left antecubital site with a Angio cath: 22 gauge. RADIOLOGY DEPARTMENT: CT; Exam(s) Completed: Abdomen/Pelvis SIGNATURE: RT Scarlet(Vicki) PATIENT NAME: Flor Mayberry DATE: August 18, 2024 TIME: 2:44 PM documented in this encounter [facility] 08-18-2024 Note HNO ID: [id number] Author: EDWIGE MCDANIEL RT(R) Service: ? Author Type: Optical Instruments Supervisor Type: Progress Notes Filed: 08/18/2024 14:44 Note Text: Radiology Service Progress Note DATE OF SERVICE: August 18, 2024 TIME: 2:44 PM PATIENT IDENTITY VERIFICATION COMPLETED USING TWO (2) STANDARD IDENTIFIERS: Name and Date of confirmed by patient verbally. FALL SCREENING: Has the patient had 2 falls in the last year or 1 fall with injury or currently using an Ambulatory Assistive Device (Walker, Cane, Wheelchair, Crutches, etc.)? No PATIENT GENDER DATA: Assigned female at . status: : No status: NO. PATIENT RELEVANT IMPLANT DATA REVIEWED: Yes PATIENT PRESENTS WITH AN IMPLANTABLE OR ATTACHED SMOKING PIPE DRILLER AND THREADER: No ALLERGIES: Reviewed and unchanged CONTRAST ALLERGY: NO. EXAM: CT -CONTRAST INDUCED NEPHROPATHY RISK FACTORS: Patient age > 60 years CREATININE: Creatinine Date Value Ref Range Status 08/18/2024 0.94 0.58 - 0.96 mg/dL Final 07/30/2023 1.02 (H) 0.58 - 0.96 mg/dL Final 06/28/2023 1.13 (H) 0.58 - 0.96 mg/dL Final Estimated Glomerular Filtration Rate Date Value Ref Range Status 08/18/2024 63 >=60 mL/min/1.73m? Final Comment: Estimated Glomerular Filtration Rate (eGFR) is calculated using the 2020 CKD-EPI creatinine equation. This equation utilizes serum creatinine, sex, and age as parameters. The creatinine assay has traceable calibration to isotope dilution-mass spectrometry. Refer to KDIGO guidelines for clinical interpretation. In patients with unstable renal function, e.g. those with acute kidney injury, the eGFR may not accurately reflect actual GFR. eGFR- Date Value Ref Range Status 08/29/2021 56 Final P.O.C.T. RESULTS: POC done: Yes, See Lab Tab August 18, 2024 TREATMENT: N/A PERIPHERAL IV DATA: Ambulatory: A peripheral IV was started in the Left antecubital site with a Angio cath: 22 gauge. RADIOLOGY DEPARTMENT: CT; Exam(s) Completed: Abdomen/Pelvis SIGNATURE: RT Scarlet(R) PATIENT NAME: Flor Mayberry DATE: August 18, 2024 TIME: 2:44 PM [facility] 08-17-2024 History of Present illness Narrative SUBJECTIVE Flor Mayberry is a 74 year old female who presents with 7 days of symptoms that are improving. Seen in [facility] 07/03/2024 for bronchitis. CXR clear. Treated with albuterol inhaler, benzonatate and prednisone. Seen in family medicine 07/11/2024 for sinusitis. She was treated with cefadroxil. She was seen in [facility] on August 14, 2024 with cough chest congestion and shortness of breath on exertion. Chest x-ray was not available at the time of her visit. She was treated as COPD exacerbation with azithrmycin due to multiple allergies. Today reports feeling somewhat improved. Symptoms include: Fever (>=100.4F): perceived 2 days ago, no currentor Chills: No Cough: Yes but less, occasionally productive Shortness of breath: Yes shortness of breath on exertion or Difficulty breathing: No Fatigue: Yes Muscle aches: No Headache: Yes but better now New loss of smell or taste: No Sore throat: No Nasal congestion: Yes or Rhinorrhea: Yes Nausea: No or Vomiting: No Diarrhea: Yes now resolved OTC meds/remedies that patient has tried: acetaminophen. She separately notes she has been coughing a lot since July and now with palpable mass above her AAA repair site that is painful, worse with coughing and lying in certain positions. DATE OF SURGERY/PROCEDURE: 02/29/2020 PREOPERATIVE DIAGNOSIS: Abdominal aortic aneurysm with a large infrarenal aortic neck, aortic neck thrombus, left renal artery stenosis, maximal transverse diameter of the aortic aneurysm greater than 5.5 cm. SURGEON: Valery Mireles M.D. She reports that she has been smoking cigarettes. She has a 20 pack-year smoking history. She has never used smokeless tobacco. OBJECTIVE PHYSICAL EXAM: BP 161/91 Pulse 78 Resp 16 Wt 67 kg (147 lb 11.3 oz) SpO2 95% BMI 27.91 kg/m General appearance: tired/ill appearing, alert, cooperative, pleasant, in no acute distress Head: Normocephalic Eyes: conjunctiva/corneas normal Ears: R TM - clear with good landmarks, nl light reflex, L TM - clear with good landmarks, nl light reflex Nose: purulent rhinorrhea, mucosa erythematous and swollen Oropharynx: moist without lesions, mild erythema to GPA Neck: supple and small, benign anterior cervical nodes bilaterally Heart: regular rate and rhythm, without murmur Lungs: good air exchange, scattered end expiratory wheezes, no grunting/flaring/retracting ASSESSMENT/PLAN (Z98.890, Z86.79) Status post abdominal aortic aneurysm (AAA) repair (primary encounter diagnosis) (R10.12) Left upper quadrant abdominal pain (J44.1) COPD with exacerbation (HCC) ASSESSMENT/PLAN: 1. Status post abdominal aortic aneurysm (AAA) repair - ICD9: V45.89, ICD10: Z98.890, Z86.79 (primary diagnosis) 2. Left upper quadrant abdominal pain - ICD9: 789.02, ICD10: R10.12 She has a history of AAA repair now with abdominal pain and possible mass proximal to the incision. Recommend CT abdomen pelvis to exclude hernia. - CT ABD/PEL W IVCON - IV CONTRAST (RADIOLOGY PROCEDURE) - NOT ON MAR - ENTERIC CONTRAST (RADIOLOGY PROCEDURE) - NOT ON MAR - CREATININE BLD 3. COPD with exacerbation (HCC) - ICD9: 491.21, ICD10: J44.1 She notes some improvement but not significant so we will refill azithromycin and cefadroxil. Recheck in 1 week. - CEFADROXIL 500 MG CAPSULE - AZITHROMYCIN 250 MG TABLET - BENZONATATE 100 MG CAPSULE Baltazar Rubio APRN.CNS Medical Decision Making: Problems: Low: Acute, uncomplicated illness or injury Moderate: 1+ chronic illnesses with change Risk: Moderate: Drug management Medical Decision Making Level: 4 - Moderate documented in this encounter [facility] 08-17-2024 Note HNO ID: [id number] Author: RUBIO, BALTAZAR, RAIL CAR OPERATOR.SENIOR MANAGER QUALITY ASSURANCE Service: ? Author Type: Nurse Specialist Type: Progress Notes Filed: 08/17/2024 14:06 Note Text: RICKY Mayberry is a 74 year old female who presents with 7 days of symptoms that are improving. Seen in [facility] 07/03/2024 for bronchitis. CXR clear. Treated with albuterol inhaler, benzonatate and prednisone. Seen in family medicine 07/11/2024 for sinusitis. She was treated with cefadroxil. She was seen in [facility] on August 14, 2024 with cough chest congestion and shortness of breath on exertion. Chest x-ray was not available at the time of her visit. She was treated as COPD exacerbation with azithrmycin due to multiple allergies. Today reports feeling somewhat improved. Symptoms include: Fever (>=100.4F): perceived 2 days ago, no currentor Chills: No Cough: Yes but less, occasionally productive Shortness of breath: Yes shortness of breath on exertion or Difficulty breathing: No Fatigue: Yes Muscle aches: No Headache: Yes but better now New loss of smell or taste: No Sore throat: No Nasal congestion: Yes or Rhinorrhea: Yes Nausea: No or Vomiting: No Diarrhea: Yes now resolved OTC meds/remedies that patient has tried: acetaminophen. She separately notes she has been coughing a lot since July and now with palpable mass above her AAA repair site that is painful, worse with coughing and lying in certain positions. DATE OF SURGERY/PROCEDURE: 02/29/2020 PREOPERATIVE DIAGNOSIS: Abdominal aortic aneurysm with a large infrarenal aortic neck, aortic neck thrombus, left renal artery stenosis, maximal transverse diameter of the aortic aneurysm greater than 5.5 cm. SURGEON: Valery Mireles M.D. She reports that she has been smoking cigarettes. She has a 20 pack-year smoking history. She has never used smokeless tobacco. OBJECTIVE PHYSICAL EXAM: BP 161/91 Pulse 78 Resp 16 Wt 67 kg (147 lb 11.3 oz) SpO2 95% BMI 27.91 kg/m? General appearance: tired/ill appearing, alert, cooperative, pleasant, in no acute distress Head: Normocephalic Eyes: conjunctiva/corneas normal Ears: R TM - clear with good landmarks, nl light reflex, L TM - clear with good landmarks, nl light reflex Nose: purulent rhinorrhea, mucosa erythematous and swollen Oropharynx: moist without lesions, mild erythema to GPA Neck: supple and small, benign anterior cervical nodes bilaterally Heart: regular rate and rhythm, without murmur Lungs: good air exchange, scattered end expiratory wheezes, no grunting/flaring/retracting ASSESSMENT/PLAN (Z98.890, Z86.79) Status post abdominal aortic aneurysm (AAA) repair (primary encounter diagnosis) (R10.12) Left upper quadrant abdominal pain (J44.1) COPD with exacerbation (HCC) ASSESSMENT/PLAN: 1. Status post abdominal aortic aneurysm (AAA) repair - ICD9: V45.89, ICD10: Z98.890, Z86.79 (primary diagnosis) 2. Left upper quadrant abdominal pain - ICD9: 789.02, ICD10: R10.12 She has a history of AAA repair now with abdominal pain and possible mass proximal to the incision. Recommend CT abdomen pelvis to exclude hernia. - CT ABD/PEL W IVCON - IV CONTRAST (RADIOLOGY PROCEDURE) - NOT ON MAR - ENTERIC CONTRAST (RADIOLOGY PROCEDURE) - NOT ON MAR - CREATININE BLD 3. COPD with exacerbation (HCC) - ICD9: 491.21, ICD10: J44.1 She notes some improvement but not significant so we will refill azithromycin and cefadroxil. Recheck in 1 week. - CEFADROXIL 500 MG CAPSULE - AZITHROMYCIN 250 MG TABLET - BENZONATATE 100 MG CAPSULE Baltazar Rubio APRN.SENIOR MANAGER QUALITY ASSURANCE Medical Decision Making: Problems: Low: Acute, uncomplicated illness or injury Moderate: 1+ chronic illnesses with change Risk: Moderate: Drug management Medical Decision Making Level: 4 - Moderate [facility] 08-15-2024 Miscellaneous Notes Patient given results and verbalized understanding of instructions given. Melissa Mendes MA Please notify chest xray negative, continue with plan of care that was discussed at visit. documented in this encounter [facility] 08-15-2024 Telephone encounter Note Patient given results and verbalized understanding of instructions given. Melissa Mendes MA [facility] 08-15-2024 Telephone encounter Note Please notify chest xray negative, continue with plan of care that was discussed at visit. [facility] Work Phone: 08-14-2024 History of Present illness Narrative Radiology Service Progress Note PATIENT NAME: Flor Mayberry DATE OF SERVICE: August 14, 2024 TIME: 7:11 PM PATIENT IDENTITY VERIFICATION COMPLETED USING TWO (2) IDENTIFIERS: Name and Date of confirmed by patient verbally. FALL SCREENING: Has the patient had 2 falls in the last year or 1 fall with injury or currently using an Ambulatory Assistive Device (Walker, Cane, Wheelchair, Crutches, etc.)? No PATIENT GENDER DATA: Assigned female at . status: : No status: NO. PATIENT RELEVANT IMPLANT DATA REVIEWED: Not Applicable PATIENT PRESENTS WITH AN IMPLANTABLE OR ATTACHED SMOKING PIPE DRILLER AND THREADER: No RADIOLOGY DEPARTMENT: General X-ray: Exam(s) Completed: Chest X-Ray PERIPHERAL IV DATA: Not applicable SIGNED BY: RT Kyle(Vicki) August 14, 2024 7:11 PM documented in this encounter [facility] 08-14-2024 Note HNO ID: [id number] Author: DONELL WELLS RT(R) Service: Radiology Author Type: Technologist Type: Progress Notes Filed: 08/14/2024 19:17 Note Text: Radiology Service Progress Note PATIENT NAME: Flor Mayberry DATE OF SERVICE: August 14, 2024 TIME: 7:11 PM PATIENT IDENTITY VERIFICATION COMPLETED USING TWO (2) IDENTIFIERS: Name and Date of confirmed by patient verbally. FALL SCREENING: Has the patient had 2 falls in the last year or 1 fall with injury or currently using an Ambulatory Assistive Device (Walker, Cane, Wheelchair, Crutches, etc.)? No PATIENT GENDER DATA: Assigned female at . status: : No status: NO. PATIENT RELEVANT IMPLANT DATA REVIEWED: Not Applicable PATIENT PRESENTS WITH AN IMPLANTABLE OR ATTACHED SMOKING PIPE DRILLER AND THREADER: No RADIOLOGY DEPARTMENT: General X-ray: Exam(s) Completed: Chest X-Ray PERIPHERAL IV DATA: Not applicable SIGNED BY: RT Kyle(R) August 14, 2024 7:11 PM [facility] 08-14-2024 Note HNO ID: [id number] Author: DIANE GONZALEZ APRN.HEAVY EQUIPMENT SUPERVISOR Service: ? Author Type: Nurse Practitioner Type: Progress Notes Filed: 08/14/2024 19:59 Note Text: This note was created using [employer]. Subjective Flor Mayberry is a 74 year old female. 74 year old female COPD, [place], GERD, depression/anxiety, diaphragmatic hernia, allergic rhinitis, TARA on home BiPAP, osteoporosis for illness. Acute onset 4 days ago +cough +chest congestion +productive +yellow sputum +SOB +winded with activity Denies CP Denies SOB Denies dyspnea Denies abdominal pain Has used [employer] Mucinex The history is provided by the patient. No speech and language specialist was used. Cough This is a new problem. The current episode started more than 2 days ago. The problem occurs constantly. Cough characteristics: productive. There has been no fever. Associated symptoms include rhinorrhea, sore throat, shortness of breath and wheezing. Pertinent negatives include no chest pain, no chills, no sweats, no weight loss, no ear congestion, no ear pain, no headaches, no myalgias and no eye redness. She has tried nothing for the symptoms. The treatment provided no relief. She is a smoker. Her past medical history is significant for COPD and emphysema. Her past medical history does not include bronchitis, pneumonia, bronchiectasis or asthma. PAST MEDICAL HISTORY Diagnosis Date Allergic rhinitis, cause unspecified 11/22/2006 Anxiety state, unspecified 02/05/2006 Depressive disorder, not elsewhere classified 02/05/2006 Diaphragmatic hernia without mention of obstruction or gangrene Esophageal reflux 02/05/2006 [place] infarction[place] ([facility]) 06/02/2010 Mixed hyperlipidemia Osteoporosis, unspecified Status post AAA (abdominal aortic aneurysm) repair 3.2 cm (last CT 07/09)--Plan Ultrasound AAA Jul 2010;02/29/2020: Open retroperitoneal infrarenal AAA repair with left renal artery bypass PAST SURGICAL HISTORY Procedure Laterality Date ABD AORTA ANEURYSM REPAIR 02/29/2020 open aneurysm repair for an aneurysm with a maximal transverse diameter of 6 cm; 02/29/2020: Open retroperitoneal infrarenal AAA repair with left renal artery bypass ARTHRP ACETBLR/PROX FEM PROSTC AGRFT/ALGRFT 04/29/2012 [facility] BX BREAST W/DEVICE 1ST LESION STEREOTACTIC GUID 06/18/2014 benign COLONOSCOPY FLX DX W/COLLJ SPEC WHEN PFRMD 11/08/[address]. [address] [facility] COLONOSCOPY FLX DX W/COLLJ SPEC WHEN PFRMD 03/22/2012 Colonoscopy ESOPHAGOGASTRODUODENOSCOPY TRANSORAL DIAGNOSTIC 03/22/2012 EGD MAMMO STEREOTACTIC CORE BIOPSY LT 08/02/1998 left benign - Dr. Gordon PAST SURGICAL HISTORY OF Bilateral 08/02/1998 foot surgery PAST SURGICAL HISTORY OF 06/02/2010 angioplasty with stent ALLERGIES Augmentin [Amoxicillin-Pot Clavulanate], Bactrim [Sulfamethoxazole-Trimethoprim], Doxycycline, Levofloxacin, Wellbutrin [Bupropion Hcl], and Zocor [Simvastatin] MEDICATIONS DULoxetine (CYMBALTA) 60 mg capsule Take 1 capsule by mouth once daily. benzonatate (TESSALON PERLE) 100 mg capsule Take 2 capsules by mouth three times a day as needed. albuterol HFA (VENTOLIN HFA) 90 mcg/actuation inhaler Inhale 2 Puffs as instructed every 4 hours as needed for wheezing/shortness of breath. atorvastatin (LIPITOR) 80 mg tablet TAKE 1/2 TABLET ONE TIME DAILY clopidogrel (PLAVIX) 75 mg tablet Take 1 tablet by mouth every afternoon. ezetimibe (ZETIA) 10 mg tablet Take 1 tablet by mouth every afternoon. LORazepam (ATIVAN) 0.5 mg Take 1 tablet by mouth two times a day as needed (anxiety) for up to 90 days. metoprolol succinate ER (TOPROL XL) 50 mg 24 hr tablet Take 1 tablet by mouth once daily. nitroglycerin sublingual (NITROQUICK) 0.4 mg SL tablet DISSOLVE ON TONGUE FOR CHEST PAIN. May repeat every 5 minutes up to total 3 doses. IF NO PAIN RELIEF, CALL 911 docusate sodium (COLACE) 100 mg capsule Take 1-2 capsules by mouth once daily as needed for constipation. gabapentin (NEURONTIN) 100 mg capsule Take 1 capsule by mouth daily at bedtime for 90 days. diphenhydrAMINE-Acetaminophen 25-500 mg tab Take 2 tablets by mouth at bedtime as needed (sleep). ELDERBERRY FRUIT ORAL Take by mouth once daily. esomeprazole (NEXIUM) 20 mg capsule Take 1 capsule by mouth once daily. aspirin 325 mg ORAL tablet 1 Tab ORAL DAILY azithromycin (ZITHROMAX Z-YANNICK) 250 mg tablet Take 2 tablets day one, then, 1 tablet daily until gone. predniSONE (DELTASONE) 10 mg tablet Take 4 tabs daily for 3 days, then 2 tabs daily for 3 days, then 1 tab daily for 3 days with food. busPIRone HCl 30 mg tablet Take 1 tablet by mouth two times a day. As directed. ID#[id number] (Patient not taking: Reported on 07/03/2024) fluticasone (FLONASE ALLERGY RELIEF) 50 mcg/actuation nasal spray Use 1 [place] in each nostril once daily. (Patient not taking: Reported on 06/23/2024) FAMILY HISTORY Problem Relation Age of Onset Cancer Mother colo (more content not included)... [facility] 08-14-2024 History of Present illness Narrative This note was created using Talkpushter. Subjective Flor Mayberry is a 74 year old female. 74 year old female COPD, [place], [place] 2009, GERD, depression/anxiety, diaphragmatic hernia, allergic rhinitis, TARA on home BiPAP, osteoporosis for illness. Acute onset 4 days ago +cough +chest congestion +productive +yellow sputum +SOB +winded with activity Denies CP Denies SOB Denies dyspnea Denies abdominal pain Has used [employer] Mucinex The history is provided by the patient. No speech and language specialist was used. Cough This is a new problem. The current episode started more than 2 days ago. The problem occurs constantly. Cough characteristics: productive. There has been no fever. Associated symptoms include rhinorrhea, sore throat, shortness of breath and wheezing. Pertinent negatives include no chest pain, no chills, no sweats, no weight loss, no ear congestion, no ear pain, no headaches, no myalgias and no eye redness. She has tried nothing for the symptoms. The treatment provided no relief. She is a smoker. Her past medical history is significant for COPD and emphysema. Her past medical history does not include bronchitis, pneumonia, bronchiectasis or asthma. PAST MEDICAL HISTORY Diagnosis Date Allergic rhinitis, cause unspecified 11/22/2006 Anxiety state, unspecified 02/05/2006 Depressive disorder, not elsewhere classified 02/05/2006 Diaphragmatic hernia without mention of obstruction or gangrene Esophageal reflux 02/05/2006 [place] [facility] infarction[facility] ([facility]) 06/02/2010 Mixed hyperlipidemia Osteoporosis, unspecified Status post AAA (abdominal aortic aneurysm) repair 3.2 cm (last CT 07/09)--Plan Ultrasound AAA Jul 2010;02/29/2020: Open retroperitoneal infrarenal AAA repair with left renal artery bypass PAST SURGICAL HISTORY Procedure Laterality Date ABD AORTA ANEURYSM REPAIR 02/29/2020 open aneurysm repair for an aneurysm with a maximal transverse diameter of 6 cm; 02/29/2020: Open retroperitoneal infrarenal AAA repair with left renal artery bypass ARTHRP ACETBLR/PROX FEM PROSTC AGRFT/ALGRFT 04/29/2012 [facility] BX BREAST W/DEVICE 1ST LESION STEREOTACTIC GUID 06/18/2014 benign COLONOSCOPY FLX DX W/COLLJ SPEC WHEN PFRMD 11/08/[address]. [address] [facility] COLONOSCOPY FLX DX W/COLLJ SPEC WHEN PFRMD 03/22/2012 Colonoscopy ESOPHAGOGASTRODUODENOSCOPY TRANSORAL DIAGNOSTIC 03/22/2012 EGD MAMMO STEREOTACTIC CORE BIOPSY LT 08/02/1998 left benign - Dr. Gordon PAST SURGICAL HISTORY OF Bilateral 08/02/1998 foot surgery PAST SURGICAL HISTORY OF 06/02/2010 angioplasty with stent ALLERGIES Augmentin [Amoxicillin-Pot Clavulanate], Bactrim [Sulfamethoxazole-Trimethoprim], Doxycycline, Levofloxacin, Wellbutrin [Bupropion Hcl], and Zocor [Simvastatin] MEDICATIONS DULoxetine (CYMBALTA) 60 mg capsule Take 1 capsule by mouth once daily. benzonatate (TESSALON PERLE) 100 mg capsule Take 2 capsules by mouth three times a day as needed. albuterol HFA (VENTOLIN HFA) 90 mcg/actuation inhaler Inhale 2 Puffs as instructed every 4 hours as needed for wheezing/shortness of breath. atorvastatin (LIPITOR) 80 mg tablet TAKE 1/2 TABLET ONE TIME DAILY clopidogrel (PLAVIX) 75 mg tablet Take 1 tablet by mouth every afternoon. ezetimibe (ZETIA) 10 mg tablet Take 1 tablet by mouth every afternoon. LORazepam (ATIVAN) 0.5 mg Take 1 tablet by mouth two times a day as needed (anxiety) for up to 90 days. metoprolol succinate ER (TOPROL XL) 50 mg 24 hr tablet Take 1 tablet by mouth once daily. nitroglycerin sublingual (NITROQUICK) 0.4 mg SL tablet DISSOLVE ON TONGUE FOR CHEST PAIN. May repeat every 5 minutes up to total 3 doses. IF NO PAIN RELIEF, CALL 911 docusate sodium (COLACE) 100 mg capsule Take 1-2 capsules by mouth once daily as needed for constipation. gabapentin (NEURONTIN) 100 mg capsule Take 1 capsule by mouth daily at bedtime for 90 days. diphenhydrAMINE-Acetaminophen 25-500 mg tab Take 2 tablets by mouth at bedtime as needed (sleep). ELDERBERRY FRUIT ORAL Take by mouth once daily. esomeprazole (NEXIUM) 20 mg capsule Take 1 capsule by mouth once daily. aspirin 325 mg ORAL tablet 1 Tab ORAL DAILY azithromycin (ZITHROMAX Z-YANNICK) 250 mg tablet Take 2 tablets day one, then, 1 tablet daily until gone. predniSONE (DELTASONE) 10 mg tablet Take 4 tabs daily for 3 days, then 2 tabs daily for 3 days, then 1 tab daily for 3 days with food. busPIRone HCl 30 mg tablet Take 1 tablet by mouth two times a day. As directed. ID#[id number] (Patient not taking: Reported on 07/03/2024) fluticasone (FLONASE ALLERGY RELIEF) 50 mcg/actuation nasal spray Use 1 [place] in each nostril once daily. (Patient not taking: Reported on 06/23/2024) FAMILY HISTORY Problem Relation Age of Onset Cancer Mother colon Stroke Mother other (past history) Father abdominal aortic aneurysm Social History Tobacco Use Smoking status: Every Day Current packs/day: 0.50 Average packs/day: 0.5 packs/day for 40.0 years (20.0 ttl pk-yrs) Types: Cigarettes Smokeless tobacco: Never Tobacco comments: less than a pack per day--almost ready to quit Vaping Use Vaping status: Never Used Substance Use Topics Alcohol use: Yes Alcohol/week: 1.0 standard drink of alcohol Types: 1 Cans of Beer (12oz) per week Comment: seldom Drug use: No Review of Systems Constitutional: Negative for chills and weight loss. HENT: Positive for congestion, rhinorrhea and sore throat. Negative for ear pain. Eyes: Negative for redness. Respiratory: Positive for cough, shortness of breath and wheezing. Negative for apnea and chest tightness. Cardiovascular: Negative for chest pain. Musculoskeletal: Negative for myalgias. Allergic/Immunologic: Negative for environmental allergies and food allergies. Neurological: Negative for headaches. Hematological: Negative for adenopathy. Does not bruise/bleed easily. Psychiatric/Behavioral: Negative for agitation and behavioral problems. Objective BP 122/70 Pulse 86 Temp 36.1 C (96.9 F) Resp 20 Wt 66.7 kg (147 lb 0.8 oz) SpO2 95% BMI 27.78 kg/m Physical Exam Vitals and nursing note reviewed. Constitutional: General: She is not in acute distress. Appearance: Normal appearance. She is normal weight. She is not ill-appearing, toxic-appearing or diaphoretic. HENT: Head: Normocephalic and atraumatic. Right Ear: Ear canal and external ear normal. Left Ear: Ear canal and external ear normal. Nose: Nose normal. No congestion or rhinorrhea. Mouth/Throat: Mouth: Mucous membranes are moist. Pharynx: No oropharyngeal exudate or posterior oropharyngeal erythema. Eyes: General: Right eye: No discharge. Left eye: No discharge. Extraocular Movements: Extraocular movements intact. Conjunctiva/sclera: Conjunctivae normal. Pupils: Pupils are equal, round, and reactive to light. Cardiovascular: Rate and Rhythm: Normal rate and regular rhythm. Pulses: Normal pulses. Heart sounds: Normal heart sounds. No murmur heard. No friction rub. Pulmonary: Effort: Pulmonary effort is normal. No respiratory distress. Breath sounds: No stridor. Wheezing and rhonchi present. No rales. Comments: Decreased breath sounds Chest: Chest wall: No tenderness. Abdominal: General: Abdomen is flat. There is no distension. Palpations: Abdomen is soft. There is no mass. Tenderness: There is no abdominal tenderness. There is no right CVA tenderness, left CVA tenderness, guarding or rebound. Hernia: No hernia is present. Musculoskeletal: General: No swelling, tenderness, deformity or signs of injury. Normal range of motion. Cervical back: Normal range of motion and neck supple. No rigidity. Right lower leg: No edema. Left lower leg: No edema. Lymphadenopathy: Cervical: Cervical adenopathy present. Skin: General: Skin is warm and dry. Coloration: Skin is not jaundiced or pale. Findings: No bruising, erythema, lesion or rash. Neurological: General: No focal deficit present. Mental Status: She is alert and oriented to person, place, and time. Cranial Nerves: No cranial nerve deficit. Sensory: No sensory deficit. Motor: No weakness. Coordination: Coordination normal. Gait: Gait normal. Psychiatric: Mood and Affect: Mood normal. Behavior: Behavior normal. Thought Content: Thought content normal. Judgment: Judgment normal. Assessment and Plan ASSESSMENT/PLAN: 1. Acute cough - ICD9: 786.2, ICD10: R05.1 (primary diagnosis) X few days Hx COPD No red flags - XR CHEST 2V FRONTAL/LAT-not available at time of close Will treat as COPD Please call with results 2. COPD with exacerbation (HCC) - ICD9: 491.21, ICD10: J44.1 RX zithromax (multiple allergies and has tolerated in past) RX Prednisone taper F/u Discussed red flags Diane Gonzalez APRN.[employer] SUPERVISOR documented in this encounter [facility] 07-12-2024 Telephone encounter Note The patient has been identified by name and date of : Yes Caregiver verified no other encounters exist for this prescription request: Yes Caregiver confirmed with patient/requestor that no other refills are due, in the near future, with this provider at this time: Yes The last office visit in the department: 06/23/2024 Does the patient have a future office visit with this provider/department: Yes 01/15/2025 Requested Prescriptions Pending Prescriptions Disp Refills DULoxetine (CYMBALTA) 60 mg capsule 90 capsule 3 Sig: Take 1 capsule by mouth once daily. Melisa Casarez LPN July 12, 2024 3:50 PM [facility] 07-12-2024 Miscellaneous Notes The patient has been identified by name and date of : Yes Caregiver verified no other encounters exist for this prescription request: Yes Caregiver confirmed with patient/requestor that no other refills are due, in the near future, with this provider at this time: Yes The last office visit in the department: 06/23/2024 Does the patient have a future office visit with this provider/department: Yes 01/15/2025 Requested Prescriptions Pending Prescriptions Disp Refills DULoxetine (CYMBALTA) 60 mg capsule 90 capsule 3 Sig: Take 1 capsule by mouth once daily. Melisa Casarez LPN July 12, 2024 3:50 PM documented in this encounter [facility] 07-11-2024 Note HNO ID: [id number] Author: DAMARIS OWENS PA-C Service: ? Author Type: Physician Textile Screen Printer Type: Progress Notes Filed: 07/11/2024 15:40 Note Text: Chief Complaint Patient presents with: Cough HPI Flor Mayberry is a 74 year old female who presents here today for Above Complaints.. Patient was seen in [facility] care Started on Thanksgiving. Has not improved. Worsening sinus symptoms. Past medical history, appointments, medications, allergies reviewed. Previous Medical History PAST MEDICAL HISTORY Diagnosis Date Allergic rhinitis, cause unspecified 11/22/2006 Anxiety state, unspecified 02/05/2006 Depressive disorder, not elsewhere classified 02/05/2006 Diaphragmatic hernia without mention of obstruction or gangrene Esophageal reflux 02/05/2006 [facility] 06/02/2010 Mixed hyperlipidemia Osteoporosis, unspecified Status post AAA (abdominal aortic aneurysm) repair 3.2 cm (last CT 07/09)--Plan Ultrasound AAA Jul 2010;02/29/2020: Open retroperitoneal infrarenal AAA repair with left renal artery bypass Previous Surgical History PAST SURGICAL HISTORY Procedure Laterality Date ABD AORTA ANEURYSM REPAIR 02/29/2020 open aneurysm repair for an aneurysm with a maximal transverse diameter of 6 cm; 02/29/2020: Open retroperitoneal infrarenal AAA repair with left renal artery bypass ARTHRP ACETBLR/PROX FEM PROSTC AGRFT/ALGRFT 04/29/2012 [facility] BX BREAST W/DEVICE 1ST LESION STEREOTACTIC GUID 06/18/2014 benign COLONOSCOPY FLX DX W/COLLJ SPEC WHEN PFRMD 11/08/[address] Dr. [address] [facility] COLONOSCOPY FLX DX W/COLLJ SPEC WHEN PFRMD 03/22/2012 Colonoscopy ESOPHAGOGASTRODUODENOSCOPY TRANSORAL DIAGNOSTIC 03/22/2012 EGD MAMMO STEREOTACTIC CORE BIOPSY LT 08/02/1998 left benign - Dr. Gordon PAST SURGICAL HISTORY OF Bilateral 08/02/1998 foot surgery PAST SURGICAL HISTORY OF 06/02/2010 angioplasty with stent Family History FAMILY HISTORY Problem Relation Age of Onset Cancer Mother colon Stroke Mother other (past history) Father abdominal aortic aneurysm Patient Allergies ALLERGIES Allergen Reactions Augmentin [Amoxicil* Hives Bactrim [Sulfametho* GI Upset Sick to her stomach; prefers to avoid med Doxycycline Vomiting Levofloxacin Other: See Comments Knee pain Wellbutrin [Bupropi* vivid dreams Zocor [Simvastatin] Intolerance Muscle aches Current Medications Current Outpatient Medications on File Prior to Visit Medication Sig benzonatate (TESSALON PERLE) 100 mg capsule Take 2 capsules by mouth three times a day as needed. albuterol HFA (VENTOLIN HFA) 90 mcg/actuation inhaler Inhale 2 Puffs as instructed every 4 hours as needed for wheezing/shortness of breath. atorvastatin (LIPITOR) 80 mg tablet TAKE 1/2 TABLET ONE TIME DAILY clopidogrel (PLAVIX) 75 mg tablet Take 1 tablet by mouth every afternoon. ezetimibe (ZETIA) 10 mg tablet Take 1 tablet by mouth every afternoon. LORazepam (ATIVAN) 0.5 mg Take 1 tablet by mouth two times a day as needed (anxiety) for up to 90 days. metoprolol succinate ER (TOPROL XL) 50 mg 24 hr tablet Take 1 tablet by mouth once daily. nitroglycerin sublingual (NITROQUICK) 0.4 mg SL tablet DISSOLVE ON TONGUE FOR CHEST PAIN. May repeat every 5 minutes up to total 3 doses. IF NO PAIN RELIEF, CALL 911 docusate sodium (COLACE) 100 mg capsule Take 1-2 capsules by mouth once daily as needed for constipation. gabapentin (NEURONTIN) 100 mg capsule Take 1 capsule by mouth daily at bedtime for 90 days. DULoxetine (CYMBALTA) 60 mg capsule Take 1 capsule by mouth once daily. hydrOXYzine HCl (ATARAX) 25 mg tablet Take 1 tablet by mouth three times daily as needed. diphenhydrAMINE-Acetaminophen 25-500 mg tab Take 2 tablets by mouth at bedtime as needed (sleep). ELDERBERRY FRUIT ORAL Take by mouth once daily. esomeprazole (NEXIUM) 20 mg capsule Take 1 capsule by mouth once daily. aspirin 325 mg ORAL tablet 1 Tab ORAL DAILY busPIRone HCl 30 mg tablet Take 1 tablet by mouth two times a day. As directed. ID#[id number] (Patient not taking: Reported on 07/03/2024) fluticasone (FLONASE ALLERGY RELIEF) 50 mcg/actuation nasal spray Use 1 [place] in each nostril once daily. (Patient not taking: Reported on 06/23/2024) No current facility-administered medications on file prior to visit. Social History Social History Tobacco Use Smoking status: Every Day Current packs/day: 0.50 Average packs/day: 0.5 packs/day for 40.0 years (20.0 ttl pk-yrs) Types: Cigarettes Smokeless tobacco: Never Tobacco comments: less than a pack per day--almost ready to quit Vaping Use Vaping status: Never Used Substance Use Topics Alcohol use: Yes Alcohol/week: 1.0 standard drink of alcohol Types: 1 Cans of Beer (12oz) per week Comment: seldom Drug use: No Review of Symptoms REVIEW OF SYSTEMS See hpi EXAM: BP 118/86 (BP Site: Right Arm, BP Position: Sitting, BP Cuff Size: (more content not included)... [facility] 07-11-2024 History of Present illness Narrative Chief Complaint Patient presents with: Cough HPI Flor Mayberry is a 74 year old female who presents here today for Above Complaints.. Patient was seen in [facility] care Started on Thanksgiving. Has not improved. Worsening sinus symptoms. Past medical history, appointments, medications, allergies reviewed. Previous Medical History PAST MEDICAL HISTORY Diagnosis Date Allergic rhinitis, cause unspecified 11/22/2006 Anxiety state, unspecified 02/05/2006 Depressive disorder, not elsewhere classified 02/05/2006 Diaphragmatic hernia without mention of obstruction or gangrene Esophageal reflux 02/05/2006 [facility] 06/02/2010 Mixed hyperlipidemia Osteoporosis, unspecified Status post AAA (abdominal aortic aneurysm) repair 3.2 cm (last CT 07/09)--Plan Ultrasound AAA Jul 2010;02/29/2020: Open retroperitoneal infrarenal AAA repair with left renal artery bypass Previous Surgical History PAST SURGICAL HISTORY Procedure Laterality Date ABD AORTA ANEURYSM REPAIR 02/29/2020 open aneurysm repair for an aneurysm with a maximal transverse diameter of 6 cm; 02/29/2020: Open retroperitoneal infrarenal AAA repair with left renal artery bypass ARTHRP ACETBLR/PROX FEM PROSTC AGRFT/ALGRFT 04/29/2012 [facility] BX BREAST W/DEVICE 1ST LESION STEREOTACTIC GUID 06/18/2014 benign COLONOSCOPY FLX DX W/COLLJ SPEC WHEN PFRMD 11/08/[address]. [address] [facility] COLONOSCOPY FLX DX W/COLLJ SPEC WHEN PFRMD 03/22/2012 Colonoscopy ESOPHAGOGASTRODUODENOSCOPY TRANSORAL DIAGNOSTIC 03/22/2012 EGD MAMMO STEREOTACTIC CORE BIOPSY LT 08/02/1998 left benign - Dr. Gordon PAST SURGICAL HISTORY OF Bilateral 08/02/1998 foot surgery PAST SURGICAL HISTORY OF 06/02/2010 angioplasty with stent Family History FAMILY HISTORY Problem Relation Age of Onset Cancer Mother colon Stroke Mother other (past history) Father abdominal aortic aneurysm Patient Allergies ALLERGIES Allergen Reactions Augmentin [Amoxicil* Hives Bactrim [Sulfametho* GI Upset Sick to her stomach; prefers to avoid med Doxycycline Vomiting Levofloxacin Other: See Comments Knee pain Wellbutrin [Bupropi* vivid dreams Zocor [Simvastatin] Intolerance Muscle aches Current Medications Current Outpatient Medications on File Prior to Visit Medication Sig benzonatate (TESSALON PERLE) 100 mg capsule Take 2 capsules by mouth three times a day as needed. albuterol HFA (VENTOLIN HFA) 90 mcg/actuation inhaler Inhale 2 Puffs as instructed every 4 hours as needed for wheezing/shortness of breath. atorvastatin (LIPITOR) 80 mg tablet TAKE 1/2 TABLET ONE TIME DAILY clopidogrel (PLAVIX) 75 mg tablet Take 1 tablet by mouth every afternoon. ezetimibe (ZETIA) 10 mg tablet Take 1 tablet by mouth every afternoon. LORazepam (ATIVAN) 0.5 mg Take 1 tablet by mouth two times a day as needed (anxiety) for up to 90 days. metoprolol succinate ER (TOPROL XL) 50 mg 24 hr tablet Take 1 tablet by mouth once daily. nitroglycerin sublingual (NITROQUICK) 0.4 mg SL tablet DISSOLVE ON TONGUE FOR CHEST PAIN. May repeat every 5 minutes up to total 3 doses. IF NO PAIN RELIEF, CALL 911 docusate sodium (COLACE) 100 mg capsule Take 1-2 capsules by mouth once daily as needed for constipation. gabapentin (NEURONTIN) 100 mg capsule Take 1 capsule by mouth daily at bedtime for 90 days. DULoxetine (CYMBALTA) 60 mg capsule Take 1 capsule by mouth once daily. hydrOXYzine HCl (ATARAX) 25 mg tablet Take 1 tablet by mouth three times daily as needed. diphenhydrAMINE-Acetaminophen 25-500 mg tab Take 2 tablets by mouth at bedtime as needed (sleep). ELDERBERRY FRUIT ORAL Take by mouth once daily. esomeprazole (NEXIUM) 20 mg capsule Take 1 capsule by mouth once daily. aspirin 325 mg ORAL tablet 1 Tab ORAL DAILY busPIRone HCl 30 mg tablet Take 1 tablet by mouth two times a day. As directed. ID#[id number] (Patient not taking: Reported on 07/03/2024) fluticasone (FLONASE ALLERGY RELIEF) 50 mcg/actuation nasal spray Use 1 [place] in each nostril once daily. (Patient not taking: Reported on 06/23/2024) No current facility-administered medications on file prior to visit. Social History Social History Tobacco Use Smoking status: Every Day Current packs/day: 0.50 Average packs/day: 0.5 packs/day for 40.0 years (20.0 ttl pk-yrs) Types: Cigarettes Smokeless tobacco: Never Tobacco comments: less than a pack per day--almost ready to quit Vaping Use Vaping status: Never Used Substance Use Topics Alcohol use: Yes Alcohol/week: 1.0 standard drink of alcohol Types: 1 Cans of Beer (12oz) per week Comment: seldom Drug use: No Review of Symptoms REVIEW OF SYSTEMS See hpi EXAM: BP 118/86 (BP Site: Right Arm, BP Position: Sitting, BP Cuff Size: Regular Adult) Pulse 92 Temp 36.7 C (98.1 F) Resp 20 Wt 68.9 kg (152 lb) SpO2 94% BMI 28.72 kg/m General Appearance: Well appearing, alert, in no acute distress, well-hydrated, well nourished.. Ears: External ears normal, canals clear. Nose/Sinuses: sinus pressure to palp on R. Oropharynx: Lips, mucosa, and tongue normal, teeth and gums normal, oropharynx normal. Neck: Supple, no adenopathy; thyroid symmetric, normal size, no bruits. Lungs: Lungs clear to auscultation. No wheezing, rhonchi, rales Heart: RRR without murmur, gallop, or rubs. No ectopy. Health Maintenance List Shingrix Vaccine(1 of 2) Never done Bone Density Screening due on 04/06/2020 Lung Cancer Screening due on 03/04/2021 DTaP,Tdap,Td Vaccine(2 - Td or Tdap) due on 06/04/2021 Colorectal Cancer Screening due on 01/13/2024 RSV Vaccine(1 - 1-dose 75+ series) Never done LDL Cholesterol due on 06/28/2024 Influenza Vaccine(1) due on 01/29/2025 Serum Creatinine due on 07/30/2024 Hemoglobin/Hematocrit due on 07/30/2024 Annual PCP Team Chronic Disease Visit due on 06/23/2025 BP Controlled (<130/80) due on 07/03/2025 Diabetes Screening due on 07/30/2026 Lipid Screening due on 06/28/2028 Advance Directive Discussion Completed Hepatitis C Screening Completed Pneumococcal Vaccine: 65+ Completed Mammogram Screening Discontinued Covid-19 Vaccine Discontinued Data reviewed ASSESSMENT/PLAN: 1. Bacterial sinusitis - ICD9: 473.9, 041.9, ICD10: J32.9, B96.89 - Will begin treatment with as per antibiotic as written, see orders - Follow up in 3-5 days if symptoms persist or worsen. Damaris Owens PA-C documented in this encounter [facility] 07-11-2024 Telephone encounter Note Patient calling still coughing, had gotten sick on . Was seen in [facility] care 07/03. She completed here prednisone rx, wheezing at times, using her inhaler. Her voice is hoarse, she thinks she had fever, night sweats. She is not feeling any better, was COVID negative. Had chest xray done was negative for pneumonia. No appts with PCP, scheduled patient with Vicki ZHANG at 320 pm today. [facility] 07-11-2024 Miscellaneous Notes Patient calling still coughing, had gotten sick on . Was seen in [facility] 07/03. She completed here prednisone rx, wheezing at times, using her inhaler. Her voice is hoarse, she thinks she had fever, night sweats. She is not feeling any better, was COVID negative. Had chest xray done was negative for pneumonia. No appts with PCP, scheduled patient with Vicki ZHANG at 320 pm today. documented in this encounter [facility] 07-04-2024 Telephone encounter Note Patient given results and verbalized understanding of instructions given. Melissa Mendes MA [facility] 07-04-2024 Miscellaneous Notes Patient given results and verbalized understanding of instructions given. Melissa Mendes MA You tested negative for COVID, Influenza, and RSV. Please contact us if your symptoms are worsening or not improving. Please advise documented in this encounter [facility] 07-04-2024 Telephone encounter Note You tested negative for COVID, Influenza, and RSV. Please contact us if your symptoms are worsening or not improving. Please advise [facility] Work Phone: 07-03-2024 Note HNO ID: [id number] Author: ROSMERY RODAS PA-C Service: ? Author Type: Physician Textile Screen Printer Type: Progress Notes Filed: 07/03/2024 16:38 Note Text: This note was created using [employer]. Subjective Flor Mayberry is a 74 year old female. HPI Presents with cough, wheezing, shortness of breath over the past 4 days. No vomiting or diarrhea. She does have a history of chronic bronchitis. She is a smoker. States she does not have a diagnosis of COPD or asthma. She does have some pain in her chest when she coughs. No fever. She was around some sick family members recently. Review of Systems Constitutional: Positive for fatigue. Negative for fever. HENT: Positive for congestion and rhinorrhea. Negative for sore throat. Respiratory: Positive for cough, shortness of breath and wheezing. Negative for chest tightness. Cardiovascular: Positive for chest pain. Gastrointestinal: Negative. Genitourinary: Negative. Musculoskeletal: Negative. Neurological: Positive for headaches. All other systems reviewed and are negative. PAST MEDICAL HISTORY Diagnosis Date Allergic rhinitis, cause unspecified 11/22/2006 Anxiety state, unspecified 02/05/2006 Depressive disorder, not elsewhere classified 02/05/2006 Diaphragmatic hernia without mention of obstruction or gangrene Esophageal reflux 02/05/2006 [facility] 06/02/2010 Mixed hyperlipidemia Osteoporosis, unspecified Status post AAA (abdominal aortic aneurysm) repair 3.2 cm (last CT 07/09)--Plan Ultrasound AAA Jul 2010;02/29/2020: Open retroperitoneal infrarenal AAA repair with left renal artery bypass Current Outpatient Medications Medication Sig Dispense Refill atorvastatin (LIPITOR) 80 mg tablet TAKE 1/2 TABLET ONE TIME DAILY 45 tablet 3 clopidogrel (PLAVIX) 75 mg tablet Take 1 tablet by mouth every afternoon. 90 tablet 3 ezetimibe (ZETIA) 10 mg tablet Take 1 tablet by mouth every afternoon. 90 tablet 3 LORazepam (ATIVAN) 0.5 mg Take 1 tablet by mouth two times a day as needed (anxiety) for up to 90 days. 60 tablet 2 metoprolol succinate ER (TOPROL XL) 50 mg 24 hr tablet Take 1 tablet by mouth once daily. 90 tablet 3 nitroglycerin sublingual (NITROQUICK) 0.4 mg SL tablet DISSOLVE ON TONGUE FOR CHEST PAIN. May repeat every 5 minutes up to total 3 doses. IF NO PAIN RELIEF, CALL 911 25 tablet 1 docusate sodium (COLACE) 100 mg capsule Take 1-2 capsules by mouth once daily as needed for constipation. 60 capsule 5 gabapentin (NEURONTIN) 100 mg capsule Take 1 capsule by mouth daily at bedtime for 90 days. 30 capsule 2 DULoxetine (CYMBALTA) 60 mg capsule Take 1 capsule by mouth once daily. 90 capsule 3 hydrOXYzine HCl (ATARAX) 25 mg tablet Take 1 tablet by mouth three times daily as needed. 60 tablet 1 diphenhydrAMINE-Acetaminophen 25-500 mg tab Take 2 tablets by mouth at bedtime as needed (sleep). ELDERBERRY FRUIT ORAL Take by mouth once daily. esomeprazole (NEXIUM) 20 mg capsule Take 1 capsule by mouth once daily. aspirin 325 mg ORAL tablet 1 Tab ORAL DAILY 30 Tab 0 predniSONE (DELTASONE) 20 mg tablet Take 2 tablets by mouth once daily for 5 days. 10 tablet 0 benzonatate (TESSALON PERLE) 100 mg capsule Take 2 capsules by mouth three times a day as needed. 30 capsule 0 albuterol HFA (VENTOLIN HFA) 90 mcg/actuation inhaler Inhale 2 Puffs as instructed every 4 hours as needed for wheezing/shortness of breath. 1 Each 0 busPIRone HCl 30 mg tablet Take 1 tablet by mouth two times a day. As directed. ID#[id number] (Patient not taking: Reported on 07/03/2024) 180 tablet 3 fluticasone (FLONASE ALLERGY RELIEF) 50 mcg/actuation nasal spray Use 1 [place] in each nostril once daily. (Patient not taking: Reported on 06/23/2024) 11.1 mL 0 No current facility-administered medications for this visit. PAST SURGICAL HISTORY Procedure Laterality Date ABD AORTA ANEURYSM REPAIR 02/29/2020 open aneurysm repair for an aneurysm with a maximal transverse diameter of 6 cm; 02/29/2020: Open retroperitoneal infrarenal AAA repair with left renal artery bypass ARTHRP ACETBLR/PROX FEM PROSTC AGRFT/ALGRFT 04/29/2012 [facility] BX BREAST W/DEVICE 1ST LESION STEREOTACTIC GUID 06/18/2014 benign COLONOSCOPY FLX DX W/COLLJ SPEC WHEN PFRMD 11/08/[address] Dr. [address] [facility] COLONOSCOPY FLX DX W/COLLJ SPEC WHEN PFRMD 03/22/2012 Colonoscopy ESOPHAGOGASTRODUODENOSCOPY TRANSORAL DIAGNOSTIC 03/22/2012 EGD MAMMO STEREOTACTIC CORE BIOPSY LT 08/02/1998 left benign - Dr. Gordon PAST SURGICAL HISTORY OF Bilateral 08/02/1998 foot surgery PAST SURGICAL HISTORY OF 06/02/2010 angioplasty with stent FAMILY HISTORY Problem Relation Age of Onset Cancer Mother colon Stroke Mother other (past history) Father abdominal aortic aneurysm Social History Tobacco Use Smoking status: Every Day Current packs/day: 0.50 Average packs/day: 0.5 packs/day for 40.0 years (20.0 ttl pk-yrs) Types: Cigarettes (more content not included)... [facility] 07-03-2024 History of Present illness Narrative This note was created using Waluzi. Subjective Flor Mayberry is a 74 year old female. HPI Presents with cough, wheezing, shortness of breath over the past 4 days. No vomiting or diarrhea. She does have a history of chronic bronchitis. She is a smoker. States she does not have a diagnosis of COPD or asthma. She does have some pain in her chest when she coughs. No fever. She was around some sick family members recently. Review of Systems Constitutional: Positive for fatigue. Negative for fever. HENT: Positive for congestion and rhinorrhea. Negative for sore throat. Respiratory: Positive for cough, shortness of breath and wheezing. Negative for chest tightness. Cardiovascular: Positive for chest pain. Gastrointestinal: Negative. Genitourinary: Negative. Musculoskeletal: Negative. Neurological: Positive for headaches. All other systems reviewed and are negative. PAST MEDICAL HISTORY Diagnosis Date Allergic rhinitis, cause unspecified 11/22/2006 Anxiety state, unspecified 02/05/2006 Depressive disorder, not elsewhere classified 02/05/2006 Diaphragmatic hernia without mention of obstruction or gangrene Esophageal reflux 02/05/2006 [facility]my[facility] infarction[facility]) 06/02/2010 Mixed hyperlipidemia Osteoporosis, unspecified Status post AAA (abdominal aortic aneurysm) repair 3.2 cm (last CT 07/09)--Plan Ultrasound AAA Jul 2010;02/29/2020: Open retroperitoneal infrarenal AAA repair with left renal artery bypass Current Outpatient Medications Medication Sig Dispense Refill atorvastatin (LIPITOR) 80 mg tablet TAKE 1/2 TABLET ONE TIME DAILY 45 tablet 3 clopidogrel (PLAVIX) 75 mg tablet Take 1 tablet by mouth every afternoon. 90 tablet 3 ezetimibe (ZETIA) 10 mg tablet Take 1 tablet by mouth every afternoon. 90 tablet 3 LORazepam (ATIVAN) 0.5 mg Take 1 tablet by mouth two times a day as needed (anxiety) for up to 90 days. 60 tablet 2 metoprolol succinate ER (TOPROL XL) 50 mg 24 hr tablet Take 1 tablet by mouth once daily. 90 tablet 3 nitroglycerin sublingual (NITROQUICK) 0.4 mg SL tablet DISSOLVE ON TONGUE FOR CHEST PAIN. May repeat every 5 minutes up to total 3 doses. IF NO PAIN RELIEF, CALL 911 25 tablet 1 docusate sodium (COLACE) 100 mg capsule Take 1-2 capsules by mouth once daily as needed for constipation. 60 capsule 5 gabapentin (NEURONTIN) 100 mg capsule Take 1 capsule by mouth daily at bedtime for 90 days. 30 capsule 2 DULoxetine (CYMBALTA) 60 mg capsule Take 1 capsule by mouth once daily. 90 capsule 3 hydrOXYzine HCl (ATARAX) 25 mg tablet Take 1 tablet by mouth three times daily as needed. 60 tablet 1 diphenhydrAMINE-Acetaminophen 25-500 mg tab Take 2 tablets by mouth at bedtime as needed (sleep). ELDERBERRY FRUIT ORAL Take by mouth once daily. esomeprazole (NEXIUM) 20 mg capsule Take 1 capsule by mouth once daily. aspirin 325 mg ORAL tablet 1 Tab ORAL DAILY 30 Tab 0 predniSONE (DELTASONE) 20 mg tablet Take 2 tablets by mouth once daily for 5 days. 10 tablet 0 benzonatate (TESSALON PERLE) 100 mg capsule Take 2 capsules by mouth three times a day as needed. 30 capsule 0 albuterol HFA (VENTOLIN HFA) 90 mcg/actuation inhaler Inhale 2 Puffs as instructed every 4 hours as needed for wheezing/shortness of breath. 1 Each 0 busPIRone HCl 30 mg tablet Take 1 tablet by mouth two times a day. As directed. ID#[id number] (Patient not taking: Reported on 07/03/2024) 180 tablet 3 fluticasone (FLONASE ALLERGY RELIEF) 50 mcg/actuation nasal spray Use 1 [place] in each nostril once daily. (Patient not taking: Reported on 06/23/2024) 11.1 mL 0 No current facility-administered medications for this visit. PAST SURGICAL HISTORY Procedure Laterality Date ABD AORTA ANEURYSM REPAIR 02/29/2020 open aneurysm repair for an aneurysm with a maximal transverse diameter of 6 cm; 02/29/2020: Open retroperitoneal infrarenal AAA repair with left renal artery bypass ARTHRP ACETBLR/PROX FEM PROSTC AGRFT/ALGRFT 04/29/2012 [facility]-right BX BREAST W/DEVICE 1ST LESION STEREOTACTIC GUID 06/18/2014 benign COLONOSCOPY FLX DX W/COLLJ SPEC WHEN PFRMD 11/08/[address] [facility] COLONOSCOPY FLX DX W/COLLJ SPEC WHEN PFRMD 03/22/2012 Colonoscopy ESOPHAGOGASTRODUODENOSCOPY TRANSORAL DIAGNOSTIC 03/22/2012 EGD MAMMO STEREOTACTIC CORE BIOPSY LT 08/02/1998 left benign - Dr. Gordon PAST SURGICAL HISTORY OF Bilateral 08/02/1998 foot surgery PAST SURGICAL HISTORY OF 06/02/2010 angioplasty with stent FAMILY HISTORY Problem Relation Age of Onset Cancer Mother colon Stroke Mother other (past history) Father abdominal aortic aneurysm Social History Tobacco Use Smoking status: Every Day Current packs/day: 0.50 Average packs/day: 0.5 packs/day for 40.0 years (20.0 ttl pk-yrs) Types: Cigarettes Smokeless tobacco: Never Tobacco comments: less than a pack per day--almost ready to quit Vaping Use Vaping status: Never Used Substance Use Topics Alcohol use: Yes Alcohol/week: 1.0 standard drink of alcohol Types: 1 Cans of Beer (12oz) per week Comment: seldom Drug use: No Objective BP 122/72 Pulse 80 Temp 36.2 C (97.1 F) Resp 16 Wt 68 kg (149 lb 14.6 oz) SpO2 98% BMI 28.33 kg/m Physical Exam Vitals reviewed. Constitutional: Appearance: Normal appearance. HENT: Head: Normocephalic and atraumatic. Right Ear: Tympanic membrane, ear canal and external ear normal. Left Ear: Tympanic membrane, ear canal and external ear normal. Nose: Congestion present. Mouth/Throat: Mouth: Mucous membranes are moist. Pharynx: Oropharynx is clear. Cardiovascular: Rate and Rhythm: Normal rate and regular rhythm. Heart sounds: Normal heart sounds. Pulmonary: Effort: Pulmonary effort is normal. Breath sounds: Wheezing present. Musculoskeletal: Cervical back: Neck supple. Skin: General: Skin is warm and dry. Neurological: General: No focal deficit present. Mental Status: She is alert. Assessment and Plan ASSESSMENT/PLAN: 1. Bronchitis - ICD9: 490, ICD10: J40 Chest x-ray is clear. I feel she does have a viral bronchitis. Patient is in the window for oral antivirals, however has multiple interactions with Paxlovid. If molnupiravir is covered by insurance would be an option tomorrow. Otherwise we will treat with prednisone, Tessalon and albuterol. Red flags for ER care discussed. Patient agreeable. - XR CHEST 2V FRONTAL/LAT - COVID & INFLUENZA A/B & RSV PCR, ROUTINE Rosmery Rodas PA-C documented in this encounter [facility] 07-03-2024 History of Present illness Narrative Radiology Service Progress Note PATIENT NAME: Flor Mayberry DATE OF SERVICE: July 03, 2024 TIME: 3:57 PM PATIENT IDENTITY VERIFICATION COMPLETED USING TWO (2) IDENTIFIERS: Name and Date of confirmed by patient verbally. FALL SCREENING: Has the patient had 2 falls in the last year or 1 fall with injury or currently using an Ambulatory Assistive Device (Walker, Cane, Wheelchair, Crutches, etc.)? No PATIENT GENDER DATA: Female. status: : No status: NO. PATIENT RELEVANT IMPLANT DATA REVIEWED: Yes PATIENT PRESENTS WITH AN IMPLANTABLE OR ATTACHED SMOKING PIPE DRILLER AND THREADER: No RADIOLOGY DEPARTMENT: General X-ray: Exam(s) Completed: Chest X-Ray PERIPHERAL IV DATA: Not applicable SIGNED BY: RT Lorrie(Vicki) July 03, 2024 3:57 PM documented in this encounter [facility] 07-03-2024 Note HNO ID: [id number] Author: REHANA ACOSTA RT(R) Service: ? Author Type: Optical Instruments Supervisor Type: Progress Notes Filed: 07/03/2024 16:06 Note Text: Radiology Service Progress Note PATIENT NAME: Flor Mayberry DATE OF SERVICE: July 03, 2024 TIME: 3:57 PM PATIENT IDENTITY VERIFICATION COMPLETED USING TWO (2) IDENTIFIERS: Name and Date of confirmed by patient verbally. FALL SCREENING: Has the patient had 2 falls in the last year or 1 fall with injury or currently using an Ambulatory Assistive Device (Walker, Cane, Wheelchair, Crutches, etc.)? No PATIENT GENDER DATA: Female. status: : No status: NO. PATIENT RELEVANT IMPLANT DATA REVIEWED: Yes PATIENT PRESENTS WITH AN IMPLANTABLE OR ATTACHED SMOKING PIPE DRILLER AND THREADER: No RADIOLOGY DEPARTMENT: General X-ray: Exam(s) Completed: Chest X-Ray PERIPHERAL IV DATA: Not applicable SIGNED BY: RT Lorrie(R) July 03, 2024 3:57 PM [facility] 06-23-2024 Note HNO ID: [id number] Author: TED GILL APRN.HEAVY EQUIPMENT SUPERVISOR Service: ? Author Type: Nurse Practitioner Type: Progress Notes Filed: 06/23/2024 14:32 Note Text: Flor Mayberry is a 74 year old female here for a Medicare wellness visit. Medicare Health Risk Assessment General Health good Exercise: Minutes/Day Walking dog daily Exercise: Days/Week 7 days a week Alcohol: Daily Use no Alcohol: Drinks/Day no Alcohol: 6 or more drinks no Feel off balance no Concerns: Teeth/Dentures no Concerns: Sexual function no Troubled by feelings no Frequency: Eating healthy diet Tries to eat healthy daily ADLs requiring help no Safety precautions in home/vehicle yes Smoke, vape, chews tobacco yes Difficulty hearing no Difficulty seeing no Current Providers Specialists: I have reviewed specialist-related care of the patient in the medical record. Current care team: Patient Care Team: Tanner Hook MD as PCP - General Valery Mireles MD as Referring (Vascular Surgery) Valery Mireles MD as Home Care Provider (Vascular Surgery) Shanna Almaguer RN as Wiring Mechanic (Post Acute Care) Cardiology Medical/Family history review Reviewed and updated problem list, medical/surgical/family/social history, medications, and allergies. Opioid use review Opioid Medications (last 90 days) No data to display Depression Screening No concerns, already diagnosed with depression. Cognitive screening Mini Cog Score: 5 Cognitive screening reviewed and No further action needed (score 3-5). Functional Observation Was the patient's Timed Up AND Go test unsteady or >= 12 seconds? No Advance Care Planning Surrogate decision maker and/or advance care plan documented Measurements BP 165/98 Pulse 85 Wt 67.9 kg (149 lb 11.1 oz) SpO2 96% BMI 28.28 kg/m? Vision Screening: Follows with optometry/ophthalmology SUBJECTIVE Flor Mayberry is a 74 year old female here today for a check up on her medical problems. Chief Complaint Patient presents with: Medicare Wellness Exam HPI Flor Mayberry is a 74 year old female. She is an established patient of Tanner Hook MD. Here today for follow up and medicare wellness. Needs to follow up with vascular. S/p AAA repair. Notes more issues with constipation lately. Planning for cataract surgery next week. Mood doing okay, depression and anxiety stable. Needs refills sent. Her medications were reviewed today and her list is now up to date. Medications Current Outpatient Medications Medication Sig DULoxetine (CYMBALTA) 60 mg capsule Take 1 capsule by mouth once daily. hydrOXYzine HCl (ATARAX) 25 mg tablet Take 1 tablet by mouth three times daily as needed. diphenhydrAMINE-Acetaminophen 25-500 mg tab Take 2 tablets by mouth at bedtime as needed (sleep). ELDERBERRY FRUIT ORAL Take by mouth once daily. esomeprazole (NEXIUM) 20 mg capsule Take 1 capsule by mouth once daily. aspirin 325 mg ORAL tablet 1 Tab ORAL DAILY atorvastatin (LIPITOR) 80 mg tablet TAKE 1/2 TABLET ONE TIME DAILY busPIRone HCl 30 mg tablet Take 1 tablet by mouth two times a day. As directed. ID#[id number] clopidogrel (PLAVIX) 75 mg tablet Take 1 tablet by mouth every afternoon. ezetimibe (ZETIA) 10 mg tablet Take 1 tablet by mouth every afternoon. LORazepam (ATIVAN) 0.5 mg Take 1 tablet by mouth two times a day as needed (anxiety) for up to 90 days. metoprolol succinate ER (TOPROL XL) 50 mg 24 hr tablet Take 1 tablet by mouth once daily. nitroglycerin sublingual (NITROQUICK) 0.4 mg SL tablet DISSOLVE ON TONGUE FOR CHEST PAIN. May repeat every 5 minutes up to total 3 doses. IF NO PAIN RELIEF, CALL 911 docusate sodium (COLACE) 100 mg capsule Take 1-2 capsules by mouth once daily as needed for constipation. gabapentin (NEURONTIN) 100 mg capsule Take 1 capsule by mouth daily at bedtime for 90 days. fluticasone (FLONASE ALLERGY RELIEF) 50 mcg/actuation nasal spray Use 1 [place] in each nostril once daily. (Patient not taking: Reported on 06/23/2024) No current facility-administered medications for this visit. 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 [facility] 06-23-2024 History of Present illness Narrative Images from the original note were not included. Flor Mayberry is a 74 year old female here for a Medicare wellness visit. Medicare Health Risk Assessment General Health good Exercise: Minutes/Day Walking dog daily Exercise: Days/Week 7 days a week Alcohol: Daily Use no Alcohol: Drinks/Day no Alcohol: 6 or more drinks no Feel off balance no Concerns: Teeth/Dentures no Concerns: Sexual function no Troubled by feelings no Frequency: Eating healthy diet Tries to eat healthy daily ADLs requiring help no Safety precautions in home/vehicle yes Smoke, vape, chews tobacco yes Difficulty hearing no Difficulty seeing no Current Providers Specialists: I have reviewed specialist-related care of the patient in the medical record. Current care team: Patient Care Team: Tanner Hook MD as PCP - General Valery Mireles MD as Referring (Vascular Surgery) Valery Mireles MD as Home Care Provider (Vascular Surgery) Shanna Almaguer RN as Wiring Mechanic (Post Acute Care) Cardiology Medical/Family history review Reviewed and updated problem list, medical/surgical/family/social history, medications, and allergies. Opioid use review Opioid Medications (last 90 days) No data to display Depression Screening No concerns, already diagnosed with depression. Cognitive screening Mini Cog Score: 5 Cognitive screening reviewed and No further action needed (score 3-5). Functional Observation Was the patient's Timed Up & Go test unsteady or >= 12 seconds? No Advance Care Planning Surrogate decision maker and/or advance care plan documented Measurements BP 165/98 Pulse 85 Wt 67.9 kg (149 lb 11.1 oz) SpO2 96% BMI 28.28 kg/m Vision Screening: Follows with optometry/ophthalmology SUBJECTIVE Flor Mayberry is a 74 year old female here today for a check up on her medical problems. Chief Complaint Patient presents with: Medicare Wellness Exam HPI Flor Mayberry is a 74 year old female. She is an established patient of Tanner Hook MD. Here today for follow up and medicare wellness. Needs to follow up with vascular. S/p AAA repair. Notes more issues with constipation lately. Planning for cataract surgery next week. Mood doing okay, depression and anxiety stable. Needs refills sent. Her medications were reviewed today and her list is now up to date. Medications Current Outpatient Medications Medication Sig DULoxetine (CYMBALTA) 60 mg capsule Take 1 capsule by mouth once daily. hydrOXYzine HCl (ATARAX) 25 mg tablet Take 1 tablet by mouth three times daily as needed. diphenhydrAMINE-Acetaminophen 25-500 mg tab Take 2 tablets by mouth at bedtime as needed (sleep). ELDERBERRY FRUIT ORAL Take by mouth once daily. esomeprazole (NEXIUM) 20 mg capsule Take 1 capsule by mouth once daily. aspirin 325 mg ORAL tablet 1 Tab ORAL DAILY atorvastatin (LIPITOR) 80 mg tablet TAKE 1/2 TABLET ONE TIME DAILY busPIRone HCl 30 mg tablet Take 1 tablet by mouth two times a day. As directed. ID#[id number] clopidogrel (PLAVIX) 75 mg tablet Take 1 tablet by mouth every afternoon. ezetimibe (ZETIA) 10 mg tablet Take 1 tablet by mouth every afternoon. LORazepam (ATIVAN) 0.5 mg Take 1 tablet by mouth two times a day as needed (anxiety) for up to 90 days. metoprolol succinate ER (TOPROL XL) 50 mg 24 hr tablet Take 1 tablet by mouth once daily. nitroglycerin sublingual (NITROQUICK) 0.4 mg SL tablet DISSOLVE ON TONGUE FOR CHEST PAIN. May repeat every 5 minutes up to total 3 doses. IF NO PAIN RELIEF, CALL 911 docusate sodium (COLACE) 100 mg capsule Take 1-2 capsules by mouth once daily as needed for constipation. gabapentin (NEURONTIN) 100 mg capsule Take 1 capsule by mouth daily at bedtime for 90 days. fluticasone (FLONASE ALLERGY RELIEF) 50 mcg/actuation nasal spray Use 1 [place] in each nostril once daily. (Patient not taking: Reported on 06/23/2024) No current facility-administered medications for this visit. ALLERGIES Allergen Reactions Augmentin [Amoxicil* Hives Bactrim [Sulfametho* GI Upset Sick to her stomach; prefers to avoid med Doxycycline Vomiting Levofloxacin Other: See Comments Knee pain Wellbutrin [Bupropi* vivid dreams Zocor [Simvastatin] Intolerance Muscle aches ACTIVE PROBLEM LIST Mixed Hyperlipidemia (B priority) Comment: History: home meds lipitor 40mg daily, 80mg caused muscle pains Assessment: tolerating diet Plan: Continue lipitor [facility] Primary Hypertension - 10/04/2023 Anginal Equivalent (Hcc) - 08/27/2023 [place] (Dyspnea On Exertion) - 07/12/2023 Abdominal Aortic Aneurysm (Aaa) Without Rupture (Hcc) - 02/02/2023 Chronic Bronchitis (Hcc) - 04/01/2020 Status Post Aaa (Abdominal Aortic Aneurysm) Repair - 02/29/2020 Comment: 02/29/2020 open infrarenal AAA repair Hx: smoker, COPD, [place], [place] Assessment: Ismael, left RP incision dry and intact Plan: Continue ASA, plavix, statin Impaired Glucose Metabolism - 10/20/2019 Obstructive Sleep Apnea - 10/20/2019 Comment: History: Noncompliant with home bipap Plan: Continue Bipap PRN Recurrent Major Depression in Partial Remission (Hcc) - 08/24/2019 Cigarette Smoker - 05/16/2017 Comment: History: 08/03 to 10/03 PPD Assessment: willing to quit, states she's done Plan: Continue to encourage smoking cessation Anxiety Disorder - 05/05/2015 Vitamin D Deficiency - 05/05/2015 Chest Pain - 10/05/2012 Diaphragmatic Hernia Without Mention of Obstruction Or Gangrene - 03/22/2012 Coronary Artery Disease Involving [place] Coronary Artery of [place] Heart Without Angina Pectoris - 06/17/2010 History of Non-St Elevation Myocardial Infarction (Nstemi) - 06/01/2010 Comment: History: 06/2010 Anterior STEMI, LHC with significant lesions in LAD and D1. 2 KYLE to LAD and D1 Home meds: full strength ASA, 75mg plavix, lopressor & 40mg lipitor, zetia 10mg daily Assessment: Stable Plan: CAD Core Measures: Aspirin: Yes Plavix resumed 03/08 Beta blockers: Yes Statins: Yes Osteoporosis Allergic Rhinitis - 11/22/2006 Esophageal Reflux - 02/05/2006 Social History Tobacco Use Smoking status: Every Day Current packs/day: 0.50 Average packs/day: 0.5 packs/day for 40.0 years (20.0 ttl pk-yrs) Types: Cigarettes Smokeless tobacco: Never Tobacco comments: less than a pack per day--almost ready to quit Vaping Use Vaping status: Never Used Substance Use Topics Alcohol use: Yes Alcohol/week: 1.0 standard drink of alcohol Types: 1 Cans of Beer (12oz) per week Comment: seldom Drug use: No Review of Systems Constitutional: Negative. Respiratory: Negative. OBJECTIVE BP 133/80 Pulse 85 Wt 149 lb 11.1 oz (67.9kg) SpO2 96% Physical Exam Vitals and nursing note reviewed. Constitutional: General: She is awake. She is not in acute distress. Appearance: Normal appearance. She is well-developed and well-groomed. She is not ill-appearing, toxic-appearing or diaphoretic. HENT: Head: Normocephalic. Right Ear: External ear normal. Left Ear: External ear normal. Nose: Nose normal. Eyes: General: Vision grossly intact. Conjunctiva/sclera: Conjunctivae normal. Pupils: Pupils are equal, round, and reactive to light. Neck: Vascular: No JVD. Trachea: Trachea normal. Cardiovascular: Rate and Rhythm: Normal rate and regular rhythm. Pulses: Normal pulses. Heart sounds: Normal heart sounds. No murmur heard. Pulmonary: Effort: Pulmonary effort is normal. No accessory muscle usage, prolonged expiration or respiratory distress. Breath sounds: Normal breath sounds. Musculoskeletal: Cervical back: Neck supple. Skin: General: Skin is warm and dry. Capillary Refill: Capillary refill takes less than 2 seconds. Neurological: General: No focal deficit present. Mental Status: She is alert and oriented to person, place, and time. Mental status is at baseline. Psychiatric: Attention and Perception: Attention and perception normal. Mood and Affect: Mood and affect normal. Speech: Speech normal. Behavior: Behavior normal. Behavior is cooperative. Thought Content: Thought content normal. Cognition and Memory: Cognition and memory normal. Judgment: Judgment normal. ASSESSMENT/PLAN: 1. Medicare annual wellness visit, subsequent - ICD9: V70.0, ICD10: Z00.00 (primary diagnosis) - Counseled on healthy diet and regular exercise - Fall avoidance information provided - Personalized prevention plan provided 2. Mixed hyperlipidemia - ICD9: 272.2, ICD10: E78.2 - Control undetermined, due for labs - Continue current medications - Counseled on healthy diet and regular exercise - ATORVASTATIN 80 MG TABLET - EZETIMIBE 10 MG TABLET - METOPROLOL SUCCINATE ER 50 MG TABLET,EXTENDED RELEASE 24 HR - LIPID PANEL BASIC 3. Other specified anxiety disorders - ICD9: 300.09, ICD10: F41.8 Stable with Ativan. - LORAZEPAM 0.5 MG TABLET 4. Encounter for long-term current use of medication - ICD9: V58.69, ICD10: Z79.899 - COMPLETE BLOOD COUNT AND DIFFERENTIAL - COMPREHENSIVE METABOLIC PANEL - MAGNESIUM 5. ASCVD (arteriosclerotic cardiovascular disease) - ICD9: 429.2, 440.9, ICD10: I25.10 - METOPROLOL SUCCINATE ER 50 MG TABLET,EXTENDED RELEASE 24 HR - NITROGLYCERIN 0.4 MG SUBLINGUAL TABLET 6. Vitamin D deficiency - ICD9: 268.9, ICD10: E55.9 - VITAMIN D 25 HYDROXY 7. Elevated glucose - ICD9: 790.29, ICD10: R73.09 - HEMOGLOBIN A1C 8. Stage 3a chronic kidney disease (HCC) - ICD9: 585.3, ICD10: N18.31 - eGFR: 58 Stable - Counseled on avoiding NSAIDs, adequate hydration - Counseled on low sodium diet 9. Recurrent major depression in partial remission (HCC) - ICD9: 296.35, ICD10: F33.41 Stable. 10. S/P AAA repair - ICD9: V45.89, ICD10: Z98.890, Z86.79 Follow up cardiology and vascular. 11. Constipation, unspecified constipation type - ICD9: 564.00, ICD10: K59.00 Try Colace 1-2 capsules daily. 12. Sleep disturbance - ICD9: 780.50, ICD10: G47.9 She would like to try gabapentin at . Portions of this note have been entered by ancillary staff. I have reviewed and when necessary edited, so that they are an adequate record of my encounter with this patient Please note that parts of this document were created using voice recognition software and therefore may contain grammatical errors. Patient verbalizes understanding of instructions from today's visit and in agreement with treatment plan. Questions answered. Agrees to call the office if questions, concerns of issues with acute symptoms not improving or if they worsen. See diagnoses and orders for additional plan(s). Allergies and medications were reviewed, list was updated, and refills given if needed. Past medical, surgical, social, and family history reviewed and updated as appropriate. Encouraged proper diet & exercise as well as compliance with taking medications. Age-appropriate health preventative measures were discussed. Return if symptoms worsen or fail to improve, for Keep next scheduled appointment.. Ted Gill APRN-LUIS FERNANDO documented in this encounter [facility] 06-23-2024 Instructions Ted Gill APRN.CNP - 06/23/2024 1:29 PM EST Screening schedule The following prevention plan is recommended: Shingrix Vaccine(1 of 2) Never done Bone Density Screening due on 04/06/2020 Lung Cancer Screening due on 03/04/2021 DTaP,Tdap,Td Vaccine(2 - Td or Tdap) due on 06/04/2021 Advance Directive Discussion due on 08/02/2023 Colorectal Cancer Screening due on 01/13/2024 Influenza Vaccine(1) due on 04/02/2024 RSV Vaccine(1 - 1-dose 75+ series) Never done LDL Cholesterol due on 06/28/2024 WHAT YOU CAN DO TO PREVENT FALLS Many falls can be prevented. By making some changes, you can lower your chances of falling. Four things YOU can do to prevent falls for you* and your caregiver 1. Begin a regular exercise program Exercise is one of the most important ways to lower your chances of falling. It makes you stronger and helps you feel better. Exercises that improve balance and coordination (like Angelito Chi) are the most helpful. Lack of exercise leads to weakness and increases your chances of falling. Ask your doctor or health care provider about the best type of exercise program for you. 2. Have your health care provider review your medicines Have your doctor or pharmacist review all the medicines you take, even [id number] medicines. As you get older, the way medicines work in your body can change. Some medicines, or combinations of medicines, can make you sleepy or dizzy and can cause you to fall. 3. Have your vision checked Have your eyes checked by an eye doctor at least once a year. You may be wearing the wrong glasses or have a condition like glaucoma or cataracts that limits your vision. Poor vision can increase your chances of falling. 4. Make your home safer About half of all falls happen at home. To make your home safer: Remove things you can trip over (like papers, books, clothes, and shoes) from stairs and places where you walk. Remove small throw rugs or use double-sided tape to keep the rugs from slipping. Keep items you use often in cabinets you can reach easily without using a step stool. Have grab bars put in next to your toilet and in the tub or shower. Use non-slip mats in the bathtub and on shower floors. Improve the lighting in your home. As you get older, you need brighter lights to see well. Hang light-weight curtains or shades to reduce glare. Have handrails and lights put in on all staircases. Wear shoes both inside and outside the house. Avoid going barefoot or wearing slippers. For more information, contact: Centers for Disease Control and Prevention www.cdc.gov/injury * This information may not apply if you have certain medical conditions. documented in this encounter [facility] 01-07-2024 Instructions Tanner Hook MD - 01/07/2024 3:06 PM EDT BONE MINERAL DENSITY PATIENT INSTRUCTIONS ======== Bone mineral density testing measures the amount of calcium in certain parts of your bones. This information determines how strong your bones are. The test is used to detect osteoporosis, a disease in which the bone's mineral content and density are low, increasing a person's risk of fractures. The lumbar spine (lower back) and the hip are the skeletal sites usually examined. For the test, remember that: 1. You cannot take this test if you are . 2. Eat a normal diet on the day of the test. 3. Take your medications as you normally would. 4. DO NOT take calcium supplements (such as Tums) for 24 hours before the test. 5. On the day of the test, leave valuables (jewelry or credit cards) at home. 6. The test should be performed prior to oral, rectal or IV contrast studies, or at least 7 days after any of these studies. For the test, you may be asked to wear a hospital gown. You will lie on your back, on a padded table, in a comfortable position. Generally, you can resume your usual activities immediately. documented in this encounter [facility] 01-07-2024 History of Present illness Narrative Images from the original note were not included. This note was created using Waluzi. Subjective Flor Mayberry is a 73 year old female. Patient presents with: F/U 6 months SUBJECTIVE: Flor Mayberry is a 73 year old year old lady here today for 6 month follow up appointment for review of medical conditions. Sharp pain left side every once in a while Started last night Could not sleep. Feels like a lump. Tried hot bath--no help Feels like a betty horse. Last night had beans and hot dogs. Last night had all the pain and pressure. Had been several days since last BM before last night. During the night had large stool but pain not better. Noted eats a little and feels full. Things do not taste good. Bowels were doing well but now 3 days without BM then has normal BM and now straining. Was going daily to every other day. Used to go once weekly and was okay. Noted on side had surgery for AAA. PAST MEDICAL HISTORY Diagnosis Date Allergic rhinitis, cause unspecified 11/22/2006 Anxiety state, unspecified 02/05/2006 Depressive disorder, not elsewhere classified 02/05/2006 Diaphragmatic hernia without mention of obstruction or gangrene Esophageal reflux 02/05/2006 [facility] 06/02/2010 Mixed hyperlipidemia Osteoporosis, unspecified Status post AAA (abdominal aortic aneurysm) repair 3.2 cm (last CT 07/09)--Plan Ultrasound AAA Jul 2010;02/29/2020: Open retroperitoneal infrarenal AAA repair with left renal artery bypass Current Outpatient Medications Medication Sig fluticasone (FLONASE ALLERGY RELIEF) 50 mcg/actuation nasal spray Use 1 [place] in each nostril once daily. (Patient taking differently: Use 1 [place] in each nostril once daily as needed.) DULoxetine (CYMBALTA) 60 mg capsule Take 1 capsule by mouth once daily. atorvastatin (LIPITOR) 80 mg tablet TAKE 1/2 TABLET ONE TIME DAILY clopidogrel (PLAVIX) 75 mg tablet Take 1 tablet by mouth every afternoon. metoprolol succinate ER (TOPROL XL) 25 mg 24 hr tablet Take 1 tablet by mouth once daily. ezetimibe (ZETIA) 10 mg tablet Take 1 tablet by mouth every afternoon. busPIRone HCl 30 mg tablet Take 1 tablet by mouth two times a day. As directed. ID#[id number] nitroglycerin sublingual (NITROQUICK) 0.4 mg SL tablet DISSOLVE ON TONGUE FOR CHEST PAIN. May repeat every 5 minutes up to total 3 doses. IF NO PAIN RELIEF, CALL 911 LORazepam (ATIVAN) 0.5 mg Take 1 tablet by mouth twice daily as needed (anxiety) for up to 90 days. Do not start before February 07, 2023. hydrOXYzine HCl (ATARAX) 25 mg tablet Take 1 tablet by mouth three times daily as needed. ergocalciferol 50,000 unit capsule (VITAMIN D2, DRISDOL) Take 1 capsule by mouth every other week. diphenhydrAMINE-Acetaminophen 25-500 mg tab Take 2 tablets by mouth at bedtime as needed (sleep). ELDERBERRY FRUIT ORAL Take by mouth once daily. esomeprazole (NEXIUM) 20 mg capsule Take 1 capsule by mouth once daily. aspirin 325 mg ORAL tablet 1 Tab ORAL DAILY No current facility-administered medications for this visit. Review of Systems Objective BP 114/72 Pulse 96 Temp 36.4 C (97.6 F) Resp 18 Wt 69.3 kg (152 lb 12.8 oz) SpO2 97% BMI 28.87 kg/m Physical Exam Constitutional: Appearance: Normal appearance. HENT: Head: Normocephalic. Eyes: Conjunctiva/sclera: Conjunctivae normal. Cardiovascular: Rate and Rhythm: Normal rate and regular rhythm. Heart sounds: Normal heart sounds. Pulmonary: Effort: Pulmonary effort is normal. Breath sounds: Normal breath sounds. Abdominal: General: There is distension (Left lateral side palpable and very tender over area of abdominal scar from AAA surgery repair). Palpations: Abdomen is soft. There is mass (left lateral/LUQ area). Tenderness: There is abdominal tenderness (tenderness along lateral part of scar where feels like a mass going around left side) in the left upper quadrant. Hernia: A hernia (appears to have a hernia defect in area of the scar from AAA repair with what seems to be a nonreducible mass) is present. Musculoskeletal: Right lower leg: No edema. Left lower leg: No edema. Skin: General: Skin is warm and dry. Neurological: General: No focal deficit present. Mental Status: She is alert and oriented to person, place, and time. Psychiatric: Mood and Affect: Mood normal. Behavior: Behavior normal. Thought Content: Thought content normal. Judgment: Judgment normal. Assessment and Plan Encounter Diagnosis ICD-10-CM 1. Acute LUQ pain R10.12 Started last night&staying severe.No signs of complete obstruction but loss of appetite noted.Some intermittent nausea.Feelsl ilene hernia that is nonreducible 2. S/P AAA repair Z98.890 Z86.79 Appears to have ventral hernia associated with thie incision from this repair. Referring to [facility] ER for stat evaluation--worried might become incarcerated 3. Coronary artery disease involving [place] coronary artery of [place] heart without angina pectoris I25.10 Had recent heart cath 08/2023. LAD stent is patent. Has RCA CAD but nonobstructive per cardiology note.Continue present managment 4. Other specified anxiety disorders F41.8 LORazepam (ATIVAN) 0.5 mg Stable on med 5. Mixed hyperlipidemia E78.2 LIPID PANEL BASIC THYROID STIMULATING HORMONE T4 FREE/FREE THYROXINE Continue on statin; labs as ordered 6. Vitamin D deficiency E55.9 VITAMIN D 25 HYDROXY Follow up labs 7. Elevated glucose R73.09 COMPREHENSIVE METABOLIC PANEL HEMOGLOBIN A1C Not DM range. Follow up labs 8. Primary hypertension I10 THYROID STIMULATING HORMONE T4 FREE/FREE THYROXINE Controlled. Continue meds 9. Encounter for immunization Z23 SHINGRIX PRINTED PHARMACY INSTRUCTIONS RSV PRINTED PHARMACY INSTRUCTIONS TDAP PRINTED PHARMACY INSTRUCTIONS 10. Asymptomatic menopause Z78.0 DXA-AXIAL SKELETON BD DXA TRABECULAR BONE SCORE (TBS) 11. Encounter for long-term current use of medication Z79.899 LORazepam (ATIVAN) 0.5 mg COMPREHENSIVE METABOLIC PANEL HEMOGLOBIN A1C COMPLETE BLOOD COUNT LIPID PANEL BASIC VITAMIN D 25 HYDROXY MAGNESIUM 12. Chronic bronchitis, unspecified chronic bronchitis type (HCC) J42 Needs follow up with Consult to Pulmonology plus Spirometery Above issues addressed with patient. Patient involved in shared decision making for management of medical issues. History and medications reviewed. Epic updated as needed Refills and/or prescriptions taken care of and meds adjusted as indicated after reviewed history, exam and labs. Health Maintenance reviewed. Updated record and/or ordered tests as recorded. Encouraged on efforts at healthy diet and regular exercise and adequate sleep. Will refer to ER for evaluation. Will fax this to them so are aware reasons sent and most recent meds, etc. Further evaluation and treatment as indicated. I spent a total of 44 minutes on the date of the service which included [id number] patient care, completing clinical documentation, obtaining and/or reviewing separately obtained history, performing a medically appropriate examination, counseling and educating the patient/family/caregiver, and ordering medications, tests, or procedures. Tanner Hook MD documented in this encounter [facility] 10-04-2023 History of Present illness Narrative Images from the original note were not included. Jonathan Chan MD Interventional Cardiology [address], [place] [address] [id number] Chief Complaint Patient presents with: Established Patient Follow-Up HISTORY OF PRESENT ILLNESS: Ms. Mayberry is a 73 year old female with cardiac catheterization patient had prior history of coronary artery disease stenting of the proximal LAD chronic catheterization shows moderate nonobstructive coronary artery disease involve the right coronary artery with a patent stent to the LAD and moderate disease in diagonal Coronary tobacco abuse likely nonobstructive coronary disease Patient could not tolerate Imdur she was extremely dizzy and lightheaded Cardiac Risk Factors age (male over 45, female over 55), hyperlipidemia, history of smoking, hypertension, family history of CAD PAST MEDICAL HISTORY Diagnosis Date Allergic rhinitis, cause unspecified 11/22/2006 Anxiety state, unspecified 02/05/2006 Depressive disorder, not elsewhere classified 02/05/2006 Diaphragmatic hernia without mention of obstruction or gangrene Esophageal reflux 02/05/2006 [facility] 06/02/2010 Mixed hyperlipidemia Osteoporosis, unspecified Status post AAA (abdominal aortic aneurysm) repair 3.2 cm (last CT 07/09)--Plan Ultrasound AAA Jul 2010;02/29/2020: Open retroperitoneal infrarenal AAA repair with left renal artery bypass PAST SURGICAL HISTORY Procedure Laterality Date ABD AORTA ANEURYSM REPAIR 02/29/2020 open aneurysm repair for an aneurysm with a maximal transverse diameter of 6 cm; 02/29/2020: Open retroperitoneal infrarenal AAA repair with left renal artery bypass ARTHRP ACETBLR/PROX FEM PROSTC AGRFT/ALGRFT 04/29/2012 [facility]-right BX BREAST W/DEVICE 1ST LESION STEREOTACTIC GUID 06/18/2014 benign COLONOSCOPY FLX DX W/COLLJ SPEC WHEN PFRMD 11/08/[address] Dr. [address] [facility] COLONOSCOPY FLX DX W/COLLJ SPEC WHEN PFRMD 03/22/2012 Colonoscopy ESOPHAGOGASTRODUODENOSCOPY TRANSORAL DIAGNOSTIC 03/22/2012 EGD MAMMO STEREOTACTIC CORE BIOPSY LT 08/02/1998 left benign - Dr. Gordon PAST SURGICAL HISTORY OF Bilateral 08/02/1998 foot surgery PAST SURGICAL HISTORY OF 06/02/2010 angioplasty with stent FAMILY HISTORY Problem Relation Age of Onset Cancer Mother colon Stroke Mother other (past history) Father abdominal aortic aneurysm Social History Tobacco Use Smoking status: Every Day Packs/day: 0.50 Years: 40.00 Additional pack years: 0.00 Total pack years: 20.00 Types: Cigarettes Smokeless tobacco: Never Tobacco comments: less than a pack per day--almost ready to quit Vaping Use Vaping Use: Never used Substance Use Topics Alcohol use: Yes Alcohol/week: 1.0 standard drink of alcohol Types: 1 Cans of Beer (12oz) per week Comment: seldom Drug use: No ALLERGIES Allergen Reactions Augmentin [Amoxicil* Hives Bactrim [Sulfametho* GI Upset Sick to her stomach; prefers to avoid med Doxycycline Vomiting Levofloxacin Other: See Comments Knee pain Wellbutrin [Bupropi* vivid dreams Zocor [Simvastatin] Intolerance Muscle aches Medications: Current Outpatient Medications Medication Sig Dispense Refill fluticasone (FLONASE ALLERGY RELIEF) 50 mcg/actuation nasal spray Use 1 [place] in each nostril once daily. 11.1 mL 0 DULoxetine (CYMBALTA) 60 mg capsule Take 1 capsule by mouth once daily. 90 capsule 3 atorvastatin (LIPITOR) 80 mg tablet TAKE 1/2 TABLET ONE TIME DAILY 45 tablet 3 clopidogrel (PLAVIX) 75 mg tablet Take 1 tablet by mouth every afternoon. 90 tablet 3 metoprolol succinate ER (TOPROL XL) 25 mg 24 hr tablet Take 1 tablet by mouth once daily. 90 tablet 3 ezetimibe (ZETIA) 10 mg tablet Take 1 tablet by mouth every afternoon. 90 tablet 3 busPIRone HCl 30 mg tablet Take 1 tablet by mouth two times a day. As directed. ID#[id number] 180 tablet 3 nitroglycerin sublingual (NITROQUICK) 0.4 mg SL tablet DISSOLVE ON TONGUE FOR CHEST PAIN. May repeat every 5 minutes up to total 3 doses. IF NO PAIN RELIEF, CALL 911 25 tablet 1 LORazepam (ATIVAN) 0.5 mg Take 1 tablet by mouth twice daily as needed (anxiety) for up to 90 days. Do not start before February 07, 2023. 60 tablet 2 hydrOXYzine HCl (ATARAX) 25 mg tablet Take 1 tablet by mouth three times daily as needed. 60 tablet 1 ergocalciferol 50,000 unit capsule (VITAMIN D2, DRISDOL) Take 1 capsule by mouth every other week. diphenhydrAMINE-Acetaminophen 25-500 mg tab Take 2 tablets by mouth at bedtime as needed (sleep). ELDERBERRY FRUIT ORAL Take by mouth once daily. esomeprazole (NEXIUM) 20 mg capsule Take 1 capsule by mouth once daily. aspirin 325 mg ORAL tablet 1 Tab ORAL DAILY 30 Tab 0 No current facility-administered medications for this visit. Review of Systems Constitutional: Negative for chills, diaphoresis, fever, malaise/fatigue and weight loss. HENT: Negative for congestion, ear discharge, ear pain, hearing loss, nosebleeds, sinus pain, sore throat and tinnitus. Eyes: Negative for blurred vision, double vision, photophobia, pain, discharge and redness. Respiratory: Positive for shortness of breath. Negative for cough, hemoptysis, sputum production, wheezing and stridor. Cardiovascular: Negative for chest pain, palpitations, orthopnea, claudication, leg swelling and PND. Gastrointestinal: Negative for abdominal pain, blood in stool, constipation, diarrhea, heartburn, melena, nausea and vomiting. Genitourinary: Negative for dysuria, flank pain, frequency, hematuria and urgency. Musculoskeletal: Negative for back pain, falls, joint pain, myalgias and neck pain. Skin: Negative for itching and rash. Neurological: Negative for dizziness, tingling, tremors, sensory change, speech change, focal weakness, seizures, loss of consciousness, weakness and headaches. Endo/Heme/Allergies: Negative for environmental allergies and polydipsia. Does not bruise/bleed easily. Psychiatric/Behavioral: Negative for depression, hallucinations, memory loss, substance abuse and suicidal ideas. The patient is not nervous/anxious and does not have insomnia. Physical Examination: Vitals:BP 131/90 Pulse 83 Resp 16 Wt 154 lb (69.9kg) SpO2 98% BP w/Orthostatic Vitals Date and Time Orthostatic BP Orthostatic Pulse BP Pulse BP Position BP Site BP Cuff Size 10/04/23 1022 -- -- 131/90 83 Sitting Right Arm Regular Adult Peak Flow Date and Time PF Resp 10/04/23 1022 -- 16 Last 2 Encounter Wt Readings: Date: Wt: 10/04/2023 69.9 kg (154 lb) 07/30/2023 69.4 kg (153 lb) Physical Exam Constitutional: General: She is not in acute distress. Appearance: She is not diaphoretic. HENT: Head: Normocephalic and atraumatic. Right Ear: External ear normal. Left Ear: External ear normal. Nose: Nose normal. Mouth/Throat: Pharynx: Oropharynx is clear. Eyes: General: Right eye: No discharge. Left eye: No discharge. Conjunctiva/sclera: Conjunctivae normal. Pupils: Pupils are equal, round, and reactive to light. Cardiovascular: Rate and Rhythm: Normal rate and regular rhythm. Heart sounds: Normal heart sounds, S1 normal and S2 normal. No murmur heard. No friction rub. No gallop. No S3 or S4 sounds. Pulmonary: Effort: Pulmonary effort is normal. No respiratory distress. Breath sounds: Normal breath sounds. No wheezing or rales. Chest: Chest wall: No tenderness. Musculoskeletal: General: Normal range of motion. Cervical back: Normal range of motion and neck supple. Skin: General: Skin is warm and dry. Neurological: Mental Status: She is alert and oriented to person, place, and time. Psychiatric: Mood and Affect: Mood normal. Thought Content: Thought content normal. Judgment: Judgment normal. Pertinent Labs: CBC: Hemoglobin (g/dL) Date Value 07/30/2023 14.2 08/29/2021 13.9 Hematocrit (%) Date Value 07/30/2023 43.6 08/29/2021 41.5 WBC (k/uL) Date Value 07/30/2023 8.28 08/29/2021 8.33 Platelet Count (k/uL) Date Value 07/30/2023 262 08/29/2021 271 BMP: Glucose (mg/dL) Date Value 07/30/2023 114 08/29/2021 96 Potassium (mmol/L) Date Value 07/30/2023 4.6 08/29/2021 4.1 Sodium (mmol/L) Date Value 07/30/2023 139 08/29/2021 135 Chloride (mmol/L) Date Value 07/30/2023 103 08/29/2021 102 CO2 (mmol/L) Date Value 07/30/2023 26 08/29/2021 21 Creatinine (mg/dL) Date Value 07/30/2023 1.02 08/29/2021 1.15 BUN (mg/dL) Date Value 07/30/2023 21 08/29/2021 16 Anion Gap (mmol/L) Date Value 07/30/2023 10 08/29/2021 12 Calcium (mg/dL) Date Value 08/29/2021 8.9 Calcium, Total (mg/dL) Date Value 07/30/2023 9.5 INR: Lipid Profile: Total Cholesterol, Nonfasting Date Value Ref Range Status 06/28/2023 152 <200 mg/dL Final Comment: <200 mg/dL, Desirable 200-239 mg/dL, Borderline high >239 mg/dL, High HDL Cholesterol, Nonfasting Date Value Ref Range Status 06/28/2023 38 (L) >39 mg/dL Final Comment: 40-59 mg/dL, Acceptable >59 mg/dL, High: Negative risk factor for coronary heart disease <40 mg/dL, Low: Positive risk factor for coronary heart disease LDL Cholesterol, Nonfasting Date Value Ref Range Status 06/28/2023 70 <100 mg/dL Final Comment: <100 mg/dL, Optimal 100-129 mg/dL, Near optimal/above optimal 130-159 mg/dL, Borderline high 160-189 mg/dL, High >189 mg/dL, Very high Secondary prevention optimal LDL Cholesterol levels are recommended to be < 70 mg/dL Triglycerides, Nonfasting Date Value Ref Range Status 06/28/2023 220 (H) <150 mg/dL Final Comment: <150 mg/dL, Normal 150-199 mg/dL, Borderline high 200-499 mg/dL, High >499 mg/dL, Very high Hemoglobin A1C: No results found for: HGBA1C TSH: No results found for: TSHREFL Prior Cardiac Testing Coronary angiography Assessment and Plan: 73 years old female patient with history of coronary artery disease with prior history of LAD stent ASSESSMENT/PLAN: 1. Mixed hyperlipidemia - ICD9: 272.2, ICD10: E78.2 (primary diagnosis) - Controlled - Continue current medications - Counseled on healthy diet and regular exercise 2. Status post AAA (abdominal aortic aneurysm) repair - ICD9: V45.89, ICD10: Z98.890, Z86.79 NEED surveillance ultrasound 3. Chronic bronchitis, unspecified chronic bronchitis type (HCC) - ICD9: 491.9, ICD10: J42 Consult pulmonology for further assessment management - CONSULT TO PULMONARY MEDICINE 4. Coronary artery disease involving [place] coronary artery of [place] heart without angina pectoris - ICD9: 414.01, ICD10: I25.10 Stable coronary artery disease risk factor modification medical therapy 5. Primary hypertension - ICD9: 401.9, ICD10: I10 - Controlled - Continue current medications - Recommend home blood pressure monitoring, to bring results to next visit - Encouraged sodium restriction, DASH or Mediterranean diet - Recommend regular aerobic exercise Jonathan Chan MD Follow up planning: ONE YEAR Electronically signed by Jonathan Chan MD on October 04, 2023, 10:54 AM The above note was partially created using a dictation recognition software. A reasonable attempt has been made to correct any errors. documented in this encounter [facility] 08-27-2023 Note HNO ID: [id number] Author: JANNY CANAS RN Service: Nursing Author Type: Registered Nurse Type: Nursing Progress Note Filed: 08/27/2023 10:07 Note Text: Other:Dr. Chan notified about hematoma, Rudi RN holding manually pressure on Right Ulna area. [facility] 08-27-2023 Note HNO ID: [id number] Author: JONATHAN CHAN MD Service: Cardiovascular Surgery Author Type: Physician Type: Procedures Filed: 08/27/2023 09:41 Note Text: LEFT HEART CATHETERIZATION PROCEDURE NOTE Surgery/Procedure Date: 08/27/2023 Referring Physician: Clinical History: This is a 73 year old female with history CAD and LAD / D1 KYLE for coronary angiography and Right heart cath. Consent: Informed consent was obtained after the risks, benefits, and alternatives to and of this procedure were discussed in detail with the patient. Procedure in Detail: The patient was brought to the cardiac catheterization laboratory, prepped and draped in the usual sterile fashion. Anxiolysis was achieved with intravenous and intravenous benadryl. Local anesthesia was achieved over the wrist with 1% lidocaine. A pre-flushed 6[place] sheath was inserted into the right radial artery via the Seldinger technique without complications. Retrograde percutaneous diagnostic coronary angiography and left ventriculography were performed using a Nathalia left 4 catheter, a 3-D RC catheter, and an angled pigtail catheter. There were no complications of the procedure. Findings: Angiography: LEFT MAIN: Normal . LEFT CIRCUMFLEX: 50% OM 1, 50% OM2. LEFT ANTERIOR DESCENDING: Patent LAD KYLE and patent D1 stent . RIGHT CORONARY ARTERY: Dominant with PROXIMAL 80% with diffuse distal disease. LEFT VENTRICULOGRAPHY: Normal LV size and function LVEF= 60% Right heart cath : 1. Mild to Moderate pulmonary hypertension . PA 30 mmHg. 2. Moderate to severe Disease in the RCA for medical therapy. 3. Normal LV size and function . 4. Patent LAD/D stent. At this point, the procedure was terminated. All diagnostic wires and catheters were removed. Recommendations: 1. Daily aspirin indefinitely 2. Daily plavix . 3. Statin use 4. Secondary cardiac prevention measures. 5. Pulmonary function test and pulmonary consult. 6. Imdur 30 mg daily SIGNATURE: Jonathan Chan MD PATIENT NAME: Flor Mayberry DATE: August 27, 2023 TIME: 9:33 AM [facility] 07-30-2023 History of Present illness Narrative Radiology Service Progress Note PATIENT NAME: Flor Mayberry DATE OF SERVICE: July 30, 2023 TIME: 3:50 PM PATIENT IDENTITY VERIFICATION COMPLETED USING TWO (2) IDENTIFIERS: Name and Date of confirmed by patient verbally. FALL SCREENING: Has the patient had 2 falls in the last year or 1 fall with injury or currently using an Ambulatory Assistive Device (Walker, Cane, Wheelchair, Crutches, etc.)? No PATIENT GENDER DATA: Male PATIENT RELEVANT IMPLANT DATA REVIEWED: Yes RADIOLOGY DEPARTMENT: General X-ray: Exam(s) Completed: Chest X-Ray PERIPHERAL IV DATA: Not applicable SIGNED BY: RT Jensen(R) July 30, 2023 3:50 PM documented in this encounter [facility] 07-12-2023 Miscellaneous Notes Patient scheduled for left heart cath with Dr Chan on 08/06/2023. Instructions reviewed. Questions answered. Patient verbalized understanding. Instructions were as follows: -Arrive to [facility] En[facility]ance 08/06/2023 at time assigned by [facility] staff in phone call 08/05/2023 between 2-5 PM. -Pt to increase po water intake day prior to heart cath. Pt may eat a light meal and drink clear liquids until 3 hours prior to procedure. -With a sip of water on 08/06/2023 morning take: Aspirin 81 mg along with usual BP meds- Plavix 75 mg and Metoprolol Succ 25 mg -Labs to be completed 48 hours prior to procedure - You must have someone drive you home from your procedure. -[facility] policy is pt not be alone first evening Office phone number provided for questions or concerns. [facility] Chan documented in this encounter [facility] 07-12-2023 History of Present illness Narrative Images from the original note were not included. Jonathan Chan MD Interventional Cardiology [address] [place] [address] Chief Complaint Patient presents with: Consult HISTORY OF PRESENT ILLNESS: Ms. 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 with prior history of non-ST segment elevation myocardial infarction and angioplasty many years ago after she had a heart attack at the main campus and up with the proximal to mid LAD drug-eluting stent she also had AAA infrarenal aneurysm fixed surgically 3 years ago she has been noticing over the last couple months worsening exertional dyspnea limiting happen with minimal exertion relieved with rest likely angina equivalent No other associated symptoms Cardiac Risk Factors age (male over 45, female over 55), hyperlipidemia, history of smoking, hypertension, family history of CAD PAST MEDICAL HISTORY Diagnosis Date Allergic rhinitis, cause unspecified 11/22/2006 Anxiety state, unspecified 02/05/2006 Depressive disorder, not elsewhere classified 02/05/2006 Diaphragmatic hernia without mention of obstruction or gangrene Esophageal reflux 02/05/2006 [facility] (myocardial infarction) (HCC) 06/02/2010 Mixed hyperlipidemia Osteoporosis, unspecified Status post AAA (abdominal aortic aneurysm) repair 3.2 cm (last CT 07/09)--Plan Ultrasound AAA Jul 2010;02/29/2020: Open retroperitoneal infrarenal AAA repair with left renal artery bypass PAST SURGICAL HISTORY Procedure Laterality Date ABD AORTA ANEURYSM REPAIR 02/29/2020 open aneurysm repair for an aneurysm with a maximal transverse diameter of 6 cm; 02/29/2020: Open retroperitoneal infrarenal AAA repair with left renal artery bypass ARTHRP ACETBLR/PROX FEM PROSTC AGRFT/ALGRFT 04/29/2012 [facility]-right BX BREAST W/DEVICE 1ST LESION STEREOTACTIC GUID 06/18/2014 benign COLONOSCOPY FLX DX W/COLLJ SPEC WHEN PFRMD 11/08/[address]. [address] [facility] COLONOSCOPY FLX DX W/COLLJ SPEC WHEN PFRMD 03/22/2012 Colonoscopy ESOPHAGOGASTRODUODENOSCOPY TRANSORAL DIAGNOSTIC 03/22/2012 EGD MAMMO STEREOTACTIC CORE BIOPSY LT 08/02/1998 left benign - Dr. Gordon PAST SURGICAL HISTORY OF Bilateral 08/02/1998 foot surgery PAST SURGICAL HISTORY OF 06/02/2010 angioplasty with stent FAMILY HISTORY Problem Relation Age of Onset Cancer Mother colon Stroke Mother other (past history) Father abdominal aortic aneurysm Social History Tobacco Use Smoking status: Every Day Packs/day: 0.50 Years: 40.00 Additional pack years: 0.00 Total pack years: 20.00 Types: Cigarettes Smokeless tobacco: Never Tobacco comments: less than a pack per day--almost ready to quit Vaping Use Vaping Use: Never used Substance Use Topics Alcohol use: Yes Alcohol/week: 1.0 standard drink of alcohol Types: 1 Cans of Beer (12oz) per week Comment: seldom Drug use: No ALLERGIES Allergen Reactions Augmentin [Amoxicil* Hives Bactrim [Sulfametho* GI Upset Sick to her stomach; prefers to avoid med Doxycycline Vomiting Levofloxacin Other: See Comments Knee pain Wellbutrin [Bupropi* vivid dreams Zocor [Simvastatin] Intolerance Muscle aches Medications: Current Outpatient Medications Medication Sig Dispense Refill DULoxetine (CYMBALTA) 60 mg capsule Take 1 capsule by mouth once daily. 90 capsule 3 atorvastatin (LIPITOR) 80 mg tablet TAKE 1/2 TABLET ONE TIME DAILY 45 tablet 3 clopidogrel (PLAVIX) 75 mg tablet Take 1 tablet by mouth every afternoon. 90 tablet 3 metoprolol succinate ER (TOPROL XL) 25 mg 24 hr tablet Take 1 tablet by mouth once daily. 90 tablet 3 ezetimibe (ZETIA) 10 mg tablet Take 1 tablet by mouth every afternoon. 90 tablet 3 busPIRone HCl 30 mg tablet Take 1 tablet by mouth two times a day. As directed. ID#[id number] 180 tablet 3 nitroglycerin sublingual (NITROQUICK) 0.4 mg SL tablet DISSOLVE ON TONGUE FOR CHEST PAIN. May repeat every 5 minutes up to total 3 doses. IF NO PAIN RELIEF, CALL 911 25 tablet 1 ergocalciferol 50,000 unit capsule (VITAMIN D2, DRISDOL) Take 1 capsule by mouth every other week. diphenhydrAMINE-Acetaminophen 25-500 mg tab Take 2 tablets by mouth at bedtime as needed (sleep). ELDERBERRY FRUIT ORAL Take by mouth once daily. esomeprazole (NEXIUM) 20 mg capsule Take 1 capsule by mouth once daily. aspirin 325 mg ORAL tablet 1 Tab ORAL DAILY 30 Tab 0 LORazepam (ATIVAN) 0.5 mg Take 1 tablet by mouth twice daily as needed (anxiety) for up to 90 days. Do not start before February 07, 2023. 60 tablet 2 hydrOXYzine HCl (ATARAX) 25 mg tablet Take 1 tablet by mouth three times daily as needed. (Patient not taking: Reported on 06/28/2023) 60 tablet 1 No current facility-administered medications for this visit. Review of Systems Constitutional: Negative for chills, diaphoresis, fever, malaise/fatigue and weight loss. HENT: Negative for congestion, ear discharge, ear pain, hearing loss, nosebleeds, sinus pain, sore throat and tinnitus. Eyes: Negative for blurred vision, double vision, photophobia, pain, discharge and redness. Respiratory: Positive for shortness of breath. Negative for cough, hemoptysis, sputum production, wheezing and stridor. Cardiovascular: Negative for chest pain, palpitations, orthopnea, claudication, leg swelling and PND. Gastrointestinal: Negative for abdominal pain, blood in stool, constipation, diarrhea, heartburn, melena, nausea and vomiting. Genitourinary: Negative for dysuria, flank pain, frequency, hematuria and urgency. Musculoskeletal: Negative for back pain, falls, joint pain, myalgias and neck pain. Skin: Negative for itching and rash. Neurological: Negative for dizziness, tingling, tremors, sensory change, speech change, focal weakness, seizures, loss of consciousness, weakness and headaches. Endo/Heme/Allergies: Negative for environmental allergies and polydipsia. Does not bruise/bleed easily. Psychiatric/Behavioral: Negative for depression, hallucinations, memory loss, substance abuse and suicidal ideas. The patient is not nervous/anxious and does not have insomnia. Physical Examination: Vitals:BP 136/87 Pulse 88 Resp 18 Wt 155 lb (70.3kg) SpO2 98% BP w/Orthostatic Vitals Date and Time Orthostatic BP Orthostatic Pulse BP Pulse BP Position BP Site BP Cuff Size 07/12/23 1027 -- -- 136/87 88 Sitting Right Arm Large Adult Peak Flow Date and Time PF Resp 07/12/23 1027 -- 18 Last 2 Encounter Wt Readings: Date: Wt: 07/12/2023 70.3 kg (155 lb) 06/28/2023 69.4 kg (153 lb) Physical Exam Constitutional: General: She is not in acute distress. Appearance: She is not diaphoretic. HENT: Head: Normocephalic and atraumatic. Right Ear: External ear normal. Left Ear: External ear normal. Nose: Nose normal. Mouth/Throat: Pharynx: Oropharynx is clear. Eyes: General: Right eye: No discharge. Left eye: No discharge. Conjunctiva/sclera: Conjunctivae normal. Pupils: Pupils are equal, round, and reactive to light. Cardiovascular: Rate and Rhythm: Normal rate and regular rhythm. Heart sounds: Normal heart sounds, S1 normal and S2 normal. No murmur heard. No friction rub. No gallop. No S3 or S4 sounds. Pulmonary: Effort: Pulmonary effort is normal. No respiratory distress. Breath sounds: Normal breath sounds. No wheezing or rales. Chest: Chest wall: No tenderness. Musculoskeletal: General: Normal range of motion. Cervical back: Normal range of motion and neck supple. Skin: General: Skin is warm and dry. Neurological: Mental Status: She is alert and oriented to person, place, and time. Psychiatric: Mood and Affect: Mood normal. Thought Content: Thought content normal. Judgment: Judgment normal. Pertinent Labs: CBC: Hemoglobin (g/dL) Date Value 06/28/2023 14.9 08/29/2021 13.9 Hematocrit (%) Date Value 06/28/2023 45.7 08/29/2021 41.5 WBC (k/uL) Date Value 06/28/2023 8.01 08/29/2021 8.33 Platelet Count (k/uL) Date Value 06/28/2023 248 08/29/2021 271 BMP: Glucose (mg/dL) Date Value 06/28/2023 89 08/29/2021 96 Potassium (mmol/L) Date Value 06/28/2023 4.3 08/29/2021 4.1 Sodium (mmol/L) Date Value 06/28/2023 135 08/29/2021 135 Chloride (mmol/L) Date Value 06/28/2023 99 08/29/2021 102 CO2 (mmol/L) Date Value 06/28/2023 27 08/29/2021 21 Creatinine (mg/dL) Date Value 06/28/2023 1.13 08/29/2021 1.15 BUN (mg/dL) Date Value 06/28/2023 14 08/29/2021 16 Anion Gap (mmol/L) Date Value 06/28/2023 9 08/29/2021 12 Calcium (mg/dL) Date Value 08/29/2021 8.9 Calcium, Total (mg/dL) Date Value 06/28/2023 9.2 INR: Lipid Profile: Total Cholesterol, Nonfasting Date Value Ref Range Status 06/28/2023 152 <200 mg/dL Final Comment: <200 mg/dL, Desirable 200-239 mg/dL, Borderline high >239 mg/dL, High HDL Cholesterol, Nonfasting Date Value Ref Range Status 06/28/2023 38 (L) >39 mg/dL Final Comment: 40-59 mg/dL, Acceptable >59 mg/dL, High: Negative risk factor for coronary heart disease <40 mg/dL, Low: Positive risk factor for coronary heart disease LDL Cholesterol, Nonfasting Date Value Ref Range Status 06/28/2023 70 <100 mg/dL Final Comment: <100 mg/dL, Optimal 100-129 mg/dL, Near optimal/above optimal 130-159 mg/dL, Borderline high 160-189 mg/dL, High >189 mg/dL, Very high Secondary prevention optimal LDL Cholesterol levels are recommended to be < 70 mg/dL Triglycerides, Nonfasting Date Value Ref Range Status 06/28/2023 220 (H) <150 mg/dL Final Comment: <150 mg/dL, Normal 150-199 mg/dL, Borderline high 200-499 mg/dL, High >499 mg/dL, Very high Hemoglobin A1C: No results found for: HGBA1C TSH: No results found for: TSHREFL Prior Cardiac Testing EKG Assessment and Plan: 73 years old with exertional dyspnea likely angina equivalent with multiple cardiac risk factors prior history of CAD and stent ASSESSMENT/PLAN: 1. History of non-ST elevation myocardial infarction (NSTEMI) - ICD9: 412, ICD10: I25.2 (primary diagnosis) Prior history of drug-eluting stent to the proximal mid LAD Recurrent symptoms suggestive of in-stent restenosis or progression for coronary artery disease Recommend proceed with cardiac catheterization Risk-benefit alternatives procedure was explained to the patient is agreeable to proceed - ECG COMPLETE 2. WARE (dyspnea on exertion) - ICD9: 786.09, ICD10: R06.09 Likely internal equivalent cardiac catheterization - CARDIAC AFTERSCHOOL ORDER 3. Status post AAA (abdominal aortic aneurysm) repair - ICD9: V45.89, ICD10: Z98.890, Z86.79 Per surgery 4. Cigarette smoker - ICD9: 305.1, ICD10: F17.210 - Cessation encouraged. - Physiologic and physical aspects of tobacco addiction as well as strategies for quitting were discussed. - Counseling was given focusing on the harmful effects of this addiction especially given the patient's medical condition(s) which will be worsened because of the chemicals in tobacco. Jonathan Chan MD Follow up plannin WEEKS Electronically signed by Jonathan Chan MD on July 12, 2023, 12:28 PM The above note was partially created using a dictation recognition software. A reasonable attempt has been made to correct any errors. documented in this encounter [facility] 06-28-2023 History of Present illness Narrative Flor Mayberry is a 73 year old female here for a Medicare wellness visit. Still some headache and congestion but improving slowly. Cardiology on 07/12. Vascular follow up for AAA. Medicare Health Risk Assessment General Health Pretty good for her age Exercise: Minutes/Day Walks daily with dog Exercise: Days/Week 7 days a week Alcohol: Daily Use no Alcohol: Drinks/Day no Alcohol: 6 or more drinks No, rare use Feel off balance No, no falls Concerns: Teeth/Dentures no Concerns: Sexual function no Troubled by feelings no Frequency: Eating healthy diet Tries to eat healthy ADLs requiring help no Safety precautions in home/vehicle yes Smoke, vape, chews tobacco yes Difficulty hearing no Difficulty seeing no Current Providers Specialists: I have reviewed specialist-related care of the patient in the medical record. Current care team: Patient Care Team: Tanner Hook MD as PCP - General Valery Mireles MD as Referring (Vascular Surgery) Valery Mireles MD as Home Care Provider (Vascular Surgery) Shanna Almaguer RN as Wiring Mechanic (Post Acute Care) Eye doctor Medical/Family history review Reviewed and updated problem list, medical/surgical/family/social history, medications, and allergies. Opioid use review Opioid Medications (last 90 days) Some values may be hidden. Unless noted otherwise, only the newest values recorded on each date are displayed. Opioid Medications No data to display. Depression screening Depression Screening PHQ-2 Score PHQ-9 Score 04/12/2019 4 9 Depression screening tool completed and reviewed. Based on score and interview, patient is already diagnosed with depression. Screening tool discussed with patient, and I recommended no further intervention at this time. Cognitive screening Mini Cog Score: 5 Cognitive screening reviewed and no further action needed (score 3-5) Functional Observation Was the patient's timed Up & Go test unsteady or ? 12 seconds? No Advance Care Planning Surrogate decision maker and/or advance care plan documented Measurements BP 140/88 Pulse 85 Ht 5' 1 (1.55m) Wt 153 lb (69.4kg) SpO2 97% BMI 28.92 kg/(m^2). Additional screenings: No results found. SUBJECTIVE Flor Mayberry is a 73 year old female here today for medicare wellness and a check up on her medical problems. Chief Complaint Patient presents with: Medicare Wellness Exam HPI Flor Mayberry is a 73 year old female. Here today for follow up. Overall doing well. Issues with congestion right now; finished a zpack a few days ago. Still some sinus congestion and pressure but slowly improving. Her medications were reviewed today and her list is now up to date. Medications Current Outpatient Medications Medication Sig nitroglycerin sublingual (NITROQUICK) 0.4 mg SL tablet DISSOLVE ON TONGUE FOR CHEST PAIN. May repeat every 5 minutes up to total 3 doses. IF NO PAIN RELIEF, CALL 911 LORazepam (ATIVAN) 0.5 mg Take 1 tablet by mouth twice daily as needed (anxiety) for up to 90 days. Do not start before February 07, 2023. ergocalciferol 50,000 unit capsule (VITAMIN D2, DRISDOL) Take 1 capsule by mouth every other week. busPIRone HCl 30 mg tablet Take 1 tablet by mouth twice daily. As directed. ID#[id number] diphenhydrAMINE-Acetaminophen 25-500 mg tab Take 2 tablets by mouth at bedtime as needed (sleep). ELDERBERRY FRUIT ORAL Take by mouth once daily. esomeprazole (NEXIUM) 20 mg capsule Take 1 capsule by mouth once daily. aspirin 325 mg ORAL tablet 1 Tab ORAL DAILY DULoxetine (CYMBALTA) 60 mg capsule Take 1 capsule by mouth once daily. atorvastatin (LIPITOR) 80 mg tablet TAKE 1/2 TABLET ONE TIME DAILY clopidogrel (PLAVIX) 75 mg tablet Take 1 tablet by mouth every afternoon. metoprolol succinate ER (TOPROL XL) 25 mg 24 hr tablet Take 1 tablet by mouth once daily. ezetimibe (ZETIA) 10 mg tablet Take 1 tablet by mouth every afternoon. clobetasol (TEMOVATE) 0.05 % cream Apply 1 application to affected area twice daily. To arms (Patient not taking: Reported on 06/28/2023) hydrOXYzine HCl (ATARAX) 25 mg tablet Take 1 tablet by mouth three times daily as needed. (Patient not taking: Reported on 06/28/2023) No current facility-administered medications for this visit. ALLERGIES Allergen Reactions Augmentin [Amoxicil* Hives Bactrim [Sulfametho* GI Upset Sick to her stomach; prefers to avoid med Doxycycline Vomiting Levofloxacin Other: See Comments Knee pain Wellbutrin [Bupropi* vivid dreams Zocor [Simvastatin] Intolerance Muscle aches ACTIVE PROBLEM LIST Mixed Hyperlipidemia (B priority) Comment: History: home meds lipitor 40mg daily, 80mg caused muscle pains Assessment: tolerating diet Plan: Continue lipitor QHS Abdominal Aortic Aneurysm (Aaa) Without Rupture (Hcc) - 02/02/2023 Chronic Bronchitis (Hcc) - 04/01/2020 Status Post Aaa (Abdominal Aortic Aneurysm) Repair - 02/29/2020 Comment: 02/29/2020 open infrarenal AAA repair Hx: smoker, COPD, HLP, [facility] 2009 Assessment: Ismael, left RP incision dry and intact Plan: Continue ASA, plavix, statin Impaired Glucose Metabolism - 10/20/2019 Obstructive Sleep Apnea - 10/20/2019 Comment: History: Noncompliant with home bipap Plan: Continue Bipap PRN Recurrent Major Depression in Partial Remission (Hcc) - 08/24/2019 Cigarette Smoker - 05/16/2017 Comment: History: 08/03 to 10/03 PPD Assessment: willing to quit, states she's done Plan: Continue to encourage smoking cessation Anxiety Disorder - 05/05/2015 Vitamin D Deficiency - 05/05/2015 Chest Pain - 10/05/2012 Diaphragmatic Hernia Without Mention of Obstruction Or Gangrene - 03/22/2012 Ascvd (Arteriosclerotic Cardiovascular Disease) - 06/17/2010 History of Non-St Elevation Myocardial Infarction (Nstemi) - 06/01/2010 Comment: History: 06/2010 Anterior STEMI, LHC with significant lesions in LAD and D1. 2 KYLE to LAD and D1 Home meds: full strength ASA, 75mg plavix, lopressor & 40mg lipitor, zetia 10mg daily Assessment: Stable Plan: CAD Core Measures: Aspirin: Yes Plavix resumed 03/08 Beta blockers: Yes Statins: Yes Osteoporosis Allergic Rhinitis - 11/22/2006 Esophageal Reflux - 02/05/2006 Social History Tobacco Use Smoking status: Every Day Packs/day: 0.50 Years: 40.00 Additional pack years: 0.00 Total pack years: 20.00 Types: Cigarettes Smokeless tobacco: Never Tobacco comments: less than a pack per day--almost ready to quit Vaping Use Vaping Use: Never used Substance Use Topics Alcohol use: Yes Alcohol/week: 1.0 standard drink of alcohol Types: 1 Cans of Beer (12oz) per week Comment: seldom Drug use: No Review of Systems Respiratory: Positive for cough. Negative for apnea, choking, chest tightness, shortness of breath, wheezing and stridor. Cardiovascular: Negative. OBJECTIVE BP 140/88 Pulse 85 Ht 5' 1 (1.55m) Wt 153 lb (69.4kg) SpO2 97% BMI 28.92 kg/(m^2). Physical Exam Vitals and nursing note reviewed. Constitutional: General: She is awake. She is not in acute distress. Appearance: Normal appearance. She is well-developed and well-groomed. She is not ill-appearing, toxic-appearing or diaphoretic. HENT: Head: Normocephalic. Right Ear: External ear normal. Left Ear: External ear normal. Nose: Nose normal. Eyes: General: Vision grossly intact. Conjunctiva/sclera: Conjunctivae normal. Pupils: Pupils are equal, round, and reactive to light. Neck: Vascular: No JVD. Trachea: Trachea normal. Cardiovascular: Rate and Rhythm: Normal rate and regular rhythm. Pulses: Normal pulses. Heart sounds: Normal heart sounds. No murmur heard. Pulmonary: Effort: Pulmonary effort is normal. No accessory muscle usage, prolonged expiration or respiratory distress. Breath sounds: Normal breath sounds. Musculoskeletal: Cervical back: Neck supple. Skin: General: Skin is warm and dry. Capillary Refill: Capillary refill takes less than 2 seconds. Neurological: General: No focal deficit present. Mental Status: She is alert and oriented to person, place, and time. Mental status is at baseline. Psychiatric: Attention and Perception: Attention and perception normal. Mood and Affect: Mood and affect normal. Speech: Speech normal. Behavior: Behavior normal. Behavior is cooperative. Thought Content: Thought content normal. Cognition and Memory: Cognition and memory normal. Judgment: Judgment normal. ASSESSMENT/PLAN: 1. Medicare annual wellness visit, subsequent - ICD9: V70.0, ICD10: Z00.00 (primary diagnosis) - Counseled on healthy diet and regular exercise - Calcium intake with supplements or by diet of 1000 mg/day for under 50, 1952-5193 mg/day for 50+ - Smoking cessation encouraged; discussed risks to health and quitting strategies. Patient is not ready to quit - Depression screening tool completed and reviewed with patient. Based on score and interview, patient is already diagnosed with depression and recommended no further intervention at this time. 2. Recurrent major depression in partial remission (HCC) - ICD9: 296.35, ICD10: F33.41 - DULOXETINE 60 MG CAPSULE,DELAYED RELEASE 3. Mixed hyperlipidemia - ICD9: 272.2, ICD10: E78.2 - Control undetermined, due for labs - Continue current medications - Counseled on healthy diet and regular exercise - ATORVASTATIN 80 MG TABLET - METOPROLOL SUCCINATE ER 25 MG TABLET,EXTENDED RELEASE 24 HR - EZETIMIBE 10 MG TABLET 4. ASCVD (arteriosclerotic cardiovascular disease) - ICD9: 429.2, 440.9, ICD10: I25.10 - METOPROLOL SUCCINATE ER 25 MG TABLET,EXTENDED RELEASE 24 HR 5. Abdominal aortic aneurysm (AAA) without rupture, unspecified part (HCC) - ICD9: 441.4, ICD10: I71.40 Follow up with vascular. 6. Upper respiratory tract infection, unspecified type - ICD9: 465.9, ICD10: J06.9 - Symptomatic treatment with prn analgesia - Supportive care with fluids and rest - Slowly improving Portions of this note have been entered by ancillary staff. I have reviewed and when necessary edited, so that they are an adequate record of my encounter with this patient Please note that parts of this document were created using voice recognition software and therefore may contain grammatical errors. Patient verbalizes understanding of instructions from today's visit and in agreement with treatment plan. Questions answered. Agrees to call the office if questions, concerns of issues with acute symptoms not improving or if they worsen. See diagnoses and orders for additional plan(s). Allergies and medications were reviewed, list was updated, and refills given if needed. Past medical, surgical, social, and family history reviewed and updated as appropriate. Encouraged proper diet & exercise as well as compliance with taking medications. Age-appropriate health preventative measures were discussed. Return in 6 months (on 12/27/2023) for Follow up on chronic conditions and medications.. Ted Gill APRN-LUIS FERNANDO documented in this encounter [facility] 06-28-2023 Instructions Ted Gill APRN.CNP - 06/28/2023 3:40 PM EST Screening schedule The following prevention plan is recommended: RSV Vaccine(1 - 1-dose 60+ series) Never done Lung Cancer Screening due on 03/04/2021 Mammogram Screening due on 08/29/2022 Colorectal Cancer Screening due on 01/13/2023 Influenza Vaccine(1) due on 04/02/2023 Covid-19 Vaccine( season) due on 04/02/2023 WHAT YOU CAN DO TO PREVENT FALLS Many falls can be prevented. By making some changes, you can lower your chances of falling. Four things YOU can do to prevent falls for you* and your caregiver 1. Begin a regular exercise program Exercise is one of the most important ways to lower your chances of falling. It makes you stronger and helps you feel better. Exercises that improve balance and coordination (like Angelito Chi) are the most helpful. Lack of exercise leads to weakness and increases your chances of falling. Ask your doctor or health care provider about the best type of exercise program for you. 2. Have your health care provider review your medicines Have your doctor or pharmacist review all the medicines you take, even naga-ypq-jaotrwm medicines. As you get older, the way medicines work in your body can change. Some medicines, or combinations of medicines, can make you sleepy or dizzy and can cause you to fall. 3. Have your vision checked Have your eyes checked by an eye doctor at least once a year. You may be wearing the wrong glasses or have a condition like glaucoma or cataracts that limits your vision. Poor vision can increase your chances of falling. 4. Make your home safer About half of all falls happen at home. To make your home safer: Remove things you can trip over (like papers, books, clothes, and shoes) from stairs and places where you walk. Remove small throw rugs or use double-sided tape to keep the rugs from slipping. Keep items you use often in cabinets you can reach easily without using a step stool. Have grab bars put in next to your toilet and in the tub or shower. Use non-slip mats in the bathtub and on shower floors. Improve the lighting in your home. As you get older, you need brighter lights to see well. Hang light-weight curtains or shades to reduce glare. Have handrails and lights put in on all staircases. Wear shoes both inside and outside the house. Avoid going barefoot or wearing slippers. For more information, contact: Centers for Disease Control and Prevention www.cdc.gov/injury * This information may not apply if you have certain medical conditions. documented in this encounter [facility] 06-28-2023 Nurse Note VISUAL ACUITY: Today's exam: Vision Correction? No vision correction: RIGHT EYE: 20/200 LEFT EYE: 20/ 40 BOTH EYES: 20/30 documented in this encounter [facility] 06-22-2023 Miscellaneous Notes Appt made for 06/28 with Ted Gill. Also went over lab results, information and recommendations that Dr. Hook had made. Pt will try to come and get labs drawn prior to appt. She states she had been off of her Vitamin D but recently restarted it. Below states patient has appointment today 06/21 in primary care but there was no appointment. See other telephone encounter regarding acute illness. No follow up appointment was made after 01/04/23 appointment with me. Should be seen at least every 6 month even if does not want/need follow up every 3 months are prior appointments. The refills should last till July but sent 90 day RX without refills; will give more refills at follow up appointment. Noted that Vitamin D on December labs was high and did not see that it was addressed. Would update labs--no Vitamin D in the meanwhile. Metabolic panel was fine, including calcium level. Cr was up some again to 1.16 (not to 1.34 or 2.2 as in the past). Make sure to be well hydrated daily, including having a glass of water at least an hour before getting labs done. Labs ordered for follow up.Can decide whether to do fasting Patient has been identified by name and date of : Yes Patient phones for refill(s): Requested Prescriptions Pending Prescriptions Disp Refills DULoxetine (CYMBALTA) 60 mg capsule [Pharmacy Med Name: DULOXETINE HYDROCHLORIDE 60 MG Capsule Delayed Release Particles] 90 capsule 10 Sig: TAKE 1 CAPSULE EVERY DAY atorvastatin (LIPITOR) 80 mg tablet [Pharmacy Med Name: ATORVASTATIN CALCIUM 80 MG Tablet] 45 tablet 10 Sig: TAKE 1/2 TABLET ONE TIME DAILY clopidogrel (PLAVIX) 75 mg tablet [Pharmacy Med Name: CLOPIDOGREL 75 MG Tablet] 90 tablet 10 Sig: take 1 tablet every day metoprolol succinate ER (TOPROL XL) 25 mg 24 hr tablet [Pharmacy Med Name: METOPROLOL SUCCINATE ER 25 MG Tablet Extended Release 24 Hour] 90 tablet 10 Sig: TAKE 1 TABLET ONE TIME DAILY ezetimibe (ZETIA) 10 mg tablet [Pharmacy Med Name: EZETIMIBE 10 MG Tablet] 90 tablet 10 Sig: take 1 tablet every day Date of last office visit in primary care: 01/04/2023 Date of next office visit in primary care: 06/21/2023 Last 2 Encounter Wt Readings: Date: Wt: 06/19/2023 70.3 kg (155 lb) 01/08/2023 72.1 kg (159 lb) Previous labs/tests for medication: Diabetes: Hemoglobin A1C (%) Date Value 09/04/2022 6.0 08/29/2021 6.0 07/08/2020 6.0 Cholesterol: HDL Cholesterol (mg/dL) Date Value 08/29/2021 37 HDL Cholesterol, Nonfasting (mg/dL) Date Value 09/04/2022 36 LDL Cholesterol (mg/dL) Date Value 08/29/2021 90 LDL Cholesterol, Nonfasting (mg/dL) Date Value 09/04/2022 74 ALT (U/L) Date Value 01/04/2023 12 08/29/2021 10 Non HDL Cholesterol, Nonfasting (mg/dL) Date Value 09/04/2022 113 Non HDL Cholesterol (mg/dL) Date Value 08/29/2021 132 Blood Pressure: BUN (mg/dL) Date Value 01/04/2023 19 08/29/2021 16 Sodium (mmol/L) Date Value 01/04/2023 136 08/29/2021 135 Last 1 Encounter BP Readings: Date: BP: 06/19/2023 140/90 Please advise. Thank you. Gabriella Elder LPN. documented in this encounter [facility] 06-22-2023 Miscellaneous Notes Notified patient. Below noted History of COPD and sinus infections. The following approved medication requests have been transmitted electronically. Requested Prescriptions Signed Prescriptions Disp Refills azithromycin (ZITHROMAX) 250 mg tablet 6 tablet 0 Sig: Take 2 tablets by mouth once daily for 1 day, THEN 1 tablet once daily for 4 days. Authorizing Provider: TANNER HOOK MD Further evaluation and treatment as indicated. See other encounter about refills for meds as well as follow up. Labs ordered Needs follow appointment made still Patient reports she was seen in on Sat for sinus infection. Reports they only checked her for covid/flu/rsv- all negative. Reports her head feels like it will explode today- on forehead/temples- pain under eyes, has runny nose, reports the sinus pain is 6-7/10. Reports she had fever on Wednesday. Reports mucinex/tylenol is not helping much. Asking if pcp can send her an Rx for zithromax to [facility] Fidel? States, since she was already seen for this? Please phone patient with reply. documented in this encounter [facility] 06-20-2023 Miscellaneous Notes Pt was notified of the results. Pt verbalized understanding. Rosita Christopher MA Patient is negative for flu, COVID, RSV. Patient does not need any antivirals. Patient should treat the same as common cold symptoms with [id number] symptom management. The pharmacy that the molnupiravir 200 mg capsule was to does not have the medication in stock. Please notify patient and resubmit to another pharmacy. documented in this encounter [facility] 06-19-2023 History of Present illness Narrative CC: Patient presents with: Headache: With sinus problems x 4 days HPI: Flor Mayberry is a 73 year old female who presents to the office with complaint of head congestion, cough, nonproductive, and sinus symptoms for a few days. Symptoms are worsening Associated symptoms includes nasal congestion, facial pain/pressure, and headache. Denies ear pain, nausea, vomiting , and diarrhea. Treatments tried include nothing so far. with no relief of symptoms. Sick contacts: unknown. History of asthma, frequent episodes of bronchitis, chronic bronchitis, bronchiectasis or COPD: No Smoker: No Seasonal/environmental allergies: No The ROS is otherwise negative. The patient's pmh, medications, allergies, and past visits are reviewed. PHYSICAL EXAM: BP 140/90 Pulse 90 Temp 36.4 C (97.6 F) Resp 18 Wt 70.3 kg (155 lb) SpO2 98% BMI 28.71 kg/m General appearance: alert, cooperative, pleasant, in no acute distress Head: Normocephalic Eyes: EOM's intact, conjunctiva pink and moist, no icterus, sclera white, non-injected Ears: Right ear: External ear/canal- Normal, TM - clear with good landmarks. Left ear: External ear/canal- Normal, TM - clear with good landmarks Oropharynx:moist without lesions, No erythema, exudates or tonsillar hypertrophy. Heart: Negative. RRR without obvious murmur, gallop, or rubs. No ectopy. Lungs: clear to auscultation, without rales or wheeze, good air exchange PAST MEDICAL HISTORY Diagnosis Date Allergic rhinitis, cause unspecified 11/22/2006 Anxiety state, unspecified 02/05/2006 Depressive disorder, not elsewhere classified 02/05/2006 Diaphragmatic hernia without mention of obstruction or gangrene Esophageal reflux 02/05/2006 [facility]my[facility] infarction[facility] ([facility]) 06/02/2010 Mixed hyperlipidemia Osteoporosis, unspecified Status post AAA (abdominal aortic aneurysm) repair 3.2 cm (last CT 07/09)--Plan Ultrasound AAA Jul 2010;02/29/2020: Open retroperitoneal infrarenal AAA repair with left renal artery bypass PAST SURGICAL HISTORY Procedure Laterality Date ABD AORTA ANEURYSM REPAIR 02/29/2020 open aneurysm repair for an aneurysm with a maximal transverse diameter of 6 cm; 02/29/2020: Open retroperitoneal infrarenal AAA repair with left renal artery bypass ARTHRP ACETBLR/PROX FEM PROSTC AGRFT/ALGRFT 04/29/2012 [facility]-right BX BREAST W/DEVICE 1ST LESION STEREOTACTIC GUID 06/18/2014 benign COLONOSCOPY FLX DX W/COLLJ SPEC WHEN PFRMD 11/08/[address]. [address] [facility] COLONOSCOPY FLX DX W/COLLJ SPEC WHEN PFRMD 03/22/2012 Colonoscopy ESOPHAGOGASTRODUODENOSCOPY TRANSORAL DIAGNOSTIC 03/22/2012 EGD MAMMO STEREOTACTIC CORE BIOPSY LT 08/02/1998 left benign - Dr. Gordon PAST SURGICAL HISTORY OF Bilateral 08/02/1998 foot surgery PAST SURGICAL HISTORY OF 06/02/2010 angioplasty with stent ALLERGIES Augmentin [Amoxicillin-Pot Clavulanate], Bactrim [Sulfamethoxazole-Trimethoprim], Doxycycline, Levofloxacin, Wellbutrin [Bupropion Hcl], and Zocor [Simvastatin] MEDICATIONS clobetasol (TEMOVATE) 0.05 % cream Apply 1 application to affected area twice daily. To arms nitroglycerin sublingual (NITROQUICK) 0.4 mg SL tablet DISSOLVE ON TONGUE FOR CHEST PAIN. May repeat every 5 minutes up to total 3 doses. IF NO PAIN RELIEF, CALL 911 hydrOXYzine HCl (ATARAX) 25 mg tablet Take 1 tablet by mouth three times daily as needed. ergocalciferol 50,000 unit capsule (VITAMIN D2, DRISDOL) Take 1 capsule by mouth every other week. ezetimibe (ZETIA) 10 mg tablet Take 1 tablet by mouth once daily. DULoxetine (CYMBALTA) 60 mg capsule Take 1 capsule by mouth once daily. clopidogrel (PLAVIX) 75 mg tablet Take 1 tablet by mouth once daily. atorvastatin (LIPITOR) 80 mg tablet Take 0.5 tablets by mouth once daily. (Whole pill caused pain in legs) ID#[id number] metoprolol succinate ER (TOPROL XL) 25 mg 24 hr tablet Take 1 tablet by mouth once daily. ID#[id number] busPIRone HCl 30 mg tablet Take 1 tablet by mouth twice daily. As directed. ID#[id number] diphenhydrAMINE-Acetaminophen 25-500 mg tab Take 2 tablets by mouth at bedtime as needed (sleep). ELDERBERRY FRUIT ORAL Take by mouth once daily. esomeprazole (NEXIUM) 20 mg capsule Take 1 capsule by mouth once daily. aspirin 325 mg ORAL tablet 1 Tab ORAL DAILY molnupiravir 200 mg capsule Take 4 capsules by mouth two times a day for 5 days. LORazepam (ATIVAN) 0.5 mg Take 1 tablet by mouth twice daily as needed (anxiety) for up to 90 days. Do not start before February 07, 2023. FAMILY HISTORY Problem Relation Age of Onset Cancer Mother colon Stroke Mother other (past history) Father abdominal aortic aneurysm Social History Tobacco Use Smoking status: Every Day Packs/day: 0.50 Years: 40.00 Additional pack years: 0.00 Total pack years: 20.00 Types: Cigarettes Smokeless tobacco: Never Tobacco comments: less than a pack per day--almost ready to quit Vaping Use Vaping Use: Never used Substance Use Topics Alcohol use: Yes Alcohol/week: 2.5 standard drinks of alcohol Types: 1 Cans of Beer (12oz) per week Comment: seldom Drug use: No Prescription instructions reviewed with patient as applicable. Potential red flag symptoms discussed with the patient. Reviewed appropriate action plan to take if red flag symptoms occur. Patient agreeable to treatment plan. Kya Guardado APRN.LUIS FERNANDO Molnupiravir Eligibility and Patient Discussion [facility] Formulary Restriction Criteria: Adult outpatients 18 years and older with ALL of the following: [x] Patient has symptoms for 5 days or less [x] Not requiring hospitalization at any time for management of COVID-19 [x] Not requiring supplemental oxygen or a change in baseline supplemental oxygen [] Not utilized for pre-exposure or post-exposure prophylaxis for prevention of COVID-19 [x] Patient is not or lactating [x] Meeting at least one of the criteria for high risk of progression to severe COVID-19: [x] Age over 65 years [] Cancer [] Chronic kidney disease [] Chronic liver disease [] Chronic lung diseases, including cystic fibrosis [] Dementia or other neurological conditions [] Diabetes (type 1 or type 2) [] Disabilities, including Down syndrome and neurodevelopmental disorders [] Heart conditions [] HIV infection [] Immunocompromised state [] Mental health conditions [] Medical related technological dependence (tracheostomy, gastrostomy, or positive pressure ventilation (not related to COVID) [] Overweight and obesity (BMI greater or equal to 25 for adults) [] Physical inactivity [] Sickle cell disease or thalassemia [] Smoking, current or former [] Solid organ or blood stem cell transplant [] Stroke or cerebrovascular disease [] Substance use disorders [] Tuberculosis [] People from racial and ethnic minority groups Criteria above are met: Yes Date of Symptom Onset: 4 days ago Patient received COVID vaccine: Yes / status reviewed: Females: [x] Patient is not currently and there is no possibility the patient could be (select one of the following): [] test does not need to be confirmed in patients who have undergone permanent sterilization, are currently using an intrauterine system or contraceptive implant, or in whom is not possible. [] Patients not meeting conditions above: assess whether the patient is based on the first day of the last menstrual period in individuals who have regular menstrual cycles, is using reliable method of contraception correctly and consistently or have had a negative test [] A test is recommended if the individual has irregular menstrual cycles, is unsure of the first day of the last menstrual period or is not using effective contraception correctly and consistently [x] Patient is not currently . is not recommended during treatment and for four days after final dose of molnupiravir. [] Females have been advised to use a reliable method of contraception correctly and consistently for the duration of treatment and for four days after the last dose of molnupiravir Males: [] Sexually active male with partner(s) of childbearing potential has been advised to use a reliable method of contraception correctly and consistently for intercourse for the duration of treatment and for three months after the last dose of molnupiravir I have discussed the use of the investigational therapeutic, molnupiravir, for the treatment of mild to moderate COVID-19 and its use under Emergency Use Authorization with the patient. The patient was informed that molnupiravir is not an FDA approved drug and that it is authorized for use under this Emergency Use Authorization. The patient was also informed of the significant known benefits and potential risks of molnupiravir, and the extent to which such potential risks and benefits are unknown. The patient was informed that there is mandatory reporting of all medication errors and serious adverse events potentially related to molnupiravir treatment within 7 calendar days from the onset of the event and that events up to 28 days after completion of therapy need to be reported. The discussion included alternatives to receiving molnupiravir, including clinical trials, and potential the risks and benefits of those alternatives. The patient was provided electronically with the Fact Sheet for Patients, Parents and Caregivers. The patient was also instructed that in addition to the treatment with molnupiravir, he/she should continue to self-isolate and use infection control measures (e.g., wear mask, isolate, social distance, avoid sharing personal items, clean and disinfect high touch surfaces, and frequent handwashing) according to CDC guidelines. The patient stated understanding and gave verbal consent to proceeding with molnupiravir treatment. Kya Guardado APRN.CNP June 19, 2023 1:13 PM documented in this encounter [facility] 06-19-2023 Instructions Kya Guardado APRN.CNP - 06/19/2023 1:12 PM EST Fact Sheet for Patients And Caregivers Emergency Use Authorization (EUA) Of LAGEVRIO (molnupiravir) capsules For Coronavirus Disease 2019 (COVID-19) What is the most important information I should know about LAGEVRIO? LAGEVRIO may cause serious side effects, including: LAGEVRIO may cause harm to your unborn baby. It is not known if LAGEVRIO will harm your baby if you take LAGEVRIO during . LAGEVRIO is not recommended for use in . LAGEVRIO has not been studied in . LAGEVRIO was studied in animals only. When LAGEVRIO was given to animals, LAGEVRIO caused harm to their unborn babies. You and your healthcare provider may decide that you should take LAGEVRIO during if there are no other COVID-19 treatment options approved or authorized by the FDA that are accessible or clinically appropriate for you. If you and your healthcare provider decide that you should take LAGEVRIO during , you and your healthcare provider should discuss the known and potential benefits and the potential risks of taking LAGEVRIO during . For individuals who are able to become : You should use a reliable method of control (contraception) consistently and correctly during treatment with LAGEVRIO and for 4 days after the last dose of LAGEVRIO. Talk to your healthcare provider about reliable control methods. Before starting treatment with LAGEVRIO your healthcare provider may do a test to see if you are before starting treatment with LAGEVRIO. Tell your healthcare provider right away if you become or think you may be during treatment with LAGEVRIO. Registry: There is a registry for individuals who take LAGEVRIO during . The purpose of this program is to collect information about the health of you and your baby. If you are or become during treatment with LAGEVRIO, you are encouraged to report your use of LAGEVRIO during to this registry at [email or web address]://covid-pr.[email or web address] or . For individuals who are sexually active with partners who are able to become : It is not known if LAGEVRIO can affect sperm. While the risk is regarded as low, animal studies to fully assess the potential for LAGEVRIO to affect the babies of males treated with LAGEVRIO have not been completed. A reliable method of control (contraception) should be used consistently and correctly during treatment with LAGEVRIO and for at least 3 months after the last dose. The risk to sperm beyond 3 months is not known. Studies to understand the risk to sperm beyond 3 months are ongoing. Talk to your healthcare provider about reliable control methods. Talk to your healthcare provider if you have questions or concerns about how LAGEVRIO may affect sperm. You are being given this fact sheet because your healthcare provider believes it is necessary to provide you with LAGEVRIO for the treatment of adults with a current diagnosis of mild-tomoderate coronavirus disease 2019 (COVID-19) who are at high risk for progression to severe COVID-19, including hospitalization or , and for whom other COVID-19 treatment options approved or authorized by the FDA are not accessible or clinically appropriate. The U.S. Food and Drug Administration (FDA) has issued an Emergency Use Authorization (EUA) to make LAGEVRIO available during the COVID-19 pandemic (for more details about an EUA please see What is an Emergency Use Authorization? at the end of this document). LAGEVRIO is not an FDA-approved medicine in the [place]. Read this Fact Sheet for information about LAGEVRIO. Talk to your healthcare provider about your options if you have any questions. It is your choice to take LAGEVRIO. What is COVID-19? COVID-19 is caused by a virus called a coronavirus. You can get COVID-19 through close contact with another person who has the virus. COVID-19 illnesses have ranged from very [id number], including illness resulting in . While information so far suggests that most COVID-19 illness is mild, serious illness can happen and may cause some of your other medical conditions to become worse. Older people and people of all ages with severe, long lasting (chronic) medical conditions like heart disease, lung disease and diabetes, for example seem to be at higher risk of being hospitalized for COVID-19. What is LAGEVRIO? LAGEVRIO is an investigational medicine used to treat adults with a current diagnosis of mild to moderate COVID-19: who are at high risk for progression to severe COVID-19 including hospitalization or , and for whom other COVID-19 treatment options approved or authorized by the FDA are not accessible or clinically appropriate. The FDA has authorized the emergency use of LAGEVRIO for the treatment of mild-tomoderate COVID-19 in adults under an EUA. For more information on EUA, see the What is an Emergency Use Authorization (EUA)? section at the end of this Fact Sheet. LAGEVRIO is not authorized: for use in people less than 18 years of age. for prevention of COVID-19. for people needing hospitalization for COVID-19. for use for longer than 5 consecutive days. What should I tell my healthcare provider before I take LAGEVRIO? Tell your healthcare provider if you: have any allergies are or plan to breastfeed have any serious illnesses Take any medicines including prescription, [id number] medicines, vitamins, and herbal products. How do I take LAGEVRIO? Take LAGEVRIO exactly as your healthcare provider tells you to take it. Take 4 capsules of LAGEVRIO every 12 hours (for example, at 8 am and at 8 pm) Take LAGEVRIO for 5 days. It is important that you complete the full 5 days of treatment with LAGEVRIO. Do not stop taking LAGEVRIO before you complete the full 5 days of treatment, even if you feel better. Take LAGEVRIO with or without food. You should stay in isolation for as long as your healthcare provider tells you to. Talk to your healthcare provider if you are not sure about how to properly isolate while you have COVID-19. Swallow LAGEVRIO capsules whole. Do not open, break, or crush the capsules. If you cannot swallow capsules whole, tell your healthcare provider. If your healthcare provider prescribes LAGEVRIO and tells you to take or give a dose through a nasogastric (NG) or orogastric (OG) tube, follow the instructions below: How to take or give a dose of LAGEVRIO through a nasogastric (NG) or orogastric (OG) feeding tube. You must have an NG or OG that is size 12 [place] or larger. If you miss a dose of LAGEVRIO: If it has been less than 10 hours since the missed dose, take it as soon as you remember. If it has been more than 10 hours since the missed dose, skip the missed dose and take your dose at the next scheduled time. Do not double the dose of LAGEVRIO to make up for a missed dose. How to take or give a dose of LAGEVRIO through a nasogastric (NG) or orogastric (OG) feeding tube: Wash your hands well with soap and water. Gather the supplies you will need to take or give the prescribed dose of LAGEVRIO. 4 LAGEVRIO capsules 1 liquid measuring cup with mL markings to measure 40 mL of room temperature water 1 clean container with a lid 1 catheter tip syringe. Your healthcare provider should tell you what size catheter tip syringe you will need to take or give a dose of LAGEVRIO. Place the needed supplies on a clean work surface. Follow your healthcare provider s instructions on how to flush the NG or OG feeding tube. Flush the NG or OG feeding tube with 5 mL of water before taking or giving a dose of LAGEVRIO. Carefully open 4 LAGEVRIO capsules, one at a time, and empty the contents into a clean container. Use the liquid measuring cup to measure 40 mL of room temperature water and add to the container containing the capsule contents. Place the lid on the container. Shake to mix the capsule contents and water well for 3 minutes. The capsule contents may not dissolve completely. Remove the lid from the container and draw up all the LAGEVRIO and water mixture into a catheter tip syringe. Give all of the mixture right away through the NG or OG feeding tube. Do not keep the mixture for future use. If any capsule contents are left in the container: Add 10 mL of water to the container, and mix to loosen any capsule contents that are left in the container. Use the catheter tip syringe to draw up all of the mixture in the container. Give the mixture through the NG or OG feeding tube. Repeat this process as needed until you no longer see any capsule contents left in the container or catheter tip syringe. Use the same catheter tip syringe to flush the NG or OG feeding tube 2 times with 5 mL of water (10mL total). Rinse the container, lid and catheter tip syringe well with clean water after use. Place on a clean paper towel until next use. What are the important possible side effects of LAGEVRIO? See, What is the most important information I should know about LAGEVRIO? Allergic Reactions. Allergic reactions can happen in people taking LAGEVRIO, even after only 1 dose. Stop taking LAGEVRIO and call your healthcare provider right away if you get any of the following symptoms of an allergic reaction: hives rapid heartbeat trouble swallowing or breathing swelling of the mouth, lips, or face throat tightness hoarseness skin rash The most common side effects of LAGEVRIO are: diarrhea nausea dizziness These are not all the possible side effects of LAGEVRIO. Not many people have taken LAGEVRIO. Serious and unexpected side effects may happen. This medicine is still being studied, so it is possible that all of the risks are not known at this time. What other treatment choices are there? Veklury (remdesivir) is FDA-approved as an intravenous (IV) infusion for the treatment of mildto-moderate COVID-19 in certain adults and children. Talk with your doctor to see if Veklury is appropriate for you. Like LAGEVRIO, FDA may also allow for the emergency use of other medicines to treat people with COVID-19. Go to https://www.fda.gov/emergency-pre jmqfedgxl-ueb-nfkzwkdl/mcm-legalr mapsyvrci-yji-vrmzsa-framework/em hjvgeai-rur-ymhkvelujsyem for more information. It is your choice to be treated or not to be treated with LAGEVRIO. Should you decide not to take it, it will not change your standard medical care. What if I am ? is not recommended during treatment with LAGEVRIO and for 4 days after the last dose of LAGEVRIO. If you are or plan to breastfeed, talk to your healthcare provider about your options and specific situation before taking LAGEVRIO. How do I report side effects with LAGEVRIO? Contact your healthcare provider if you have any side effects that bother you or do not go away. Report side effects to FDA MedWatch at www.fda.gov/medwatch or call 1-800-fda-1088 (1524.511.8339). How should I store LAGEVRIO? Store LAGEVRIO capsules at room temperature between 68 F to 77 F (20 C to 25 C). Keep LAGEVRIO and all medicines out of the reach of children. How can I learn more about COVID-19? Ask your healthcare provider. Visit www.cdc.gov/COVID19 Contact your local or state public health department. Call [employer] at (toll free in the [place] Visit www.[employer] What Is an Emergency Use Authorization (EUA)? The [place] FDA has made LAGEVRIO available under an emergency access mechanism called an Emergency Use Authorization (EUA) The EUA is supported by a Circular Gang Saw Operator of Health and Human Service (HHS) declaration that circumstances exist to justify emergency use of drugs and biological products during the COVID-19 pandemic. LAGEVRIO for the treatment of adults with a current diagnosis of taiu-hl-ohfybwnf COVID-19 who are at high risk for progression to severe COVID-19, including hospitalization or , and for whom alternative COVID-19 treatment options approved or authorized by FDA are not accessible or clinically appropriate, has not undergone the same type of review as an FDAapproved product. In issuing an EUA under the COVID-19 public health emergency, the FDA has determined, among other things, that based on the total amount of scientific evidence available including data from adequate and well-controlled clinical trials, if available, it is reasonable to believe that the product may be effective for diagnosing, treating, or preventing COVID-19, or a serious or life-threatening disease or condition caused by COVID-19; that the known and potential benefits of the product, when used to diagnose, treat, or prevent such disease or condition, outweigh the known and potential risks of such product; and that there are no adequate, approved, and available alternatives. All of these criteria must be met to allow for the product to be used in the treatment of patients during the COVID-19 pandemic. The EUA for LAGEVRIO is in effect for the duration of the COVID-19 declaration justifying emergency use of LAGEVRIO, unless terminated or revoked (after which LAGEVRIO may no longer be used under the EUA). Nilesh. for: [employer] [address] For patent information: www.[employer]/research/patent Copyright [employer] [place], [place], [facility] and its affiliates. All rights reserved. [id number] Revised: September 2022 documented in this encounter [facility] 03-25-2023 History of Present illness Narrative POPULATION HEALTH NAVIGATION OUTREACH Action/FYI March 25, 2023 2:55 PM HCC Gaps I71.40 - Abdominal aortic aneurysm (AAA) without rupture (HCC) - [id number] Last Billed 07/16/2021 MEGHAN with Tanner Hook MD was January 04, 2023 Follow up Care Gaps due / ACO: ~Colorectal Cancer Screening Outcome: Left message My chart message sent Patient Identified by Name and : NO Outreach Outcome/Action Unable to reach patient: Left message MyChart message sent Did you use a PCP flex slot to schedule this appointment? N/A Reason for Outreach HCC or suspected condition Payer: Payor: MEDICARE / Plan: MEDICARE A AND B / Product Type: Medicare / Care Gap Reviewed:: Annual Wellness visit Colorectal Cancer Screening Reminder: Reminder note to check Health Maintenance for items below Health Maintenance items due: LUNG CANCER SCREENING due on 03/04/2021 MAMMOGRAM due on 08/29/2022 COLORECTAL CANCER SCREENING due on 01/13/2023 Navigation Signature: Elena Quiroga MA March 25, 2023 2:55 PM documented in this encounter [facility] 01-08-2023 History of Present illness Narrative Radiology Service Progress Note PATIENT NAME: Flor Mayberry DATE OF SERVICE: January 08, 2023 TIME: 10:39 AM PATIENT IDENTITY VERIFICATION COMPLETED USING TWO (2) IDENTIFIERS: Name and Date of confirmed by patient verbally. FALL SCREENING: Has the patient had 2 falls in the last year or 1 fall with injury or currently using an Ambulatory Assistive Device (Walker, Cane, Wheelchair, Crutches, etc.)? No PATIENT GENDER DATA: Female. status: : No status: NO. PATIENT RELEVANT IMPLANT DATA REVIEWED: Not Applicable RADIOLOGY DEPARTMENT: General X-ray: Exam(s) Completed: Chest X-Ray PERIPHERAL IV DATA: Not applicable SIGNED BY: RT Kyle(R) January 08, 2023 10:39 AM documented in this encounter [facility] 01-08-2023 Miscellaneous Notes No acute findings documented in this encounter [facility] 01-04-2023 History of Present illness Narrative This note was created using Talkpushter. Subjective Flor Mayberry is a 72 year old female. Patient presents with: F/U 3 Month SUBJECTIVE: Flor Mayberry is a 72 year old year old lady here today for 3 month follow up appointment for review of medical conditions. Knee pain 5/10 bilaterally. Knows needs to get back to Dr. James. Steroid shot helped some. Had just one. Knows left is bone on bone. Worst is going up and down steps. Flat ground is not bad. Right now also hurts back of leg. In AM one of the knees feels like locked up and has to get back in place. has not tried pillows at night for knees. Buspar taken just one at night. Just needing lorazepam at night time so can relax and sleep. Increased WARE the past 2 months. So tired. Needs to rest after short amount of activity. No chest pain or chest pressure. No SOB with laying down. No leg swelling. No signs of infection except cough the past couple weeks. Cough drops helped. Has noticed wheezing when lays down. [facility] give [facility]. Daughter is her surrogate decision maker Following with dermatology at [facility]. Brachioradial pruritis diagnosed. Told the itching is due to pinched nerve in neck. Topical (colbetasol) given for 14 days then follow up with [facility]. Further evaluation and treatment as indicated. Noted atarax helped with itching. Almost quit smoking. Still less than half a pack. PAST MEDICAL HISTORY Diagnosis Date Allergic rhinitis, cause unspecified 11/22/2006 Anxiety state, unspecified 02/05/2006 Depressive disorder, not elsewhere classified 02/05/2006 Diaphragmatic hernia without mention of obstruction or gangrene Esophageal reflux 02/05/2006 [facility] 06/02/2010 Mixed hyperlipidemia Osteoporosis, unspecified Status post AAA (abdominal aortic aneurysm) repair 3.2 cm (last CT 07/09)--Plan Ultrasound AAA Jul 2010;02/29/2020: Open retroperitoneal infrarenal AAA repair with left renal artery bypass Current Outpatient Medications Medication Sig clobetasol (TEMOVATE) 0.05 % cream Apply 1 application to affected area twice daily. To arms ergocalciferol 50,000 unit capsule (VITAMIN D2, DRISDOL) Take 1 capsule by mouth every other week. LORazepam (ATIVAN) 0.5 mg Take 1 tablet by mouth twice daily as needed (anxiety) for up to 90 days. ezetimibe (ZETIA) 10 mg tablet Take 1 tablet by mouth once daily. DULoxetine (CYMBALTA) 60 mg capsule Take 1 capsule by mouth once daily. clopidogrel (PLAVIX) 75 mg tablet Take 1 tablet by mouth once daily. atorvastatin (LIPITOR) 80 mg tablet Take 0.5 tablets by mouth once daily. (Whole pill caused pain in legs) ID#[id number] metoprolol succinate ER (TOPROL XL) 25 mg 24 hr tablet Take 1 tablet by mouth once daily. ID#[id number] busPIRone HCl 30 mg tablet Take 1 tablet by mouth twice daily. As directed. ID#[id number] nitroglycerin sublingual (NITROQUICK) 0.4 mg SL tablet DISSOLVE ON TONGUE FOR CHEST PAIN. May repeat every 5 minutes up to total 3 doses. IF NO PAIN RELIEF, CALL 911 diphenhydrAMINE-Acetaminophen 25-500 mg tab Take 2 tablets by mouth at bedtime as needed (sleep). ELDERBERRY FRUIT ORAL Take by mouth once daily. esomeprazole (NEXIUM) 20 mg capsule Take 1 capsule by mouth once daily. aspirin 325 mg ORAL tablet 1 Tab ORAL DAILY triamcinolone (KENALOG) 0.025 % cream Apply 1 application to affected area twice daily. (Patient not taking: No sig reported) No current facility-administered medications for this visit. Review of Systems Objective BP 144/84 Pulse 83 Temp 36.8 C (98.2 F) Resp 18 Wt 71.7 kg (158 lb) SpO2 96% BMI 28.90 kg/m Physical Exam Constitutional: Appearance: Normal appearance. HENT: Head: Normocephalic. Eyes: Conjunctiva/sclera: Conjunctivae normal. Cardiovascular: Rate and Rhythm: Normal rate and regular rhythm. Heart sounds: Normal heart sounds. Pulmonary: Effort: Pulmonary effort is normal. Breath sounds: Normal breath sounds. Skin: General: Skin is warm and dry. Neurological: General: No focal deficit present. Mental Status: She is alert and oriented to person, place, and time. Psychiatric: Mood and Affect: Mood normal. Behavior: Behavior normal. Thought Content: Thought content normal. Judgment: Judgment normal. Assessment and Plan Encounter Diagnosis ICD-10-CM 1. ASCVD (arteriosclerotic cardiovascular disease) I25.10 nitroglycerin sublingual (NITROQUICK) 0.4 mg SL tablet 2. Other specified anxiety disorders F41.8 LORazepam (ATIVAN) 0.5 mg 3. Vitamin D deficiency E55.9 VITAMIN D 25 HYDROXY COMP METABOLIC PANEL 4. Chronic cough R05.3 LUNG VOLUMES NITRIC OXIDE, EXHALED LUNG DIFFUSION CAPACITY (DLCO) SPIROMETRY - BASELINE AND POST DILATOR XR CHEST 2V FRONTAL/LAT 5. WARE (dyspnea on exertion) R06.09 LUNG VOLUMES NITRIC OXIDE, EXHALED LUNG DIFFUSION CAPACITY (DLCO) SPIROMETRY - BASELINE AND POST DILATOR XR CHEST 2V FRONTAL/LAT 6. S/P AAA repair Z98.890 Z86.79 7. Chronic bronchitis, unspecified chronic bronchitis type (HCC) J42 8. Recurrent major depression in partial remission (HCC) F33.41 9. Colon cancer screening Z12.11 FECAL OCCULT BLOOD TEST 10. Encounter for long-term current use of medication Z79.899 VITAMIN D 25 HYDROXY COMP METABOLIC PANEL Above issues addressed with patient. Patient involved in shared decision making for management of medical issues. History and medications reviewed. Epic updated as needed Refills and/or prescriptions taken care of and meds adjusted as indicated after reviewed history, exam and labs. Health Maintenance reviewed. Updated record and/or ordered tests as recorded. Encouraged on efforts at healthy diet and regular exercise and adequate sleep. I spent a total of 38 minutes on the date of the service which included cfmf-[id number] patient care, completing clinical documentation, performing a medically appropriate examination, counseling and educating the patient/family/caregiver, and ordering medications, tests, or procedures. Tanner Hook MD documented in this encounter [facility] 11-23-2022 History of Present illness Narrative This note was created using Waluzi. Subjective Flor Mayberry is a 72 year old female. HPI Presents with a rash on her bilateral forearms over the past week. It is very itchy. She has scratched so much she has some scabs. No OTC meds used. She had a similar rash 6 weeks ago but seemed to go away on its own. She also had a rash on her forearms in March 2022. She was treated with steroids and that seemed to go away. She states she uses [employer] lotion. That has not changed recently. She denies any other new changes. She denies other exposures. No illness. Review of Systems Constitutional: Negative. HENT: Negative. Respiratory: Negative. Cardiovascular: Negative. Gastrointestinal: Negative. Musculoskeletal: Negative. Skin: Positive for rash. All other systems reviewed and are negative. PAST MEDICAL HISTORY Diagnosis Date Allergic rhinitis, cause unspecified 11/22/2006 Anxiety state, unspecified 02/05/2006 Depressive disorder, not elsewhere classified 02/05/2006 Diaphragmatic hernia without mention of obstruction or gangrene Esophageal reflux 02/05/2006 [facility]) 06/02/2010 Mixed hyperlipidemia Osteoporosis, unspecified Status post AAA (abdominal aortic aneurysm) repair 3.2 cm (last CT 07/09)--Plan Ultrasound AAA Jul 2010;02/29/2020: Open retroperitoneal infrarenal AAA repair with left renal artery bypass Current Outpatient Medications Medication Sig Dispense Refill ergocalciferol 50,000 unit capsule (VITAMIN D2, DRISDOL) Take 1 capsule by mouth every other week. LORazepam (ATIVAN) 0.5 mg Take 1 tablet by mouth twice daily as needed (anxiety) for up to 90 days. 60 tablet 2 ezetimibe (ZETIA) 10 mg tablet Take 1 tablet by mouth once daily. 90 tablet 3 DULoxetine (CYMBALTA) 60 mg capsule Take 1 capsule by mouth once daily. 90 capsule 3 clopidogrel (PLAVIX) 75 mg tablet Take 1 tablet by mouth once daily. 90 tablet 3 atorvastatin (LIPITOR) 80 mg tablet Take 0.5 tablets by mouth once daily. (Whole pill caused pain in legs) ID#[id number] 45 tablet 3 metoprolol succinate ER (TOPROL XL) 25 mg 24 hr tablet Take 1 tablet by mouth once daily. ID#[id number] 90 tablet 3 busPIRone HCl 30 mg tablet Take 1 tablet by mouth twice daily. As directed. ID#[id number] 180 tablet 3 nitroglycerin sublingual (NITROQUICK) 0.4 mg SL tablet DISSOLVE ON TONGUE FOR CHEST PAIN. May repeat every 5 minutes up to total 3 doses. IF NO PAIN RELIEF, CALL 911 1 Bottle of 25 2 diphenhydrAMINE-Acetaminophen 25-500 mg tab Take 2 tablets by mouth at bedtime as needed (sleep). ELDERBERRY FRUIT ORAL Take by mouth once daily. esomeprazole (NEXIUM) 20 mg capsule Take 1 capsule by mouth once daily. aspirin 325 mg ORAL tablet 1 Tab ORAL DAILY 30 Tab 0 predniSONE (DELTASONE) 10 mg tablet Take 4 tabs daily for 3 days, then 2 tabs daily for 3 days, then 1 tab daily for 3 days with food. 21 tablet 0 hydrOXYzine HCl (ATARAX) 25 mg tablet Take 1 tablet by mouth three times daily as needed for up to 5 days. 15 tablet 0 triamcinolone acetonide (KENALOG) 0.1 % cream Apply 1 application to affected area three times daily for 7 days. Apply sparingly to area for rash/itching. 80 g 0 triamcinolone (KENALOG) 0.025 % cream Apply 1 application to affected area twice daily. (Patient not taking: Reported on 11/23/2022) 30 g 0 No current facility-administered medications for this visit. PAST SURGICAL HISTORY Procedure Laterality Date ABD AORTA ANEURYSM REPAIR 02/29/2020 open aneurysm repair for an aneurysm with a maximal transverse diameter of 6 cm; 02/29/2020: Open retroperitoneal infrarenal AAA repair with left renal artery bypass ARTHRP ACETBLR/PROX FEM PROSTC AGRFT/ALGRFT 04/29/2012 [facility]-right BX BREAST W/DEVICE 1ST LESION STEREOTACTIC GUID 06/18/2014 benign COLONOSCOPY FLX DX W/COLLJ SPEC WHEN PFRMD 11/08/[address] [facility] COLONOSCOPY FLX DX W/COLLJ SPEC WHEN PFRMD 03/22/2012 Colonoscopy ESOPHAGOGASTRODUODENOSCOPY TRANSORAL DIAGNOSTIC 03/22/2012 EGD MAMMO STEREOTACTIC CORE BIOPSY LT 08/02/1998 left benign - Dr. Gordon PAST SURGICAL HISTORY OF Bilateral 08/02/1998 foot surgery PAST SURGICAL HISTORY OF 06/02/2010 angioplasty with stent FAMILY HISTORY Problem Relation Age of Onset Cancer Mother colon Stroke Mother other (past history) Father abdominal aortic aneurysm Social History Tobacco Use Smoking status: Every Day Packs/day: 0.50 Years: 40.00 Pack years: 20.00 Types: Cigarettes Smokeless tobacco: Never Tobacco comments: less than a pack per day--almost ready to quit Vaping Use Vaping Use: Never used Substance Use Topics Alcohol use: Yes Alcohol/week: 2.5 standard drinks Types: 1 Cans of Beer (12oz) per week Comment: seldom Drug use: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 patient and the patient voiced understanding of these instructions. SIGN OUT No specimen collected. All instruments, equipment, possible retained foreign bodies accounted for. Post-procedure follow-up management communicated and Plan of Care Visit completed when applicable IMAGING: IMPRESSION: Osteoarthrosis of the knees.. Redye Hand: SILVA Transcribe Date/Time: Apr 21 2021 12:37P Dictated by : BETTINA SHEA MD This examination was interpreted and the report reviewed and electronically signed by: BETTINA SHEA MD on Apr 21 2021 12:39PM EST Results-Findings * * *Final Report* * * DATE OF EXAM: Apr 21 2021 12:20PM WOX [id number] - XR KNEE 4V AP/PA/LAT/MERCH LAYNE / PROCEDURE REASON: multiple diagnoses * * * * Physician Interpretation * * * * Knee radiographs HISTORY: 70 years old Clinical information: Chronic pain of both knees Chronic pain of both knees Chronic pain of both knees pt states pain in right shoulder for 3 weeks ac joint area and upper right arm no inj, pain in mostly left knee for years getting worse, hx of arthritis, fluid and bakers cyst on left knee entire knee hurts, right not as bad with pain ant. and post. side TECHNIQUE: Images: XR KNEE 4V AP/PA/LAT/MERCH LAYNE Comparison: 04/14/2019. RESULT: Findings: LEFT KNEE: Narrowing of medial compartment joint space and [id number] in the medial femoral condyle and tibial plateau. Marginal osteophyte extending of tibial plateaus, femoral condyles, and posterior aspect of the patella. No joint effusion. No fracture or dislocation. RIGHT KNEE: Narrowing of the medial compartment joint space. Marginal osteophytes extending off tibial plateaus, femoral condyles, and posterior aspect of the patella. No fracture or dislocation. Intra-articular bodies in the posterior joint space. No definite joint effusion. Supporting Subjective Information Below: Past Medical History: PAST MEDICAL HISTORY Diagnosis Date Allergic rhinitis, cause unspecified 11/22/2006 Anxiety state, unspecified 02/05/2006 Depressive disorder, not elsewhere classified 02/05/2006 Diaphragmatic hernia without mention of obstruction or gangrene Esophageal reflux 02/05/2006 [facility] 06/02/2010 Mixed hyperlipidemia Osteoporosis, unspecified Status post AAA (abdominal aortic aneurysm) repair 3.2 cm (last CT 07/09)--Plan Ultrasound AAA Jul 2010;02/29/2020: Open retroperitoneal infrarenal AAA repair with left renal artery bypass Past Surgical History: PAST SURGICAL HISTORY Procedure Laterality Date ABD AORTA ANEURYSM REPAIR 02/29/2020 open aneurysm repair for an aneurysm with a maximal transverse diameter of 6 cm; 02/29/2020: Open retroperitoneal infrarenal AAA repair with left renal artery bypass ARTHRP ACETBLR/PROX FEM PROSTC AGRFT/ALGRFT 04/29/2012 [facility] BX BREAST W/DEVICE 1ST LESION STEREOTACTIC GUID 06/18/2014 benign COLONOSCOPY FLX DX W/COLLJ SPEC WHEN PFRMD 11/08/[address]. [address] [facility] COLONOSCOPY FLX DX W/COLLJ SPEC WHEN PFRMD 03/22/2012 Colonoscopy ESOPHAGOGASTRODUODENOSCOPY TRANSORAL DIAGNOSTIC 03/22/2012 EGD MAMMO STEREOTACTIC CORE BIOPSY LT 08/02/1998 left benign - Dr. Gordon PAST SURGICAL HISTORY OF Bilateral 08/02/1998 foot surgery PAST SURGICAL HISTORY OF 06/02/2010 angioplasty with stent Family History: FAMILY HISTORY Problem Relation Age of Onset Cancer Mother colon Stroke Mother other (past history) Father abdominal aortic aneurysm Social History: Social History Tobacco Use Smoking status: Current Every Day Smoker Packs/day: 0.50 Years: 40.00 Pack years: 20.00 Types: Cigarettes Smokeless tobacco: Never Used Tobacco comment: less than a pack per day--almost ready to quit Vaping Use Vaping Use: Never used Substance Use Topics Alcohol use: Yes Alcohol/week: 2.5 standard drinks Types: 1 Cans of Beer (12oz) per week Comment: seldom Drug use: No Medications: Current Outpatient Medications Medication Sig ezetimibe (ZETIA) 10 mg tablet Take 1 tablet by mouth once daily. DULoxetine (CYMBALTA) 60 mg capsule Take 1 capsule by mouth once daily. clopidogrel (PLAVIX) 75 mg tablet Take 1 tablet by mouth once daily. atorvastatin (LIPITOR) 80 mg tablet Take 0.5 tablets by mouth once daily. (Whole pill caused pain in legs) ID#[id number] LORazepam (ATIVAN) 0.5 mg Take 1 tablet by mouth twice daily as needed (anxiety) for up to 90 days. Do not start before August 01, 2021. metoprolol succinate ER (TOPROL XL) 25 mg 24 hr tablet Take 1 tablet by mouth once daily. ID#[id number] ergocalciferol 50,000 unit capsule (VITAMIN D2, DRISDOL) Take 1 capsule by mouth one time a week. busPIRone HCl 30 mg tablet Take 1 tablet by mouth twice daily. As directed. ID#[id number] nitroglycerin sublingual (NITROQUICK) 0.4 mg SL tablet DISSOLVE ON TONGUE FOR CHEST PAIN. May repeat every 5 minutes up to total 3 doses. IF NO PAIN RELIEF, CALL 911 diphenhydrAMINE-Acetaminophen (TYLENOL PM EXTRA STRENGTH) 25-500 mg tab Take 2 tablets by mouth at bedtime as needed (sleep). ELDERBERRY FRUIT ORAL Take by mouth once daily. esomeprazole (NEXIUM) 20 mg capsule Take 1 capsule by mouth once daily. aspirin 325 mg ORAL tablet 1 Tab ORAL DAILY guaiFENesin (MUCINEX) 600 mg 12 hr tablet Take 2 tablets by mouth twice daily. fluticasone (FLONASE) 50 mcg/actuation nasal spray Use 2 Sprays in each nostril once daily. Rinse mouth after use. (Patient not taking: Reported on 11/17/2021 ) diclofenac (VOLTAREN ARTHRITIS PAIN) 1 % topical gel Apply 4 gm to bilateral knees and 2 gm to right shoulder up to 4 times a day as needed (Patient not taking: Reported on 11/17/2021 ) zolpidem (AMBIEN) 10 mg Take 1 tablet by mouth at bedtime as needed for up to 30 days. FOR INSOMNIA ID#[id number] (Patient not taking: Reported on 11/17/2021) No current facility-administered medications for this visit. Allergies: Augmentin [Amoxicillin-Pot Clavulanate], Doxycycline, Levofloxacin, Wellbutrin [Bupropion Hcl], and Zocor [Simvastatin] ROS: General (negative for fatigue, malaise, weight loss/gain) HEENT (negative for headache, earache, recent vision changes, sinus pain, sore throat) Respiratory (no recent shortness of breath, hemoptysis) CV (negative for chest tightness, palpitations) Musculoskeletal (see HPI) Psych (no depression, anxiety) REFERRING PHYSICIAN: Ms. Flor Mayberry was referred to me for consultation by the following physician. This consultation note will be sent to the following physician by either mail or electronic medical record. SELF Tanner Hook MD [id number] [facility] [address] Hilario James MD documented in this encounter [facility] 04-21-2021 History of Present illness Narrative Radiology Service Progress Note PATIENT NAME: Flor Mayberry DATE OF SERVICE: April 21, 2021 TIME: 11:58 AM PATIENT IDENTITY VERIFICATION COMPLETED USING TWO (2) IDENTIFIERS: Name and Date of confirmed by patient verbally. FALL SCREENING: Has the patient had 2 falls in the last year or 1 fall with injury or currently using an Ambulatory Assistive Device (Walker, Cane, Wheelchair, Crutches, etc.)? No PATIENT GENDER DATA: Female. status: : No status: NO. PATIENT RELEVANT IMPLANT DATA REVIEWED: Not Applicable RADIOLOGY DEPARTMENT: General X-ray: Exam(s) Completed: Lower Extremity X-Ray(s): Knee, AP / Lat / Tunne / Merchant Bilateral and Wt. Bearing Upper Extremity X-Ray(s): Shoulder, AP / TRUE AP / AXILLARY right PERIPHERAL IV DATA: Not applicable SIGNED BY: RT Kyle(R) April 21, 2021 11:58 AM documented in this encounter [facility] 07-08-2020 History of Present illness Narrative Radiology Service Progress Note PATIENT NAME: Flor Mayberry DATE OF SERVICE: July 08, 2020 TIME: 11:05 AM PATIENT IDENTITY VERIFICATION COMPLETED USING TWO (2) IDENTIFIERS: Name and Date of confirmed by patient verbally. FALL SCREENING: Has the patient had 2 falls in the last year or 1 fall with injury or currently using an Ambulatory Assistive Device (Walker, Cane, Wheelchair, Crutches, etc.)? No PATIENT GENDER DATA: Female. status: : No status: NO. PATIENT RELEVANT IMPLANT DATA REVIEWED: Not Applicable RADIOLOGY DEPARTMENT: General X-ray: Exam(s) Completed: Chest X-Ray PERIPHERAL IV DATA: Not applicable SIGNED BY: RT Kyle July 08, 2020 11:05 AM documented in this encounter [facility] 03-06-2020 History of Past i llness Narrative Problem Noted Date Resolved Date Mild protein-calorie malnutrition 03/06/2020 07/15/2020 Hypo-osmolality and hyponatremia 03/04/2020 07/15/2020 Overview: History: Postoperative Assessment: IVC dialated on bedside Echo Plan: Started on lasix and free water restriction. Consulted nephrology. Discontinued scheduled lasix per nephrology recs. Continue to follow Na [id number] and follow free water restriction. KAREN (acute kidney injury) 03/01/20202019 Overview: History: Preop Cr 1.02. Acute postop increase in Cr Non oliguric KAREN likely d/t ischemic ATN in the setting of AAA repair, layne renal artery stenosis, and Lt renal artery bypass. Renal duplex results reviewed, L renal bypass patent. Creat increased 1.02--> 2.29 --> 3.81--> 4.44 Assessment: Non oliguric. Cr continues to trend down, 2.20 today. Hyponatremic Na 132 Plan: Initially started scheduled lasix 40mg [id number] and free water restriction. Nephrology recommends to continue free water restriction. Na expected to gradually resolve. Na 132 this AM. Acute postoperative respiratory insufficiency 07/15/2020 Overview: History: Current smoker, COPD. grade 1 airway RLL atelectasis/collapse present in CVICU on admission cxr - S/P bronchoscopy for secretion clearance. Extubated on POD # 1 Assessment: Receiving duonebs, mucomyst Percussion vest. No sig improvement in RLL atelectasis. Increased FiO2 requirement. High risk of respiratory morbidity d/t severe COPD and RLL collapse vs infiltrate. Started empiric ATBx 03/02/2020 due to high risk of pneumonia CT chest, RUL groundglass opacity, Bilateral lower lobe basal atelectasis and pleural effusions present. 03/08/2020 Gradually weaned to 3L NC, decreased this morning to 2L NC. Okay with paO2s in the 70s. 03/11/2020 on room air Plan: Continue aggressive BPH and PEP. Sats 91% on RA. No shortness of breath per patient. Can go home today Depressive disorder 05/05/2015 07/15/2020 Overview: History: home meds: ativan, lunesta for sleep, cymbalta, and buspar Assessment: Affect sometimes withdrawn, was initially started on ambien (lunesta non-formulary) for insomnia. Trazodone was added Plan: Continue home meds Abnormal mammogram, unspecified 05/24/2014 05/05/2015 Edema 10/05/2012 07/15/2020 Shortness of breath 10/05/2012 07/15/2020 SUMMARY 06/01/2010 07/15/2020 Overview: 60 yo F with no previous cardiac history presented to [place] [facility] with c/o CP and WARE for a week, getting worse over last 3 days. EKG revealed symmetric deep T wave inversion in anterior leads. Troponin I and CK -MB were raised. Transferred to [facility] for possible cath and intervention - Significant disease in LAD and proximal D1 -2 KYLE to LAD and D1 on 06/02 VITAMIN D DEFICIENCY NOS 11/30/2008 015 Other diseases of lung, not elsewhere classified 07/13/2008 07/15/2020 DEPRESSIVE DISORDER NEC 02/05/2006 05/05/20 15 ANXIETY STATE NOS 02/05/2006 05/05/2015 Aortic aneurysm 07/15/2020 Overview: History: H/o asymptomatic AAA and left renal artery stenosis s/p left RP approach open retroperitoneal infrarenal AAA repair with 22 x 11 bifurcated dacron hemashield gold and left renal artery bypass with 6mm PFT for renal bypass on 02/29/20. Assessment: Continues to look well. Hyponatremia improved and stable, asymptomatic. Patient resting comfortably on room air. No complaints of pain. Incision CDI Plan: DC today 03/12/2020 documented as of this encounter (statuses as of 11/17/2021) [facility] History of Past illness Narrative* Problem Noted Date Resolved Date Mild protein-calorie malnutrition 03/06/2020 07/15/2020 Hypo-osmolality and hyponatremia 03/04/2020 07/15/2020 Overview: History: Postoperative Assessment: IVC dialated on bedside Echo Plan: Started on lasix and free water restriction. Consulted nephrology. Discontinued scheduled lasix per nephrology recs. Continue to follow Na [id number] and follow free water restriction. KAREN (acute kidney injury) 03/01/20202019 Overview: History: Preop Cr 1.02. Acute postop increase in Cr Non oliguric KAREN likely d/t ischemic ATN in the setting of AAA repair, layne renal artery stenosis, and Lt renal artery bypass. Renal duplex results reviewed, L renal bypass patent. Creat increased 1.02--> 2.29 --> 3.81--> 4.44 Assessment: Non oliguric. Cr continues to trend down, 2.20 today. Hyponatremic Na 132 Plan: Initially started scheduled lasix 40mg [id number] and free water restriction. Nephrology recommends to continue free water restriction. Na expected to gradually resolve. Na 132 this AM. Acute postoperative respiratory insufficiency 07/15/2020 Overview: History: Current smoker, COPD. grade 1 airway RLL atelectasis/collapse present in CVICU on admission cxr - S/P bronchoscopy for secretion clearance. Extubated on POD # 1 Assessment: Receiving duonebs, mucomyst Percussion vest. No sig improvement in RLL atelectasis. Increased FiO2 requirement. High risk of respiratory morbidity d/t severe COPD and RLL collapse vs infiltrate. Started empiric ATBx 03/02/2020 due to high risk of pneumonia CT chest, RUL groundglass opacity, Bilateral lower lobe basal atelectasis and pleural effusions present. 03/08/2020 Gradually weaned to 3L NC, decreased this morning to 2L NC. Okay with paO2s in the 70s. 03/11/2020 on room air Plan: Continue aggressive BPH and PEP. Sats 91% on RA. No shortness of breath per patient. Can go home today Depressive disorder 05/05/2015 07/15/2020 Overview: History: home meds: ativan, lunesta for sleep, cymbalta, and buspar Assessment: Affect sometimes withdrawn, was initially started on ambien (lunesta non-formulary) for insomnia. Trazodone was added Plan: Continue home meds Abnormal mammogram, unspecified 05/24/2014 05/05/2015 Edema 10/05/2012 07/15/2020 Shortness of breath 10/05/2012 07/15/2020 SUMMARY 06/01/2010 07/15/2020 Overview: 60 yo F with no previous cardiac history presented to [place] ED with c/o CP and WARE for a week, getting worse over last 3 days. EKG revealed symmetric deep T wave inversion in anterior leads. Troponin I and CK -MB were raised. Transferred to [facility] for possible cath and intervention - Significant disease in LAD and proximal D1 -2 KYLE to LAD and D1 on 06/02 VITAMIN D DEFICIENCY NOS 11/30/2008 015 Other diseases of lung, not elsewhere classified 07/13/2008 07/15/2020 DEPRESSIVE DISORDER NEC 02/05/2006 05/05/20 15 ANXIETY STATE NOS 02/05/2006 05/05/2015 Aortic aneurysm 07/15/2020 Overview: History: H/o asymptomatic AAA and left renal artery stenosis s/p left RP approach open retroperitoneal infrarenal AAA repair with 22 x 11 bifurcated dacron hemashield gold and left renal artery bypass with 6mm PFT for renal bypass on 02/29/20. Assessment: Continues to look well. Hyponatremia improved and stable, asymptomatic. Patient resting comfortably on room air. No complaints of pain. Incision CDI Plan: DC today 03/12/2020 documented as of this encounter (statuses as of 11/18/2021) [facility] History of Past illness Narrative* Problem Noted Date Resolved Date Mild protein-calorie malnutrition 03/06/2020 07/15/2020 Hypo-osmolality and hyponatremia 03/04/2020 07/15/2020 Overview: History: Postoperative Assessment: IVC dialated on bedside Echo Plan: Started on lasix and free water restriction. Consulted nephrology. Discontinued scheduled lasix per nephrology recs. Continue to follow Na [id number] and follow free water restriction. KAREN (acute kidney injury) 03/01/20202019 Overview: History: Preop Cr 1.02. Acute postop increase in Cr Non oliguric KAREN likely d/t ischemic ATN in the setting of AAA repair, layne renal artery stenosis, and Lt renal artery bypass. Renal duplex results reviewed, L renal bypass patent. Creat increased 1.02--> 2.29 --> 3.81--> 4.44 Assessment: Non oliguric. Cr continues to trend down, 2.20 today. Hyponatremic Na 132 Plan: Initially started scheduled lasix 40mg [id number] and free water restriction. Nephrology recommends to continue free water restriction. Na expected to gradually resolve. Na 132 this AM. Acute postoperative respiratory insufficiency 07/15/2020 Overview: History: Current smoker, COPD. grade 1 airway RLL atelectasis/collapse present in CVICU on admission cxr - S/P bronchoscopy for secretion clearance. Extubated on POD # 1 Assessment: Receiving duonebs, mucomyst Percussion vest. No sig improvement in RLL atelectasis. Increased FiO2 requirement. High risk of respiratory morbidity d/t severe COPD and RLL collapse vs infiltrate. Started empiric ATBx 03/02/2020 due to high risk of pneumonia CT chest, RUL groundglass opacity, Bilateral lower lobe basal atelectasis and pleural effusions present. 03/08/2020 Gradually weaned to 3L NC, decreased this morning to 2L NC. Okay with paO2s in the 70s. 03/11/2020 on room air Plan: Continue aggressive BPH and PEP. Sats 91% on RA. No shortness of breath per patient. Can go home today Depressive disorder 05/05/2015 07/15/2020 Overview: History: home meds: ativan, lunesta for sleep, cymbalta, and buspar Assessment: Affect sometimes withdrawn, was initially started on ambien (lunesta non-formulary) for insomnia. Trazodone was added Plan: Continue home meds Abnormal mammogram, unspecified 05/24/2014 05/05/2015 Edema 10/05/2012 07/15/2020 Shortness of breath 10/05/2012 07/15/2020 SUMMARY 06/01/2010 07/15/2020 Overview: 60 yo F with no previous cardiac history presented to [place] ED with c/o CP and WARE for a week, getting worse over last 3 days. EKG revealed symmetric deep T wave inversion in anterior leads. Troponin I and CK -MB were raised. Transferred to [facility] for possible cath and intervention - Significant disease in LAD and proximal D1 -2 KYLE to LAD and D1 on 06/02 VITAMIN D DEFICIENCY NOS 11/30/2008 015 Other diseases of lung, not elsewhere classified 07/13/2008 07/15/2020 DEPRESSIVE DISORDER NEC 02/05/2006 05/05/20 15 ANXIETY STATE NOS 02/05/2006 05/05/2015 Aortic aneurysm 07/15/2020 Overview: History: H/o asymptomatic AAA and left renal artery stenosis s/p left RP approach open retroperitoneal infrarenal AAA repair with 22 x 11 bifurcated dacron hemashield gold and left renal artery bypass with 6mm PFT for renal bypass on 02/29/20. Assessment: Continues to look well. Hyponatremia improved and stable, asymptomatic. Patient resting comfortably on room air. No complaints of pain. Incision CDI Plan: DC today 03/12/2020 documented as of this encounter (statuses as of 03/07/2022) [facility] History of Past illness Narrative* Problem Noted Date Resolved Date Mild protein-calorie malnutrition 03/06/2020 07/15/2020 Hypo-osmolality and hyponatremia 03/04/2020 07/15/2020 Overview: History: Postoperative Assessment: IVC dialated on bedside Echo Plan: Started on lasix and free water restriction. Consulted nephrology. Discontinued scheduled lasix per nephrology recs. Continue to follow Na [id number] and follow free water restriction. KAREN (acute kidney injury) 03/01/20202019 Overview: History: Preop Cr 1.02. Acute postop increase in Cr Non oliguric KAREN likely d/t ischemic ATN in the setting of AAA repair, layne renal artery stenosis, and Lt renal artery bypass. Renal duplex results reviewed, L renal bypass patent. Creat increased 1.02--> 2.29 --> 3.81--> 4.44 Assessment: Non oliguric. Cr continues to trend down, 2.20 today. Hyponatremic Na 132 Plan: Initially started scheduled lasix 40mg [id number] and free water restriction. Nephrology recommends to continue free water restriction. Na expected to gradually resolve. Na 132 this AM. Acute postoperative respiratory insufficiency 07/15/2020 Overview: History: Current smoker, COPD. grade 1 airway RLL atelectasis/collapse present in CVICU on admission cxr - S/P bronchoscopy for secretion clearance. Extubated on POD # 1 Assessment: Receiving duonebs, mucomyst Percussion vest. No sig improvement in RLL atelectasis. Increased FiO2 requirement. High risk of respiratory morbidity d/t severe COPD and RLL collapse vs infiltrate. Started empiric ATBx 03/02/2020 due to high risk of pneumonia CT chest, RUL groundglass opacity, Bilateral lower lobe basal atelectasis and pleural effusions present. 03/08/2020 Gradually weaned to 3L NC, decreased this morning to 2L NC. Okay with paO2s in the 70s. 03/11/2020 on room air Plan: Continue aggressive BPH and PEP. Sats 91% on RA. No shortness of breath per patient. Can go home today Depressive disorder 05/05/2015 07/15/2020 Overview: History: home meds: ativan, lunesta for sleep, cymbalta, and buspar Assessment: Affect sometimes withdrawn, was initially started on ambien (lunesta non-formulary) for insomnia. Trazodone was added Plan: Continue home meds Abnormal mammogram, unspecified 05/24/2014 05/05/2015 Edema 10/05/2012 07/15/2020 Shortness of breath 10/05/2012 07/15/2020 SUMMARY 06/01/2010 07/15/2020 Overview: 60 yo F with no previous cardiac history presented to [place] ED with c/o CP and WARE for a week, getting worse over last 3 days. EKG revealed symmetric deep T wave inversion in anterior leads. Troponin I and CK -MB were raised. Transferred to [facility] for possible cath and intervention - Significant disease in LAD and proximal D1 -2 KYLE to LAD and D1 on 06/02 VITAMIN D DEFICIENCY NOS 11/30/2008 015 Other diseases of lung, not elsewhere classified 07/13/2008 07/15/2020 DEPRESSIVE DISORDER NEC 02/05/2006 05/05/20 15 ANXIETY STATE NOS 02/05/2006 05/05/2015 Aortic aneurysm 07/15/2020 Overview: History: H/o asymptomatic AAA and left renal artery stenosis s/p left RP approach open retroperitoneal infrarenal AAA repair with 22 x 11 bifurcated dacron hemashield gold and left renal artery bypass with 6mm PFT for renal bypass on 02/29/20. Assessment: Continues to look well. Hyponatremia improved and stable, asymptomatic. Patient resting comfortably on room air. No complaints of pain. Incision CDI Plan: DC today 03/12/2020 documented as of this encounter (statuses as of 03/26/2022) [facility] History of Past illness Narrative* Problem Noted Date Resolved Date Mild protein-calorie malnutrition 03/06/2020 07/15/2020 Hypo-osmolality and hyponatremia 03/04/2020 07/15/2020 Overview: History: Postoperative Assessment: IVC dialated on bedside Echo Plan: Started on lasix and free water restriction. Consulted nephrology. Discontinued scheduled lasix per nephrology recs. Continue to follow Na [id number] and follow free water restriction. KAREN (acute kidney injury) 03/01/20202019 Overview: History: Preop Cr 1.02. Acute postop increase in Cr Non oliguric KAREN likely d/t ischemic ATN in the setting of AAA repair, layne renal artery stenosis, and Lt renal artery bypass. Renal duplex results reviewed, L renal bypass patent. Creat increased 1.02--> 2.29 --> 3.81--> 4.44 Assessment: Non oliguric. Cr continues to trend down, 2.20 today. Hyponatremic Na 132 Plan: Initially started scheduled lasix 40mg [id number] and free water restriction. Nephrology recommends to continue free water restriction. Na expected to gradually resolve. Na 132 this AM. Acute postoperative respiratory insufficiency 07/15/2020 Overview: History: Current smoker, COPD. grade 1 airway RLL atelectasis/collapse present in CVICU on admission cxr - S/P bronchoscopy for secretion clearance. Extubated on POD # 1 Assessment: Receiving duonebs, mucomyst Percussion vest. No sig improvement in RLL atelectasis. Increased FiO2 requirement. High risk of respiratory morbidity d/t severe COPD and RLL collapse vs infiltrate. Started empiric ATBx 03/02/2020 due to high risk of pneumonia CT chest, RUL groundglass opacity, Bilateral lower lobe basal atelectasis and pleural effusions present. 03/08/2020 Gradually weaned to 3L NC, decreased this morning to 2L NC. Okay with paO2s in the 70s. 03/11/2020 on room air Plan: Continue aggressive BPH and PEP. Sats 91% on RA. No shortness of breath per patient. Can go home today Depressive disorder 05/05/2015 07/15/2020 Overview: History: home meds: ativan, lunesta for sleep, cymbalta, and buspar Assessment: Affect sometimes withdrawn, was initially started on ambien (lunesta non-formulary) for insomnia. Trazodone was added Plan: Continue home meds Abnormal mammogram, unspecified 05/24/2014 05/05/2015 Edema 10/05/2012 07/15/2020 Shortness of breath 10/05/2012 07/15/2020 SUMMARY 06/01/2010 07/15/2020 Overview: 60 yo F with no previous cardiac history presented to [place] ED with c/o CP and WARE for a week, getting worse over last 3 days. EKG revealed symmetric deep T wave inversion in anterior leads. Troponin I and CK -MB were raised. Transferred to [facility] for possible cath and intervention - Significant disease in LAD and proximal D1 -2 KYLE to LAD and D1 on 06/02 VITAMIN D DEFICIENCY NOS 11/30/2008 015 Other diseases of lung, not elsewhere classified 07/13/2008 07/15/2020 DEPRESSIVE DISORDER NEC 02/05/2006 05/05/20 15 ANXIETY STATE NOS 02/05/2006 05/05/2015 Aortic aneurysm 07/15/2020 Overview: History: H/o asymptomatic AAA and left renal artery stenosis s/p left RP approach open retroperitoneal infrarenal AAA repair with 22 x 11 bifurcated dacron hemashield gold and left renal artery bypass with 6mm PFT for renal bypass on 02/29/20. Assessment: Continues to look well. Hyponatremia improved and stable, asymptomatic. Patient resting comfortably on room air. No complaints of pain. Incision CDI Plan: DC today 03/12/2020 documented as of this encounter (statuses as of 05/18/2022) [facility] History of Past illness Narrative* Problem Noted Date Resolved Date Mild protein-calorie malnutrition 03/06/2020 07/15/2020 Hypo-osmolality and hyponatremia 03/04/2020 07/15/2020 Overview: History: Postoperative Assessment: IVC dialated on bedside Echo Plan: Started on lasix and free water restriction. Consulted nephrology. Discontinued scheduled lasix per nephrology recs. Continue to follow Na [id number] and follow free water restriction. KAREN (acute kidney injury) 03/01/20202019 Overview: History: Preop Cr 1.02. Acute postop increase in Cr Non oliguric KAREN likely d/t ischemic ATN in the setting of AAA repair, layne renal artery stenosis, and Lt renal artery bypass. Renal duplex results reviewed, L renal bypass patent. Creat increased 1.02--> 2.29 --> 3.81--> 4.44 Assessment: Non oliguric. Cr continues to trend down, 2.20 today. Hyponatremic Na 132 Plan: Initially started scheduled lasix 40mg [id number] and free water restriction. Nephrology recommends to continue free water restriction. Na expected to gradually resolve. Na 132 this AM. Acute postoperative respiratory insufficiency 07/15/2020 Overview: History: Current smoker, COPD. grade 1 airway RLL atelectasis/collapse present in CVICU on admission cxr - S/P bronchoscopy for secretion clearance. Extubated on POD # 1 Assessment: Receiving duonebs, mucomyst Percussion vest. No sig improvement in RLL atelectasis. Increased FiO2 requirement. High risk of respiratory morbidity d/t severe COPD and RLL collapse vs infiltrate. Started empiric ATBx 03/02/2020 due to high risk of pneumonia CT chest, RUL groundglass opacity, Bilateral lower lobe basal atelectasis and pleural effusions present. 03/08/2020 Gradually weaned to 3L NC, decreased this morning to 2L NC. Okay with paO2s in the 70s. 03/11/2020 on room air Plan: Continue aggressive BPH and PEP. Sats 91% on RA. No shortness of breath per patient. Can go home today Depressive disorder 05/05/2015 07/15/2020 Overview: History: home meds: ativan, lunesta for sleep, cymbalta, and buspar Assessment: Affect sometimes withdrawn, was initially started on ambien (lunesta non-formulary) for insomnia. Trazodone was added Plan: Continue home meds Abnormal mammogram, unspecified 05/24/2014 05/05/2015 Edema 10/05/2012 07/15/2020 Shortness of breath 10/05/2012 07/15/2020 SUMMARY 06/01/2010 07/15/2020 Overview: 60 yo F with no previous cardiac history presented to [place] [facility] with c/o CP and WARE for a week, getting worse over last 3 days. EKG revealed symmetric deep T wave inversion in anterior leads. Troponin I and CK -MB were raised. Transferred to [facility] for possible cath and intervention - Significant disease in LAD and proximal D1 -2 KYLE to LAD and D1 on 06/02 VITAMIN D DEFICIENCY NOS 11/30/2008 015 Other diseases of lung, not elsewhere classified 07/13/2008 07/15/2020 DEPRESSIVE DISORDER NEC 02/05/2006 05/05/20 15 ANXIETY STATE NOS 02/05/2006 05/05/2015 Aortic aneurysm 07/15/2020 Overview: History: H/o asymptomatic AAA and left renal artery stenosis s/p left RP approach open retroperitoneal infrarenal AAA repair with 22 x 11 bifurcated dacron hemashield gold and left renal artery bypass with 6mm PFT for renal bypass on 02/29/20. Assessment: Continues to look well. Hyponatremia improved and stable, asymptomatic. Patient resting comfortably on room air. No complaints of pain. Incision CDI Plan: DC today 03/12/2020 documented as of this encounter (statuses as of 10/05/2022) [facility] History of Past illness Narrative* Problem Noted Date Resolved Date Mild protein-calorie malnutrition 03/06/2020 07/15/2020 Hypo-osmolality and hyponatremia 03/04/2020 07/15/2020 Overview: History: Postoperative Assessment: IVC dialated on bedside Echo Plan: Started on lasix and free water restriction. Consulted nephrology. Discontinued scheduled lasix per nephrology recs. Continue to follow Na [id number] and follow free water restriction. KRAEN (acute kidney injury) 03/01/20202019 Overview: History: Preop Cr 1.02. Acute postop increase in Cr Non oliguric KAREN likely d/t ischemic ATN in the setting of AAA repair, layne renal artery stenosis, and Lt renal artery bypass. Renal duplex results reviewed, L renal bypass patent. Creat increased 1.02--> 2.29 --> 3.81--> 4.44 Assessment: Non oliguric. Cr continues to trend down, 2.20 today. Hyponatremic Na 132 Plan: Initially started scheduled lasix 40mg [id number] and free water restriction. Nephrology recommends to continue free water restriction. Na expected to gradually resolve. Na 132 this AM. Acute postoperative respiratory insufficiency 07/15/2020 Overview: History: Current smoker, COPD. grade 1 airway RLL atelectasis/collapse present in CVICU on admission cxr - S/P bronchoscopy for secretion clearance. Extubated on POD # 1 Assessment: Receiving duonebs, mucomyst Percussion vest. No sig improvement in RLL atelectasis. Increased FiO2 requirement. High risk of respiratory morbidity d/t severe COPD and RLL collapse vs infiltrate. Started empiric ATBx 03/02/2020 due to high risk of pneumonia CT chest, RUL groundglass opacity, Bilateral lower lobe basal atelectasis and pleural effusions present. 03/08/2020 Gradually weaned to 3L NC, decreased this morning to 2L NC. Okay with paO2s in the 70s. 03/11/2020 on room air Plan: Continue aggressive BPH and PEP. Sats 91% on RA. No shortness of breath per patient. Can go home today Depressive disorder 05/05/2015 07/15/2020 Overview: History: home meds: ativan, lunesta for sleep, cymbalta, and buspar Assessment: Affect sometimes withdrawn, was initially started on ambien (lunesta non-formulary) for insomnia. Trazodone was added Plan: Continue home meds Abnormal mammogram, unspecified 05/24/2014 05/05/2015 Edema 10/05/2012 07/15/2020 Shortness of breath 10/05/2012 07/15/2020 SUMMARY 06/01/2010 07/15/2020 Overview: 60 yo F with no previous cardiac history presented to [place] [facility] with c/o CP and WARE for a week, getting worse over last 3 days. EKG revealed symmetric deep T wave inversion in anterior leads. Troponin I and CK -MB were raised. Transferred to [facility] for possible cath and intervention - Significant disease in LAD and proximal D1 -2 KYLE to LAD and D1 on 06/02 VITAMIN D DEFICIENCY NOS 11/30/2008 015 Other diseases of lung, not elsewhere classified 07/13/2008 07/15/2020 DEPRESSIVE DISORDER NEC 02/05/2006 05/05/20 15 ANXIETY STATE NOS 02/05/2006 05/05/2015 Aortic aneurysm 07/15/2020 Overview: History: H/o asymptomatic AAA and left renal artery stenosis s/p left RP approach open retroperitoneal infrarenal AAA repair with 22 x 11 bifurcated dacron hemashield gold and left renal artery bypass with 6mm PFT for renal bypass on 02/29/20. Assessment: Continues to look well. Hyponatremia improved and stable, asymptomatic. Patient resting comfortably on room air. No complaints of pain. Incision CDI Plan: DC today 03/12/2020 documented as of this encounter (statuses as of 10/06/2022) [facility]08-05-2020 History of Past illness Narrative* Problem Noted Date Resolved Date Mild protein-calorie malnutrition 03/06/2020 07/15/2020 Hypo-osmolality and hyponatremia 03/04/2020 07/15/2020 Overview: History: Postoperative Assessment: IVC dialated on bedside Echo Plan: Started on lasix and free water restriction. Consulted nephrology. Discontinued scheduled lasix per nephrology recs. Continue to follow Na [id number] and follow free water restriction. KAREN (acute kidney injury) 03/01/20202019 Overview: History: Preop Cr 1.02. Acute postop increase in Cr Non oliguric KAREN likely d/t ischemic ATN in the setting of AAA repair, layne renal artery stenosis, and Lt renal artery bypass. Renal duplex results reviewed, L renal bypass patent. Creat increased 1.02--> 2.29 --> 3.81--> 4.44 Assessment: Non oliguric. Cr continues to trend down, 2.20 today. Hyponatremic Na 132 Plan: Initially started scheduled lasix 40mg [id number] and free water restriction. Nephrology recommends to continue free water restriction. Na expected to gradually resolve. Na 132 this AM. Acute postoperative respiratory insufficiency 07/15/2020 Overview: History: Current smoker, COPD. grade 1 airway RLL atelectasis/collapse present in CVICU on admission cxr - S/P bronchoscopy for secretion clearance. Extubated on POD # 1 Assessment: Receiving duonebs, mucomyst Percussion vest. No sig improvement in RLL atelectasis. Increased FiO2 requirement. High risk of respiratory morbidity d/t severe COPD and RLL collapse vs infiltrate. Started empiric ATBx 03/02/2020 due to high risk of pneumonia CT chest, RUL groundglass opacity, Bilateral lower lobe basal atelectasis and pleural effusions present. 03/08/2020 Gradually weaned to 3L NC, decreased this morning to 2L NC. Okay with paO2s in the 70s. 03/11/2020 on room air Plan: Continue aggressive BPH and PEP. Sats 91% on RA. No shortness of breath per patient. Can go home today Depressive disorder 05/05/2015 07/15/2020 Overview: History: home meds: ativan, lunesta for sleep, cymbalta, and buspar Assessment: Affect sometimes withdrawn, was initially started on ambien (lunesta non-formulary) for insomnia. Trazodone was added Plan: Continue home meds Abnormal mammogram, unspecified 05/24/2014 05/05/2015 Edema 10/05/2012 07/15/2020 Shortness of breath 10/05/2012 07/15/2020 SUMMARY 06/01/2010 07/15/2020 Overview: 60 yo F with no previous cardiac history presented to [place] ED with c/o CP and WARE for a week, getting worse over last 3 days. EKG revealed symmetric deep T wave inversion in anterior leads. Troponin I and CK -MB were raised. Transferred to [facility] for possible cath and intervention - Significant disease in LAD and proximal D1 -2 KYLE to LAD and D1 on 06/02 VITAMIN D DEFICIENCY NOS 11/30/2008 015 Other diseases of lung, not elsewhere classified 07/13/2008 07/15/2020 DEPRESSIVE DISORDER NEC 02/05/2006 05/05/20 15 ANXIETY STATE NOS 02/05/2006 05/05/2015 Aortic aneurysm 07/15/2020 Overview: History: H/o asymptomatic AAA and left renal artery stenosis s/p left RP approach open retroperitoneal infrarenal AAA repair with 22 x 11 bifurcated dacron hemashield gold and left renal artery bypass with 6mm PFT for renal bypass on 02/29/20. Assessment: Continues to look well. Hyponatremia improved and stable, asymptomatic. Patient resting comfortably on room air. No complaints of pain. Incision CDI Plan: DC today 03/12/2020 documented as of this encounter (statuses as of 10/12/2022) [facility]08-05-2020 History of Past illness Narrative* Problem Noted Date Resolved Date Mild protein-calorie malnutrition 03/06/2020 07/15/2020 Hypo-osmolality and hyponatremia 03/04/2020 07/15/2020 Overview: History: Postoperative Assessment: IVC dialated on bedside Echo Plan: Started on lasix and free water restriction. Consulted nephrology. Discontinued scheduled lasix per nephrology recs. Continue to follow Na [id number] and follow free water restriction. KAREN (acute kidney injury) 03/01/20202019 Overview: History: Preop Cr 1.02. Acute postop increase in Cr Non oliguric KAREN likely d/t ischemic ATN in the setting of AAA repair, layne renal artery stenosis, and Lt renal artery bypass. Renal duplex results reviewed, L renal bypass patent. Creat increased 1.02--> 2.29 --> 3.81--> 4.44 Assessment: Non oliguric. Cr continues to trend down, 2.20 today. Hyponatremic Na 132 Plan: Initially started scheduled lasix 40mg [id number] and free water restriction. Nephrology recommends to continue free water restriction. Na expected to gradually resolve. Na 132 this AM. Acute postoperative respiratory insufficiency 07/15/2020 Overview: History: Current smoker, COPD. grade 1 airway RLL atelectasis/collapse present in CVICU on admission cxr - S/P bronchoscopy for secretion clearance. Extubated on POD # 1 Assessment: Receiving duonebs, mucomyst Percussion vest. No sig improvement in RLL atelectasis. Increased FiO2 requirement. High risk of respiratory morbidity d/t severe COPD and RLL collapse vs infiltrate. Started empiric ATBx 03/02/2020 due to high risk of pneumonia CT chest, RUL groundglass opacity, Bilateral lower lobe basal atelectasis and pleural effusions present. 03/08/2020 Gradually weaned to 3L NC, decreased this morning to 2L NC. Okay with paO2s in the 70s. 03/11/2020 on room air Plan: Continue aggressive BPH and PEP. Sats 91% on RA. No shortness of breath per patient. Can go home today Depressive disorder 05/05/2015 07/15/2020 Overview: History: home meds: ativan, lunesta for sleep, cymbalta, and buspar Assessment: Affect sometimes withdrawn, was initially started on ambien (lunesta non-formulary) for insomnia. Trazodone was added Plan: Continue home meds Abnormal mammogram, unspecified 05/24/2014 05/05/2015 Edema 10/05/2012 07/15/2020 Shortness of breath 10/05/2012 07/15/2020 SUMMARY 06/01/2010 07/15/2020 Overview: 60 yo F with no previous cardiac history presented to [place] ED with c/o CP and WARE for a week, getting worse over last 3 days. EKG revealed symmetric deep T wave inversion in anterior leads. Troponin I and CK -MB were raised. Transferred to [facility] for possible cath and intervention - Significant disease in LAD and proximal D1 -2 KYLE to LAD and D1 on 06/02 VITAMIN D DEFICIENCY NOS 11/30/2008 015 Other diseases of lung, not elsewhere classified 07/13/2008 07/15/2020 DEPRESSIVE DISORDER NEC 02/05/2006 05/05/20 15 ANXIETY STATE NOS 02/05/2006 05/05/2015 Aortic aneurysm 07/15/2020 Overview: History: H/o asymptomatic AAA and left renal artery stenosis s/p left RP approach open retroperitoneal infrarenal AAA repair with 22 x 11 bifurcated dacron hemashield gold and left renal artery bypass with 6mm PFT for renal bypass on 02/29/20. Assessment: Continues to look well. Hyponatremia improved and stable, asymptomatic. Patient resting comfortably on room air. No complaints of pain. Incision CDI Plan: DC today 03/12/2020 documented as of this encounter (statuses as of 11/24/2022) [facility]08-05-2020 History of Past illness Narrative* Problem Noted Date Resolved Date Mild protein-calorie malnutrition 03/06/2020 07/15/2020 Hypo-osmolality and hyponatremia 03/04/2020 07/15/2020 Overview: History: Postoperative Assessment: IVC dialated on bedside Echo Plan: Started on lasix and free water restriction. Consulted nephrology. Discontinued scheduled lasix per nephrology recs. Continue to follow Na [id number] and follow free water restriction. KAREN (acute kidney injury) 03/01/20202019 Overview: History: Preop Cr 1.02. Acute postop increase in Cr Non oliguric KAREN likely d/t ischemic ATN in the setting of AAA repair, layne renal artery stenosis, and Lt renal artery bypass. Renal duplex results reviewed, L renal bypass patent. Creat increased 1.02--> 2.29 --> 3.81--> 4.44 Assessment: Non oliguric. Cr continues to trend down, 2.20 today. Hyponatremic Na 132 Plan: Initially started scheduled lasix 40mg [id number] and free water restriction. Nephrology recommends to continue free water restriction. Na expected to gradually resolve. Na 132 this AM. Acute postoperative respiratory insufficiency 07/15/2020 Overview: History: Current smoker, COPD. grade 1 airway RLL atelectasis/collapse present in CVICU on admission cxr - S/P bronchoscopy for secretion clearance. Extubated on POD # 1 Assessment: Receiving duonebs, mucomyst Percussion vest. No sig improvement in RLL atelectasis. Increased FiO2 requirement. High risk of respiratory morbidity d/t severe COPD and RLL collapse vs infiltrate. Started empiric ATBx 03/02/2020 due to high risk of pneumonia CT chest, RUL groundglass opacity, Bilateral lower lobe basal atelectasis and pleural effusions present. 03/08/2020 Gradually weaned to 3L NC, decreased this morning to 2L NC. Okay with paO2s in the 70s. 03/11/2020 on room air Plan: Continue aggressive BPH and PEP. Sats 91% on RA. No shortness of breath per patient. Can go home today Depressive disorder 05/05/2015 07/15/2020 Overview: History: home meds: ativan, lunesta for sleep, cymbalta, and buspar Assessment: Affect sometimes withdrawn, was initially started on ambien (lunesta non-formulary) for insomnia. Trazodone was added Plan: Continue home meds Abnormal mammogram, unspecified 05/24/2014 05/05/2015 Edema 10/05/2012 07/15/2020 Shortness of breath 10/05/2012 07/15/2020 SUMMARY 06/01/2010 07/15/2020 Overview: 60 yo F with no previous cardiac history presented to [place] [facility] with c/o CP and WARE for a week, getting worse over last 3 days. EKG revealed symmetric deep T wave inversion in anterior leads. Troponin I and CK -MB were raised. Transferred to [facility] for possible cath and intervention - Significant disease in LAD and proximal D1 -2 KYLE to LAD and D1 on 06/02 VITAMIN D DEFICIENCY NOS 11/30/2008 015 Other diseases of lung, not elsewhere classified 07/13/2008 07/15/2020 DEPRESSIVE DISORDER NEC 02/05/2006 05/05/20 15 ANXIETY STATE NOS 02/05/2006 05/05/2015 Aortic aneurysm 07/15/2020 Overview: History: H/o asymptomatic AAA and left renal artery stenosis s/p left RP approach open retroperitoneal infrarenal AAA repair with 22 x 11 bifurcated dacron hemashield gold and left renal artery bypass with 6mm PFT for renal bypass on 02/29/20. Assessment: Continues to look well. Hyponatremia improved and stable, asymptomatic. Patient resting comfortably on room air. No complaints of pain. Incision CDI Plan: DC today 03/12/2020 documented as of this encounter (statuses as of 01/08/2023) [facility]08-05-2020 History of Past illness Narrative* Problem Noted Date Resolved Date Mild protein-calorie malnutrition 03/06/2020 07/15/2020 Hypo-osmolality and hyponatremia 03/04/2020 07/15/2020 Overview: History: Postoperative Assessment: IVC dialated on bedside Echo Plan: Started on lasix and free water restriction. Consulted nephrology. Discontinued scheduled lasix per nephrology recs. Continue to follow Na O2iprve and follow free water restriction. KAREN (acute kidney injury) 03/01/20202019 Overview: History: Preop Cr 1.02. Acute postop increase in Cr Non oliguric KAREN likely d/t ischemic ATN in the setting of AAA repair, layne renal artery stenosis, and Lt renal artery bypass. Renal duplex results reviewed, L renal bypass patent. Creat increased 1.02--> 2.29 --> 3.81--> 4.44 Assessment: Non oliguric. Cr continues to trend down, 2.20 today. Hyponatremic Na 132 Plan: Initially started scheduled lasix 40mg [id number] and free water restriction. Nephrology recommends to continue free water restriction. Na expected to gradually resolve. Na 132 this AM. Acute postoperative respiratory insufficiency 07/15/2020 Overview: History: Current smoker, COPD. grade 1 airway RLL atelectasis/collapse present in CVICU on admission cxr - S/P bronchoscopy for secretion clearance. Extubated on POD # 1 Assessment: Receiving duonebs, mucomyst Percussion vest. No sig improvement in RLL atelectasis. Increased FiO2 requirement. High risk of respiratory morbidity d/t severe COPD and RLL collapse vs infiltrate. Started empiric ATBx 03/02/2020 due to high risk of pneumonia CT chest, RUL groundglass opacity, Bilateral lower lobe basal atelectasis and pleural effusions present. 03/08/2020 Gradually weaned to 3L NC, decreased this morning to 2L NC. Okay with paO2s in the 70s. 03/11/2020 on room air Plan: Continue aggressive BPH and PEP. Sats 91% on RA. No shortness of breath per patient. Can go home today Depressive disorder 05/05/2015 07/15/2020 Overview: History: home meds: ativan, lunesta for sleep, cymbalta, and buspar Assessment: Affect sometimes withdrawn, was initially started on ambien (lunesta non-formulary) for insomnia. Trazodone was added Plan: Continue home meds Abnormal mammogram, unspecified 05/24/2014 05/05/2015 Edema 10/05/2012 07/15/2020 Shortness of breath 10/05/2012 07/15/2020 SUMMARY 06/01/2010 07/15/2020 Overview: 60 yo F with no previous cardiac history presented to [place] [facility] with c/o CP and WARE for a week, getting worse over last 3 days. EKG revealed symmetric deep T wave inversion in anterior leads. Troponin I and CK -MB were raised. Transferred to [facility] for possible cath and intervention - Significant disease in LAD and proximal D1 -2 KYLE to LAD and D1 on 06/02 VITAMIN D DEFICIENCY NOS 11/30/2008 015 Other diseases of lung, not elsewhere classified 07/13/2008 07/15/2020 DEPRESSIVE DISORDER NEC 02/05/2006 05/05/20 15 ANXIETY STATE NOS 02/05/2006 05/05/2015 Aortic aneurysm 07/15/2020 Overview: History: H/o asymptomatic AAA and left renal artery stenosis s/p left RP approach open retroperitoneal infrarenal AAA repair with 22 x 11 bifurcated dacron hemashield gold and left renal artery bypass with 6mm PFT for renal bypass on 02/29/20. Assessment: Continues to look well. Hyponatremia improved and stable, asymptomatic. Patient resting comfortably on room air. No complaints of pain. Incision CDI Plan: DC today 03/12/2020 documented as of this encounter (statuses as of 01/15/2023) [facility]08-[facility]2020 History of Past illness Narrative* Problem Noted Date Resolved Date Mild protein-calorie malnutrition 03/06/2020 07/15/2020 Hypo-osmolality and hyponatremia 03/04/2020 07/15/2020 Overview: History: Postoperative Assessment: IVC dialated on bedside Echo Plan: Started on lasix and free water restriction. Consulted nephrology. Discontinued scheduled lasix per nephrology recs. Continue to follow Na H1ypaxn and follow free water restriction. KAREN (acute kidney injury) 03/01/20202019 Overview: History: Preop Cr 1.02. Acute postop increase in Cr Non oliguric KAREN likely d/t ischemic ATN in the setting of AAA repair, layne renal artery stenosis, and Lt renal artery bypass. Renal duplex results reviewed, L renal bypass patent. Creat increased 1.02--> 2.29 --> 3.81--> 4.44 Assessment: Non oliguric. Cr continues to trend down, 2.20 today. Hyponatremic Na 132 Plan: Initially started scheduled lasix 40mg [id number] and free water restriction. Nephrology recommends to continue free water restriction. Na expected to gradually resolve. Na 132 this AM. Acute postoperative respiratory insufficiency 07/15/2020 Overview: History: Current smoker, COPD. grade 1 airway RLL atelectasis/collapse present in CVICU on admission cxr - S/P bronchoscopy for secretion clearance. Extubated on POD # 1 Assessment: Receiving duonebs, mucomyst Percussion vest. No sig improvement in RLL atelectasis. Increased FiO2 requirement. High risk of respiratory morbidity d/t severe COPD and RLL collapse vs infiltrate. Started empiric ATBx 03/02/2020 due to high risk of pneumonia CT chest, RUL groundglass opacity, Bilateral lower lobe basal atelectasis and pleural effusions present. 03/08/2020 Gradually weaned to 3L NC, decreased this morning to 2L NC. Okay with paO2s in the 70s. 03/11/2020 on room air Plan: Continue aggressive BPH and PEP. Sats 91% on RA. No shortness of breath per patient. Can go home today Depressive disorder 05/05/2015 07/15/2020 Overview: History: home meds: ativan, lunesta for sleep, cymbalta, and buspar Assessment: Affect sometimes withdrawn, was initially started on ambien (lunesta non-formulary) for insomnia. Trazodone was added Plan: Continue home meds Abnormal mammogram, unspecified 05/24/2014 05/05/2015 Edema 10/05/2012 07/15/2020 Shortness of breath 10/05/2012 07/15/2020 SUMMARY 06/01/2010 07/15/2020 Overview: 60 yo F with no previous cardiac history presented to [place] [facility] with c/o CP and WARE for a week, getting worse over last 3 days. EKG revealed symmetric deep T wave inversion in anterior leads. Troponin I and CK -MB were raised. Transferred to [facility] for possible cath and intervention - Significant disease in LAD and proximal D1 -2 KYLE to LAD and D1 on 06/02 VITAMIN D DEFICIENCY NOS 11/30/2008 015 Other diseases of lung, not elsewhere classified 07/13/2008 07/15/2020 DEPRESSIVE DISORDER NEC 02/05/2006 05/05/20 15 ANXIETY STATE NOS 02/05/2006 05/05/2015 Aortic aneurysm 07/15/2020 Overview: History: H/o asymptomatic AAA and left renal artery stenosis s/p left RP approach open retroperitoneal infrarenal AAA repair with 22 x 11 bifurcated dacron hemashield gold and left renal artery bypass with 6mm PFT for renal bypass on 02/29/20. Assessment: Continues to look well. Hyponatremia improved and stable, asymptomatic. Patient resting comfortably on room air. No complaints of pain. Incision CDI Plan: DC today 03/12/2020 documented as of this encounter (statuses as of 02/03/2023) [facility]08-[facility]2020 History of Past illness Narrative* Problem Noted Date Diagnosed Date Resolved Date Mild protein-calorie malnutrition 03/06/2020 07/15/2020 Hypo-osmolality and hyponatremia 03/04/2020 07/15/2020 Overview: History: Postoperative Assessment: IVC dialated on bedside Echo Plan: Started on lasix and free water restriction. Consulted nephrology. Discontinued scheduled lasix per nephrology recs. Continue to follow Na G3nerad and follow free water restriction. KAREN (acute kidney injury) 03/01/2020 Overview: History: Preop Cr 1.02. Acute postop increase in Cr Non oliguric KAREN likely d/t ischemic ATN in the setting of AAA repair, layne renal artery stenosis, and Lt renal artery bypass. Renal duplex results reviewed, L renal bypass patent. Creat increased 1.02--> 2.29 --> 3.81--> 4.44 Assessment: Non oliguric. Cr continues to trend down, 2.20 today. Hyponatremic Na 132 Plan: Initially started scheduled lasix 40mg [id number] and free water restriction. Nephrology recommends to continue free water restriction. Na expected to gradually resolve. Na 132 this AM. Acute postoperative respiratory insufficiency 02/29/20 20 07/15/2020 Overview: History: Current smoker, COPD. grade 1 airway RLL atelectasis/collapse present in CVICU on admission cxr - S/P bronchoscopy for secretion clearance. Extubated on POD # 1 Assessment: Receiving duonebs, mucomyst Percussion vest. No sig improvement in RLL atelectasis. Increased FiO2 requirement. High risk of respiratory morbidity d/t severe COPD and RLL collapse vs infiltrate. Started empiric ATBx 03/02/2020 due to high risk of pneumonia CT chest, RUL groundglass opacity, Bilateral lower lobe basal atelectasis and pleural effusions present. 03/08/2020 Gradually weaned to 3L NC, decreased this morning to 2L NC. Okay with paO2s in the 70s. 03/11/2020 on room air Plan: Continue aggressive BPH and PEP. Sats 91% on RA. No shortness of breath per patient. Can go home today Depressive disorder 05/05/2015 07/15/20 20 Overview: History: home meds: ativan, lunesta for sleep, cymbalta, and buspar Assessment: Affect sometimes withdrawn, was initially started on ambien (lunesta non-formulary) for insomnia. Trazodone was added Plan: Continue home meds Abnormal mammogram, unspecified 05/24/2014 05/05/2015 Edema 10/05/2012 07/15/2020 Shortness of breath 10/05/2012 07/15/20 20 SUMMARY 06/01/2010 07/15/2020 Overview: 60 yo F with no previous cardiac history presented to [place] [facility] with c/o CP and WARE for a week, getting worse over last 3 days. EKG revealed symmetric deep T wave inversion in anterior leads. Troponin I and CK -MB were raised. Transferred to [facility] for possible cath and intervention - Significant disease in LAD and proximal D1 -2 KYLE to LAD and D1 on 06/02 VITAMIN D DEFICIENCY NOS 11/30/200810/2014 Other diseases of lung, not elsewhere classified 07/13/2008 07/15/2020 DEPRESSIVE DISORDER NEC 02/05/2006 10/0 10/2014 ANXIETY STATE NOS 02/05/2006 05/05/2015 Aortic aneurysm 07/15/2020 Overview: History: H/o asymptomatic AAA and left renal artery stenosis s/p left RP approach open retroperitoneal infrarenal AAA repair with 22 x 11 bifurcated dacron hemashield gold and left renal artery bypass with 6mm PFT for renal bypass on 02/29/20. Assessment: Continues to look well. Hyponatremia improved and stable, asymptomatic. Patient resting comfortably on room air. No complaints of pain. Incision CDI Plan: DC today 03/12/2020 documented as of this encounter (statuses as of 03/26/2023) [facility] History of Past illness Narrative* Problem Noted Date Diagnosed Date Resolved Date Mild protein-calorie malnutrition 03/06/2020 07/15/2020 Hypo-osmolality and hyponatremia 03/04/2020 07/15/2020 Overview: History: Postoperative Assessment: IVC dialated on bedside Echo Plan: Started on lasix and free water restriction. Consulted nephrology. Discontinued scheduled lasix per nephrology recs. Continue to follow Na [id number] and follow free water restriction. KAREN (acute kidney injury) 03/01/2020 Overview: History: Preop Cr 1.02. Acute postop increase in Cr Non oliguric KAREN likely d/t ischemic ATN in the setting of AAA repair, layne renal artery stenosis, and Lt renal artery bypass. Renal duplex results reviewed, L renal bypass patent. Creat increased 1.02--> 2.29 --> 3.81--> 4.44 Assessment: Non oliguric. Cr continues to trend down, 2.20 today. Hyponatremic Na 132 Plan: Initially started scheduled lasix 40mg [id number] and free water restriction. Nephrology recommends to continue free water restriction. Na expected to gradually resolve. Na 132 this AM. Acute postoperative respiratory insufficiency 02/29/20 20 07/15/2020 Overview: History: Current smoker, COPD. grade 1 airway RLL atelectasis/collapse present in CVICU on admission cxr - S/P bronchoscopy for secretion clearance. Extubated on POD # 1 Assessment: Receiving duonebs, mucomyst Percussion vest. No sig improvement in RLL atelectasis. Increased FiO2 requirement. High risk of respiratory morbidity d/t severe COPD and RLL collapse vs infiltrate. Started empiric ATBx 03/02/2020 due to high risk of pneumonia CT chest, RUL groundglass opacity, Bilateral lower lobe basal atelectasis and pleural effusions present. 03/08/2020 Gradually weaned to 3L NC, decreased this morning to 2L NC. Okay with paO2s in the 70s. 03/11/2020 on room air Plan: Continue aggressive BPH and PEP. Sats 91% on RA. No shortness of breath per patient. Can go home today Depressive disorder 05/05/2015 07/15/20 20 Overview: History: home meds: ativan, lunesta for sleep, cymbalta, and buspar Assessment: Affect sometimes withdrawn, was initially started on ambien (lunesta non-formulary) for insomnia. Trazodone was added Plan: Continue home meds Abnormal mammogram, unspecified 05/24/2014 05/05/2015 Edema 10/05/2012 07/15/2020 Shortness of breath 10/05/2012 07/15/20 20 SUMMARY 06/01/2010 07/15/2020 Overview: 60 yo F with no previous cardiac history presented to [place] [facility] with c/o CP and WARE for a week, getting worse over last 3 days. EKG revealed symmetric deep T wave inversion in anterior leads. Troponin I and CK -MB were raised. Transferred to [facility] for possible cath and intervention - Significant disease in LAD and proximal D1 -2 KYLE to LAD and D1 on 06/02 VITAMIN D DEFICIENCY NOS 11/30/200810/2014 Other diseases of lung, not elsewhere classified 07/13/2008 07/15/2020 DEPRESSIVE DISORDER NEC 02/05/200610/2014 ANXIETY STATE NOS 02/05/2006 05/05/2015 Aortic aneurysm 07/15/2020 Overview: History: H/o asymptomatic AAA and left renal artery stenosis s/p left RP approach open retroperitoneal infrarenal AAA repair with 22 x 11 bifurcated dacron hemashield gold and left renal artery bypass with 6mm PFT for renal bypass on 02/29/20. Assessment: Continues to look well. Hyponatremia improved and stable, asymptomatic. Patient resting comfortably on room air. No complaints of pain. Incision CDI Plan: DC today 03/12/2020 documented as of this encounter (statuses as of 06/06/2023) [facility]08-05-2020 History of Past illness Narrative* Problem Noted Date Diagnosed Date Resolved Date Mild protein-calorie malnutrition 03/06/2020 07/15/2020 Hypo-osmolality and hyponatremia 03/04/2020 07/15/2020 Overview: History: Postoperative Assessment: IVC dialated on bedside Echo Plan: Started on lasix and free water restriction. Consulted nephrology. Discontinued scheduled lasix per nephrology recs. Continue to follow Na [id number] and follow free water restriction. KAREN (acute kidney injury) 03/01/2020 Overview: History: Preop Cr 1.02. Acute postop increase in Cr Non oliguric KAREN likely d/t ischemic ATN in the setting of AAA repair, layne renal artery stenosis, and Lt renal artery bypass. Renal duplex results reviewed, L renal bypass patent. Creat increased 1.02--> 2.29 --> 3.81--> 4.44 Assessment: Non oliguric. Cr continues to trend down, 2.20 today. Hyponatremic Na 132 Plan: Initially started scheduled lasix 40mg [id number] and free water restriction. Nephrology recommends to continue free water restriction. Na expected to gradually resolve. Na 132 this AM. Acute postoperative respiratory insufficiency 02/29/20 20 07/15/2020 Overview: History: Current smoker, COPD. grade 1 airway RLL atelectasis/collapse present in CVICU on admission cxr - S/P bronchoscopy for secretion clearance. Extubated on POD # 1 Assessment: Receiving duonebs, mucomyst Percussion vest. No sig improvement in RLL atelectasis. Increased FiO2 requirement. High risk of respiratory morbidity d/t severe COPD and RLL collapse vs infiltrate. Started empiric ATBx 03/02/2020 due to high risk of pneumonia CT chest, RUL groundglass opacity, Bilateral lower lobe basal atelectasis and pleural effusions present. 03/08/2020 Gradually weaned to 3L NC, decreased this morning to 2L NC. Okay with paO2s in the 70s. 03/11/2020 on room air Plan: Continue aggressive BPH and PEP. Sats 91% on RA. No shortness of breath per patient. Can go home today Depressive disorder 05/05/2015 07/15/20 20 Overview: History: home meds: ativan, lunesta for sleep, cymbalta, and buspar Assessment: Affect sometimes withdrawn, was initially started on ambien (lunesta non-formulary) for insomnia. Trazodone was added Plan: Continue home meds Abnormal mammogram, unspecified 05/24/2014 05/05/2015 Edema 10/05/2012 07/15/2020 Shortness of breath 10/05/2012 07/15/20 20 SUMMARY 06/01/2010 07/15/2020 Overview: 60 yo F with no previous cardiac history presented to [place] ED with c/o CP and WARE for a week, getting worse over last 3 days. EKG revealed symmetric deep T wave inversion in anterior leads. Troponin I and CK -MB were raised. Transferred to [facility] for possible cath and intervention - Significant disease in LAD and proximal D1 -2 KYLE to LAD and D1 on 06/02 VITAMIN D DEFICIENCY NOS 11/30/200810/2014 Other diseases of lung, not elsewhere classified 07/13/2008 07/15/2020 DEPRESSIVE DISORDER NEC 02/05/2006 1010/2014 ANXIETY STATE NOS 02/05/2006 05/05/2015 Aortic aneurysm 07/15/2020 Overview: History: H/o asymptomatic AAA and left renal artery stenosis s/p left RP approach open retroperitoneal infrarenal AAA repair with 22 x 11 bifurcated dacron hemashield gold and left renal artery bypass with 6mm PFT for renal bypass on 02/29/20. Assessment: Continues to look well. Hyponatremia improved and stable, asymptomatic. Patient resting comfortably on room air. No complaints of pain. Incision CDI Plan: DC today 03/12/2020 documented as of this encounter (statuses as of 06/19/2023) [facility]08-05-2020 History of Past illness Narrative* Problem Noted Date Diagnosed Date Resolved Date Mild protein-calorie malnutrition 03/06/2020 07/15/2020 Hypo-osmolality and hyponatremia 03/04/2020 07/15/2020 Overview: History: Postoperative Assessment: IVC dialated on bedside Echo Plan: Started on lasix and free water restriction. Consulted nephrology. Discontinued scheduled lasix per nephrology recs. Continue to follow Na [id number] and follow free water restriction. KAREN (acute kidney injury) 03/01/2020 Overview: History: Preop Cr 1.02. Acute postop increase in Cr Non oliguric KAREN likely d/t ischemic ATN in the setting of AAA repair, layne renal artery stenosis, and Lt renal artery bypass. Renal duplex results reviewed, L renal bypass patent. Creat increased 1.02--> 2.29 --> 3.81--> 4.44 Assessment: Non oliguric. Cr continues to trend down, 2.20 today. Hyponatremic Na 132 Plan: Initially started scheduled lasix 40mg P0thbpi and free water restriction. Nephrology recommends to continue free water restriction. Na expected to gradually resolve. Na 132 this AM. Acute postoperative respiratory insufficiency 02/29/20 20 07/15/2020 Overview: History: Current smoker, COPD. grade 1 airway RLL atelectasis/collapse present in CVICU on admission cxr - S/P bronchoscopy for secretion clearance. Extubated on POD # 1 Assessment: Receiving duonebs, mucomyst Percussion vest. No sig improvement in RLL atelectasis. Increased FiO2 requirement. High risk of respiratory morbidity d/t severe COPD and RLL collapse vs infiltrate. Started empiric ATBx 03/02/2020 due to high risk of pneumonia CT chest, RUL groundglass opacity, Bilateral lower lobe basal atelectasis and pleural effusions present. 03/08/2020 Gradually weaned to 3L NC, decreased this morning to 2L NC. Okay with paO2s in the 70s. 03/11/2020 on room air Plan: Continue aggressive BPH and PEP. Sats 91% on RA. No shortness of breath per patient. Can go home today Depressive disorder 05/05/2015 07/15/20 20 Overview: History: home meds: ativan, lunesta for sleep, cymbalta, and buspar Assessment: Affect sometimes withdrawn, was initially started on ambien (lunesta non-formulary) for insomnia. Trazodone was added Plan: Continue home meds Abnormal mammogram, unspecified 05/24/2014 05/05/2015 Edema 10/05/2012 07/15/2020 Shortness of breath 10/05/2012 07/15/20 20 SUMMARY 06/01/2010 07/15/2020 Overview: 60 yo F with no previous cardiac history presented to [place] ED with c/o CP and WARE for a week, getting worse over last 3 days. EKG revealed symmetric deep T wave inversion in anterior leads. Troponin I and CK -MB were raised. Transferred to [facility] for possible cath and intervention - Significant disease in LAD and proximal D1 -2 KYLE to LAD and D1 on 06/02 VITAMIN D DEFICIENCY NOS 11/30/200810/2014 Other diseases of lung, not elsewhere classified 07/13/2008 07/15/2020 DEPRESSIVE DISORDER NEC 02/05/2006 1010/2014 ANXIETY STATE NOS 02/05/2006 05/05/2015 Aortic aneurysm 07/15/2020 Overview: History: H/o asymptomatic AAA and left renal artery stenosis s/p left RP approach open retroperitoneal infrarenal AAA repair with 22 x 11 bifurcated dacron hemashield gold and left renal artery bypass with 6mm PFT for renal bypass on 02/29/20. Assessment: Continues to look well. Hyponatremia improved and stable, asymptomatic. Patient resting comfortably on room air. No complaints of pain. Incision CDI Plan: DC today 03/12/2020 documented as of this encounter (statuses as of 06/20/2023) [facility]08-05-2020 History of Past illness Narrative* Problem Noted Date Diagnosed Date Resolved Date Mild protein-calorie malnutrition 03/06/2020 07/15/2020 Hypo-osmolality and hyponatremia 03/04/2020 07/15/2020 Overview: History: Postoperative Assessment: IVC dialated on bedside Echo Plan: Started on lasix and free water restriction. Consulted nephrology. Discontinued scheduled lasix per nephrology recs. Continue to follow Na [id number] and follow free water restriction. KAREN (acute kidney injury) 03/01/2020 Overview: History: Preop Cr 1.02. Acute postop increase in Cr Non oliguric KAREN likely d/t ischemic ATN in the setting of AAA repair, layne renal artery stenosis, and Lt renal artery bypass. Renal duplex results reviewed, L renal bypass patent. Creat increased 1.02--> 2.29 --> 3.81--> 4.44 Assessment: Non oliguric. Cr continues to trend down, 2.20 today. Hyponatremic Na 132 Plan: Initially started scheduled lasix 40mg [id number] and free water restriction. Nephrology recommends to continue free water restriction. Na expected to gradually resolve. Na 132 this AM. Acute postoperative respiratory insufficiency 02/29/2007/15/2020 Overview: History: Current smoker, COPD. grade 1 airway RLL atelectasis/collapse present in CVICU on admission cxr - S/P bronchoscopy for secretion clearance. Extubated on POD # 1 Assessment: Receiving duonebs, mucomyst Percussion vest. No sig improvement in RLL atelectasis. Increased FiO2 requirement. High risk of respiratory morbidity d/t severe COPD and RLL collapse vs infiltrate. Started empiric ATBx 03/02/2020 due to high risk of pneumonia CT chest, RUL groundglass opacity, Bilateral lower lobe basal atelectasis and pleural effusions present. 03/08/2020 Gradually weaned to 3L NC, decreased this morning to 2L NC. Okay with paO2s in the 70s. 03/11/2020 on room air Plan: Continue aggressive BPH and PEP. Sats 91% on RA. No shortness of breath per patient. Can go home today Depressive disorder 05/05/2015 12/14/20 20 Overview: History: home meds: ativan, lunesta for sleep, cymbalta, and buspar Assessment: Affect sometimes withdrawn, was initially started on ambien (lunesta non-formulary) for insomnia. Trazodone was added Plan: Continue home meds Abnormal mammogram, unspecified 05/24/2014 05/05/2015 Edema 10/05/2012 07/15/2020 Shortness of breath 10/05/2012 07/15/20 20 SUMMARY 06/01/2010 07/15/2020 Overview: 60 yo F with no previous cardiac history presented to [place] ED with c/o CP and WARE for a week, getting worse over last 3 days. EKG revealed symmetric deep T wave inversion in anterior leads. Troponin I and CK -MB were raised. Transferred to [facility] for possible cath and intervention - Significant disease in LAD and proximal D1 -2 KYLE to LAD and D1 on 06/02 VITAMIN D DEFICIENCY NOS 11/30/200810/2014 Other diseases of lung, not elsewhere classified 07/13/2008 07/15/2020 DEPRESSIVE DISORDER NEC 02/05/200610/2014 ANXIETY STATE NOS 02/05/2006 05/05/2015 Aortic aneurysm 07/15/2020 Overview: History: H/o asymptomatic AAA and left renal artery stenosis s/p left RP approach open retroperitoneal infrarenal AAA repair with 22 x 11 bifurcated dacron hemashield gold and left renal artery bypass with 6mm PFT for renal bypass on 02/29/20. Assessment: Continues to look well. Hyponatremia improved and stable, asymptomatic. Patient resting comfortably on room air. No complaints of pain. Incision CDI Plan: DC today 03/12/2020 documented as of this encounter (statuses as of 06/22/2023) [facility]08-05-2020 History of Past illness Narrative* Problem Noted Date Diagnosed Date Resolved Date Mild protein-calorie malnutrition 03/06/2020 07/15/2020 Hypo-osmolality and hyponatremia 03/04/2020 07/15/2020 Overview: History: Postoperative Assessment: IVC dialated on bedside Echo Plan: Started on lasix and free water restriction. Consulted nephrology. Discontinued scheduled lasix per nephrology recs. Continue to follow Na [id number] and follow free water restriction. KAREN (acute kidney injury) 03/01/2020 Overview: History: Preop Cr 1.02. Acute postop increase in Cr Non oliguric KAREN likely d/t ischemic ATN in the setting of AAA repair, layne renal artery stenosis, and Lt renal artery bypass. Renal duplex results reviewed, L renal bypass patent. Creat increased 1.02--> 2.29 --> 3.81--> 4.44 Assessment: Non oliguric. Cr continues to trend down, 2.20 today. Hyponatremic Na 132 Plan: Initially started scheduled lasix 40mg [id number] and free water restriction. Nephrology recommends to continue free water restriction. Na expected to gradually resolve. Na 132 this AM. Acute postoperative respiratory insufficiency 02/29/2007/15/2020 Overview: History: Current smoker, COPD. grade 1 airway RLL atelectasis/collapse present in CVICU on admission cxr - S/P bronchoscopy for secretion clearance. Extubated on POD # 1 Assessment: Receiving duonebs, mucomyst Percussion vest. No sig improvement in RLL atelectasis. Increased FiO2 requirement. High risk of respiratory morbidity d/t severe COPD and RLL collapse vs infiltrate. Started empiric ATBx 03/02/2020 due to high risk of pneumonia CT chest, RUL groundglass opacity, Bilateral lower lobe basal atelectasis and pleural effusions present. 03/08/2020 Gradually weaned to 3L NC, decreased this morning to 2L NC. Okay with paO2s in the 70s. 03/11/2020 on room air Plan: Continue aggressive BPH and PEP. Sats 91% on RA. No shortness of breath per patient. Can go home today Depressive disorder 05/05/2015 07/15/20 Overview: History: home meds: ativan, lunesta for sleep, cymbalta, and buspar Assessment: Affect sometimes withdrawn, was initially started on ambien (lunesta non-formulary) for insomnia. Trazodone was added Plan: Continue home meds Abnormal mammogram, unspecified 05/24/2014 05/05/2015 Edema 10/05/2012 07/15/2020 Shortness of breath 10/05/2012 07/15/20 20 SUMMARY 06/01/2010 07/15/2020 Overview: 60 yo F with no previous cardiac history presented to [place] ED with c/o CP and WARE for a week, getting worse over last 3 days. EKG revealed symmetric deep T wave inversion in anterior leads. Troponin I and CK -MB were raised. Transferred to [facility] for possible cath and intervention - Significant disease in LAD and proximal D1 -2 KYLE to LAD and D1 on 06/02 VITAMIN D DEFICIENCY NOS 11/30/200810/2014 Other diseases of lung, not elsewhere classified 07/13/2008 07/15/2020 DEPRESSIVE DISORDER NEC 02/05/200610/2014 ANXIETY STATE NOS 02/05/2006 05/05/2015 Aortic aneurysm 07/15/2020 Overview: History: H/o asymptomatic AAA and left renal artery stenosis s/p left RP approach open retroperitoneal infrarenal AAA repair with 22 x 11 bifurcated dacron hemashield gold and left renal artery bypass with 6mm PFT for renal bypass on 02/29/20. Assessment: Continues to look well. Hyponatremia improved and stable, asymptomatic. Patient resting comfortably on room air. No complaints of pain. Incision CDI Plan: DC today 03/12/2020 documented as of this encounter (statuses as of 06/23/2023) [facility]08-[facility]-2020 History of Past illness Narrative* Problem Noted Date Diagnosed Date Resolved Date Mild protein-calorie malnutrition 03/06/2020 07/15/2020 Hypo-osmolality and hyponatremia 03/04/2020 07/15/2020 Overview: History: Postoperative Assessment: IVC dialated on bedside Echo Plan: Started on lasix and free water restriction. Consulted nephrology. Discontinued scheduled lasix per nephrology recs. Continue to follow Na [id number] and follow free water restriction. KAREN (acute kidney injury) 03/01/2020 Overview: History: Preop Cr 1.02. Acute postop increase in Cr Non oliguric KAREN likely d/t ischemic ATN in the setting of AAA repair, layne renal artery stenosis, and Lt renal artery bypass. Renal duplex results reviewed, L renal bypass patent. Creat increased 1.02--> 2.29 --> 3.81--> 4.44 Assessment: Non oliguric. Cr continues to trend down, 2.20 today. Hyponatremic Na 132 Plan: Initially started scheduled lasix 40mg [id number] and free water restriction. Nephrology recommends to continue free water restriction. Na expected to gradually resolve. Na 132 this AM. Acute postoperative respiratory insufficiency 02/29/20 20 07/15/2020 Overview: History: Current smoker, COPD. grade 1 airway RLL atelectasis/collapse present in CVICU on admission cxr - S/P bronchoscopy for secretion clearance. Extubated on POD # 1 Assessment: Receiving duonebs, mucomyst Percussion vest. No sig improvement in RLL atelectasis. Increased FiO2 requirement. High risk of respiratory morbidity d/t severe COPD and RLL collapse vs infiltrate. Started empiric ATBx 03/02/2020 due to high risk of pneumonia CT chest, RUL groundglass opacity, Bilateral lower lobe basal atelectasis and pleural effusions present. 03/08/2020 Gradually weaned to 3L NC, decreased this morning to 2L NC. Okay with paO2s in the 70s. 03/11/2020 on room air Plan: Continue aggressive BPH and PEP. Sats 91% on RA. No shortness of breath per patient. Can go home today Depressive disorder 05/05/2015 07/15/20 20 Overview: History: home meds: ativan, lunesta for sleep, cymbalta, and buspar Assessment: Affect sometimes withdrawn, was initially started on ambien (lunesta non-formulary) for insomnia. Trazodone was added Plan: Continue home meds Abnormal mammogram, unspecified 05/24/2014 05/05/2015 Edema 10/05/2012 07/15/2020 Shortness of breath 10/05/2012 07/15/20 20 SUMMARY 06/01/2010 07/15/2020 Overview: 60 yo F with no previous cardiac history presented to [place] ED with c/o CP and WARE for a week, getting worse over last 3 days. EKG revealed symmetric deep T wave inversion in anterior leads. Troponin I and CK -MB were raised. Transferred to [facility] for possible cath and intervention - Significant disease in LAD and proximal D1 -2 KYLE to LAD and D1 on 06/02 VITAMIN D DEFICIENCY NOS 11/30/200810/2014 Other diseases of lung, not elsewhere classified 07/13/2008 07/15/2020 DEPRESSIVE DISORDER NEC 02/05/200610/2014 ANXIETY STATE NOS 02/05/2006 05/05/2015 Aortic aneurysm 07/15/2020 Overview: History: H/o asymptomatic AAA and left renal artery stenosis s/p left RP approach open retroperitoneal infrarenal AAA repair with 22 x 11 bifurcated dacron hemashield gold and left renal artery bypass with 6mm PFT for renal bypass on 02/29/20. Assessment: Continues to look well. Hyponatremia improved and stable, asymptomatic. Patient resting comfortably on room air. No complaints of pain. Incision CDI Plan: DC today 03/12/2020 documented as of this encounter (statuses as of 06/29/2023) [facility]08-[facility]2020 History of Past illness Narrative* Problem Noted Date Diagnosed Date Resolved Date Mild protein-calorie malnutrition 03/06/2020 07/15/2020 Hypo-osmolality and hyponatremia 03/04/2020 07/15/2020 Overview: History: Postoperative Assessment: IVC dialated on bedside Echo Plan: Started on lasix and free water restriction. Consulted nephrology. Discontinued scheduled lasix per nephrology recs. Continue to follow Na [id number] and follow free water restriction. KAREN (acute kidney injury) 03/01/2020 Overview: History: Preop Cr 1.02. Acute postop increase in Cr Non oliguric KAREN likely d/t ischemic ATN in the setting of AAA repair, layne renal artery stenosis, and Lt renal artery bypass. Renal duplex results reviewed, L renal bypass patent. Creat increased 1.02--> 2.29 --> 3.81--> 4.44 Assessment: Non oliguric. Cr continues to trend down, 2.20 today. Hyponatremic Na 132 Plan: Initially started scheduled lasix 40mg [id number] and free water restriction. Nephrology recommends to continue free water restriction. Na expected to gradually resolve. Na 132 this AM. Acute postoperative respiratory insufficiency 02/29/20 20 07/15/2020 Overview: History: Current smoker, COPD. grade 1 airway RLL atelectasis/collapse present in CVICU on admission cxr - S/P bronchoscopy for secretion clearance. Extubated on POD # 1 Assessment: Receiving duonebs, mucomyst Percussion vest. No sig improvement in RLL atelectasis. Increased FiO2 requirement. High risk of respiratory morbidity d/t severe COPD and RLL collapse vs infiltrate. Started empiric ATBx 03/02/2020 due to high risk of pneumonia CT chest, RUL groundglass opacity, Bilateral lower lobe basal atelectasis and pleural effusions present. 03/08/2020 Gradually weaned to 3L NC, decreased this morning to 2L NC. Okay with paO2s in the 70s. 03/11/2020 on room air Plan: Continue aggressive BPH and PEP. Sats 91% on RA. No shortness of breath per patient. Can go home today Depressive disorder 05/05/2015 07/15/20 20 Overview: History: home meds: ativan, lunesta for sleep, cymbalta, and buspar Assessment: Affect sometimes withdrawn, was initially started on ambien (lunesta non-formulary) for insomnia. Trazodone was added Plan: Continue home meds Abnormal mammogram, unspecified 05/24/2014 05/05/2015 Edema 10/05/2012 07/15/2020 Shortness of breath 10/05/2012 07/15/20 20 SUMMARY 06/01/2010 07/15/2020 Overview: 60 yo F with no previous cardiac history presented to [place] [facility] with c/o CP and WARE for a week, getting worse over last 3 days. EKG revealed symmetric deep T wave inversion in anterior leads. Troponin I and CK -MB were raised. Transferred to [facility] for possible cath and intervention - Significant disease in LAD and proximal D1 -2 KYLE to LAD and D1 on 06/02 VITAMIN D DEFICIENCY NOS 11/30/200810/2014 Other diseases of lung, not elsewhere classified 07/13/2008 07/15/2020 DEPRESSIVE DISORDER NEC 02/05/200610/2014 ANXIETY STATE NOS 02/05/2006 05/05/2015 Aortic aneurysm 07/15/2020 Overview: History: H/o asymptomatic AAA and left renal artery stenosis s/p left RP approach open retroperitoneal infrarenal AAA repair with 22 x 11 bifurcated dacron hemashield gold and left renal artery bypass with 6mm PFT for renal bypass on 02/29/20. Assessment: Continues to look well. Hyponatremia improved and stable, asymptomatic. Patient resting comfortably on room air. No complaints of pain. Incision CDI Plan: DC today 03/12/2020 documented as of this encounter (statuses as of 06/29/2023) [facility]08-05-2020 History of Past illness Narrative* Problem Noted Date Diagnosed Date Resolved Date Mild protein-calorie malnutrition 03/06/2020 07/15/2020 Hypo-osmolality and hyponatremia 03/04/2020 07/15/2020 Overview: History: Postoperative Assessment: IVC dialated on bedside Echo Plan: Started on lasix and free water restriction. Consulted nephrology. Discontinued scheduled lasix per nephrology recs. Continue to follow Na [id number] and follow free water restriction. KAREN (acute kidney injury) 03/01/2020 Overview: History: Preop Cr 1.02. Acute postop increase in Cr Non oliguric KAREN likely d/t ischemic ATN in the setting of AAA repair, layne renal artery stenosis, and Lt renal artery bypass. Renal duplex results reviewed, L renal bypass patent. Creat increased 1.02--> 2.29 --> 3.81--> 4.44 Assessment: Non oliguric. Cr continues to trend down, 2.20 today. Hyponatremic Na 132 Plan: Initially started scheduled lasix 40mg [id number] and free water restriction. Nephrology recommends to continue free water restriction. Na expected to gradually resolve. Na 132 this AM. Acute postoperative respiratory insufficiency 02/29/20 20 07/15/2020 Overview: History: Current smoker, COPD. grade 1 airway RLL atelectasis/collapse present in CVICU on admission cxr - S/P bronchoscopy for secretion clearance. Extubated on POD # 1 Assessment: Receiving duonebs, mucomyst Percussion vest. No sig improvement in RLL atelectasis. Increased FiO2 requirement. High risk of respiratory morbidity d/t severe COPD and RLL collapse vs infiltrate. Started empiric ATBx 03/02/2020 due to high risk of pneumonia CT chest, RUL groundglass opacity, Bilateral lower lobe basal atelectasis and pleural effusions present. 03/08/2020 Gradually weaned to 3L NC, decreased this morning to 2L NC. Okay with paO2s in the 70s. 03/11/2020 on room air Plan: Continue aggressive BPH and PEP. Sats 91% on RA. No shortness of breath per patient. Can go home today Depressive disorder 05/05/2015 07/15/20 20 Overview: History: home meds: ativan, lunesta for sleep, cymbalta, and buspar Assessment: Affect sometimes withdrawn, was initially started on ambien (lunesta non-formulary) for insomnia. Trazodone was added Plan: Continue home meds Abnormal mammogram, unspecified 05/24/2014 05/05/2015 Edema 10/05/2012 07/15/2020 Shortness of breath 10/05/2012 07/15/20 20 SUMMARY 06/01/2010 07/15/2020 Overview: 60 yo F with no previous cardiac history presented to [place] [facility] with c/o CP and WARE for a week, getting worse over last 3 days. EKG revealed symmetric deep T wave inversion in anterior leads. Troponin I and CK -MB were raised. Transferred to [facility] for possible cath and intervention - Significant disease in LAD and proximal D1 -2 KYLE to LAD and D1 on 06/02 VITAMIN D DEFICIENCY NOS 11/30/200810/2014 Other diseases of lung, not elsewhere classified 07/13/2008 07/15/2020 DEPRESSIVE DISORDER NEC 02/05/200610/2014 ANXIETY STATE NOS 02/05/2006 05/05/2015 Aortic aneurysm 07/15/2020 Overview: History: H/o asymptomatic AAA and left renal artery stenosis s/p left RP approach open retroperitoneal infrarenal AAA repair with 22 x 11 bifurcated dacron hemashield gold and left renal artery bypass with 6mm PFT for renal bypass on 02/29/20. Assessment: Continues to look well. Hyponatremia improved and stable, asymptomatic. Patient resting comfortably on room air. No complaints of pain. Incision CDI Plan: DC today 03/12/2020 documented as of this encounter (statuses as of 07/12/2023) [facility]08-05-2020 History of Past illness Narrative* Problem Noted Date Diagnosed Date Resolved Date Mild protein-calorie malnutrition 03/06/2020 07/15/2020 Hypo-osmolality and hyponatremia 03/04/2020 07/15/2020 Overview: History: Postoperative Assessment: IVC dialated on bedside Echo Plan: Started on lasix and free water restriction. Consulted nephrology. Discontinued scheduled lasix per nephrology recs. Continue to follow Na D3liuis and follow free water restriction. KAREN (acute kidney injury) 03/01/2020 Overview: History: Preop Cr 1.02. Acute postop increase in Cr Non oliguric KAREN likely d/t ischemic ATN in the setting of AAA repair, layne renal artery stenosis, and Lt renal artery bypass. Renal duplex results reviewed, L renal bypass patent. Creat increased 1.02--> 2.29 --> 3.81--> 4.44 Assessment: Non oliguric. Cr continues to trend down, 2.20 today. Hyponatremic Na 132 Plan: Initially started scheduled lasix 40mg [id number] and free water restriction. Nephrology recommends to continue free water restriction. Na expected to gradually resolve. Na 132 this AM. Acute postoperative respiratory insufficiency 02/29/20 20 07/15/2020 Overview: History: Current smoker, COPD. grade 1 airway RLL atelectasis/collapse present in CVICU on admission cxr - S/P bronchoscopy for secretion clearance. Extubated on POD # 1 Assessment: Receiving duonebs, mucomyst Percussion vest. No sig improvement in RLL atelectasis. Increased FiO2 requirement. High risk of respiratory morbidity d/t severe COPD and RLL collapse vs infiltrate. Started empiric ATBx 03/02/2020 due to high risk of pneumonia CT chest, RUL groundglass opacity, Bilateral lower lobe basal atelectasis and pleural effusions present. 03/08/2020 Gradually weaned to 3L NC, decreased this morning to 2L NC. Okay with paO2s in the 70s. 03/11/2020 on room air Plan: Continue aggressive BPH and PEP. Sats 91% on RA. No shortness of breath per patient. Can go home today Depressive disorder 05/05/2015 07/15/20 20 Overview: History: home meds: ativan, lunesta for sleep, cymbalta, and buspar Assessment: Affect sometimes withdrawn, was initially started on ambien (lunesta non-formulary) for insomnia. Trazodone was added Plan: Continue home meds Abnormal mammogram, unspecified 05/24/2014 05/05/2015 Edema 10/05/2012 07/15/2020 Shortness of breath 10/05/2012 07/15/20 20 SUMMARY 06/01/2010 07/15/2020 Overview: 60 yo F with no previous cardiac history presented to [place] ED with c/o CP and WARE for a week, getting worse over last 3 days. EKG revealed symmetric deep T wave inversion in anterior leads. Troponin I and CK -MB were raised. Transferred to [facility] for possible cath and intervention - Significant disease in LAD and proximal D1 -2 KYLE to LAD and D1 on 06/02 VITAMIN D DEFICIENCY NOS 11/30/200810/2014 Other diseases of lung, not elsewhere classified 07/13/2008 07/15/2020 DEPRESSIVE DISORDER NEC 02/05/200610/2014 ANXIETY STATE NOS 02/05/2006 05/05/2015 Aortic aneurysm 07/15/2020 Overview: History: H/o asymptomatic AAA and left renal artery stenosis s/p left RP approach open retroperitoneal infrarenal AAA repair with 22 x 11 bifurcated dacron hemashield gold and left renal artery bypass with 6mm PFT for renal bypass on 02/29/20. Assessment: Continues to look well. Hyponatremia improved and stable, asymptomatic. Patient resting comfortably on room air. No complaints of pain. Incision CDI Plan: DC today 03/12/2020 documented as of this encounter (statuses as of 07/13/2023) [facility]08-05-2020 History of Past illness Narrative* Problem Noted Date Diagnosed Date Resolved Date Mild protein-calorie malnutrition 03/06/2020 07/15/2020 Hypo-osmolality and hyponatremia 03/04/2020 07/15/2020 Overview: History: Postoperative Assessment: IVC dialated on bedside Echo Plan: Started on lasix and free water restriction. Consulted nephrology. Discontinued scheduled lasix per nephrology recs. Continue to follow Na [id number] and follow free water restriction. KAREN (acute kidney injury) 03/01/2020 Overview: History: Preop Cr 1.02. Acute postop increase in Cr Non oliguric KAREN likely d/t ischemic ATN in the setting of AAA repair, layne renal artery stenosis, and Lt renal artery bypass. Renal duplex results reviewed, L renal bypass patent. Creat increased 1.02--> 2.29 --> 3.81--> 4.44 Assessment: Non oliguric. Cr continues to trend down, 2.20 today. Hyponatremic Na 132 Plan: Initially started scheduled lasix 40mg [id number] and free water restriction. Nephrology recommends to continue free water restriction. Na expected to gradually resolve. Na 132 this AM. Acute postoperative respiratory insufficiency 02/29/20 20 07/15/2020 Overview: History: Current smoker, COPD. grade 1 airway RLL atelectasis/collapse present in CVICU on admission cxr - S/P bronchoscopy for secretion clearance. Extubated on POD # 1 Assessment: Receiving duonebs, mucomyst Percussion vest. No sig improvement in RLL atelectasis. Increased FiO2 requirement. High risk of respiratory morbidity d/t severe COPD and RLL collapse vs infiltrate. Started empiric ATBx 03/02/2020 due to high risk of pneumonia CT chest, RUL groundglass opacity, Bilateral lower lobe basal atelectasis and pleural effusions present. 03/08/2020 Gradually weaned to 3L NC, decreased this morning to 2L NC. Okay with paO2s in the 70s. 03/11/2020 on room air Plan: Continue aggressive BPH and PEP. Sats 91% on RA. No shortness of breath per patient. Can go home today Depressive disorder 05/05/2015 07/15/20 20 Overview: History: home meds: ativan, lunesta for sleep, cymbalta, and buspar Assessment: Affect sometimes withdrawn, was initially started on ambien (lunesta non-formulary) for insomnia. Trazodone was added Plan: Continue home meds Abnormal mammogram, unspecified 05/24/2014 05/05/2015 Edema 10/05/2012 07/15/2020 Shortness of breath 10/05/2012 07/15/20 20 SUMMARY 06/01/2010 07/15/2020 Overview: 60 yo F with no previous cardiac history presented to [place] ED with c/o CP and WARE for a week, getting worse over last 3 days. EKG revealed symmetric deep T wave inversion in anterior leads. Troponin I and CK -MB were raised. Transferred to [facility] for possible cath and intervention - Significant disease in LAD and proximal D1 -2 KYLE to LAD and D1 on 06/02 VITAMIN D DEFICIENCY NOS 11/30/200810/2014 Other diseases of lung, not elsewhere classified 07/13/2008 07/15/2020 DEPRESSIVE DISORDER NEC 02/05/200610/2014 ANXIETY STATE NOS 02/05/2006 05/05/2015 Aortic aneurysm 07/15/2020 Overview: History: H/o asymptomatic AAA and left renal artery stenosis s/p left RP approach open retroperitoneal infrarenal AAA repair with 22 x 11 bifurcated dacron hemashield gold and left renal artery bypass with 6mm PFT for renal bypass on 02/29/20. Assessment: Continues to look well. Hyponatremia improved and stable, asymptomatic. Patient resting comfortably on room air. No complaints of pain. Incision CDI Plan: DC today 03/12/2020 documented as of this encounter (statuses as of 09/27/2023) [facility]08-05-2020 History of Past illness Narrative* Problem Noted Date Diagnosed Date Resolved Date Mild protein-calorie malnutrition 03/06/2020 07/15/2020 Hypo-osmolality and hyponatremia 03/04/2020 07/15/2020 Overview: History: Postoperative Assessment: IVC dialated on bedside Echo Plan: Started on lasix and free water restriction. Consulted nephrology. Discontinued scheduled lasix per nephrology recs. Continue to follow Na [id number] and follow free water restriction. KAREN (acute kidney injury) 03/01/2020 Overview: History: Preop Cr 1.02. Acute postop increase in Cr Non oliguric KAREN likely d/t ischemic ATN in the setting of AAA repair, layne renal artery stenosis, and Lt renal artery bypass. Renal duplex results reviewed, L renal bypass patent. Creat increased 1.02--> 2.29 --> 3.81--> 4.44 Assessment: Non oliguric. Cr continues to trend down, 2.20 today. Hyponatremic Na 132 Plan: Initially started scheduled lasix 40mg [id number] and free water restriction. Nephrology recommends to continue free water restriction. Na expected to gradually resolve. Na 132 this AM. Acute postoperative respiratory insufficiency 02/29/20 20 07/15/2020 Overview: History: Current smoker, COPD. grade 1 airway RLL atelectasis/collapse present in CVICU on admission cxr - S/P bronchoscopy for secretion clearance. Extubated on POD # 1 Assessment: Receiving duonebs, mucomyst Percussion vest. No sig improvement in RLL atelectasis. Increased FiO2 requirement. High risk of respiratory morbidity d/t severe COPD and RLL collapse vs infiltrate. Started empiric ATBx 03/02/2020 due to high risk of pneumonia CT chest, RUL groundglass opacity, Bilateral lower lobe basal atelectasis and pleural effusions present. 03/08/2020 Gradually weaned to 3L NC, decreased this morning to 2L NC. Okay with paO2s in the 70s. 03/11/2020 on room air Plan: Continue aggressive BPH and PEP. Sats 91% on RA. No shortness of breath per patient. Can go home today Depressive disorder 05/05/2015 07/15/20 20 Overview: History: home meds: ativan, lunesta for sleep, cymbalta, and buspar Assessment: Affect sometimes withdrawn, was initially started on ambien (lunesta non-formulary) for insomnia. Trazodone was added Plan: Continue home meds Abnormal mammogram, unspecified 05/24/2014 05/05/2015 Edema 10/05/2012 07/15/2020 Shortness of breath 10/05/2012 07/15/20 20 SUMMARY 06/01/2010 07/15/2020 Overview: 60 yo F with no previous cardiac history presented to [place] ED with c/o CP and WARE for a week, getting worse over last 3 days. EKG revealed symmetric deep T wave inversion in anterior leads. Troponin I and CK -MB were raised. Transferred to [facility] for possible cath and intervention - Significant disease in LAD and proximal D1 -2 KYLE to LAD and D1 on 06/02 VITAMIN D DEFICIENCY NOS 11/30/200810/2014 Other diseases of lung, not elsewhere classified 07/13/2008 07/15/2020 DEPRESSIVE DISORDER NEC 02/05/200610/2014 ANXIETY STATE NOS 02/05/2006 05/05/2015 Aortic aneurysm 07/15/2020 Overview: History: H/o asymptomatic AAA and left renal artery stenosis s/p left RP approach open retroperitoneal infrarenal AAA repair with 22 x 11 bifurcated dacron hemashield gold and left renal artery bypass with 6mm PFT for renal bypass on 02/29/20. Assessment: Continues to look well. Hyponatremia improved and stable, asymptomatic. Patient resting comfortably on room air. No complaints of pain. Incision CDI Plan: DC today 03/12/2020 documented as of this encounter (statuses as of 10/04/2023) [facility] note* Diagnosis Chronic pain of both knees- Primary Primary osteoarthritis of both knees Primary localized osteoarthrosis, lower leg [facility] noteNo assessment information availableWooAult[facility] Hospital Work Phone: Evaluation note* Diagnosis Other specified anxiety disorders- Primary UTI symptoms Other symptoms involving urinary system Acute cystitis without hematuria Acute cystitis Urinary frequency Personal history of COVID-19 Primary insomnia Persistent disorder of initiating or maintaining sleep Recurrent major depression in partial remission (HCC) Major depressive disorder, recurrent episode, in partial or unspecified remission Chronic bronchitis, unspecified chronic bronchitis type (HCC) [facility] Diagnosis Rash- Primary Rash and other nonspecific skin eruption [facility]* Diagnosis Mixed hyperlipidemia [facility] Diagnosis Mixed hyperlipidemia- Primary WARE (dyspnea on exertion) Other dyspnea and respiratory abnormality Gastroesophageal reflux disease without esophagitis Esophageal reflux Vitamin D deficiency Unspecified vitamin D deficiency Impaired glucose metabolism Impaired glucose tolerance test Other fatigue Other specified anxiety disorders Chronic left flank pain Abdominal pain, unspecified site Cigarette smoker Tobacco use disorder Encounter for long-term current use of medication [facility] Diagnosis Mixed hyperlipidemia [facility] Diagnosis Encounter for screening mammogram for breast cancer [facility]* Diagnosis Rash- Primary Rash and other nonspecific skin eruption [facility] Diagnosis Chronic cough Cough WARE (dyspnea on exertion) Other dyspnea and respiratory abnormality [facility]* Diagnosis Tobacco abuse Tobacco use disorder [facility]* Diagnosis ASCVD (arteriosclerotic cardiovascular disease)- Primary Unspecified cardiovascular disease Other specified anxiety disorders Vitamin D deficiency Unspecified vitamin D deficiency Chronic cough Cough WARE (dyspnea on exertion) Other dyspnea and respiratory abnormality S/P AAA repair Other postprocedural status Chronic bronchitis, unspecified chronic bronchitis type (HCC) Recurrent major depression in partial remission (HCC) Major depressive disorder, recurrent episode, in partial or unspecified remission Colon cancer screening Special screening for malignant neoplasms, colon Encounter for long-term current use of medication [facility]* Diagnosis Chronic cough Cough WARE (dyspnea on exertion) Other dyspnea and respiratory abnormality [facility]* Diagnosis URI, acute- Primary Acute upper respiratory infections of unspecified site [facility] Diagnosis Recurrent major depression in partial remission (HCC) Major depressive disorder, recurrent episode, in partial or unspecified remission Mixed hyperlipidemia ASCVD (arteriosclerotic cardiovascular disease) Unspecified cardiovascular disease Vitamin D deficiency Unspecified vitamin D deficiency Other fatigue Localized osteoporosis without current pathological fracture Encounter for long-term current use of medication [facility] Diagnosis Medicare annual wellness visit, subsequent- Primary Routine general medical examination at a health care facility Recurrent major depression in partial remission (HCC) Major depressive disorder, recurrent episode, in partial or unspecified remission Mixed hyperlipidemia ASCVD (arteriosclerotic cardiovascular disease) Unspecified cardiovascular disease Abdominal aortic aneurysm (AAA) without rupture, unspecified part (HCC) Upper respiratory tract infection, unspecified type [facility]* Diagnosis Mixed hyperlipidemia Recurrent major depression in partial remission (HCC) Major depressive disorder, recurrent episode, in partial or unspecified remission [facility] Diagnosis History of non-ST elevation myocardial infarction (NSTEMI)- Primary Old myocardial infarction WARE (dyspnea on exertion) Other dyspnea and respiratory abnormality Status post AAA (abdominal aortic aneurysm) repair Other postprocedural status Cigarette smoker Tobacco use disorder Dyspnea on exertion Other dyspnea and respiratory abnormality [facility] Diagnosis History of non-ST elevation myocardial infarction (NSTEMI)- Primary Old myocardial infarction Mixed hyperlipidemia Dyspnea on exertion Other dyspnea and respiratory abnormality [facility]* Diagnosis Encounter for screening mammogram for breast cancer [facility] Diagnosis Mixed hyperlipidemia- Primary Status post AAA (abdominal aortic aneurysm) repair Other postprocedural status Chronic bronchitis, unspecified chronic bronchitis type (HCC) Coronary artery disease involving [place] coronary artery of [place] heart without angina pectoris Primary hypertension Unspecified essential hypertension [facility] Diagnosis Acute LUQ pain- Primary Abdominal pain, left upper quadrant S/P AAA repair Other postprocedural status Coronary artery disease involving [place] coronary artery of [place] heart without angina pectoris Other specified anxiety disorders Mixed hyperlipidemia Vitamin D deficiency Unspecified vitamin D deficiency Elevated glucose Other abnormal glucose Primary hypertension Unspecified essential hypertension Encounter for immunization Need for other specified prophylactic vaccination against single bacterial disease Asymptomatic menopause Encounter for long-term current use of medication Chronic bronchitis, unspecified chronic bronchitis type (HCC) [facility] Diagnosis Acute cough [facility]* Diagnosis Acute pain of right shoulder Chronic pain of both knees [facility]* Diagnosis Pneumonia due to infectious organism, unspecified laterality, unspecified part of lung [facility]* Diagnosis Medicare annual wellness visit, subsequent- Primary Routine general medical examination at a health care facility Mixed hyperlipidemia Other specified anxiety disorders Encounter for long-term current use of medication ASCVD (arteriosclerotic cardiovascular disease) Unspecified cardiovascular disease Vitamin D deficiency Unspecified vitamin D deficiency Elevated glucose Other abnormal glucose Stage 3a chronic kidney disease (HCC) Recurrent major depression in partial remission (HCC) Major depressive disorder, recurrent episode, in partial or unspecified remission S/P AAA repair Other postprocedural status Constipation, unspecified constipation type Sleep disturbance Sleep disturbance, unspecified [facility]* Diagnosis Wheezing [facility]* Diagnosis Bronchitis- Primary Bronchitis, not specified as acute or chronic Wheezing [facility]* Diagnosis Bacterial sinusitis- Primary Unspecified sinusitis (chronic) [facility]* Diagnosis Recurrent major depression in partial remission (HCC) Major depressive disorder, recurrent episode, in partial or unspecified remission [facility] Diagnosis Acute cough- Primary COPD with exacerbation (HCC) Obstructive chronic bronchitis with exacerbation Acute cough [facility] Diagnosis Acute cough [facility]* Diagnosis Status post abdominal aortic aneurysm (AAA) repair- Primary Left upper quadrant abdominal pain COPD with exacerbation (HCC) Obstructive chronic bronchitis with exacerbation [facility]* Diagnosis Status post abdominal aortic aneurysm (AAA) repair Left upper quadrant abdominal pain [facility]* Diagnosis Mixed hyperlipidemia Recurrent major depression in partial remission Major depressive disorder, recurrent episode, in partial or unspecified remission ASCVD (arteriosclerotic cardiovascular disease) Unspecified cardiovascular disease [facility]* Diagnosis Primary hypertension- Primary Unspecified essential hypertension Other specified anxiety disorders Non-seasonal allergic rhinitis, unspecified trigger Mixed hyperlipidemia Primary osteoarthritis of left knee Primary localized osteoarthrosis, lower leg Atherosclerosis of [place] coronary artery of [place] heart without angina pectoris Vitamin D deficiency Unspecified vitamin D deficiency Elevated glucose Other abnormal glucose Synovial cyst of popliteal space (Jimenez), left knee Encounter for long-term current use of medication Asymptomatic postmenopausal state Breast cancer screening by mammogram documented in this encounter [facility] Discharge instructions Additional Instructions Try to get a home portable pulse oximeter and closely watch your oxygen levels periodically. If you stay below 90% for more than a minute or so, and/or you are feeling like your breathing is getting worse, return to the emergency department for further evaluation.[facility] Work Phone: [facility] Work Phone: Reason for referral (narrative)* Diagnostic Procedure Only (Routine) - Pending Review Specialty Diagnoses / Procedures Referred By Luna buchanan Referred To Contact BR IMAGING Diagnoses Encounter for screening mammogram for breast cancer Procedures AGNIESZKA SCREENING SCREENING MAMMOGRAPHY BI 2-VIEW BREAST INC CAD Tanner Hook MD [address] [place] [address] [facility] [address] [place] [address] Referral ID Status Reason Start Date Expiration Date Visits Requested Visits Authorized [id number] Pending Review Auto-Generat ed Referral 10/07/2022 11/06/2023 1 1 [facility] for referral (narrative)* Outpatient Procedure (Routine) - Closed Specialty Diagnoses / Procedures Referred By Luna buchanan Referred To [facility] Diagnoses Chronic cough WARE (dyspnea on exertion) Procedures SPIROMETRY - BASELINE AND POST DILATOR BRNCDILAT RSPSE SPMTRY PRE&POST-BRNCDILAT ADMN Tanner Hook MD [address] [place] [address] [facility] [place] [address] [address] Referral ID Status Reason Start Date Expiration Date V isits Requested Visits Authorized [id number] Closed Auto-Generate d Referral 01/04/2023 02/03/2024 1 1 * Outpatient Procedure (Routine) - Closed Specialty Diagnoses / Procedures Referred By Contac t Referred To [facility] [place] Diagnoses Chronic cough WARE (dyspnea on exertion) Procedures LUNG DIFFUSION CAPACITY (DLCO) DIFFUSING CAPACITY Tanner Hook MD [address] [place] [address] [address] Referral ID Status Reason Start Date Expiration Date V isits Requested Visits Authorized [id number] Closed Auto-Generate d Referral 01/04/2023 02/03/2024 1 1 * Outpatient Procedure (Routine) - Closed Specialty Diagnoses / Procedures Referred By Contac t Referred To [facility] [place] Diagnoses Chronic cough WARE (dyspnea on exertion) Procedures NITRIC OXIDE, EXHALED NITRIC OXIDE GAS DETERMINATION Tanner Hook MD [address] [place] [address] [address] Referral ID Status Reason Start Date Expiration Date V isits Requested Visits Authorized [id number] Closed Auto-Generate d Referral 01/04/2023 02/03/2024 1 1 * Outpatient Procedure (Routine) - Closed Specialty Diagnoses / Procedures Referred By Contac t Referred To [facility] [place] Diagnoses Chronic cough WARE (dyspnea on exertion) Procedures LUNG VOLUMES Tanner Hook MD [address] [place] [address] [address] Referral ID Status Reason Start Date Expiration Date V isits Requested Visits Authorized [id number] Closed Auto-Generate d Referral 01/04/2023 02/03/2024 1 1 [facility] for referral (narrative)* Outpatient Procedure (Routine) - Pending Review Specialty Diagnoses / Procedures Referred By Contac t Referred To Contact [facility] Diagnoses History of non-ST elevation myocardial infarction (NSTEMI) Procedures ECG COMPLETE ECG ROUTINE ECG W/LEAST 12 LDS W/I&R Jonathan Chan MD [address] [place] [address] [facility] [address] [place] [address] Referral ID Status Reason Start Date Expiration Date Visits Requested Visits Authorized [id number] Pending Review Auto-Generat ed Referral 07/06/2023 07/05/2024 1 1 [facility] for referral (narrative)* Diagnostic Procedure Only (Routine) - Pending Review Specialty Diagnoses / Procedures Referred By Contac t Referred To Contact [facility] Diagnoses Encounter for screening mammogram for breast cancer Procedures AGNIESZKA SCREENING SCREENING MAMMOGRAPHY BI 2-[place] [address] [place] [address] [facility] [address] [place] [address] Referral ID Status Reason Start Date Expiration Date Visits Requested Visits Authorized [id number] Pending Review Auto-Generat ed Referral 09/22/2023 10/21/2024 1 1 [facility] for referral (narrative)* Diagnostic Procedure Only (Routine) - Pending Review Specialty Diagnoses / Procedures Referred By Contac t Referred To Contact XR IMAGING Diagnoses Asymptomatic menopause Procedures DXA-AXIAL SKELETON Tanner Hook MD [address] [place] [address] [place] [address] Referral ID Status Reason Start Date Expiration Date Visits Requested Visits Authorized [id number] Pending Review Auto-Generat ed Referral 01/07/2024 02/05/2025 1 1 [facility] for referral (narrative)* Diagnostic Procedure Only (Routine) - Closed Specialty Diagnoses / Procedures Referred By Contac t Referred To Contact XR IMAGING Diagnoses Chronic pain of both knees Procedures XR KNEE GENERAL 4V AP BOTH/PA BOTH/LAT/MERC BILAT KNEE AP-WGT/LAT/MERCHANT Mabel Rocha, RAIL CAR OPERATOR.HEAVY EQUIPMENT SUPERVISOR [address] [place] [address] [place] [address] Referral ID Status Reason Start Date Expiration Date V isits Requested Visits Authorized Closed Auto-Generate d Referral 04/21/2021 05/21/2022 1 1 * Diagnostic Procedure Only (Routine) - Closed Specialty Diagnoses / Procedures Referred By Contac t Referred To Contact XR IMAGING Diagnoses Acute pain of right shoulder Procedures XR SHOULDER GENERAL 3V OR MORE AP/TRUE AP/OTHER RT X-RAY SHOULDER COMPLET MIN 2 VIEWS Mabel Rocha, RAIL CAR OPERATOR.HEAVY EQUIPMENT SUPERVISOR [address] [place] [address] [place] [address] Referral ID Status Reason Start Date Expiration Date V isits Requested Visits Authorized Closed Auto-Generate d Referral 04/21/2021 05/21/2022 1 1 [facility] for visit Narrative* Diagnostic Procedure Only (Routine) - Closed Specialty Diagnoses / Procedures Referred By Contac t Referred To Contact XR IMAGING Diagnoses Chronic pain of both knees Procedures XR KNEE GENERAL 4V AP BOTH/PA BOTH/LAT/MERC BILAT KNEE AP-WGT/LAT/MERCHANT Mabel Rocha, RAIL CAR OPERATOR.HEAVY EQUIPMENT SUPERVISOR [address] [place] [address] [place] [address] Referral ID Status Reason Start Date Expiration Date V isits Requested Visits Authorized Closed Auto-Generate d Referral 04/21/2021 05/21/2022 1 1 [facility] Summary Purpose Family History No Family History Records FoundNo Family History Records FoundNo Family History Records FoundNo Family History Records FoundNo Family History Records Found Advance Directives No Advanced Directives Records FoundDocuments on File Type Date Recorded 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 Advance Directive(s) 02/15/2020 1:45 PM Latest Code Status on File Code Status Date Activated Date Inactivated Comments Full Code 03/14/2020 8:36 AM Advance Directive Response Recorded Date/ Time Living Will No December 29, 2021 3 :20pm Power of Firer Powerhouse No December 29, 2021 3:20pm Advance Directive Response Recorded Date/ Time Living Will No January 04, 2022 1 :26am Power of Firer Powerhouse No January 04, 2022 1:26am Latest Code Status on File Code Status Date Activated Date Inactivated Comments Full Code 03/14/2020 8:36 AM Latest Code Status on File Code Status Date Activated Date Inactivated Comments Full Code 03/14/2020 8:36 AM Latest Code Status on File Code Status Date Activated Date Inactivated Comments Full Code 03/14/2020 8:36 AM Latest Code Status on File Code Status Date Activated Date Inactivated Comments Full Code 03/14/2020 8:36 AM 08/27/2023 7:13 AM Latest Code Status on File Code Status Date Activated Date Inactivated Comments Full Code 03/14/2020 8:36 AM 08/27/2023 7:13 AM Date Activated Date Inactivated Comments 03/14/2020 8:36 AM 08/27/2023 7:13 AM Date Activated Date Inactivated Comments 03/14/2020 8:36 AM 08/27/2023 7:13 AM Medications Administered Section Inactive Administered Medications - up to 3 most recent administrations Medication Order MAR Action Action Date Dose Rate Site betamethasone acetate-betamethasone sodium phosphate 6 mg injection (CELESTONE) 6 mg, Injection - FOR ORTHO USE ONLY, ONE TIME INJECTION, 1 dose, Starting on Wed11/17/21 at 1457, Until Wed11/17/21 at 1457 Given 11/17/2021 2:57 PM EDT 6 mg lidocaine (PF) 10 mg/mL (1 %) 4 mL injection (XYLOCAINE) 4 mL, Injection - FOR ORTHO USE ONLY, ONE TIME INJECTION, 1 dose, Starting on Wed11/17/21 at 1457, Until Wed11/17/21 at 1457 Given 11/17/2021 2:57 PM EDT 4 mL Chief Complaint and Reason for Visit Chief Complaint SOB, WEAKNESS Chief Complaint SOB, WEAKNESS ALTERED MENTAL STATUS Reason for Referral Specialty Diagnoses / Procedures Referred By Contac t Referred To Contact Cardiology Diagnoses WARE (dyspnea on exertion) Procedures CONSULT TO CARDIOLOGY OFFICE/OUTPATIENT [facility] HIGH MDM 60-74 MINUTES Tanner Hook MD [address] [place] [address] Referral ID Status Reason Start Date Expiration Date Visits Requested Visits Authorized [id number] Authorized PCP Requested Referral 09/04/2022 09/04/2023 1 1 Specialty Diagnoses / Procedures Referred By Contac t Referred To Contact Dermatology Diagnoses Rash Procedures CONSULT TO DERMATOLOGY Rosmery Rodas PA-C [address] [place] [address] Referral ID Status Reason Start Date Expiration Date Visits Requested Visits Authorized [id number] Ref Not Required PCP Requested Referral 11/23/2022 11/23/2023 1 1 Specialty Diagnoses / Procedures Referred By Contac t Referred To Contact CT IMAGING Diagnoses Status post abdominal aortic aneurysm (AAA) repair Left upper quadrant abdominal pain Procedures CT ABD/PEL W IVCON CT ABD & PELVIS W/CONTRAST Baltazar Rubio, RAIL CAR OPERATOR.SENIOR MANAGER [employer]AL[employer] [address] [place] [address] [place] [address] Referral ID Status Reason Start Date Expiration Date Visits Requested Visits Authorized [id number] Authorized Auto-Generat ed Referral 08/17/2024 09/16/2025 1 1 Health Concerns Infection Onset Date Last Indicated Resolved Time COVID-19 Rule-Out 06/19/2023 06/19/2023 Infection Onset Date Last Indicated Resolved Time COVID-19 Rule-Out 06/19/2023 06/19/2023 06/19/2023 11:24 PM EST Additional Source Comments INFORMATION SOURCE (unrecogn ized section and content) DATE CREATED AUTHOR 08/01/[address] [facility] DATE CREATED AUTHOR AUTHOR'S ORGANIZ ATION 01/16/2020 [facility] DATE CREATED AUTHOR AUTHOR'S ORGANIZ ATION 08/28/2023 [facility] DATE CREATED AUTHOR AUTHOR'S ORGANIZ ATION 01/26/2024 [facility] DATE CREATED AUTHOR AUTHOR'S ORGANIZ ATION 01/17/2025 [facility] Source Comments (unrecognize d section and content) In the event this informatio n is protected by the Federal Confidentiality of Alcohol and Drug Abuse Patient Records regulations: The Federal rules restrict any use of the information to criminally investigate or prosecute any alcohol or drug abuse patient.[facility] the event this information is protected by the Federal Confidentiality of Alcohol and Drug Abuse Patient Records regulations: The Federal rules restrict any use of the information to criminally investigate or prosecute any alcohol or drug abuse patient.[facility]In the event this information is protected by the Federal Confidentiality of Alcohol and Drug Abuse Patient Records regulations: The Federal rules restrict any use of the information to criminally investigate or prosecute any alcohol or drug abuse patient.[facility]In the event this information is protected by the Federal Confidentiality of Alcohol and Drug Abuse Patient Records regulations: The Federal rules restrict any use of the information to criminally investigate or prosecute any alcohol or drug abuse patient.[facility] HospitalIn the event this information is protected by the Federal Confidentiality of Alcohol and Drug Abuse Patient Records regulations: The Federal rules restrict any use of the information to criminally investigate or prosecute any alcohol or drug abuse patient.[facility]In the event this information is protected by the Federal Confidentiality of Alcohol and Drug Abuse Patient Records regulations: The Federal rules restrict any use of the information to criminally investigate or prosecute any alcohol or drug abuse patient.[facility]In the event this information is protected by the Federal Confidentiality of Alcohol and Drug Abuse Patient Records regulations: The Federal rules restrict any use of the information to criminally investigate or prosecute any alcohol or drug abuse patient.[facility] HospitalIn the event this information is protected by the Federal Confidentiality of Alcohol and Drug Abuse Patient Records regulations: The Federal rules restrict any use of the information to criminally investigate or prosecute any alcohol or drug abuse patient.[facility]In the event this information is protected by the Federal Confidentiality of Alcohol and Drug Abuse Patient Records regulations: The Federal rules restrict any use of the information to criminally investigate or prosecute any alcohol or drug abuse patient.[facility] HospitalIn the event this information is protected by the Federal Confidentiality of Alcohol and Drug Abuse Patient Records regulations: The Federal rules restrict any use of the information to criminally investigate or prosecute any alcohol or drug abuse patient.[facility] HospitalIn the event this information is protected by the Federal Confidentiality of Alcohol and Drug Abuse Patient Records regulations: The Federal rules restrict any use of the information to criminally investigate or prosecute any alcohol or drug abuse patient.[facility] HospitalIn the event this information is protected by the Federal Confidentiality of Alcohol and Drug Abuse Patient Records regulations: The Federal rules restrict any use of the information to criminally investigate or prosecute any alcohol or drug abuse patient.[facility] HospitalIn the event this information is protected by the Federal Confidentiality of Alcohol and Drug Abuse Patient Records regulations: The Federal rules restrict any use of the information to criminally investigate or prosecute any alcohol or drug abuse patient.[facility] HospitalIn the event this information is protected by the Federal Confidentiality of Alcohol and Drug Abuse Patient Records regulations: The Federal rules restrict any use of the information to criminally investigate or prosecute any alcohol or drug abuse patient.[facility] HospitalIn the event this information is protected by the Federal Confidentiality of Alcohol and Drug Abuse Patient Records regulations: The Federal rules restrict any use of the information to criminally investigate or prosecute any alcohol or drug abuse patient.[facility] HospitalIn the event this information is protected by the Federal Confidentiality of Alcohol and Drug Abuse Patient Records regulations: The Federal rules restrict any use of the information to criminally investigate or prosecute any alcohol or drug abuse patient.[facility] HospitalIn the event this information is protected by the Federal Confidentiality of Alcohol and Drug Abuse Patient Records regulations: The Federal rules restrict any use of the information to criminally investigate or prosecute any alcohol or drug abuse patient.[facility] HospitalIn the event this information is protected by the Federal Confidentiality of Alcohol and Drug Abuse Patient Records regulations: The Federal rules restrict any use of the information to criminally investigate or prosecute any alcohol or drug abuse patient.[facility] HospitalIn the event this information is protected by the Federal Confidentiality of Alcohol and Drug Abuse Patient Records regulations: The Federal rules restrict any use of the information to criminally investigate or prosecute any alcohol or drug abuse patient.[facility] HospitalIn the event this information is protected by the Federal Confidentiality of Alcohol and Drug Abuse Patient Records regulations: The Federal rules restrict any use of the information to criminally investigate or prosecute any alcohol or drug abuse patient.[facility] HospitalIn the event this information is protected by the Federal Confidentiality of Alcohol and Drug Abuse Patient Records regulations: The Federal rules restrict any use of the information to criminally investigate or prosecute any alcohol or drug abuse patient.[facility] HospitalIn the event this information is protected by the Federal Confidentiality of Alcohol and Drug Abuse Patient Records regulations: The Federal rules restrict any use of the information to criminally investigate or prosecute any alcohol or drug abuse patient.[facility] HospitalIn the event this information is protected by the Federal Confidentiality of Alcohol and Drug Abuse Patient Records regulations: The Federal rules restrict any use of the information to criminally investigate or prosecute any alcohol or drug abuse patient.[facility] HospitalIn the event this information is protected by the Federal Confidentiality of Alcohol and Drug Abuse Patient Records regulations: The Federal rules restrict any use of the information to criminally investigate or prosecute any alcohol or drug abuse patient.[facility] HospitalIn the event this information is protected by the Federal Confidentiality of Alcohol and Drug Abuse Patient Records regulations: The Federal rules restrict any use of the information to criminally investigate or prosecute any alcohol or drug abuse patient.[facility] HospitalIn the event this information is protected by the Federal Confidentiality of Alcohol and Drug Abuse Patient Records regulations: The Federal rules restrict any use of the information to criminally investigate or prosecute any alcohol or drug abuse patient.[facility] HospitalIn the event this information is protected by the Federal Confidentiality of Alcohol and Drug Abuse Patient Records regulations: The Federal rules restrict any use of the information to criminally investigate or prosecute any alcohol or drug abuse patient.[facility] HospitalIn the event this information is protected by the Federal Confidentiality of Alcohol and Drug Abuse Patient Records regulations: The Federal rules restrict any use of the information to criminally investigate or prosecute any alcohol or drug abuse patient.[facility] HospitalIn the event this information is protected by the Federal Confidentiality of Alcohol and Drug Abuse Patient Records regulations: The Federal rules restrict any use of the information to criminally investigate or prosecute any alcohol or drug abuse patient.[facility] HospitalIn the event this information is protected by the Federal Confidentiality of Alcohol and Drug Abuse Patient Records regulations: The Federal rules restrict any use of the information to criminally investigate or prosecute any alcohol or drug abuse patient.[facility] HospitalIn the event this information is protected by the Federal Confidentiality of Alcohol and Drug Abuse Patient Records regulations: The Federal rules restrict any use of the information to criminally investigate or prosecute any alcohol or drug abuse patient.[facility] HospitalIn the event this information is protected by the Federal Confidentiality of Alcohol and Drug Abuse Patient Records regulations: The Federal rules restrict any use of the information to criminally investigate or prosecute any alcohol or drug abuse patient.[facility] HospitalIn the event this information is protected by the Federal Confidentiality of Alcohol and Drug Abuse Patient Records regulations: The Federal rules restrict any use of the information to criminally investigate or prosecute any alcohol or drug abuse patient.[facility] HospitalIn the event this information is protected by the Federal Confidentiality of Alcohol and Drug Abuse Patient Records regulations: The Federal rules restrict any use of the information to criminally investigate or prosecute any alcohol or drug abuse patient.[facility] HospitalIn the event this information is protected by the Federal Confidentiality of Alcohol and Drug Abuse Patient Records regulations: The Federal rules restrict any use of the information to criminally investigate or prosecute any alcohol or drug abuse patient.[facility] HospitalIn the event this information is protected by the Federal Confidentiality of Alcohol and Drug Abuse Patient Records regulations: The Federal rules restrict any use of the information to criminally investigate or prosecute any alcohol or drug abuse patient.[facility] HospitalIn the event this information is protected by the Federal Confidentiality of Alcohol and Drug Abuse Patient Records regulations: The Federal rules restrict any use of the information to criminally investigate or prosecute any alcohol or drug abuse patient.[facility] HospitalIn the event this information is protected by the Federal Confidentiality of Alcohol and Drug Abuse Patient Records regulations: The Federal rules restrict any use of the information to criminally investigate or prosecute any alcohol or drug abuse patient.[facility] HospitalIn the event this information is protected by the Federal Confidentiality of Alcohol and Drug Abuse Patient Records regulations: The Federal rules restrict any use of the information to criminally investigate or prosecute any alcohol or drug abuse patient.[facility] HospitalIn the event this information is protected by the Federal Confidentiality of Alcohol and Drug Abuse Patient Records regulations: The Federal rules restrict any use of the information to criminally investigate or prosecute any alcohol or drug abuse patient.[facility] HospitalIn the event this information is protected by the Federal Confidentiality of Alcohol and Drug Abuse Patient Records regulations: The Federal rules restrict any use of the information to criminally investigate or prosecute any alcohol or drug abuse patient.[facility] HospitalIn the event this information is protected by the Federal Confidentiality of Alcohol and Drug Abuse Patient Records regulations: The Federal rules restrict any use of the information to criminally investigate or prosecute any alcohol or drug abuse patient.[facility] HospitalIn the event this information is protected by the Federal Confidentiality of Alcohol and Drug Abuse Patient Records regulations: The Federal rules restrict any use of the information to criminally investigate or prosecute any alcohol or drug abuse patient.[facility] HospitalIn the event this information is protected by the Federal Confidentiality of Alcohol and Drug Abuse Patient Records regulations: The Federal rules restrict any use of the information to criminally investigate or prosecute any alcohol or drug abuse patient.[facility] HospitalIn the event this information is protected by the Federal Confidentiality of Alcohol and Drug Abuse Patient Records regulations: The Federal rules restrict any use of the information to criminally investigate or prosecute any alcohol or drug abuse patient.[facility] HospitalIn the event this information is protected by the Federal Confidentiality of Alcohol and Drug Abuse Patient Records regulations: The Federal rules restrict any use of the information to criminally investigate or prosecute any alcohol or drug abuse patient.[facility] Reason for Visit (unrecogniz ed section and content) Reason Comments Patient Question Reason Comments Bilateral Knee Pain New Reason Comments Follow Up Reason Comments Rash Reported bilateral r homero arms, reported burning, swelling pain rated 4, x5 days. Reason Onset Date Comments Refill Request 05/18/2022 Reason Comments Results Reason Comments Rash bilateral arms, itch ing and swelling x 1 week Reason Comments Spirometry Specialty Diagnoses / Procedures Referred By Contac t Referred To Contact [facility] Diagnoses Chronic cough WARE (dyspnea on exertion) Procedures NITRIC OXIDE, EXHALED NITRIC OXIDE GAS DETERMINATION Tanner Hook MD [address] [place] [address] [facility] [address] [place] [address] Referral ID Status Reason Start Date Expiration Date V isits Requested Visits Authorized [id number] Closed Auto-Generate d Referral 01/04/2023 02/03/2024 1 1 Reason Comments F/U 3 Month Reason Onset Date Comments Population Health Navigation Outreach 03/25/2023 ACO HCC Reason Comments Headache With sinus problems x 4 days Reason Comments Medication Problem Results Reason Comments Patient concern Reason Comments Refill Request Reason Comments Medicare Wellness Exam Reason Comments Consult Specialty Diagnoses / Procedures Referred By Contac t Referred To Contact Cardiology Diagnoses WARE (dyspnea on exertion) Procedures CONSULT TO CARDIOLOGY OFFICE/OUTPATIENT NEW HIGH MDM 60-74 MINUTES Tanner Hook MD [address] [place] [address] Referral ID Status Reason Start Date Expiration Date V isits Requested Visits Authorized [id number] Closed PCP Requested Referral 09/04/2022 09/04/2023 1 1 Reason Comments Preparations For Procedures Reason Comments Established Patient Follow-Up Reason Comments F/U 6 months Reason Comments Chest Congestion cough, wheezing, sob ,fatigue and headache x 4 days Reason Comments Patient Update Reason Comments Cough Reason Onset Date Comments Refill Request 07/12/2024 Reason Comments Chest Congestion cough, sob x 4 days Reason Comments Cough Reason Comments Radiology CT Specialty Diagnoses / Procedures Referred By Contac t Referred To Contact CT IMAGING Diagnoses Status post abdominal aortic aneurysm (AAA) repair Left upper quadrant abdominal pain Procedures CT ABD/PEL W IVCON CT ABD & PELVIS W/CONTRAST Baltazar Rbuio, RAIL CAR OPERATOR.SENIOR MANAGER QUALITY ASSURANCE [address] [place] [address] [place] [address] Referral ID Status Reason Start Date Expiration Date V isits Requested Visits Authorized [id number] Closed Auto-Generate d Referral 08/17/2024 09/16/2025 1 1 Specialty Diagnoses / Procedures Referred By Contac t Referred To Contact CT IMAGING Diagnoses Status post abdominal aortic aneurysm (AAA) repair Left upper quadrant abdominal pain Procedures CT ABD/PEL W IVCON CT ABD & PELVIS W/CONTRAST Baltazar Rubio, RAIL CAR OPERATOR.SENIOR MANAGER QUALITY ASSURANCE [address] [place] [address] [place] [address] Reason Onset Date Comments Refill Request 11/06/2024 Reason Comments medication clarification Reason Comments Insurance Authorization Reason Comments 6 month f/up Care Teams (unrecognized sec tion and content) Care Tech Relationship Specialty Start Date End Date Tanner Hook MD [address] [place], [place] [address]81 PCP - General 06/10/02 Valery Mireles MD [address] [place], [place] [id number] Referring Vascular Surgery 03/11/20 Valery Mireles MD [address] [place], [place] [id number] Home Care Physician Vascular Surgery 03/11/20 Shanna Almaguer, RN [address] [place], [place] [phone] Wiring Mechanic Post Acute Care 03/12/20 Care Tech Relationship Specialty Start Date End Date Tanner Hook MD [address] [place], [place] [id number] PCP - General 06/10/02 Valery Mireles MD [address] [place] [address] Referring Vascular Surgery 03/11/20 Valery Mireles MD [address] [place] [address] Home Care Physician Vascular Surgery 03/11/20 Shanna Almaguer RN [address] [place] [address] Wiring Mechanic Post Acute Care 03/12/20 Care Tech Relationship Specialty Start Date End Date Tanner Hook MD [address] [place] [address] PCP - General 06/10/02 Valery Mireles MD [address] [place] [address] Referring Vascular Surgery 03/11/20 Valery Mireles MD [address] [place] [address] Home Care Physician Vascular Surgery 03/11/20 Shanna Almaguer RN [address] [place] [address] Wiring Mechanic Post Acute Care 03/12/20 Care Tech Relationship Specialty Start Date End Date Tanner Hook MD [address] [place] [address] PCP - General 06/10/02 Valery Mireles MD [address] [place] [address] Referring Vascular Surgery 03/11/20 Valery Mireles MD [address] [place] [address] Home Care Physician Vascular Surgery 03/11/20 Shanna Almaguer RN [address] [place] [address] Wiring Mechanic Post Acute Care 03/12/20 Care Tech Relationship Specialty Start Date End Date Tanner Hook MD [address] [place] [address] PCP - General 06/10/02 Valery Mireles MD [address] [place] [address] Referring Vascular Surgery 03/11/20 Valery Mireles MD [address] [place] [address] Home Care Provider Vascular Surgery 03/11/20 Shanna Almaguer RN [address] [place] [address] Wiring Mechanic Post Acute Care 03/12/20 Care Tech Relationship Specialty Start Date End Date Tanner Hook MD [address] [place] [address] PCP - General 06/10/02 Valery Mireles MD [address] [place] [address] Referring Vascular Surgery 03/11/20 Valery Mireles MD [address] [place] [address] Home Care Provider Vascular Surgery 03/11/20 Shanna Almaguer RN [address] [place] [address] Wiring Mechanic Post Acute Care 03/12/20 Care Tech Relationship Specialty Start Date End Date Tanner Hook MD [address] [place] [address] PCP - General 06/10/02 Valery Mireles MD [address] [place] [address] Referring Vascular Surgery 03/11/20 Valery Mireles MD [address] [place] [address] Home Care Provider Vascular Surgery 03/11/20 Shanna Almaguer RN [address] [place] [address] Wiring Mechanic Post Acute Care 03/12/20 Care Tech Relationship Specialty Start Date End Date Tanner Hook MD [address] [place] [address] PCP - General 06/10/02 Valery Mireles MD [address] [place] [address] Referring Vascular Surgery 03/11/20 Valery Mireles MD [address] [place] [address] Home Care Provider Vascular Surgery 03/11/20 Shanna Almaguer RN [address] [place] [address] Wiring Mechanic Post Acute Care 03/12/20 Care Tech Relationship Specialty Start Date End Date Tanner Hook MD [address] [place] [address] PCP - General 06/10/02 Valery Mireles MD [address] [place] [address] Referring Vascular Surgery 03/11/20 Valery Mireles MD [address] [place] [address] Home Care Provider Vascular Surgery 03/11/20 Shanna Almaguer RN [address] [place], [place] [phone] Wiring Mechanic Post Acute Care 03/12/20 Care Tech Relationship Specialty Start Date End Date Tanner Hook MD [address] [place] [address] PCP - General 06/10/02 Valery Mireles MD [address] [place] [address] Referring Vascular Surgery 03/11/20 Valery Mireles MD [address] [place] [address] Home Care Provider Vascular Surgery 03/11/20 Shanna Almaguer RN [address] [place] [address] Wiring Mechanic Post Acute Care 03/12/20 Care Tech Relationship Specialty Start Date End Date Tanner Hook MD [address] [place] [address] PCP - General 06/10/02 Valery Mireles MD [address] [place] [address] Referring Vascular Surgery 03/11/20 Valery Mireles MD [address] [place] [address] Home Care Provider Vascular Surgery 03/11/20 Shanna Almaguer RN [address] [place] [address] Wiring Mechanic Post Acute Care 03/12/20 Care Tech Relationship Specialty Start Date End Date Tanner Hook MD [address] [place] [address] PCP - General 06/10/02 Valery Mireles MD [address] [place] [address] Referring Vascular Surgery 03/11/20 Valery Mireles MD [address] [place] [address] Home Care Provider Vascular Surgery 03/11/20 Shanna Almaguer RN [address] [place] [address] Wiring Mechanic Post Acute Care 03/12/20 Care Tech Relationship Specialty Start Date End Date Tanner Hook MD [address] [place], [place] 297641 PCP - General 06/10/02 Valery Mireles MD [address] [place] [address] Referring Vascular Surgery 03/11/20 Valery Mireles MD [address] [place] [address] Home Care Provider Vascular Surgery 03/11/20 Shanna Almaguer RN [address] [place] [address] Wiring Mechanic Post Acute Care 03/12/20 Care Tech Relationship Specialty Start Date End Date Tanner Hook MD [address] [place], [place] 511121 PCP - General 06/10/02 Valery Mireles MD [address] [place] [address] Referring Vascular Surgery 03/11/20 Valery Mireles MD [address] [place] [address] Home Care Provider Vascular Surgery 03/11/20 Shanna Almaguer RN [address] [place] [address] Wiring Mechanic Post Acute Care 03/12/20 Care Tech Relationship Specialty Start Date End Date Tanner Hook MD [address] [place] [address] PCP - General 06/10/02 Valery Mireles MD [address] [place] [address] Referring Vascular Surgery 03/11/20 Valery Mireles MD [address] [place] [address] Home Care Provider Vascular Surgery 03/11/20 Shanna Almaguer RN [address] [place] [address] Wiring Mechanic Post Acute Care 03/12/20 Care Tech Relationship Specialty Start Date End Date Tanner Hook MD [address] [place] [address] PCP - General 06/10/02 Valery Mireles MD [address] [place] [address] Referring Vascular Surgery 03/11/20 Valery Mireles MD [address] [place] [address] Home Care Provider Vascular Surgery 03/11/20 Shanna Almaguer RN [address] [place] [address] Wiring Mechanic Post Acute Care 03/12/20 Care Tech Relationship Specialty Start Date End Date Tanner Hook MD [address] [place] [address] PCP - General 06/10/02 Valery Mireles MD [address] [place] [address] Referring Vascular Surgery 03/11/20 Valery Mireles MD [address] [place] [address] Home Care Provider Vascular Surgery 03/11/20 Shanna Almaguer RN [address] [place] [address] Wiring Mechanic Post Acute Care 03/12/20 Care Tech Relationship Specialty Start Date End Date Tanner Hook MD [address] [place] [address] PCP - General 06/10/02 Valery Mireles MD [address] [place] [address] Referring Vascular Surgery 03/11/20 Valery Mireles MD [address] [place] [address] Home Care Provider Vascular Surgery 03/11/20 Shanna Almaguer RN [address] [place] [address] Wiring Mechanic Post Acute Care 03/12/20 Care Tech Relationship Specialty Start Date End Date Tanner Hook MD [address] [place], [place] 778481 PCP - General 06/10/02 Valery Mireles MD [address] [place] [address] Referring Vascular Surgery 03/11/20 Valery Mireles MD [address] [place], [place] 3455595 Home Care Provider Vascular Surgery 03/11/20 Shanna Almaguer RN [address] [place], [place] [phone] Wiring Mechanic Post Acute Care 03/12/20 Care Tech Relationship Specialty Start Date End Date Tanner Hook MD [address] [place] [address] [id number] PCP - General 06/10/02 Valery Mireles MD [address] [place] [address] Referring Vascular Surgery 03/11/20 Valery Mireles MD [address] [place] [address] Home Care Provider Vascular Surgery 03/11/20 Shanna Almaguer RN [address] [place] [address] Wiring Mechanic Post Acute Care 03/12/20 Care Tech Relationship Specialty Start Date End Date Tanner Hook MD [address] [place], [place] 689261 PCP - General 06/10/02 Valery Mireles MD [address] [place] [address] Referring Vascular Surgery 03/11/20 Valery Mireles MD [address] [place] [address] Home Care Provider Vascular Surgery 03/11/20 Shanna Almaguer RN [address] [place], [place] 6161531 Wiring Mechanic Post Acute Care 03/12/20 Care Tech Relationship Specialty Start Date End Date Tanner Hook MD [address] [place], [place] 699661 PCP - General 06/10/02 Valery Mireles MD [address] [place] [address] Referring Vascular Surgery 03/11/20 Valery Mireles MD [address] [place] [address] Home Care Provider Vascular Surgery 03/11/20 Shanna Almaguer RN [address] [place] [address] Wiring Mechanic Post Acute Care 03/12/20 Care Tech Relationship Specialty Start Date End Date Tanner Hook MD [address] [place] [address] PCP - General 06/10/02 Valery Mireles MD [address] [place] [address] Referring Vascular Surgery 03/11/20 Valery Mireles MD [address] [place] [address] Home Care Provider Vascular Surgery 03/11/20 Shanna Almaguer RN [address] [place], [place] 68956[address] Wiring Mechanic Post Acute Care 03/12/20 Care Tech Relationship Specialty Start Date End Date Tanner Hook MD [address] [place] [address] PCP - General 06/10/02 Valery Mireles MD [address] [place] [address] Referring Vascular Surgery 03/11/20 Valery Mireles MD [address] [place] [address] Home Care Provider Vascular Surgery 03/11/20 Shanna Almaguer RN [address] [place] [address] Wiring Mechanic Post Acute Care 03/12/20 Care Tech Relationship Specialty Start Date End Date Tanner Hook MD [address] [place] [address] PCP - General 06/10/02 Valery Mireles MD [address] [place] [address] Referring Vascular Surgery 03/11/20 Valery Mireles MD [address] [place] [address] Home Care Provider Vascular Surgery 03/11/20 Shanna Almaguer RN [address] [place] [address] Wiring Mechanic Post Acute Care 03/12/20 Care Tech Relationship Specialty Start Date End Date Tanner Hook MD [address] [place], [place] 250971 PCP - General 06/10/02 Valery Mireles MD [address] [place] [address] Referring Vascular Surgery 03/11/20 Valery Mireles MD [address] [place] [address] Home Care Provider Vascular Surgery 03/11/20 Shanna Almaguer RN [address] [place] [address] Wiring Mechanic Post Acute Care 03/12/20 Care Tech Relationship Specialty Start Date End Date Tanner Hook MD [address] [place], [place] 243371 PCP - General 06/10/02 Valery Mireles MD [address] [place] [address] Referring Vascular Surgery 03/11/20 Valery Mireles MD [address] [place] [address] Home Care Provider Vascular Surgery 03/11/20 Shanna Almaguer RN [address] [place] [address] Wiring Mechanic Post Acute Care 03/12/20 Care Tech Relationship Specialty Start Date End Date Tanner Hook MD [address] [place], [place] 243701 PCP - General 06/10/02 Valery Mireles MD [address] [place] [address] Referring Vascular Surgery 03/11/20 Valery Mireles MD [address] [place] [address] Home Care Provider Vascular Surgery 03/11/20 Shanna Almaguer RN [address] [place], [place] [phone] Wiring Mechanic Post Acute Care 03/12/20 Care Tech Relationship Specialty Start Date End Date Tanner Hook MD [address] [place], [place] 174111 PCP - General 06/10/02 Valery Mireles MD [address] [place] [address] Referring Vascular Surgery 03/11/20 Valery Mireles MD [address] [place] [address] Home Care Provider Vascular Surgery 03/11/20 Shanna Almaguer RN [address] [place], [place] [phone] Wiring Mechanic Post Acute Care 03/12/20 Baltazar Rubio, RAIL CAR OPERATOR.SENIOR MANAGER QUALITY ASSURANCE [address] [place], [place] 595991 Web Publisher Internal Medicine 07/10/24 Ted Gill, RAIL CAR OPERATOR.HEAVY EQUIPMENT SUPERVISOR [address] [place], [place] [phone] Web Publisher Internal Medicine 07/10/24 Care Tech Relationship Specialty Start Date End Date Tanner Hook MD [address] [place], [place] 823621 PCP - General 06/10/02 Valery Mireles MD [address] [place] [address] Referring Vascular Surgery 03/11/20 Valery Mireles MD [address] [place] [address] Home Care Provider Vascular Surgery 03/11/20 Shanna Almaguer RN [address] [place], [place] [phone] Wiring Mechanic Post Acute Care 03/12/20 Baltazar Rubio, RAIL CAR OPERATOR.SENIOR MANAGER QUALITY ASSURANCE [address] [place] [address] [phone] Web Publisher Internal Medicine 07/10/24 Ted Gill RAIL CAR OPERATOR.HEAVY EQUIPMENT SUPERVISOR [address] [place] [address] [phone] Web Publisher Internal Medicine 07/10/24 Care Tech Relationship Specialty Start Date End Date Tanner Hook MD [address] [place] [address] [id number] PCP - General 06/10/02 Valery Mireles MD [address] [place] [address] Referring Vascular Surgery 03/11/20 Valery Mireles MD [address] [place] [address] Home Care Provider Vascular Surgery 03/11/20 Shanna Almaguer RN [address] [place], [place] [phone] Wiring Mechanic Post Acute Care 03/12/20 Baltazar Rubio, IGGY.SENIOR MANAGER QUALITY ASSURANCE [address] [place] [address] Web Publisher Internal Medicine 07/10/24 Ted Gill APRN.HEAVY EQUIPMENT SUPERVISOR [address] [place] [phone] Web Publisher Internal Medicine 07/10/24 Care Tech Relationship Specialty Start Date End Date Tanner Hook MD [facility] [place] [address] PCP - General 06/10/02 Valery Mireles MD [address] [place] [address] Referring Vascular Surgery 03/11/20 Valery Mireles MD [address] [place] [address] Home Care Provider Vascular Surgery 03/11/20 Shanna Almaguer, RN [address] [place], [place] [phone] Wiring Mechanic Post Acute Care 03/12/20 Baltazar Rubio APRN.SENIOR MANAGER QUALITY ASSURANCE [address] [place] [phone] Web Publisher Internal Medicine 07/10/24 Ted Gill RAIL CAR OPERATOR.HEAVY EQUIPMENT SUPERVISOR [address] [place] [address] [phone] Web Publisher Internal Medicine 07/10/24 Care Tech Relationship Specialty Start Date End Date Tanner Hook MD [address] [place] [address] PCP - General 06/10/02 Valery Mireles MD [address] [place] [address] Referring Vascular Surgery 03/11/20 Valery Mireles MD [address] [place] [address] Home Care Provider Vascular Surgery 03/11/20 Shanna Almaguer RN [address] [place], [place] [phone] Wiring Mechanic Post Acute Care 03/12/20 Baltazar Rubio, RAIL CAR OPERATOR.SENIOR MANAGER QUALITY ASSURANCE [address] [place] [phone] Web Publisher Internal Medicine 07/10/24 Ted Gill APRN.HEAVY EQUIPMENT SUPERVISOR [address] [place] [address] [phone] Web Publisher Internal Medicine 07/10/24 Care Tech Relationship Specialty Start Date End Date Tanner Hook MD [address] [place] [address] [id number] PCP - General 06/10/02 Valery Mireles MD [address] [place] [address] Referring Vascular Surgery 03/11/20 Valery Mireles MD [address] [place] [address] Home Care Provider Vascular Surgery 03/11/20 Shanna Almaguer RN [address] [place], [place] [phone] Wiring Mechanic Post Acute Care 03/12/20 Baltazar Rubio, IGGY.SENIOR MANAGER QUALITY ASSURANCE [address] [place] [address] Web Publisher Internal Medicine 07/10/24 Ted Gill APRN.HEAVY EQUIPMENT SUPERVISOR [address] [place] [address] [phone] Web Publisher Internal Medicine 07/10/24 Care Tech Relationship Specialty Start Date End Date Tanner Hook MD [facility] [place] [address] PCP - General 06/10/02 Valery Mireles MD [address] [place], [place] [phone] Referring Vascular Surgery 03/11/20 Valery Mireles MD [address] [place] [address] Home Care Provider Vascular Surgery 03/11/20 Shanna Almaguer, RN [address] [place], [place] [phone] Wiring Mechanic Post Acute Care 03/12/20 Baltazar Rubio APRN.SENIOR MANAGER QUALITY ASSURANCE [address] [place] [phone] Web Publisher Internal Medicine 07/10/24 Ted Gill RAIL CAR OPERATOR.HEAVY EQUIPMENT SUPERVISOR [address] [place] [address] [phone] Web Publisher Internal Medicine 07/10/24 Care Tech Relationship Specialty Start Date End Date Tanner Hook MD [address] [place], [place] 843911 PCP - General 06/10/02 Valery Mireles MD [address] [place] [address] Referring Vascular Surgery 03/11/20 Valery Mireles MD [address] [place] [address] Home Care Provider Vascular Surgery 03/11/20 Shanna Almaguer RN [address] [place], [place] [phone] Wiring Mechanic Post Acute Care 03/12/20 Baltazar Rubio, RAIL CAR OPERATOR.SENIOR MANAGER QUALITY ASSURANCE [address] [place] [phone] Web Publisher Internal Medicine 07/10/24 Ted Gill RAIL CAR OPERATOR.HEAVY EQUIPMENT SUPERVISOR [address] [place] [address] [phone] Web Publisher Internal Medicine 07/10/24 Care Tech Relationship Specialty Start Date End Date Tanner Hook MD [address] [place] [address] [id number] PCP - General 06/10/02 Valery Mireles MD [address] [place] [address] Referring Vascular Surgery 03/11/20 Valery Mireles MD [address] [place] [address] Home Care Provider Vascular Surgery 03/11/20 Shanna Almaguer RN [address] [place], [place] [phone] Wiring Mechanic Post Acute Care 03/12/20 Baltazar Rubio, IGGY.SENIOR MANAGER QUALITY ASSURANCE [address] [place] [address] Web Publisher Internal Medicine 07/10/24 Ted Gill APRN.HEAVY EQUIPMENT SUPERVISOR [address] [place] [address] Web Publisher Internal Medicine 10/24/24 Care Tech Relationship Specialty Start Date End Date Tanner Hook MD [address] [place] [address] PCP - General 06/10/02 Valery Mireles MD [address] [place], [place] [phone] Referring Vascular Surgery 03/11/20 Valery Mireles MD [address] [place] [address] Home Care Provider Vascular Surgery 03/11/20 Shanna Almaguer RN [address] [place], [place] [phone] Wiring Mechanic Post Acute Care 03/12/20 Baltazar Rubio APRN.SENIOR MANAGER QUALITY ASSURANCE [address] [place] [address] Web Publisher Internal Medicine 07/10/24 Ted Gill RAIL CAR OPERATOR.HEAVY EQUIPMENT SUPERVISOR [address] [place] [address] Web Publisher Internal Medicine 10/24/24 Care Tech Relationship Specialty Start Date End Date Tanner Hook MD [address] [place] [address] PCP - General 06/10/02 Valery Mireles MD [address] [place] [address] Referring Vascular Surgery 03/11/20 Valery Mireles MD [address] [place] [address] Home Care Provider Vascular Surgery 03/11/20 Shanna Almaguer RN [address] [place], [place] [phone] Wiring Mechanic Post Acute Care 03/12/20 Ted Gill APRN.HEAVY EQUIPMENT SUPERVISOR [address] [place] [address] Web Publisher Internal Medicine 10/24/24 Baltazar Rubio APRN.SENIOR MANAGER QUALITY ASSURANCE [address] [place] [address] Web Publisher Internal Medicine 12/20/24 Care Tech Relationship Specialty Start Date End Date Tanner Hook MD [address] [place] [address] PCP - General 06/10/02 Valery Mireles MD [address] [place] [address] Referring Vascular Surgery 03/11/20 Valery Mireles MD [address] [place] [address] Home Care Provider Vascular Surgery 03/11/20 Shanna Almaguer RN [address] [place], [place] [phone] Wiring Mechanic Post Acute Care 03/12/20 Ted Gill APRN.HEAVY EQUIPMENT SUPERVISOR [address] [facility] [address] [facility] Internal Medicine 10/24/24 Baltazar Rubio APRN.SENIOR MANAGER QUALITY ASSURANCE [address] [facility] [address] [facility] Internal Medicine 12/20/24 Goals (unrecognized section and content) Goals may be documented in a n alternate sectionGoals may be documented in an alternate section FOR RECORDS PERTAINING TO PATIENTS WHO ARE OR HAVE BEEN ENROLLED IN A CHEMICAL DEPENDENCY/SUBSTANCEABUSE PROGRAM, SOME INFORMATION MAY BE OMITTED. This clinical summary was aggregated from multiple sources. Caution should be exercised in using it in the provision of clinical care. This summary normalizes information from multiple sources, and as a consequence, information in this document may materially change the coding, format and clinical context of patient data. In addition, data may be omitted in some cases. CLINICAL DECISIONS SHOULD BE BASED ON THE PRIMARY CLINICAL RECORDS. [facility] [employer] [facility]. provides no warranty or guarantee of the accuracy or completeness of information in this document.
--- NOTE | 2025-02-17 17:40 | RAD_ITS ---
PROCEDURE: L/S SPINE MIN 4 VIEWS 02/17/2025 REASON FOR EXAM: FALL TECHNIQUE: L/S SPINE MIN 4 VIEWS COMPARISON: CT abdomen and pelvis 01/07/2024 FINDINGS: See below. RAD/L/S Spine Min 4 Views IMPRESSION: There is S shaped curvature of the thoracic and lumbar spine which limits this evaluation. No definite evidence of lumbar vertebral body height loss or displaced fracture. Consider CT if there is heigh tened clinical concern. Multilevel degenerative changes, with facet arthrosis most pronounced at L4-5 a nd L5-S1. Subjective osteopenia. Surgical clips project throughout the abdomen and pelvis. Right hip arthroplasty incompletely imaged. Reading Location: [facility]
--- NOTE | 2025-02-17 17:40 | RAD_ITS ---
PROCEDURE: HIP, UNI W/ PELVIS 2-3 VIEWS 02/17/2025 REASON FOR EXAM: FALL, HIP PAIN TECHNIQUE: Frontal view of the pelvis with dedicated views of the left hip COMPARISON: CT abdomen and pelvis 01/07/2024 FINDINGS: No displaced fracture. Healed deformity of the right inferior pubic ramus, unchanged. Right hip arthroplasty is partially imaged, without definite complication. Ecsffrrs-fa-kqkpal narrowing of the left hip joint. Degenerative changes of the sacroiliac joints. Surgical clips project over the abdomen and pelvis. RAD/HIP, UNI W/ Pelvis 2-3 Views IMPRESSION: 1. No displaced pelvic fracture. Consider CT if there is persistent clinical concern for nondisplaced fracture. 2. [id number]-[id number] osteoarthritis of the left hip. Reading Location: [facility]
[2025-02-17 20:12] VITALS: BP 155/78; PULSE 77; RESP 16; O2SAT 97
[2025-02-17] MEDS: HYDROcodone Bitartrate/Apap 5/325 Tablet PO (20:23)
--- NOTE | 2025-02-17 20:47 | CT_ITS ---
PROCEDURE: EXTREMITY LOWER WITHOUT CONTRA N/A REASON FOR EXAM: LEFT HIP PAIN TECHNIQUE: EXTREMITY LOWER WITHOUT CONTRA Coronal and Sagittal reconstruction series were provided. One or more dose reduction techniques were used (e.g., Automated exposure control, adjustment of the mA and/or kV according to patient size, use of iterative reconstruction technique. RADIATION DOSE SUMMARY: CTDlvol: 15.8 mGy DLP: 690 mGycm COMPARISON: Left hip radiographs 02/17/2025, CT abdomen and pelvis 01/07/2024 FINDINGS: No pelvic fracture identified. Moderate to severe narrowing in the left hip joint with osteophyte formation and subchondral cystic change. Superficial soft tissues are unremarkable. Leftward curvature of the lumbar spine with leftward listhesis of L4 on L5, similar to prior. Degenerative changes of the left sacroiliac joint. Visualized abdominal aorta with atherosclerotic calcification measures up to 3.7 cm in diameter, unchanged from 01/07/2024 by my measurement. Colonic diverticulosis. CT/Extremity Lower without Contra IMPRESSION: 1. No CT evidence of pelvic fracture. 2. Abdominal aortic aneurysm measuring up to 3.7 cm is partially imaged, uncha nged from 01/07/2024. Reading Location: [facility]
[2025-02-17 22:00] VITALS: BP 174/90; PULSE 71; RESP 18; TEMP 36.6; O2SAT 99
== END 2025-02-17 22:15 | disposition home or self-care (01) ==
PROVIDERS: Emergency Provider Emergency Medicine; PCP Internal Medicine; Visit Provider Emergency Medicine
DX: M25.552 Pain in left hip (principal); I25.10 Atherosclerotic heart disease of native coronary artery without angina pectoris; F17.210 Nicotine dependence, cigarettes, uncomplicated; E78.5 Hyperlipidemia, unspecified; M16.12 Unilateral primary osteoarthritis, left hip; S09.90XA Unspecified injury of head, initial encounter; W18.30XA Fall on same level, unspecified, initial encounter; K21.9 Gastro-esophageal reflux disease without esophagitis; F32.A Depression, unspecified; F41.9 Anxiety disorder, unspecified; Z79.82 Long term (current) use of aspirin; Z79.02 Long term (current) use of antithrombotics/antiplatelets; Z79.899 Other long term (current) drug therapy; Z96.641 Presence of right artificial hip joint; Y93.H2 Activity, gardening and landscaping
CPT/HCPCS: 70450; 72110; 73502; 73700; 99283

== ENCOUNTER → 2025-04-04 | Outpatient (CLI) | payer MEDICARE, SELFPAY ==
--- NOTE | 2025-04-04 12:45 | RAD_ITS ---
PROCEDURE: INJ/ASP JEOVANNY JT SHOULD/HIP/KNEE 04/04/2025 REASON FOR EXAM: LEFT HIP INJECTION TECHNIQUE: Procedure Code: RADINJ/ASP MJ Modality: DX Procedure: INJ/ASP JEOVANNY JT SHOULD/HIP/KNEE The procedure as well as the benefits and possible complications including infection and bleeding were explained to the patient. Informed consent was obtained. The patient was in the supine position. The overlying skin was prepped and draped in the usual sterile fashion. Following local anesthetic application, a 22 gauge spinal needle was placed into the left hip joint. 2 cc of Isovue-300 was injected for confirmation. Following this, the medication was injected. 80 mg of Kenalog and 3 cc of 1% lidocaine was injected. The patient tolerated the procedure well. Dose report: Fluoroscopy: 37 seconds. Radiation dose: 11.4 mGy. 2 images were submitted. COMPARISON: Prior study dated February 17, 2025. FINDINGS: Successful left hip injection RAD/Inj/Asp Jeovanny Jt Should/Hip/Knee IMPRESSION: Successful left hip injection. The patient tolerated the procedure well. Reading Location: [place] [id number]
[2025-04-04 12:49] LABS: Hematocrit 40.1 % (37-47); Hemoglobin 13.8 g/dL (12.0-15.0); Immature Granulocytes Count 0.030 X10^3/uL (0.0-0.0); Mean Corp Hgb Conc 34.4 g/dL (32-36); Mean Corpuscular Volume 84.8 fL (81-99); Mean Platelet Vol. 9.4 fl (6.2-12.0); NRBC Flagged by Analyzer 0 % (0-5); Platelet Count 249 K/mm3 (150-450); RBC Distribution Width CV 14.4 % (11.6-14.6); RBC Distribution Width SD 44.2 fl (35.1-43.9); Red Blood Count 4.73 M/mm3 (4.2-5.4); White Blood Count 7.5 K/mm3 (4.4-11.0)
[2025-04-04 13:01] LABS: Partial Thromboplast Time 28.1 Seconds (24.1-36.2); Prothrombin Time (Protime)PT. 13.5 SECONDS (11.7-14.9)
[2025-04-04] MEDS: Lidocaine 2% (5ml sdv) 5 ML VIAL.MPF INFILT (13:18)
[2025-04-04] MEDS: Lidocaine 1% (5 ml sdv) 5 ML Vial 3 ML OPERA.SITE (13:21)
== END | disposition home or self-care (01) ==
PROVIDERS: Radiology Diagnostic Radiology; PCP Internal Medicine; Referring Provider Orthopaedic Surgery; Visit Provider Orthopaedic Surgery
DX: M25.552 Pain in left hip (principal); G89.29 Other chronic pain; Z01.812 Encounter for preprocedural laboratory examination
CPT/HCPCS: 20610; 36415; 77002; 85025; 85610; 85730